=== PATIENT | male | born 1955 | race American Indian/Alaskan Native ===

== ENCOUNTER 2020-10-07 15:34 | Inpatient (IN) | payer MEDICARE, OTHER ==
[2020-10-07] MEDS ORDERED: VANCOMYCIN PHARMACY TO DOSE IV SCH (16:00)
[2020-10-07] MEDS ORDERED: CEFEPIME/NS 2 GM/100 ML 2 GM/100 ML BAG IV ONE (16:00)
[2020-10-07] MEDS ORDERED: SODIUM CHLORIDE 0.9% 1000 ML 1,000 ML IV ONE (16:04)
--- NOTE | 2020-10-07 16:26 | XRay Report ---
CHEST 1 VIEW INDICATION: shortness of breath. COMPARISON: None FINDINGS: Support devices: None. Heart: Within normal limits. Lungs/Pleura: No acute air space or interstitial disease. Additional findings: None. IMPRESSION: No acute findings. Signer Name: Bassam Mata Jr, MD Signed: 10/07/2020 4:22 PM Workstation Name: [id number]
[2020-10-07 16:55] LABS: Hematocrit 28.7 % (35.5-45.6); Hemoglobin 8.7 gm/dl (11.8-15.2); Mean Corpuscular HGB Conc 30 % (32-34); Mean Corpuscular Volume 95 fl (84-94); Platelet Count 217 K/mm3 (140-440); Red Blood Count 3.03 M/mm3 (3.65-5.03)
[2020-10-07 16:57] LABS: Red Cell Distribution Width 27.1 % (13.2-15.2)
[2020-10-07] MEDS ORDERED: VANCOMYCIN 2,000 MG in SODIUM CHLORIDE 0.9% 500 ML 500 ML IV ONE (17:00)
[2020-10-07 17:04] LABS: Bacteria,Urine 3+ /HPF (Negative); Bilirubin,Urine SM (Negative); Blood,Urine NEG (Negative); Color,Urine Amber (Yellow)
[2020-10-07 17:12] LABS: Ictotest,Urine Negative (Negative)
[2020-10-07 17:21] LABS: Calcium 8.3 mg/dL (8.4-10.2)
[2020-10-07 17:35] LABS: Chol/HDL Ratio 6.8 %
[2020-10-07 17:48] LABS: Total Cells Counted 100
[2020-10-07 17:49] LABS: Anisocytosis 3+; Dimorphic RBC Yes; Hypochromasia Few; Macrocytosis Few; Schistocytes Rare
--- NOTE | 2020-10-07 18:24 | Emergency Department Report ---
ED Altered Mental Status HPI - General Chief Complaint: Dyspnea/Respdistress Stated Complaint: AMS PUI?: No Time Seen by Provider: 10/07/20 15:51 Source: EMS Mode of arrival: Stretcher Limitations: Altered Mental Status - History of Present Illness Initial Comments: CC: altered mental status, shortness of breathi HPI: This is a 64-year-old male with history of Covid 19, multiple weakness, cognitive deficit, respiratory failure hypoxia, acute kidney failure, CVA, vein thrombosis, severe obesity, anemia, hypertension, GERD, MRSA, BPH, presents with altered mental status and shortness of breath. Patient presents from long term facility. Patient was given 2 L normal saline for dehydration. He began to have shortness of breath. Pulmonary edema but suspected by long term facility staff. Patient has been altered with decreased level of consciousness. I have reviewed medical record provided by [facility]. I have reviewed medication list. Patient is full code According to documentation patient had a chest radiograph ordered 3 days prior to arrival for low oxygen saturation. MD Complaint: altered mental status, decreased responsiveness -: Gradual, days(s) (For the past several days) Severity: severe Consistency of Symptoms: getting worse Context: other (Recent hypoxia shortness of breath) - Related Data Allergies Allergy/AdvReac Type Severity Reaction Status Date / Time No Known Allergies Allergy Unverified 10/07/20 16:12 ED Review of Systems ROS: Stated complaint: AMS Other details as noted in HPI Comment: Unobtainable due to pts medical conditions (Altered mental status) ED Past Medical Hx - Past Medical History Previous Medical History?: Yes Hx Hypertension: Yes Hx Tuberculosis: No Additional medical history: Please see HPI - Surgical History Past Surgical History?: No Additional Surgical History: No documented surgeries according to snf documentation - Social History Smoking Status: Never Smoker Substance Use Type: None ED Physical Exam - General Limitations: Altered Mental Status General appearance: lethargic, other (Mouth open, intact gag reflex, will localize pain,) - Head Head exam: Present: atraumatic, normocephalic - Eye Eye exam: Absent: scleral icterus, conjunctival injection - ENT ENT exam: Present: mucous membranes moist - Neck Neck exam: Present: normal inspection, full ROM - Respiratory Respiratory exam: Present: rales, decreased breath sounds. Absent: wheezes, rhonchi, stridor - Cardiovascular Cardiovascular Exam: Present: regular rate, normal rhythm, normal heart sounds. Absent: rubs, gallop - GI/Abdominal GI/Abdominal exam: Present: soft, normal bowel sounds. Absent: distended, tenderness, guarding, rebound - Rectal Rectal exam: Present: deferred - exam: Present: other (Iglesias catheter in place, collection bag contains dark urine with sediment) - Extremities Exam Extremities exam: Present: pedal edema, other (Lichenified skin multiple hyperpigmented papular lesions involving both lower legs) - Neurological Exam Neurological exam: Present: altered - Psychiatric Psychiatric exam: Present: flat affect - Skin Skin exam: Present: warm, dry, intact, normal color. Absent: rash ED Course Vital Signs 10/07/20 10/07/20 10/07/20 15:42 15:45 15:57 Temperature 99.9 F H Pulse Rate 89 89 90 Respiratory 24 29 H 27 H Rate Blood Pressure 96/49 96/49 O2 Sat by Pulse 100 100 100 Oximetry 10/07/20 10/07/20 10/07/20 16:01 16:07 16:15 Temperature Pulse Rate 87 87 Respiratory 21 26 H Rate Blood Pressure 97/52 94/47 O2 Sat by Pulse 100 100 100 Oximetry 10/07/20 10/07/20 10/07/20 16:31 16:45 17:01 Temperature Pulse Rate 84 84 86 Respiratory 24 23 27 H Rate Blood Pressure 84/48 97/73 77/47 O2 Sat by Pulse 100 99 100 Oximetry 10/07/20 10/07/20 10/07/20 17:15 17:31 17:45 Temperature Pulse Rate 82 80 81 Respiratory 29 H 28 H 25 H Rate Blood Pressure 77/47 85/43 82/41 O2 Sat by Pulse 100 100 100 Oximetry 10/07/20 10/07/20 10/07/20 18:01 18:15 18:31 Temperature Pulse Rate 80 82 80 Respiratory 25 H 23 21 Rate Blood Pressure 95/44 89/47 74/47 O2 Sat by Pulse 100 97 100 Oximetry 10/07/20 18:45 Temperature Pulse Rate 69 Respiratory 25 H Rate Blood Pressure 85/46 O2 Sat by Pulse 100 Oximetry - Lab Data Result diagrams: 10/07/20 16:38 10/07/20 16:38 Lab Results 03/18/21 03/18/21 03/18/21 Range/Units 16:38 16:38 16:38 WBC 14.1 H (4.5-11.0) K/mm3 RBC 3.03 L (3.65-5.03) M/mm3 Hgb 8.7 L (11.8-15.2) gm/dl Hct 28.7 L (35.5-45.6) % MCV 95 H (84-94) fl MCH 29 (28-32) pg MCHC 30 L (32-34) % RDW 27.1 H (13.2-15.2) % Plt Count 217 (140-440) K/mm3 Add Manual Diff Complete Total Counted 100 Seg Neuts % (Manual) 66.0 (40.0-70.0) % Lymphocytes % (Manual) 23.0 (13.4-35.0) % Monocytes % (Manual) 9.0 H (0.0-7.3) % Eosinophils % (Manual) 2.0 (0.0-4.3) % Nucleated RBC % Not Reportable Seg Neutrophils # Man 9.3 H (1.8-7.7) K/mm3 Band Neutrophils # 0.0 K/mm3 Lymphocytes # (Manual) 3.2 (1.2-5.4) K/mm3 Abs React Lymphs (Man) 0.0 K/mm3 Monocytes # (Manual) 1.3 H (0.0-0.8) K/mm3 Eosinophils # (Manual) 0.3 (0.0-0.4) K/mm3 Basophils # (Manual) 0.0 (0.0-0.1) K/mm3 Metamyelocytes # 0.0 K/mm3 Myelocytes # 0.0 K/mm3 Promyelocytes # 0.0 K/mm3 Blast Cells # 0.0 K/mm3 WBC Morphology Not Reportable Hypersegmented Neuts Not Reportable Hyposegmented Neuts Not Reportable Hypogranular Neuts Not Reportable Smudge Cells Not Reportable Toxic Granulation Not Reportable Toxic Vacuolation Not Reportable Dohle Bodies Not Reportable Pelger-Huet Anomaly Not Reportable Darryl Rods Not Reportable Platelet Estimate Not Reportable Clumped Platelets Not Reportable Plt Clumps, EDTA Not Reportable Large Platelets Not Reportable Giant Platelets Not Reportable Platelet Satelliting Not Reportable Plt Morphology Comment Not Reportable RBC Morphology Not Reportable Dimorphic RBCs Yes Polychromasia Not Reportable Hypochromasia Few Poikilocytosis Not Reportable Anisocytosis 3+ Microcytosis 1+ Macrocytosis Few Spherocytes Not Reportable Pappenheimer Bodies Not Reportable Sickle Cells Not Reportable Target Cells Not Reportable Tear Drop Cells Not Reportable Ovalocytes Not Reportable Helmet Cells Not Reportable Wilson-Ainsworth Bodies Not Reportable [place] Rings Not Reportable [place] Cells Not Reportable Bite Cells Not Reportable Crenated Cell Not Reportable Elliptocytes Not Reportable Acanthocytes (Spur) Not Reportable Rouleaux Not Reportable Hemoglobin C Crystals Not Reportable Schistocytes Rare Malaria parasites Not Reportable Lucas Bodies Not Reportable Hem Pathologist Commnt No PT (12.2-14.9) Sec. INR (0.87-1.13) Sodium 158 H (137-145) mmol/L Potassium 3.4 L (3.6-5.0) mmol/L Chloride 122.7 H (98-107) mmol/L Carbon Dioxide 22 (22-30) mmol/L Anion Gap 17 mmol/L BUN 30 H (9-20) mg/dL Creatinine 1.7 H (0.8-1.3) mg/dL Estimated GFR 49 ml/min BUN/Creatinine Ratio 18 % Glucose 144 H (75-100) mg/dL Lactic Acid 2.50 H* (0.7-2.0) mmol/L Calcium 8.3 L (8.4-10.2) mg/dL Total Bilirubin 1.40 H (0.1-1.2) mg/dL AST 32 (5-40) units/L ALT 18 (7-56) units/L Alkaline Phosphatase 61 (35-129) units/L Troponin T (0.00-0.029) ng/mL NT-Pro-B Natriuret Pep (0-900) pg/mL Total Protein 7.7 (6.3-8.2) g/dL Albumin 3.0 L (3.9-5) g/dL Albumin/Globulin Ratio 0.6 % Triglycerides (2-149) mg/dL Cholesterol (50-199) mg/dL LDL Cholesterol Direct (50-130) mg/dL HDL Cholesterol (40-59) mg/dL Cholesterol/HDL Ratio % Urine Color (Yellow) Urine Turbidity (Clear) Urine pH (5.0-7.0) Ur Specific [place] (1.003-1.030) Urine Protein (Negative) mg/dL Urine Glucose (UA) (Negative) mg/dL Urine Ketones (Negative) mg/dL Urine Blood (Negative) Urine Nitrite (Negative) Urine Bilirubin (Negative) Urine Ictotest (Negative) Urine Urobilinogen (<2.0) mg/dL Ur Leukocyte Esterase (Negative) Urine WBC (Auto) (0.0-6.0) /HPF Urine RBC (Auto) (0.0-6.0) /HPF Urine Bacteria (Auto) (Negative) /HPF Urine WBC Clumps /HPF Urine Yeast (Budding) /HPF 10/07/20 10/07/20 10/07/20 Range/Units 16:38 16:38 18:17 WBC (4.5-11.0) K/mm3 RBC (3.65-5.03) M/mm3 Hgb (11.8-15.2) gm/dl Hct (35.5-45.6) % MCV (84-94) fl MCH (28-32) pg MCHC (32-34) % RDW (13.2-15.2) % Plt Count (140-440) K/mm3 Add Manual Diff Total Counted Seg Neuts % (Manual) (40.0-70.0) % Lymphocytes % (Manual) (13.4-35.0) % Monocytes % (Manual) (0.0-7.3) % Eosinophils % (Manual) (0.0-4.3) % Nucleated RBC % Seg Neutrophils # Man (1.8-7.7) K/mm3 Band Neutrophils # K/mm3 Lymphocytes # (Manual) (1.2-5.4) K/mm3 Abs React Lymphs (Man) K/mm3 Monocytes # (Manual) (0.0-0.8) K/mm3 Eosinophils # (Manual) (0.0-0.4) K/mm3 Basophils # (Manual) (0.0-0.1) K/mm3 Metamyelocytes # K/mm3 Myelocytes # K/mm3 Promyelocytes # K/mm3 Blast Cells # K/mm3 WBC Morphology Hypersegmented Neuts Hyposegmented Neuts Hypogranular Neuts Smudge Cells Toxic Granulation Toxic Vacuolation Dohle Bodies Pelger-Huet Anomaly Darryl Rods Platelet Estimate Clumped Platelets Plt Clumps, EDTA Large Platelets Giant Platelets Platelet Satelliting Plt Morphology Comment RBC Morphology Dimorphic RBCs Polychromasia Hypochromasia Poikilocytosis Anisocytosis Microcytosis Macrocytosis Spherocytes Pappenheimer Bodies Sickle Cells Target Cells Tear Drop Cells Ovalocytes Helmet Cells Wilson-Ainsworth Bodies [place] Rings [place] Cells Bite Cells Crenated Cell Elliptocytes Acanthocytes (Spur) Rouleaux Hemoglobin C Crystals Schistocytes Malaria parasites Lucas Bodies Hem Pathologist Commnt PT 32.7 H (12.2-14.9) Sec. INR 3.17 H (0.87-1.13) Sodium (137-145) mmol/L Potassium (3.6-5.0) mmol/L Chloride (98-107) mmol/L Carbon Dioxide (22-30) mmol/L Anion Gap mmol/L BUN (9-20) mg/dL Creatinine (0.8-1.3) mg/dL Estimated GFR ml/min BUN/Creatinine Ratio % Glucose (75-100) mg/dL Lactic Acid (0.7-2.0) mmol/L Calcium (8.4-10.2) mg/dL Total Bilirubin (0.1-1.2) mg/dL AST (5-40) units/L ALT (7-56) units/L Alkaline Phosphatase (35-129) units/L Troponin T 0.087 H (0.00-0.029) ng/mL NT-Pro-B Natriuret Pep 2155 H (0-900) pg/mL Total Protein (6.3-8.2) g/dL Albumin (3.9-5) g/dL Albumin/Globulin Ratio % Triglycerides 193 H (2-149) mg/dL Cholesterol 136 (50-199) mg/dL LDL Cholesterol Direct 82 (50-130) mg/dL HDL Cholesterol 20 L (40-59) mg/dL Cholesterol/HDL Ratio 6.80 % Urine Color (Yellow) Urine Turbidity (Clear) Urine pH (5.0-7.0) Ur Specific [place] (1.003-1.030) Urine Protein (Negative) mg/dL Urine Glucose (UA) (Negative) mg/dL Urine Ketones (Negative) mg/dL Urine Blood (Negative) Urine Nitrite (Negative) Urine Bilirubin (Negative) Urine Ictotest (Negative) Urine Urobilinogen (<2.0) mg/dL Ur Leukocyte Esterase (Negative) Urine WBC (Auto) (0.0-6.0) /HPF Urine RBC (Auto) (0.0-6.0) /HPF Urine Bacteria (Auto) (Negative) /HPF Urine WBC Clumps /HPF Urine Yeast (Budding) /HPF 10/07/20 Range/Units Unknown WBC (4.5-11.0) K/mm3 RBC (3.65-5.03) M/mm3 Hgb (11.8-15.2) gm/dl Hct (35.5-45.6) % MCV (84-94) fl MCH (28-32) pg MCHC (32-34) % RDW (13.2-15.2) % Plt Count (140-440) K/mm3 Add Manual Diff Total Counted Seg Neuts % (Manual) (40.0-70.0) % Lymphocytes % (Manual) (13.4-35.0) % Monocytes % (Manual) (0.0-7.3) % Eosinophils % (Manual) (0.0-4.3) % Nucleated RBC % Seg Neutrophils # Man (1.8-7.7) K/mm3 Band Neutrophils # K/mm3 Lymphocytes # (Manual) (1.2-5.4) K/mm3 Abs React Lymphs (Man) K/mm3 Monocytes # (Manual) (0.0-0.8) K/mm3 Eosinophils # (Manual) (0.0-0.4) K/mm3 Basophils # (Manual) (0.0-0.1) K/mm3 Metamyelocytes # K/mm3 Myelocytes # K/mm3 Promyelocytes # K/mm3 Blast Cells # K/mm3 WBC Morphology Hypersegmented Neuts Hyposegmented Neuts Hypogranular Neuts Smudge Cells Toxic Granulation Toxic Vacuolation Dohle Bodies Pelger-Huet Anomaly Darryl Rods Platelet Estimate Clumped Platelets Plt Clumps, EDTA Large Platelets Giant Platelets Platelet Satelliting Plt Morphology Comment RBC Morphology Dimorphic RBCs Polychromasia Hypochromasia Poikilocytosis Anisocytosis Microcytosis Macrocytosis Spherocytes Pappenheimer Bodies Sickle Cells Target Cells Tear Drop Cells Ovalocytes Helmet Cells Wilson-Ainsworth Bodies [place] Rings Chris Cells Bite Cells Crenated Cell Elliptocytes Acanthocytes (Spur) Rouleaux Hemoglobin C Crystals Schistocytes Malaria parasites Lucas Bodies Hem Pathologist Commnt PT (12.2-14.9) Sec. INR (0.87-1.13) Sodium (137-145) mmol/L Potassium (3.6-5.0) mmol/L Chloride (98-107) mmol/L Carbon Dioxide (22-30) mmol/L Anion Gap mmol/L BUN (9-20) mg/dL Creatinine (0.8-1.3) mg/dL Estimated GFR ml/min BUN/Creatinine Ratio % Glucose (75-100) mg/dL Lactic Acid (0.7-2.0) mmol/L Calcium (8.4-10.2) mg/dL Total Bilirubin (0.1-1.2) mg/dL AST (5-40) units/L ALT (7-56) units/L Alkaline Phosphatase (35-129) units/L Troponin T (0.00-0.029) ng/mL NT-Pro-B Natriuret Pep (0-900) pg/mL Total Protein (6.3-8.2) g/dL Albumin (3.9-5) g/dL Albumin/Globulin Ratio % Triglycerides (2-149) mg/dL Cholesterol (50-199) mg/dL LDL Cholesterol Direct (50-130) mg/dL HDL Cholesterol (40-59) mg/dL Cholesterol/HDL Ratio % Urine Color [place] (Yellow) Urine Turbidity Turbid (Clear) Urine pH 7.0 (5.0-7.0) Ur Specific [place] 1.020 (1.003-1.030) Urine Protein 100 mg/dl (Negative) mg/dL Urine Glucose (UA) Neg (Negative) mg/dL Urine Ketones Neg (Negative) mg/dL Urine Blood Neg (Negative) Urine Nitrite Neg (Negative) Urine Bilirubin Sm (Negative) Urine Ictotest Negative (Negative) Urine Urobilinogen 4.0 (<2.0) mg/dL Ur Leukocyte Esterase Lg (Negative) Urine WBC (Auto) 111.0 H (0.0-6.0) /HPF Urine RBC (Auto) 40.0 (0.0-6.0) /HPF Urine Bacteria (Auto) 3+ (Negative) /HPF Urine WBC Clumps 2+ /HPF Urine Yeast (Budding) 3+ /HPF - Radiology Data Radiology results: report reviewed CHEST 1 VIEW INDICATION: shortness of breath. COMPARISON: None FINDINGS: Support devices: None. Heart: Within normal limits. Lungs/Pleura: No acute air space or interstitial disease. Additional findings: None. IMPRESSION: No acute findings. Signer Name: Bassam Lise Mata Jr, MD Signed: 10/07/2020 3:22 PM Workstation Name: [id number] - Medical Decision Making 1. Acute respiratory failure hypoxia: Patient maintaining oxygen saturation with nasal cannula. No significant x-ray findings of pulmonary edema or pneumonia considerations COPD versus obesity hypoventilation syndrome. Patient is maintaining airway. Does not require intubation. 2. UTI septic shock sepsis protocol initiated upon arrival. Patient has chronic indwelling Iglesias catheter. 3. Hypovolemic hypernatremia: Volume resuscitation initiated with IVF 4. Acute encephalopathy attributed to delirium infection I have reviewed labs: Notable for hyponatremia, hypochloremia, acute or chronic kidney injury, lactic acidosis, elevated BNP, troponin elevation attributed to cardiomyopathy versus decreased kidney function. Urinalysis confirms UTI. Critical Care Time: Yes Critical care time in (mins) excluding proc time.: 40 Critical care attestation.: If time is entered above; I have spent that time in minutes in the direct care of this critically ill patient, excluding procedure time. 40 minutes of critical care time excluding procedures were used in the care of the patient. I came immediately to the bedside upon patient's arrival. I obtained history from EMS at the bedside. I discussed treatment plan with the nursing team members. I reviewed electronic record. I reviewed long term facility documentation. Patient required multiple interventions and reassessments. ED Disposition Clinical Impression: Acute respiratory failure, Septic shock, UTI (urinary tract infection), Acute encephalopathy Disposition: OP ADMIT IP TO THIS HOSP Is pt being admited?: Yes Does the pt Need Aspirin: No Condition: Fair Referrals: CHAKA FUNEZ MD [Primary Care Provider] - 3-5 Days
[2020-10-07 18:37] LABS: INR 3.17 (0.87-1.13)
--- NOTE | 2020-10-07 19:05 | History and Physical Report ---
History of Present Illness Chief complaint: He is getting sick History of present illness: 64 YO Male [facility] Facility Resident as [facility] with Obesity Hypoventilation Syndrome, Cerebral Atherosclerosis, Chronic Respiratory Failure, CVA, Anemia of Chronic Disease, GERD, HTN,DVT, Vascular Dementia presents to ED for evaluation. Patient is confused with diminished cognition and is unable to provide history. Patient history taken from EMS staff, ED staff, as well as custodial facility staff. As per staff the patient has experienced increased confusion, and increased weakness over the past 2 days with worsening symptoms over the past 1 day. EMS was notified and upon arrival the patient was found to be in distress and subsequently transported to [facility] for further care and evaluation of the aforementioned symptoms. The patient was seen and evaluated in the emergency department. All lab and imaging studies reviewed. Patient found to have urinary tract infection complicated by sepsis, metabolic acidosis, acute kidney injury, as well as toxic metabolic encephalopathy. Patient admitted to [facility] and initiated on sepsis protocol. Patient is confused and lethargic but has a positive gag reflex and is able to protect his airway without difficulty. Advanced care planning conducted in ED. Past History Past Medical History: GERD, hypertension, stroke, other (See HPI) Past Surgical History: No surgical history, Other (Reviewed) Social history: . denies: smoking, alcohol abuse, prescription drug abuse Family history: diabetes, hypertension Medications and Allergies Allergies Allergy/AdvReac Type Severity Reaction Status Date / Time No Known Allergies Allergy Unverified 10/07/20 16:12 Review of Systems ROS unobtainable: due to mental status Exam - Constitutional Vitals: Temp Pulse Resp BP Pulse Ox 99.9 F H 69 25 H 85/46 100 10/07/20 15:57 10/07/20 18:45 10/07/20 18:45 10/07/20 18:45 10/07/20 18:45 General appearance: Present: mild distress - EENT Eyes: Present: PERRL ENT: clear oral mucosa, hearing decreased - Neck Neck: Present: supple, normal ROM - Respiratory Respiratory effort: labored Respiratory: bilateral: diminished, rhonchi - Cardiovascular Heart Sounds: Present: S1 & S2. Absent: rub, click - Extremities Extremity abnormal: edema Peripheral Pulses: abnormal (Capillary refill greater than 3.5 seconds) - Abdominal General gastrointestinal: Present: soft, non-tender, non-distended, normal bowel sounds Male genitourinary: Present: normal - Integumentary Integumentary: Present: warm, dry, clammy, decreased turgor - Musculoskeletal Musculoskeletal: generalized weakness - Psychiatric Psychiatric: no appropriate mood/affect, no intact judgment & insight, no memory intact - Neurologic Neurologic: CNII-XII intact, moves all extremities, no gait normal HEART Score - HEART Score Troponin: Troponin T 0.087 ng/mL (0.00-0.029) H 10/07/20 16:38 Results - Labs CBC & Chem 7: 10/07/20 16:38 10/07/20 16:38 Labs: Abnormal lab results 10/07/20 10/07/20 10/07/20 Range/Units 16:38 16:38 16:38 WBC 14.1 H (4.5-11.0) K/mm3 RBC 3.03 L (3.65-5.03) M/mm3 Hgb 8.7 L (11.8-15.2) gm/dl Hct 28.7 L (35.5-45.6) % MCV 95 H (84-94) fl MCHC 30 L (32-34) % RDW 27.1 H (13.2-15.2) % Monocytes % (Manual) 9.0 H (0.0-7.3) % Seg Neutrophils # Man 9.3 H (1.8-7.7) K/mm3 Monocytes # (Manual) 1.3 H (0.0-0.8) K/mm3 PT (12.2-14.9) Sec. INR (0.87-1.13) Sodium 158 H (137-145) mmol/L Potassium 3.4 L (3.6-5.0) mmol/L Chloride 122.7 H (98-107) mmol/L BUN 30 H (9-20) mg/dL Creatinine 1.7 H (0.8-1.3) mg/dL Glucose 144 H (75-100) mg/dL Lactic Acid 2.50 H* (0.7-2.0) mmol/L Calcium 8.3 L (8.4-10.2) mg/dL Total Bilirubin 1.40 H (0.1-1.2) mg/dL Troponin T (0.00-0.029) ng/mL NT-Pro-B Natriuret Pep (0-900) pg/mL Albumin 3.0 L (3.9-5) g/dL Triglycerides (2-149) mg/dL HDL Cholesterol (40-59) mg/dL Urine WBC (Auto) (0.0-6.0) /HPF 10/07/20 10/07/20 10/07/20 Range/Units 16:38 16:38 18:17 WBC (4.5-11.0) K/mm3 RBC (3.65-5.03) M/mm3 Hgb (11.8-15.2) gm/dl Hct (35.5-45.6) % MCV (84-94) fl MCHC (32-34) % RDW (13.2-15.2) % Monocytes % (Manual) (0.0-7.3) % Seg Neutrophils # Man (1.8-7.7) K/mm3 Monocytes # (Manual) (0.0-0.8) K/mm3 PT 32.7 H (12.2-14.9) Sec. INR 3.17 H (0.87-1.13) Sodium (137-145) mmol/L Potassium (3.6-5.0) mmol/L Chloride (98-107) mmol/L BUN (9-20) mg/dL Creatinine (0.8-1.3) mg/dL Glucose (75-100) mg/dL Lactic Acid (0.7-2.0) mmol/L Calcium (8.4-10.2) mg/dL Total Bilirubin (0.1-1.2) mg/dL Troponin T 0.087 H (0.00-0.029) ng/mL NT-Pro-B Natriuret Pep 2155 H (0-900) pg/mL Albumin (3.9-5) g/dL Triglycerides 193 H (2-149) mg/dL HDL Cholesterol 20 L (40-59) mg/dL Urine WBC (Auto) (0.0-6.0) /HPF 10/07/20 Range/Units Unknown WBC (4.5-11.0) K/mm3 RBC (3.65-5.03) M/mm3 Hgb (11.8-15.2) gm/dl Hct (35.5-45.6) % MCV (84-94) fl MCHC (32-34) % RDW (13.2-15.2) % Monocytes % (Manual) (0.0-7.3) % Seg Neutrophils # Man (1.8-7.7) K/mm3 Monocytes # (Manual) (0.0-0.8) K/mm3 PT (12.2-14.9) Sec. INR (0.87-1.13) Sodium (137-145) mmol/L Potassium (3.6-5.0) mmol/L Chloride (98-107) mmol/L BUN (9-20) mg/dL Creatinine (0.8-1.3) mg/dL Glucose (75-100) mg/dL Lactic Acid (0.7-2.0) mmol/L Calcium (8.4-10.2) mg/dL Total Bilirubin (0.1-1.2) mg/dL Troponin T (0.00-0.029) ng/mL NT-Pro-B Natriuret Pep (0-900) pg/mL Albumin (3.9-5) g/dL Triglycerides (2-149) mg/dL HDL Cholesterol (40-59) mg/dL Urine WBC (Auto) 111.0 H (0.0-6.0) /HPF Assessment and Plan - Patient Problems (1) Sepsis Current Visit: Yes Status: Acute Qualifiers: Acute renal failure type: with acute tubular necrosis Plan to address problem: Sepsis protocol: CBC, CMP, chest x-ray, urinalysis, IV antibiotic therapy, supplemental oxygen, pulse oximetry, monitor urine output every shift, serial lactic acid level, maintain mean arterial pressure greater than or equal to 65 (2) Toxic metabolic encephalopathy Current Visit: Yes Status: Acute Plan to address problem: Seizure precautions, aspiration precautions, neuro check, treat sepsis, (3) Obesity hypoventilation syndrome Current Visit: Yes Status: Acute Plan to address problem: Balanced diet, increase physical activity at discharge, outpatient pulmonary follow-up for sleep study. (4) Acute kidney injury ([place]) with acute tubular necrosis ([facility]) Current Visit: Yes Status: Acute Plan to address problem: IV fluid resuscitation therapy, monitor urine output every shift, BMP, repeat BMP in a.m., monitor serum creatinine as well as GFR (5) Debility Current Visit: Yes Status: Acute Plan to address problem: Physical therapy consulted, fall precautions. (6) Vascular dementia Current Visit: Yes Status: Acute Qualifiers: Dementia behavioral disturbance: without behavioral disturbance Qualified Code(s): F01.50 - Vascular dementia without behavioral disturbance Plan to address problem: Verbal prompting, verbal redirection, benzodiazepine therapy as clinically indicated. (7) Cerebral atherosclerosis Current Visit: Yes Status: Acute Plan to address problem: Risk factor reduction, supportive care, antiplatelet therapy as clinically indicated. (8) UTI (urinary tract infection) Current Visit: Yes Status: Acute Qualifiers: Encounter type: initial encounter Plan to address problem: CBC, CMP, urinalysis, IV antibiotic therapy, (9) DVT prophylaxis Current Visit: Yes Status: Acute Plan to address problem: SCD to bilateral lower extremities while in bed, prophylactic anticoagulation (10) Advance care planning Current Visit: Yes Status: Acute Plan to address problem: Disease education conducted, patient is full code, care plan discussed, prognosis discussed, +30 minutes.
[2020-10-07] MEDS ORDERED: HYDROmorphone 1 MG/1 ML INJ IV PRN (19:06)
[2020-10-07] MEDS ORDERED: ACETAMINOPHEN 325 MG TAB PO PRN ×2 (19:06)
[2020-10-07] MEDS ORDERED: ALBUTEROL 2.5 MG/3 ML NEBU IH PRN (19:06)
[2020-10-07] MEDS ORDERED: SODIUM CHLORIDE 0.9% 1000 ML IV SOLN IV ONE (19:06)
[2020-10-07] MEDS ORDERED: ONDANSETRON 4 MG/2 ML INJ IV PRN (19:06)
[2020-10-07] MEDS: CEFEPIME/NS 2 GM/100 ML 2 GM/100 ML BAG IV SCH (20:42)
[2020-10-07] MEDS ORDERED: SODIUM CHLORIDE 0.9% 1000 ML 2,000 ML ONE (21:53)
[2020-10-07] MEDS ORDERED: NORepinephrine/NS 4 MG-250 ML 4 MG/250 ML BAG IV ONE (23:06)
[2020-10-07] MEDS: NORepinephrine/NS 4 MG-250 ML 4 MG/250 ML BAG IV SCH (23:30)
[2020-10-08 03:07] LABS: Hematocrit 26.2 % (35.5-45.6); Hemoglobin 8.1 gm/dl (11.8-15.2); Mean Corpuscular HGB Conc 31 % (32-34); Mean Corpuscular Volume 94 fl (84-94); Platelet Count 228 K/mm3 (140-440); Red Blood Count 2.79 M/mm3 (3.65-5.03)
[2020-10-08 03:10] LABS: Red Cell Distribution Width 27.7 % (13.2-15.2)
[2020-10-08 03:11] LABS: Basophils % (Auto) 0.3 % (0.0-1.8); Eosinophils # (Auto) 0.1 K/mm3 (0.0-0.4); Lymphocytes # (Auto) 2.9 K/mm3 (1.2-5.4); Lymphocytes % (Auto) 21.4 % (13.4-35.0); Monocytes # (Auto) 0.9 K/mm3 (0.0-0.8); Monocytes % (Auto) 6.7 % (0.0-7.3)
[2020-10-08 03:31] LABS: Calcium 7.1 mg/dL (8.4-10.2)
[2020-10-08] MEDS: CEFEPIME/NS 2 GM/100 ML 2 GM/100 ML BAG IV SCH ×2 (08:19→20:38)
--- NOTE | 2020-10-08 10:48 | Progress Note ---
Assessment and Plan Assessment and plan: Sepsis Toxic metabolic encephalopathy Obesity hypoventilation syndrome Acute kidney injury. Etiology secondary to ATN General debility. Vascular dementia. Cerebral atherosclerosis UTI. 10/08: Continue IV antibiotics and IV fluid hydration. Consult ID for further evaluation. History Interval history: No new issues Hospitalist Physical - Constitutional Vitals: Temp Pulse Resp BP Pulse Ox 97.4 F L 65 21 95/45 75 L 10/08/20 08:00 10/08/20 08:01 10/08/20 08:01 10/08/20 08:01 10/08/20 08:01 General appearance: Present: mild distress - EENT Eyes: Present: PERRL, EOM intact ENT: hearing intact, clear oral mucosa, dentition normal - Neck Neck: Present: supple, normal ROM - Respiratory Respiratory effort: normal Respiratory: bilateral: CTA - Cardiovascular Rhythm: regular Heart Sounds: Present: S1 & S2. Absent: gallop, rub - Extremities Extremities: no ischemia, No edema, Full ROM - Abdominal General gastrointestinal: soft, non-tender, non-distended, normal bowel sounds - Integumentary Integumentary: Present: clear, warm, dry - Neurologic Neurologic: CNII-XII intact, moves all extremities HEART Score - HEART Score Troponin: Troponin T 0.087 ng/mL (0.00-0.029) H 10/07/20 16:38 Results - Labs CBC & Chem 7: 10/08/20 02:53 10/08/20 02:53 Labs: Laboratory Last Values WBC 13.4 K/mm3 (4.5-11.0) H 10/08/20 02:53 RBC 2.79 M/mm3 (3.65-5.03) L 10/08/20 02:53 Hgb 8.1 gm/dl (11.8-15.2) L 10/08/20 02:53 Hct 26.2 % (35.5-45.6) L 10/08/20 02:53 MCV 94 fl (84-94) 10/08/20 02:53 MCH 29 pg (28-32) 10/08/20 02:53 MCHC 31 % (32-34) L 10/08/20 02:53 RDW 27.7 % (13.2-15.2) H 10/08/20 02:53 Plt Count 228 K/mm3 (140-440) 10/08/20 02:53 Lymph % (Auto) 21.4 % (13.4-35.0) 10/08/20 02:53 [place] % (Auto) 6.7 % (0.0-7.3) 10/08/20 02:53 Eos % (Auto) 1.0 % (0.0-4.3) 10/08/20 02:53 Baso % (Auto) 0.3 % (0.0-1.8) 10/08/20 02:53 Lymph # (Auto) 2.9 K/mm3 (1.2-5.4) 10/08/20 02:53 [place] # (Auto) 0.9 K/mm3 (0.0-0.8) H 10/08/20 02:53 Eos # (Auto) 0.1 K/mm3 (0.0-0.4) 10/08/20 02:53 Baso # (Auto) 0.0 K/mm3 (0.0-0.1) 10/08/20 02:53 Add Manual Diff Complete 10/07/20 16:38 Total Counted 100 10/07/20 16:38 Seg Neutrophils % 70.6 % (40.0-70.0) H 10/08/20 02:53 Seg Neuts % (Manual) 66.0 % (40.0-70.0) 10/07/20 16:38 Lymphocytes % (Manual) 23.0 % (13.4-35.0) 10/07/20 16:38 Monocytes % (Manual) 9.0 % (0.0-7.3) H 10/07/20 16:38 Eosinophils % (Manual) 2.0 % (0.0-4.3) 10/07/20 16:38 Nucleated RBC % Not Reportable 10/07/20 16:38 Seg Neutrophils # 9.4 K/mm3 (1.8-7.7) H 10/08/20 02:53 Seg Neutrophils # Man 9.3 K/mm3 (1.8-7.7) H 10/07/20 16:38 Band Neutrophils # 0.0 K/mm3 10/07/20 16:38 Lymphocytes # (Manual) 3.2 K/mm3 (1.2-5.4) 10/07/20 16:38 Abs React Lymphs (Man) 0.0 K/mm3 10/07/20 16:38 Monocytes # (Manual) 1.3 K/mm3 (0.0-0.8) H 10/07/20 16:38 Eosinophils # (Manual) 0.3 K/mm3 (0.0-0.4) 10/07/20 16:38 Basophils # (Manual) 0.0 K/mm3 (0.0-0.1) 10/07/20 16:38 Metamyelocytes # 0.0 K/mm3 10/07/20 16:38 Myelocytes # 0.0 K/mm3 10/07/20 16:38 Promyelocytes # 0.0 K/mm3 10/07/20 16:38 Blast Cells # 0.0 K/mm3 10/07/20 16:38 WBC Morphology Not Reportable 10/07/20 16:38 Hypersegmented Neuts Not Reportable 10/07/20 16:38 Hyposegmented Neuts Not Reportable 10/07/20 16:38 Hypogranular Neuts Not Reportable 10/07/20 16:38 Smudge Cells Not Reportable 10/07/20 16:38 Toxic Granulation Not Reportable 10/07/20 16:38 Toxic Vacuolation Not Reportable 10/07/20 16:38 Dohle Bodies Not Reportable 10/07/20 16:38 Pelger-Huet Anomaly Not Reportable 10/07/20 16:38 Darryl Rods Not Reportable 10/07/20 16:38 Platelet Estimate Not Reportable 10/07/20 16:38 Clumped Platelets Not Reportable 10/07/20 16:38 Plt Clumps, EDTA Not Reportable 10/07/20 16:38 Large Platelets Not Reportable 10/07/20 16:38 Giant Platelets Not Reportable 10/07/20 16:38 Platelet Satelliting Not Reportable 10/07/20 16:38 Plt Morphology Comment Not Reportable 10/07/20 16:38 RBC Morphology Not Reportable 10/07/20 16:38 Dimorphic RBCs Yes 10/07/20 16:38 Polychromasia Not Reportable 10/07/20 16:38 Hypochromasia Few 10/07/20 16:38 Poikilocytosis Not Reportable 10/07/20 16:38 Anisocytosis 3+ 10/07/20 16:38 Microcytosis 1+ 10/07/20 16:38 Macrocytosis Few 10/07/20 16:38 Spherocytes Not Reportable 10/07/20 16:38 Pappenheimer Bodies Not Reportable 10/07/20 16:38 Sickle Cells Not Reportable 10/07/20 16:38 Target Cells Not Reportable 10/07/20 16:38 Tear Drop Cells Not Reportable 10/07/20 16:38 Ovalocytes Not Reportable 10/07/20 16:38 Helmet Cells Not Reportable 10/07/20 16:38 [place] Bodies Not Reportable 10/07/20 16:38 [place] Rings Not Reportable 10/07/20 16:38 [place] Cells Not Reportable 10/07/20 16:38 Bite Cells Not Reportable 10/07/20 16:38 Crenated Cell Not Reportable 10/07/20 16:38 Elliptocytes Not Reportable 10/07/20 16:38 Acanthocytes (Spur) Not Reportable 10/07/20 16:38 Rouleaux Not Reportable 10/07/20 16:38 Hemoglobin C Crystals Not Reportable 10/07/20 16:38 Schistocytes Rare 10/07/20 16:38 Malaria parasites Not Reportable 10/07/20 16:38 Lucas Bodies Not Reportable 10/07/20 16:38 Hem Pathologist Commnt No 10/07/20 16:38 PT 32.7 Sec. (12.2-14.9) H 10/07/20 18:17 INR 3.17 (0.87-1.13) H 10/07/20 18:17 Sodium 159 mmol/L (137-145) H 10/08/20 02:53 Potassium 2.7 mmol/L (3.6-5.0) L* D 10/08/20 02:53 Chloride 127.9 mmol/L (98-107) H 10/08/20 02:53 Carbon Dioxide 20 mmol/L (22-30) L 10/08/20 02:53 Anion Gap 14 mmol/L 10/08/20 02:53 BUN 27 mg/dL (9-20) H 10/08/20 02:53 Creatinine 1.5 mg/dL (0.8-1.3) H 10/08/20 02:53 Estimated GFR 57 ml/min 10/08/20 02:53 BUN/Creatinine Ratio 18 % 10/08/20 02:53 Glucose 156 mg/dL (75-100) H 10/08/20 02:53 Lactic Acid 1.50 mmol/L (0.7-2.0) 10/08/20 02:53 Calcium 7.1 mg/dL (8.4-10.2) L 10/08/20 02:53 Total Bilirubin 1.40 mg/dL (0.1-1.2) H 10/07/20 16:38 AST 32 units/L (5-40) 10/07/20 16:38 ALT 18 units/L (7-56) 10/07/20 16:38 Alkaline Phosphatase 61 units/L (35-129) 10/07/20 16:38 Troponin T 0.087 ng/mL (0.00-0.029) H 10/07/20 16:38 NT-Pro-B Natriuret Pep 2155 pg/mL (0-900) H 10/07/20 16:38 Total Protein 7.7 g/dL (6.3-8.2) 10/07/20 16:38 Albumin 3.0 g/dL (3.9-5) L 10/07/20 16:38 Albumin/Globulin Ratio 0.6 % 10/07/20 16:38 Triglycerides 193 mg/dL (2-149) H 10/07/20 16:38 Cholesterol 136 mg/dL (50-199) 10/07/20 16:38 LDL Cholesterol Direct 82 mg/dL (50-130) 10/07/20 16:38 HDL Cholesterol 20 mg/dL (40-59) L 10/07/20 16:38 Cholesterol/HDL Ratio 6.80 % 10/07/20 16:38 Urine Color Sonal (Yellow) 10/07/20 Unknown Urine Turbidity Turbid (Clear) 10/07/20 Unknown Urine pH 7.0 (5.0-7.0) 10/07/20 Unknown Ur Specific [place] 1.020 (1.003-1.030) 10/07/20 Unknown Urine Protein 100 mg/dl mg/dL (Negative) 10/07/20 Unknown Urine Glucose (UA) Neg mg/dL (Negative) 10/07/20 Unknown Urine Ketones Neg mg/dL (Negative) 10/07/20 Unknown Urine Blood Neg (Negative) 10/07/20 Unknown Urine Nitrite Neg (Negative) 10/07/20 Unknown Urine Bilirubin Sm (Negative) 10/07/20 Unknown Urine Ictotest Negative (Negative) 10/07/20 Unknown Urine Urobilinogen 4.0 mg/dL (<2.0) 10/07/20 Unknown Ur Leukocyte Esterase Lg (Negative) 10/07/20 Unknown Urine WBC (Auto) 111.0 /HPF (0.0-6.0) H 10/07/20 Unknown Urine RBC (Auto) 40.0 /HPF (0.0-6.0) 10/07/20 Unknown Urine Bacteria (Auto) 3+ /HPF (Negative) 10/07/20 Unknown Urine WBC Clumps 2+ /HPF 10/07/20 Unknown Urine Yeast (Budding) 3+ /HPF 10/07/20 Unknown Microbiology: Microbiology 10/07/20 16:38 Peripheral/Venous Blood Culture - Preliminary Culture in Progress 10/07/20 16:38 Peripheral/Venous Blood Culture - Preliminary Culture in Progress Active Medications - Current Medications Current Medications: Generic Name Dose Route Start Last Admin Trade Name Freq PRN Reason Stop Dose Admin Acetaminophen 650 mg 10/07/20 19:06 Acetaminophen 325 Mg Tab PO Q4H PRN Pain MILD(1-3)/Fever >100.5/RAM Albuterol 2.5 mg 10/07/20 19:06 Albuterol 2.5 Mg/3 Ml Nebu IH Q4H PRN Shortness Of Breath Hydromorphone HCl 0.25 mg 10/07/20 19:06 Hydromorphone 1 Mg/1 Ml Inj IV Q4H PRN Pain, Moderate (4-6) Cefepime HCl 2 gm in 100 mls @ 200 mls/hr 10/07/20 20:00 10/08/20 08:19 Cefepime/Ns 2 Gm/100 Ml IV 200 mls/hr Q12H LISA Administration Protocol Norepinephrine 4 mg in 250 mls @ 7.5 mls/hr 10/07/20 23:00 10/08/20 08:15 Levophed Drip 4 Mg/Ns 250 Ml IV 2 mcg/min TITR LISA 7.5 mls/hr Titration Protocol 2 MCG/MIN Ondansetron HCl 4 mg 10/07/20 19:06 Ondansetron 4 Mg/2 Ml Inj IV Q8H PRN Nausea And Vomiting Sodium Chloride 10 ml 10/07/20 22:00 10/08/20 02:38 Sodium Chloride 0.9% 10 Ml Flush Syringe IV 10 ml BID LISA Administration Sodium Chloride 10 ml 10/07/20 19:06 Sodium Chloride 0.9% 10 Ml Flush Syringe IV PRN PRN LINE FLUSH
--- NOTE | 2020-10-08 13:12 | Consultation ---
History of Present Illness Consult date: 10/08/20 Requesting physician: LITA MÉNDEZ Reason for consult: other (Seveer Sepsis with Shock) History of present illness: PULMONARY/CCM CONSULT NOTE (Full dictation # [id number]) Please see dictated notes for full details Past History Past Medical History: GERD, hypertension, stroke, other (See HPI) Past Surgical History: No surgical history, Other (Reviewed) Social history: . denies: smoking, alcohol abuse, prescription drug abuse Family history: diabetes, hypertension Medications and Allergies Allergies Allergy/AdvReac Type Severity Reaction Status Date / Time No Known Allergies Allergy Unverified 10/07/20 16:12 Active Meds: Active Medications Acetaminophen (Acetaminophen 325 Mg Tab) 650 mg PO Q4H PRN PRN Reason: Pain MILD(1-3)/Fever >100.5/RAM Albuterol (Albuterol 2.5 Mg/3 Ml Nebu) 2.5 mg IH Q4H PRN PRN Reason: Shortness Of Breath Hydromorphone HCl (Hydromorphone 1 Mg/1 Ml Inj) 0.25 mg IV Q4H PRN PRN Reason: Pain, Moderate (4-6) Cefepime HCl (Cefepime/Ns 2 Gm/100 Ml) 2 gm in 100 mls @ 200 mls/hr IV Q12H LISA; Protocol Last Admin: 10/08/20 08:19 Dose: 200 mls/hr Documented by: Norepinephrine (Levophed Drip 4 Mg/Ns 250 Ml) 4 mg in 250 mls @ 7.5 mls/hr IV TITR LISA; Protocol Last Titration: 10/08/20 08:15 Dose: 2 mcg/min, 7.5 mls/hr Documented by: Ondansetron HCl (Ondansetron 4 Mg/2 Ml Inj) 4 mg IV Q8H PRN PRN Reason: Nausea And Vomiting Sodium Chloride (Sodium Chloride 0.9% 10 Ml Flush Syringe) 10 ml IV BID LISA Last Admin: 10/08/20 02:38 Dose: 10 ml Documented by: Sodium Chloride (Sodium Chloride 0.9% 10 Ml Flush Syringe) 10 ml IV PRN PRN PRN Reason: LINE FLUSH Physical Examination Vital signs: Vital Signs Pulse Resp Pulse Ox 89 24 100 10/07/20 15:42 10/07/20 15:42 10/07/20 15:42 Results - Laboratory Findings CBC and BMP: 10/08/20 02:53 10/08/20 02:53 PT/INR, D-dimer PT 32.7 Sec. (12.2-14.9) H 10/07/20 18:17 INR 3.17 (0.87-1.13) H 10/07/20 18:17 Abnormal lab findings: Abnormal Labs 10/07/20 10/07/20 10/07/20 16:38 16:38 16:38 WBC 14.1 H RBC 3.03 L Hgb 8.7 L Hct 28.7 L MCV 95 H MCHC 30 L RDW 27.1 H [place] # (Auto) Seg Neutrophils % Monocytes % (Manual) 9.0 H Seg Neutrophils # Seg Neutrophils # Man 9.3 H Monocytes # (Manual) 1.3 H PT INR Sodium 158 H Potassium 3.4 L Chloride 122.7 H Carbon Dioxide BUN 30 H Creatinine 1.7 H Glucose 144 H Lactic Acid 2.50 H* Calcium 8.3 L Total Bilirubin 1.40 H Troponin T NT-Pro-B Natriuret Pep Albumin 3.0 L Triglycerides HDL Cholesterol Urine WBC (Auto) 10/07/20 10/07/20 10/07/20 16:38 16:38 18:17 WBC RBC Hgb Hct MCV MCHC RDW [place] # (Auto) Seg Neutrophils % Monocytes % (Manual) Seg Neutrophils # Seg Neutrophils # Man Monocytes # (Manual) PT 32.7 H INR 3.17 H Sodium Potassium Chloride Carbon Dioxide BUN Creatinine Glucose Lactic Acid Calcium Total Bilirubin Troponin T 0.087 H NT-Pro-B Natriuret Pep 2155 H Albumin Triglycerides 193 H HDL Cholesterol 20 L Urine WBC (Auto) 10/07/20 10/08/20 10/08/20 Unknown 02:53 02:53 WBC 13.4 H RBC 2.79 L Hgb 8.1 L Hct 26.2 L MCV MCHC 31 L RDW 27.7 H [place] # (Auto) 0.9 H Seg Neutrophils % 70.6 H Monocytes % (Manual) Seg Neutrophils # 9.4 H Seg Neutrophils # Man Monocytes # (Manual) PT INR Sodium 159 H Potassium 2.7 L* D Chloride 127.9 H Carbon Dioxide 20 L BUN 27 H Creatinine 1.5 H Glucose 156 H Lactic Acid Calcium 7.1 L Total Bilirubin Troponin T NT-Pro-B Natriuret Pep Albumin Triglycerides HDL Cholesterol Urine WBC (Auto) 111.0 H
[2020-10-08] MEDS ORDERED: VANCOMYCIN/NS 1 GM/250 ML 1 GM/250 ML BAG IV ONE (14:36)
[2020-10-08] MEDS: SODIUM CHLORIDE 0.45% 1000 ML 1,000 ML IV SCH (14:42)
[2020-10-08] MEDS: POTASSIUM CHLORIDE 10 MEQ 10 MEQ/100 ML BAG IV SCH ×4 (14:42→18:02)
[2020-10-08] MEDS: FAMOTIDINE 20 MG TAB PO SCH (14:48)
--- NOTE | 2020-10-08 15:10 | Consultation ---
History of Present Illness - Reason for Consult Consult date: 10/08/20 - History of Present Illness 64-year-old man past medical history GERD, hypertension, CVA who is a resident of a long-term facility due to vascular dementia presented to the hospital with altered mental status. He was unable to provide history, especially history is taken from the chart. Staff at his facility noticed increased confusion and weakness for 2 days with progressive worsening. Afebrile with T-max 99.9 with a white count 13.4. Urinalysis with significant pyuria. Covid positive. He is hypernatremic and hypokalemic. He is currently on cefepime. blood cultures with gram-positive cocci in clusters in 1 bottle. He is currently on 3 L nasal cannula. Imaging personally reviewed: Chest x-ray: No acute findings. Past History Past Medical History: GERD, hypertension, stroke, other (See HPI) Past Surgical History: No surgical history, Other (Reviewed) Social history: . denies: smoking, alcohol abuse, prescription drug abuse Family history: diabetes, hypertension Medications and Allergies Allergies Allergy/AdvReac Type Severity Reaction Status Date / Time No Known Allergies Allergy Unverified 10/07/20 16:12 Active Meds: Active Medications Acetaminophen (Acetaminophen 325 Mg Tab) 650 mg PO Q4H PRN PRN Reason: Pain MILD(1-3)/Fever >100.5/RAM Albuterol (Albuterol 2.5 Mg/3 Ml Nebu) 2.5 mg IH Q4H PRN PRN Reason: Shortness Of Breath Ascorbic Acid (Ascorbic Acid 500 Mg Tab) 500 mg PO BID [facility] Dexamethasone (Dexamethasone 4 Mg/Ml Vial) 6 mg IV DAILY [facility] Stop: 10/17/20 10:01 Famotidine (Famotidine 20 Mg Tab) 20 mg PO QDAY [facility] Last Admin: 10/08/20 14:48 Dose: 20 mg Documented by: Hydromorphone HCl (Hydromorphone 1 Mg/1 Ml Inj) 0.25 mg IV Q4H PRN PRN Reason: Pain, Moderate (4-6) Cefepime HCl (Cefepime/Ns 2 Gm/100 Ml) 2 gm in 100 mls @ 200 mls/hr IV Q12H [facility]; Protocol Last Admin: 10/08/20 08:19 Dose: 200 mls/hr Documented by: Norepinephrine (Levophed Drip 4 Mg/Ns 250 Ml) 4 mg in 250 mls @ 7.5 mls/hr IV TITR LISA; Protocol Last Titration: 10/08/20 08:15 Dose: 2 mcg/min, 7.5 mls/hr Documented by: Potassium Chloride (Kcl 10meq/100ml) 10 meq in 100 mls @ 100 mls/hr IV Q1H LISA Stop: 10/08/20 17:59 Last Admin: 10/08/20 14:42 Dose: 100 mls/hr Documented by: Sodium Chloride (Nacl 0.45% 1000 Ml) 1,000 mls @ 75 mls/hr IV DIRECT LISA Stop: 10/10/20 03:19 Last Admin: 10/08/20 14:42 Dose: 75 mls/hr Documented by: Ondansetron HCl (Ondansetron 4 Mg/2 Ml Inj) 4 mg IV Q8H PRN PRN Reason: Nausea And Vomiting Potassium Chloride (Potassium Chloride 20 Meq Packet) 40 meq FEEDTUBE ONCE ONE Stop: 10/08/20 18:01 Sodium Chloride (Sodium Chloride 0.9% 10 Ml Flush Syringe) 10 ml IV BID LISA Last Admin: 10/08/20 10:00 Dose: 10 ml Documented by: Sodium Chloride (Sodium Chloride 0.9% 10 Ml Flush Syringe) 10 ml IV PRN PRN PRN Reason: LINE FLUSH Zinc Sulfate (Zinc Sulfate 220 Mg Cap) 220 mg PO BID LISA Review of Systems ROS unobtainable: due to mental status Physical Examination - Physical Exam Narrative exam: Physical exam deferred due to PPE conservation strategy. Please refer to primary team's note. - Constitutional Vitals: Vital Signs Temp Pulse Resp BP Pulse Ox 97.4 F L 65 21 95/45 100 10/08/20 12:00 10/08/20 08:01 10/08/20 08:01 10/08/20 08:01 10/08/20 12:00 Temperature -Last 24 Hours Temperature 97.4 F Temperature 97.4 F Temperature 97.8 F Temperature 99.9 F Results - Labs CBC & Chem 7: 10/08/20 02:53 10/08/20 02:53 Labs: Abnormal lab results 10/07/20 10/07/20 10/07/20 Range/Units 16:38 16:38 16:38 WBC 14.1 H (4.5-11.0) K/mm3 RBC 3.03 L (3.65-5.03) M/mm3 Hgb 8.7 L (11.8-15.2) gm/dl Hct 28.7 L (35.5-45.6) % MCV 95 H (84-94) fl MCHC 30 L (32-34) % RDW 27.1 H (13.2-15.2) % [place] # (Auto) (0.0-0.8) K/mm3 Seg Neutrophils % (40.0-70.0) % Monocytes % (Manual) 9.0 H (0.0-7.3) % Seg Neutrophils # (1.8-7.7) K/mm3 Seg Neutrophils # Man 9.3 H (1.8-7.7) K/mm3 Monocytes # (Manual) 1.3 H (0.0-0.8) K/mm3 PT (12.2-14.9) Sec. INR (0.87-1.13) Sodium 158 H (137-145) mmol/L Potassium 3.4 L (3.6-5.0) mmol/L Chloride 122.7 H (98-107) mmol/L Carbon Dioxide (22-30) mmol/L BUN 30 H (9-20) mg/dL Creatinine 1.7 H (0.8-1.3) mg/dL Glucose 144 H (75-100) mg/dL Lactic Acid 2.50 H* (0.7-2.0) mmol/L Calcium 8.3 L (8.4-10.2) mg/dL Total Bilirubin 1.40 H (0.1-1.2) mg/dL Troponin T (0.00-0.029) ng/mL NT-Pro-B Natriuret Pep (0-900) pg/mL Albumin 3.0 L (3.9-5) g/dL Triglycerides (2-149) mg/dL HDL Cholesterol (40-59) mg/dL Urine WBC (Auto) (0.0-6.0) /HPF Coronavirus (PCR) (Negative) 10/07/20 10/07/20 10/07/20 Range/Units 16:38 16:38 18:17 WBC (4.5-11.0) K/mm3 RBC (3.65-5.03) M/mm3 Hgb (11.8-15.2) gm/dl Hct (35.5-45.6) % MCV (84-94) fl MCHC (32-34) % RDW (13.2-15.2) % [place] # (Auto) (0.0-0.8) K/mm3 Seg Neutrophils % (40.0-70.0) % Monocytes % (Manual) (0.0-7.3) % Seg Neutrophils # (1.8-7.7) K/mm3 Seg Neutrophils # Man (1.8-7.7) K/mm3 Monocytes # (Manual) (0.0-0.8) K/mm3 PT 32.7 H (12.2-14.9) Sec. INR 3.17 H (0.87-1.13) Sodium (137-145) mmol/L Potassium (3.6-5.0) mmol/L Chloride (98-107) mmol/L Carbon Dioxide (22-30) mmol/L BUN (9-20) mg/dL Creatinine (0.8-1.3) mg/dL Glucose (75-100) mg/dL Lactic Acid (0.7-2.0) mmol/L Calcium (8.4-10.2) mg/dL Total Bilirubin (0.1-1.2) mg/dL Troponin T 0.087 H (0.00-0.029) ng/mL NT-Pro-B Natriuret Pep 2155 H (0-900) pg/mL Albumin (3.9-5) g/dL Triglycerides 193 H (2-149) mg/dL HDL Cholesterol 20 L (40-59) mg/dL Urine WBC (Auto) (0.0-6.0) /HPF Coronavirus (PCR) (Negative) 10/07/20 10/08/20 10/08/20 Range/Units Unknown 02:53 02:53 WBC 13.4 H (4.5-11.0) K/mm3 RBC 2.79 L (3.65-5.03) M/mm3 Hgb 8.1 L (11.8-15.2) gm/dl Hct 26.2 L (35.5-45.6) % MCV (84-94) fl MCHC 31 L (32-34) % RDW 27.7 H (13.2-15.2) % [place] # (Auto) 0.9 H (0.0-0.8) K/mm3 Seg Neutrophils % 70.6 H (40.0-70.0) % Monocytes % (Manual) (0.0-7.3) % Seg Neutrophils # 9.4 H (1.8-7.7) K/mm3 Seg Neutrophils # Man (1.8-7.7) K/mm3 Monocytes # (Manual) (0.0-0.8) K/mm3 PT (12.2-14.9) Sec. INR (0.87-1.13) Sodium 159 H (137-145) mmol/L Potassium 2.7 L* D (3.6-5.0) mmol/L Chloride 127.9 H (98-107) mmol/L Carbon Dioxide 20 L (22-30) mmol/L BUN 27 H (9-20) mg/dL Creatinine 1.5 H (0.8-1.3) mg/dL Glucose 156 H (75-100) mg/dL Lactic Acid (0.7-2.0) mmol/L Calcium 7.1 L (8.4-10.2) mg/dL Total Bilirubin (0.1-1.2) mg/dL Troponin T (0.00-0.029) ng/mL NT-Pro-B Natriuret Pep (0-900) pg/mL Albumin (3.9-5) g/dL Triglycerides (2-149) mg/dL HDL Cholesterol (40-59) mg/dL Urine WBC (Auto) 111.0 H (0.0-6.0) /HPF Coronavirus (PCR) (Negative) 10/08/20 Range/Units 09:34 WBC (4.5-11.0) K/mm3 RBC (3.65-5.03) M/mm3 Hgb (11.8-15.2) gm/dl Hct (35.5-45.6) % MCV (84-94) fl MCHC (32-34) % RDW (13.2-15.2) % [place] # (Auto) (0.0-0.8) K/mm3 Seg Neutrophils % (40.0-70.0) % Monocytes % (Manual) (0.0-7.3) % Seg Neutrophils # (1.8-7.7) K/mm3 Seg Neutrophils # Man (1.8-7.7) K/mm3 Monocytes # (Manual) (0.0-0.8) K/mm3 PT (12.2-14.9) Sec. INR (0.87-1.13) Sodium (137-145) mmol/L Potassium (3.6-5.0) mmol/L Chloride (98-107) mmol/L Carbon Dioxide (22-30) mmol/L BUN (9-20) mg/dL Creatinine (0.8-1.3) mg/dL Glucose (75-100) mg/dL Lactic Acid (0.7-2.0) mmol/L Calcium (8.4-10.2) mg/dL Total Bilirubin (0.1-1.2) mg/dL Troponin T (0.00-0.029) ng/mL NT-Pro-B Natriuret Pep (0-900) pg/mL Albumin (3.9-5) g/dL Triglycerides (2-149) mg/dL HDL Cholesterol (40-59) mg/dL Urine WBC (Auto) (0.0-6.0) /HPF Coronavirus (PCR) Positive A (Negative) Assessment and Plan Cultures: Blood culture 10/07/2020 gram-positive cocci in clusters in 1 of 4 bottles A/P: 64-year-old man past medical history GERD, hypertension, CVA #COVID-19 pneumonia: Patient presented with a week of symptoms, chest x-ray normal. Pending inflammatory markers #Acute hypoxemic respiratory failure: Likely secondary to COVID-19 infection. Currently on 3 L nasal cannula #THOMPSON: Renally dose antibiotics #Gram-positive cocci bacteremia: Likely contaminant as only 1 bottle, however follow-up further growth. Continue vancomycin pending results. #Altered mental status: Likely secondary to COVID-19, also electrolyte abnormalities with hypernatremia and hypokalemia. Recs: -Follow-up procalcitonin, stop cefepime if <0.25 -Continue dexamethasone to complete 10 days. -Follow inflammatory markers including ferritin and CRP, if elevated would start remdesivir. Currently no pneumonia on x-ray, unclear baseline breathing. -Continue vancomycin for now, would stop if coag negative staph on blood cultures. -Obtain q48-72h inflammatory markers - ferritin, Ddimer, CRP, LDH -Anticoagulation per hospital protocol -Proning as able Thank you for the consult, we will continue to follow. Dr. Leyva taking over tomorrow. Olivier Castro MD [facility] O: [phone] F: [phone]
[2020-10-08] MEDS: dexAMETHasone 4 MG/ML VIAL IV SCH (15:36)
--- NOTE | 2020-10-08 15:57 | XRay Report ---
ABDOMEN 1 VIEW INDICATION / CLINICAL INFORMATION: NGT placement. COMPARISON: None available. FINDINGS: Nasogastric tube tip and side-port project in the stomach. Partially imaged bowel gas pattern is nono bstructive. No free air is identified in the visualized abdomen. Signer Name: Shawn Santana MD Signed: 10/08/2020 3:53 PM Workstation Name: [id number]
[2020-10-08] MEDS ORDERED: VANCOMYCIN PHARMACY TO DOSE IV SCH (17:00)
[2020-10-08] MEDS ORDERED: VANCOMYCIN 1,750 MG in SODIUM CHLORIDE 0.9% 500 ML 500 ML IV SCH (17:00)
[2020-10-08] MEDS ORDERED: POTASSIUM CHLORIDE 20 MEQ PACKET FEEDTUBE ONE (18:00)
[2020-10-08] MEDS ORDERED: ALUM-MAG HYDROXIDE-SIMETHICONE 200-200-20MG/5ML ORAL LIQD 30 ML PO PRN (20:53)
--- NOTE | 2020-10-08 21:39 | Consultation ---
PULMONARY CRITICAL CARE CONSULTATION NOTE CONSULTING PHYSICIAN: Dr. Mari. REASON FOR CONSULTATION: Acute hypoxemic respiratory failure, severe sepsis with shock. CHIEF COMPLAINT AND HISTORY OF PRESENT ILLNESS: As follows: The patient is a 64-year-old morbidly obese male, longterm resident with a history of obesity hypoventilation syndrome, chronic respiratory failure and a prior cerebrovascular accident, who was brought into the Emergency Room confused with diminished cognition, unable to provide history, EMS reported that he had had 2 days of increasing confusion and weakness. He was found in distress before EMS was called. In the Emergency Room evaluation revealed that the patient was septic, presumably due to urinary tract infection. He also had an acute kidney injury. He was admitted to the Intensive Care Unit. He was lethargic, but had a positive gag reflex, was able to protect his airway. We were asked to assist with management. When I stopped by to see him, he was resting in bed. He did have sleep disordered breathing pattern. His breath sounds sounded coarse. He was not following commands. The best I could get him to do is to flail his arms when I tried to arouse him. I do not have any history of vomiting or overt aspiration, although I cannot rule that out. The patient's tobacco use/abuse history is unknown. The above is as much of the history of presentation as I have. PAST MEDICAL HISTORY: Again, as far as I can tell, morbid obesity, obesity hypoventilation syndrome, prior cerebrovascular accident, anemia of chronic disease, history of gastroesophageal reflux disease, history of hypertension, history of a prior DVT, and history of vascular dementia. PAST SURGICAL HISTORY: Unknown. MEDICATIONS: He was on at the time I stopped by to see him were reviewed. Pertinent medications according to the medication administration record included the following: Tylenol 650 mg p.o. q. 4 hours p.r.n. mild pain or fevers, albuterol 2.5 mg nebulized q. 4 hours p.r.n. shortness of breath, cefepime 2 g IV q. 12 hours, Pepcid 20 mg p.o. daily, Dilaudid 0.25 mg IV q. 4 hours moderate pain, Levophed drip was going at 4 mcg per minute, Zofran 4 mg IV q. 8 hours p.r.n. nausea and vomiting. ALLERGIES: No known drug allergies. DIET: Morbidly obese, acute weight loss or gain history is unknown. FAMILY AND SOCIAL HISTORY: skilled nursing resident. Alcohol, tobacco, or illicit drug use or abuse history is unknown. The records report a family history of diabetes and hypertension. REVIEW OF SYSTEMS: Unobtainable secondary the patient's medical and mental condition. Since he has been here, no gross hematochezia or melena, no gross hematuria has been reported. No witnessed seizures. PHYSICAL EXAMINATION: VITAL SIGNS: On examination at presentation in the Emergency Room, he had low-grade fever, temperature 99.9, pulse was 89, respiratory rate was 24, blood pressure was 96/49 as low as 77/47, O2 sats were recorded as 100%, inspired oxygen concentration at that time was not recorded. When I stopped by to see him, O2 sats were 100%, but that was on 3 liters nasal cannula. GENERAL: He is an elderly looking, morbidly obese male. Normocephalic, atraumatic with mildly increased respiratory effort at rest. HEAD, EYES, EARS, NOSE AND THROAT: Anicteric. No conjunctival erythema. Oropharynx appears moist. He did have a large neck circumference. No gross jugular venous distention, no thyromegaly. NECK: Grossly, there were no palpable lymph nodes in the supraclavicular or submandibular lymph node chains. LUNGS: Auscultation of both lung rivera revealed bilateral rales/referred upper airway sounds. No active wheezing. HEART: Heart sounds 1 and 2 are heard at the time of my evaluation, regular rate and rhythm without overt rubs or murmurs. ABDOMEN: Soft, full, protuberant. Bowel sounds are positive, nontender, no palpable hepatosplenomegaly. EXTREMITIES: Without overt digital clubbing or cyanosis. He had trace pedal edema. Pedal pulses were 2+ bilaterally. NEUROLOGIC: Pupils are equal, round. They were about to be 2 mm when I examined. Extraocular muscle movements could not be assessed. He had some spontaneous movement to all his extremities to stimulation. He was not following commands. He was lethargic to say the best. SKIN: Poor turgor in the areas examined in particular, he had chronic lichenification of the skin of the lower extremities and stasis venous dermatitis type rash. Please see the wound care nurse's notes for full description of his skin. PSYCHIATRIC: Mood and affect could not be assessed. LABORATORY DATA: From my review are as follows, serum white cell count 14,100 at presentation with a hemoglobin of 8.7, hematocrit of 28.7 and platelet count of 217. No band, neutrophils were reported. INR was elevated at 3.17. Serum sodium was 158, potassium 3.4, chloride 123, bicarbonate 22, BUN 30, creatinine 1.7, and glucose was 144. Lactic acid level was 2.5. Liver function tests essentially within normal limits. BNP was elevated 2155. Triglycerides were up at 193. Urinalysis showed large leukocyte esterase with 111 white cells per high power field. Serum sodium was 159 today and potassium was 2.7. Reportedly, they have just called positive blood cultures, gram-positive cocci in clusters according to the nurse have been reported. It is unclear how many bottles those are growing in. So far, I believe it says 1 of 2 blood cultures drawn. A chest x-ray was done. I have reviewed the chest x-ray. This is from yesterday revealed normal chest x-ray certainly does not sound like. His current clinical exam, he has no acute findings. No cardiomegaly on the chest x-ray. ASSESSMENT: 1. Severe sepsis with shock, presumably __. 2. Urinary tract infection. 3. Acute toxic metabolic encephalopathy. 4. Obesity hypoventilation syndrome. 5. Morbid obesity. 6. History of deep venous thrombosis. 7. Anemia of chronic disease. 8. Gastroesophageal reflux disease. 9. History of vascular dementia. 10. Severe hypokalemia. 11. Leukocytosis. 12. Lactic acidosis at presentation. 13. Hypernatremia. 14. Acute kidney injury. PLAN: I am bothered about his overall hypotension and his respiratory status and will need to ensure that respiratory status is not due to acidosis either hypercapnic or metabolic or both. I will order a stat arterial blood gas. Bilevel positive airway pressure ventilation therapy will be deployed on a bedtime basis, but with p.r.n. daytime use for his likely obstructive sleep apnea and full ventilatory support at this point. Oxygen will be weaned to keep O2 sats greater than or equal to about 90%. Aspiration precautions will be maintained. We are going to place a feeding tube to get him his oral medications. He is appropriately on broad-spectrum antibiotic therapy; however, I will give him 1 more dose of vancomycin and I was told that he did receive a dose of vancomycin yesterday. This is for the gram-positive cocci in clusters and then an Infectious Disease consultation has been placed. A procalcitonin level will also be ordered. Enteral nutrition will be the feeding modality of choice. I will start him on free water supplementation via the feeding tube, 250 mL p.o. q.12 hours, but also begin IV half normal saline in light of the persistent hypotension, but also the need to use hypotonic fluids. He is appropriately on GI prophylaxis. He is fully anticoagulated and apparently was on warfarin preadmission presumably for his DVT. Vasopressors will be weaned to keep mean arterial pressures greater than or equal to about 65 mmHg. Flu and pneumonia vaccination will be addressed per protocol. Thank you very much for the consult. We will follow along and make further recommendations as picture progresses/becomes clearer. He is critically ill on life-sustaining interventions including the vasopressors, at very high risk of from cardiopulmonary system and renal system decompensation. At this time, I spent about 35-40 minutes of critical care time without overlap and excluding any procedural time that may be necessary. JOB# [id number] BRETT/AXEL MUNOZ
[2020-10-08] MEDS: ZINC SULFATE 220 MG CAP PO SCH (22:01)
[2020-10-08] MEDS: ASCORBIC ACID 500 MG TAB PO SCH (22:01)
[2020-10-09 06:26] LABS: Hematocrit 23.7 % (35.5-45.6); Hemoglobin 7.3 gm/dl (11.8-15.2); Mean Corpuscular HGB Conc 31 % (32-34); Mean Corpuscular Volume 94 fl (84-94); Platelet Count 174 K/mm3 (140-440); Red Blood Count 2.52 M/mm3 (3.65-5.03); Red Cell Distribution Width 28.1 % (13.2-15.2)
[2020-10-09 06:44] LABS: BUN/Creatinine Ratio 19; Blood Urea Nitrogen 25 mg/dL (9-20); Calcium 7.4 mg/dL (8.4-10.2); Hemolysis Index 10
[2020-10-09 07:12] LABS: Anisocytosis 3+; Total Cells Counted 100
[2020-10-09 07:13] LABS: Poikilocytosis 2+; Tear Drop Cells 1+
[2020-10-09 07:14] LABS: Ovalocytes Few; Platelet Estimate Consistent w Auto
[2020-10-09] MEDS: CEFEPIME/NS 2 GM/100 ML 2 GM/100 ML BAG IV SCH ×2 (08:09→20:35)
--- NOTE | 2020-10-09 10:34 | Electrocardiograph Report ---
[facility] Test Date: 2020-10-08 Test Time: 04:26:29 Pat Name: DEMETRIUS MARQUEZ Department: Room: A257 Gender: M Taker Off: : 1955 Requested By: ZEINAB HOOKS Order Number: [id number] Reading MD: Jasmeet Kang Measurements Intervals [place] Rate: 74 P: 36 [place]: 149 QRS: 42 QRSD: 95 T: 21 QT: 454 QTc: 505 Interpretive Statements Sinus rhythm Baseline artifact Nonspecific repol abnormality, diffuse leads Prolonged QT interval No previous ECG available for comparison Electronically Signed On 10-09-2020 7:33:59 PDT by Jasmeet Kang
[2020-10-09] MEDS: SODIUM CHLORIDE 0.45% 1000 ML 1,000 ML IV SCH (10:56)
[2020-10-09] MEDS: ASCORBIC ACID 500 MG TAB PO SCH ×2 (10:58→21:13)
[2020-10-09] MEDS: dexAMETHasone 4 MG/ML VIAL IV SCH (10:58)
[2020-10-09] MEDS: ZINC SULFATE 220 MG CAP PO SCH ×2 (10:58→21:13)
[2020-10-09] MEDS: FAMOTIDINE 20 MG TAB PO SCH (10:58)
--- NOTE | 2020-10-09 11:29 | Progress Note ---
Assessment and Plan Assessment and plan: Sepsis COVID-19 pneumonia Acute hypoxic respiratory failure Gram-positive cocci bacteremia Toxic metabolic encephalopathy Obesity hypoventilation syndrome Acute kidney injury. Etiology secondary to ATN Hyponatremia General debility. Vascular dementia. Cerebral atherosclerosis UTI. 10/08: Continue IV antibiotics and IV fluid hydration. Consult ID for further evaluation. 10/09: Continue antibiotic per ID recommendations. Continue dexamethasone to complete 10 days. Continue to trend inflammatory markers. Sodium noted to be 162. We will start D5W at 75 cc an hour. Continue 250 cc free water every 4 hours. Follow-up BMP in a.m. Also, replete potassium. History Interval history: No new issues Hospitalist Physical - Constitutional Vitals: Temp Pulse Resp BP Pulse Ox 97.4 F L 74 15 107/62 100 10/09/20 07:43 10/09/20 09:00 10/09/20 09:00 10/09/20 09:00 10/09/20 09:00 General appearance: Present: mild distress - EENT Eyes: Present: PERRL, EOM intact ENT: hearing intact, clear oral mucosa, dentition normal - Neck Neck: Present: supple, normal ROM - Respiratory Respiratory effort: normal Respiratory: bilateral: CTA - Cardiovascular Rhythm: regular Heart Sounds: Present: S1 & S2. Absent: gallop, rub - Extremities Extremities: no ischemia, No edema, Full ROM - Abdominal General gastrointestinal: soft, non-tender, non-distended, normal bowel sounds - Integumentary Integumentary: Present: clear, warm, dry - Neurologic Neurologic: CNII-XII intact, moves all extremities HEART Score - HEART Score Troponin: Troponin T 0.087 ng/mL (0.00-0.029) H 10/07/20 16:38 Results - Labs CBC & Chem 7: 10/09/20 05:14 10/09/20 05:14 Labs: Laboratory Last Values WBC 13.9 K/mm3 (4.5-11.0) H 10/09/20 05:14 RBC 2.52 M/mm3 (3.65-5.03) L 10/09/20 05:14 Hgb 7.3 gm/dl (11.8-15.2) L 10/09/20 05:14 Hct 23.7 % (35.5-45.6) L 10/09/20 05:14 MCV 94 fl (84-94) 10/09/20 05:14 MCH 29 pg (28-32) 10/09/20 05:14 MCHC 31 % (32-34) L 10/09/20 05:14 RDW 28.1 % (13.2-15.2) H 10/09/20 05:14 Plt Count 174 K/mm3 (140-440) 10/09/20 05:14 Lymph % (Auto) 21.4 % (13.4-35.0) 10/08/20 02:53 [place] % (Auto) 6.7 % (0.0-7.3) 10/08/20 02:53 Eos % (Auto) 1.0 % (0.0-4.3) 10/08/20 02:53 Baso % (Auto) 0.3 % (0.0-1.8) 10/08/20 02:53 Lymph # (Auto) 2.9 K/mm3 (1.2-5.4) 10/08/20 02:53 Trinity # (Auto) 0.9 K/mm3 (0.0-0.8) H 10/08/20 02:53 Eos # (Auto) 0.1 K/mm3 (0.0-0.4) 10/08/20 02:53 Baso # (Auto) 0.0 K/mm3 (0.0-0.1) 10/08/20 02:53 Add Manual Diff Complete 10/09/20 05:14 Total Counted 100 10/09/20 05:14 Seg Neutrophils % 70.6 % (40.0-70.0) H 10/08/20 02:53 Seg Neuts % (Manual) 91.0 % (40.0-70.0) H 10/09/20 05:14 Lymphocytes % (Manual) 5.0 % (13.4-35.0) L 10/09/20 05:14 Monocytes % (Manual) 4.0 % (0.0-7.3) 10/09/20 05:14 Eosinophils % (Manual) 2.0 % (0.0-4.3) 10/07/20 16:38 Nucleated RBC % Not Reportable 10/09/20 05:14 Seg Neutrophils # 9.4 K/mm3 (1.8-7.7) H 10/08/20 02:53 Seg Neutrophils # Man 12.6 K/mm3 (1.8-7.7) H 10/09/20 05:14 Band Neutrophils # 0.0 K/mm3 10/09/20 05:14 Lymphocytes # (Manual) 0.7 K/mm3 (1.2-5.4) L 10/09/20 05:14 Abs React Lymphs (Man) 0.0 K/mm3 10/09/20 05:14 Monocytes # (Manual) 0.6 K/mm3 (0.0-0.8) 10/09/20 05:14 Eosinophils # (Manual) 0.0 K/mm3 (0.0-0.4) 10/09/20 05:14 Basophils # (Manual) 0.0 K/mm3 (0.0-0.1) 10/09/20 05:14 Metamyelocytes # 0.0 K/mm3 10/09/20 05:14 Myelocytes # 0.0 K/mm3 10/09/20 05:14 Promyelocytes # 0.0 K/mm3 10/09/20 05:14 Blast Cells # 0.0 K/mm3 10/09/20 05:14 WBC Morphology Not Reportable 10/09/20 05:14 Hypersegmented Neuts Not Reportable 10/09/20 05:14 Hyposegmented Neuts Not Reportable 10/09/20 05:14 Hypogranular Neuts Not Reportable 10/09/20 05:14 Smudge Cells Not Reportable 10/09/20 05:14 Toxic Granulation Not Reportable 10/09/20 05:14 Toxic Vacuolation Not Reportable 10/09/20 05:14 Dohle Bodies Not Reportable 10/09/20 05:14 Pelger-Huet Anomaly Not Reportable 10/09/20 05:14 Darryl Rods Not Reportable 10/09/20 05:14 Platelet Estimate Consistent w auto 10/09/20 05:14 Clumped Platelets Not Reportable 10/09/20 05:14 Plt Clumps, EDTA Not Reportable 10/09/20 05:14 Large Platelets Not Reportable 10/09/20 05:14 Giant Platelets Not Reportable 10/09/20 05:14 Platelet Satelliting Not Reportable 10/09/20 05:14 Plt Morphology Comment Not Reportable 10/09/20 05:14 RBC Morphology Not Reportable 10/09/20 05:14 Dimorphic RBCs Not Reportable 10/09/20 05:14 Polychromasia Not Reportable 10/09/20 05:14 Hypochromasia Not Reportable 10/09/20 05:14 Poikilocytosis 2+ 10/09/20 05:14 Anisocytosis 3+ 10/09/20 05:14 Microcytosis Not Reportable 10/09/20 05:14 Macrocytosis Not Reportable 10/09/20 05:14 Spherocytes Not Reportable 10/09/20 05:14 Pappenheimer Bodies Not Reportable 10/09/20 05:14 Sickle Cells Not Reportable 10/09/20 05:14 Target Cells Not Reportable 10/09/20 05:14 Tear Drop Cells 1+ 10/09/20 05:14 Ovalocytes Few 10/09/20 05:14 Helmet Cells Not Reportable 10/09/20 05:14 Wilson-Lockridge Bodies Not Reportable 10/09/20 05:14 Inman Rings Not Reportable 10/09/20 05:14 Chris Cells Not Reportable 10/09/20 05:14 Bite Cells Not Reportable 10/09/20 05:14 Crenated Cell Not Reportable 10/09/20 05:14 Elliptocytes 1+ 10/09/20 05:14 Acanthocytes (Spur) Not Reportable 10/09/20 05:14 Rouleaux Not Reportable 10/09/20 05:14 Hemoglobin C Crystals Not Reportable 10/09/20 05:14 Schistocytes Not Reportable 10/09/20 05:14 Malaria parasites Not Reportable 10/09/20 05:14 Lucas Bodies Not Reportable 10/09/20 05:14 Hem Pathologist Commnt No 10/09/20 05:14 PT 32.7 Sec. (12.2-14.9) H 10/07/20 18:17 INR 3.17 (0.87-1.13) H 10/07/20 18:17 ABG pH 7.336 (7.320-7.450) 10/08/20 14:57 POC ABG pCO2 41.6 mmHg (32.0-48.0) 10/08/20 14:57 POC ABG pO2 93.7 mmHg (83-108) 10/08/20 14:57 POC ABG HCO3 21.7 10/08/20 14:57 ABG O2 Saturation 96.6 (0-100) 10/08/20 14:57 POC ABG Base Excess -3.8 10/08/20 14:57 ABG Hemoglobin 7.9 (12.0-17.5) L 10/08/20 14:57 ABG Oxyhemoglobin 95.4 (94-98) 10/08/20 14:57 ABG Methemoglobin 0.3 (0.0-1.5) 10/08/20 14:57 ABG Sodium 162.9 mmol/L (136.0-145.0) H 10/08/20 14:57 ABG Potassium 2.6 mmol/L (3.40-4.50) L 10/08/20 14:57 ABG Chloride 131.0 mmol/L (98-107) H 10/08/20 14:57 ABG Glucose 146 mg/dL (65-95) H 10/08/20 14:57 Carboxyhemoglobin 0.9 (0.5-1.5) 10/08/20 14:57 FiO2 % 32 10/08/20 14:57 Sodium 162 mmol/L (137-145) H* 10/09/20 05:14 Potassium 3.3 mmol/L (3.6-5.0) L D 10/09/20 05:14 Chloride 131.6 mmol/L (98-107) H 10/09/20 05:14 Carbon Dioxide 18 mmol/L (22-30) L 10/09/20 05:14 Anion Gap 16 mmol/L 10/09/20 05:14 BUN 25 mg/dL (9-20) H 10/09/20 05:14 Creatinine 1.3 mg/dL (0.8-1.3) 10/09/20 05:14 Estimated GFR > 60 ml/min 10/09/20 05:14 BUN/Creatinine Ratio 19 % 10/09/20 05:14 Glucose 164 mg/dL (75-100) H 10/09/20 05:14 POC Glucose 128 mg/dL (70-105) H 10/08/20 17:29 Lactic Acid 1.50 mmol/L (0.7-2.0) 10/08/20 02:53 Calcium 7.4 mg/dL (8.4-10.2) L 10/09/20 05:14 Total Bilirubin 1.40 mg/dL (0.1-1.2) H 10/07/20 16:38 AST 32 units/L (5-40) 10/07/20 16:38 ALT 18 units/L (7-56) 10/07/20 16:38 Alkaline Phosphatase 61 units/L (35-129) 10/07/20 16:38 Troponin T 0.087 ng/mL (0.00-0.029) H 10/07/20 16:38 NT-Pro-B Natriuret Pep 2155 pg/mL (0-900) H 10/07/20 16:38 Total Protein 7.7 g/dL (6.3-8.2) 10/07/20 16:38 Albumin 3.0 g/dL (3.9-5) L 10/07/20 16:38 Albumin/Globulin Ratio 0.6 % 10/07/20 16:38 Triglycerides 193 mg/dL (2-149) H 10/07/20 16:38 Cholesterol 136 mg/dL (50-199) 10/07/20 16:38 LDL Cholesterol Direct 82 mg/dL (50-130) 10/07/20 16:38 HDL Cholesterol 20 mg/dL (40-59) L 10/07/20 16:38 Cholesterol/HDL Ratio 6.80 % 10/07/20 16:38 Procalcitonin 0.10 ng/mL (<0.15) 10/08/20 15:33 Arterial Blood Glucose 146 mg/dL (65-95) H 10/08/20 14:57 Arterial Blood Ionized Calcium 4.6 mg/dL (4.6-5.3) 10/08/20 14:57 Urine Color Sonal (Yellow) 10/07/20 Unknown Urine Turbidity Turbid (Clear) 10/07/20 Unknown Urine pH 7.0 (5.0-7.0) 10/07/20 Unknown Ur Specific [place] 1.020 (1.003-1.030) 10/07/20 Unknown Urine Protein 100 mg/dl mg/dL (Negative) 10/07/20 Unknown Urine Glucose (UA) Neg mg/dL (Negative) 10/07/20 Unknown Urine Ketones Neg mg/dL (Negative) 10/07/20 Unknown Urine Blood Neg (Negative) 10/07/20 Unknown Urine Nitrite Neg (Negative) 10/07/20 Unknown Urine Bilirubin Sm (Negative) 10/07/20 Unknown Urine Ictotest Negative (Negative) 10/07/20 Unknown Urine Urobilinogen 4.0 mg/dL (<2.0) 10/07/20 Unknown Ur Leukocyte Esterase Lg (Negative) 10/07/20 Unknown Urine WBC (Auto) 111.0 /HPF (0.0-6.0) H 10/07/20 Unknown Urine RBC (Auto) 40.0 /HPF (0.0-6.0) 10/07/20 Unknown Urine Bacteria (Auto) 3+ /HPF (Negative) 10/07/20 Unknown Urine WBC Clumps 2+ /HPF 10/07/20 Unknown Urine Yeast (Budding) 3+ /HPF 10/07/20 Unknown Random Vancomycin 8.7 ug/mL (0-40.0) 10/09/20 05:14 Coronavirus (PCR) Positive (Negative) A 10/08/20 09:34 Microbiology: Microbiology 10/07/20 16:38 Peripheral/Venous Blood Culture - Preliminary NO GROWTH AFTER 24 HOURS 10/07/20 16:38 Peripheral/Venous Blood Culture - Preliminary Iglesias/IV: Voiding Method Indwelling Catheter Active Medications - Current Medications Current Medications: Generic Name Dose Route Start Last Admin Trade Name Freq PRN Reason Stop Dose Admin Acetaminophen 650 mg 10/07/20 19:06 Acetaminophen 325 Mg Tab PO Q4H PRN Pain MILD(1-3)/Fever >100.5/RAM Albuterol 2.5 mg 10/07/20 19:06 Albuterol 2.5 Mg/3 Ml Nebu IH Q4H PRN Shortness Of Breath Ascorbic Acid 500 mg 10/08/20 22:00 10/09/20 10:58 Ascorbic Acid 500 Mg Tab PO 500 mg BID LISA Administration Dexamethasone 6 mg 10/08/20 15:00 10/09/20 10:58 Dexamethasone 4 Mg/Ml Vial IV 10/17/20 10:01 6 mg DAILY LISA Administration Famotidine 20 mg 10/08/20 14:00 10/09/20 10:58 Famotidine 20 Mg Tab PO 20 mg QDAY LISA Administration Hydromorphone HCl 0.25 mg 10/07/20 19:06 Hydromorphone 1 Mg/1 Ml Inj IV Q4H PRN Pain, Moderate (4-6) Cefepime HCl 2 gm in 100 mls @ 200 mls/hr 10/07/20 20:00 10/09/20 08:09 Cefepime/Ns 2 Gm/100 Ml IV 200 mls/hr Q12H LISA Administration Protocol Norepinephrine 4 mg in 250 mls @ 7.5 mls/hr 10/07/20 23:00 10/08/20 21:46 Levophed Drip 4 Mg/Ns 250 Ml IV 0 mcg/min TITR LISA 0 mls/hr Titration Protocol 2 MCG/MIN Sodium Chloride 1,000 mls @ 75 mls/hr 10/08/20 14:00 10/09/20 10:56 Nacl 0.45% 1000 Ml IV 10/10/20 03:19 75 mls/hr DIRECT LISA Administration Ondansetron HCl 4 mg 10/07/20 19:06 Ondansetron 4 Mg/2 Ml Inj IV Q8H PRN Nausea And Vomiting Sodium Chloride 10 ml 10/07/20 22:00 10/09/20 10:59 Sodium Chloride 0.9% 10 Ml Flush Syringe IV 10 ml BID LISA Administration Sodium Chloride 10 ml 10/07/20 19:06 Sodium Chloride 0.9% 10 Ml Flush Syringe IV PRN PRN LINE FLUSH Zinc Sulfate 220 mg 10/08/20 22:00 10/09/20 10:58 Zinc Sulfate 220 Mg Cap PO 220 mg BID LISA Administration Nutrition/Malnutrition Assess - Dietary Evaluation Nutrition/Malnutrition Findings: Nutrition Notes Start: 10/09/20 09:29 Freq: Status: Active Protocol: Document 10/09/20 09:29 (Rec: 10/09/20 09:48 [id number]) Nutrition Notes Need for Assessment generated from: research investigator,MST Initial or Follow up Assessment Current Diagnosis Acute Kidney Injury,Decubitus( Pressure Ulcer),Sepsis, Hypertension,Respiratory Failure,Stroke Other Pertinent Diagnosis COVID, DVT, UTI, GERD, dementia, toxic metabolic encephalopathy Current Diet Cardiac Labs/Tests Na 162 K 3.2 BUN 25 BG 164 Pertinent Medications Reviewed Height 5 ft 7 in Weight 142.882 kg [place] Body Weight (kg) 67.27 BMI 49.3 Weight Status Morbidly Obese Subjective/Other Information RN screen for MST and skin risk. Tee score 12, pt with sacral, left and right buttox pressure ulcers. Pt did not answer phone. Per RN, pt has NGT and unable to consume PO. Pt is on bipap. Burn Absent Trauma Absent Current % PO Negligible Minimum of two criteria No physical signs of malnutrition #2 Nutrition Diagnosis Increased nutrient needs ( specify in comment below) Comments: protein Etiology wound healing As Evidenced by Signs and Symptoms sacral, left and right buttox pressure ulcers #1 Nutrition Diagnosis Inadequate oral intake Etiology respiratory failure, toxic metabolic encephalopathy, dementia As Evidenced by Signs and Symptoms pt unable to consume PO Is patient on ventilator? No Is Patient Ambulatory and/or Out of Bed No REE-([facility]-confined to bed) 2605.560 Kcal/Kg value to use for calculation 13 Approximate Energy Requirements Using 1857 kcal/Kg Calculation Used for Recommendations Kcal/kg Additional Notes Protein: 131-157g (1.25-1.5 g/ kg AdjBW: 105kg) Fluid: 1 ml/kcal or per MD Nutrition Intervention Change Diet Order: Start TF when medically able Nutrition Support: Vital HP at 75 ml/hr Flush 150 ml q4h for hypernatermia Once hypernatermia has resolved, flush 50 ml q4h Kcal 1,800 Protein (gm) 158 Carbohydrates (gm) 202 Fat (gm) 42 Fluid (mL) 1,505 Goal #1 Start TF when medically able Anticipated Discharge Needs: Unable to determine at this time Follow-Up By: 10/11/20 Additional Comments FU for TF consult or plan of care
[2020-10-09] MEDS: VANCOMYCIN 1,750 MG in SODIUM CHLORIDE 0.9% 500 ML 500 ML IV SCH ×2 (12:36→23:40)
[2020-10-09] MEDS: DEXTROSE 5% IN WATER 1,000 ML IV SCH (12:46)
[2020-10-09] MEDS ORDERED: POTASSIUM CHLORIDE 20 MEQ PACKET FEEDTUBE ONE (13:00)
--- NOTE | 2020-10-09 14:00 | Progress Note ---
Assessment and Plan Severe sepsis with shock, presumably Urinary tract infection Acute kidney injury Acute toxic metabolic encephalopathy Obesity hypoventilation syndrome Morbid obesity History of deep venous thrombosis Anemia of chronic disease Gastroesophageal reflux disease History of vascular dementia Severe hypokalemia Leukocytosis Lactic acidosis at presentation Hypernatremia - Bolus 500 ml's IVNS then run @ 100mls/hr X 15 hours re: hypotension - repeat Lactic acid level and address - place Central line (once cleared by ID) - get stat ABG and address - vasopressors for target MAP > 65 mmHg - continue care as below otherwise; - continue BIPAP scheduled qhs with prn daytime use - continue broad spectrum AB's (de-escalate per ID recommendations) - accuchecks with glycemic control per SSI (While critically ill target blood glucose of 140-180 mg/dL; avoid hypoglycemia) - wean supplemental oxygen for target O2 sat's > 92% acutely - continue aspiration precautions - bronchodilators with pulmonary hygiene per RT - avoid nephrotoxins, renally dose all medications - continue to avoid benzodiazepine's, reduce the possibility of delirium - prn analgesia per CPOT score - Maintenance of sleep-wake cycle, avoid delirium - enteral nutritional support at goal rate as tolerated - G.I. & VTE prophylaxis - PT/OT/ROM exercises - mobility protocols for pressure ulcer prophylaxis - Monitor hemodynamics closely - continue other care per attending / other consultants - discharge planning ongoing concurrently COVID SPECIFIC INTERVENTIONS - Remdesivir as per ID/Pulmonary developed protocols - continue systemic steroids for severe COVID-19 infection empirically - follow repeat COVID tests results - zinc and vitamin C supplementation - Monitor inflammatory markers per facility protocol - ferritin, Ddimer, CRP - therapeutic anticoagulation per system Protocol based on d-dimer and clinical considerations - Continue contact and airborne isolation .... Re-evaluate in am & prn CONDITION: CRITICAL PROGNOSIS: GUARDED CODE STATUS: FULL CODE The high probability of a clinically significant, sudden or life-threatening deterioration of the [respiratory, cardiovascular, renal & neurologic] system(s) required my full and direct attention, intervention and personal management. The aggregate critical care time was [34] minutes without overlap. Time includes spent on; [x] Data Review and interpretation [x] Patient assessment and monitoring of vital signs [x] Documentation [x] Medication orders and management Subjective Date of service: 10/09/20 Principal diagnosis: Septic Shock; UTI; THOMPSON; Ac. encephalopathy; DVT; staph aureus bacteremia Interval history: Patient is seen today for: Severe sepsis with shock; UTI; THOMPSON; OHS; Acute toxic metabolic encephalopathy; H/O DVT; Severe Hypernatremia; staph aureus bacteremia Seen and examined at bedside; 24hour events reviewed; nursing and respiratory care staff consulted; no adverse overnight events reported to me; resting in bed; work of breathing slightly increased; remains encephalopathic / delirious; BP's running low today; no emesis or overt aspiration and tolerated BIPAP overnight. Objective Vital Signs - 12hr 10/09/20 10/09/20 10/09/20 02:00 02:15 02:30 Temperature Pulse Rate 59 L 60 59 L Respiratory 15 16 17 Rate Blood Pressure 83/49 90/54 100/57 O2 Sat by Pulse 100 100 100 Oximetry 10/09/20 10/09/20 10/09/20 02:46 03:00 03:07 Temperature 97.6 F Pulse Rate 62 61 Respiratory 19 16 Rate Blood Pressure 100/57 100/57 O2 Sat by Pulse 100 100 Oximetry 10/09/20 10/09/20 10/09/20 03:16 03:30 03:46 Temperature Pulse Rate 59 L 60 60 Respiratory 16 17 18 Rate Blood Pressure 94/54 103/61 94/53 O2 Sat by Pulse 100 Oximetry 10/09/20 10/09/20 10/09/20 03:55 04:00 04:15 Temperature Pulse Rate 62 64 Respiratory 18 14 15 Rate Blood Pressure 95/62 103/61 O2 Sat by Pulse 100 97 100 Oximetry 10/09/20 10/09/20 10/09/20 04:30 04:46 05:00 Temperature Pulse Rate 58 L 61 60 Respiratory 15 12 19 Rate Blood Pressure 103/61 114/44 97/57 O2 Sat by Pulse 100 100 100 Oximetry 10/09/20 10/09/20 10/09/20 05:15 05:30 05:46 Temperature Pulse Rate 62 59 L 59 L Respiratory 16 16 11 L Rate Blood Pressure 92/62 92/62 84/67 O2 Sat by Pulse 91 100 86 Oximetry 10/09/20 10/09/20 10/09/20 05:55 06:00 06:16 Temperature Pulse Rate 61 61 Respiratory 16 11 L Rate Blood Pressure 84/67 84/67 O2 Sat by Pulse 99 67 L 48 L Oximetry 03/10/09/20 10/09/20 06:30 06:46 07:00 Temperature Pulse Rate 72 73 Respiratory 15 20 22 Rate Blood Pressure 84/67 154/69 154/69 O2 Sat by Pulse 100 100 Oximetry 10/09/20 10/09/20 10/09/20 07:30 07:43 08:00 Temperature 97.4 F L 97.4 F L Pulse Rate 69 73 Respiratory 14 15 Rate Blood Pressure 111/52 152/113 O2 Sat by Pulse 96 81 L Oximetry 10/09/20 10/09/20 10/09/20 08:30 08:47 09:00 Temperature Pulse Rate 84 74 Respiratory 14 15 Rate Blood Pressure 108/55 107/62 O2 Sat by Pulse 99 100 100 Oximetry 10/09/20 10/09/20 10/09/20 09:30 10:00 10:30 Temperature Pulse Rate 72 70 66 Respiratory 12 20 18 Rate Blood Pressure 107/62 120/99 120/99 O2 Sat by Pulse 97 84 100 Oximetry 10/09/20 10/09/20 11:00 12:00 Temperature 97.9 F Pulse Rate 68 68 Respiratory 19 21 Rate Blood Pressure 92/68 O2 Sat by Pulse 100 100 Oximetry Constitutional: appears uncomfortable, other (elderly obese male with mildly increased respiratory effort at rest) Eyes: non-icteric ENT: oropharynx moist Neck: supple, no lymphadenopathy, no JVD, other (+ large neck circumference) Effort: mildly labored Ascultation: Bilateral: diminished breath sounds, rhonchi Percussion: Bilateral: not dull Cardiovascular: regular rate and rhythm Gastrointestinal: normoactive bowel sounds, soft, non-tender, non-distended (protuberant) Integumentary: rash Extremities: no cyanosis, pulses normal, no ischemia or petechiae Neurologic: non-focal exam (grossly), pupils equal and round, CN II-XII normal, other (encephalopathic / delirious) Psychiatric: other (unable to assess re: AMS) CBC and BMP: 10/10/20 06:07 10/10/20 06:07 ABG, PT/INR, D-dimer: ABG ABG pH 7.336 (7.320-7.450) 10/08/20 14:57 POC ABG pCO2 41.6 mmHg (32.0-48.0) 10/08/20 14:57 POC ABG pO2 93.7 mmHg (83-108) 10/08/20 14:57 POC ABG HCO3 21.7 10/08/20 14:57 ABG O2 Saturation 96.6 (0-100) 10/08/20 14:57 PT/INR, D-dimer PT 32.7 Sec. (12.2-14.9) H 10/07/20 18:17 INR 3.17 (0.87-1.13) H 10/07/20 18:17 Abnormal lab findings: Abnormal Labs 10/07/20 10/07/20 10/07/20 16:38 16:38 16:38 WBC 14.1 H RBC 3.03 L Hgb 8.7 L Hct 28.7 L MCV 95 H MCHC 30 L RDW 27.1 H [place] # (Auto) Seg Neutrophils % Seg Neuts % (Manual) Lymphocytes % (Manual) Monocytes % (Manual) 9.0 H Seg Neutrophils # Seg Neutrophils # Man 9.3 H Lymphocytes # (Manual) Monocytes # (Manual) 1.3 H PT INR ABG Hemoglobin ABG Sodium ABG Potassium ABG Chloride ABG Glucose Sodium 158 H Potassium 3.4 L Chloride 122.7 H Carbon Dioxide BUN 30 H Creatinine 1.7 H Glucose 144 H POC Glucose Lactic Acid 2.50 H* Calcium 8.3 L Total Bilirubin 1.40 H Troponin T NT-Pro-B Natriuret Pep Albumin 3.0 L Triglycerides HDL Cholesterol Arterial Blood Glucose Urine WBC (Auto) Coronavirus (PCR) 10/07/20 10/07/20 10/07/20 16:38 16:38 18:17 WBC RBC Hgb Hct MCV MCHC RDW [place] # (Auto) Seg Neutrophils % Seg Neuts % (Manual) Lymphocytes % (Manual) Monocytes % (Manual) Seg Neutrophils # Seg Neutrophils # Man Lymphocytes # (Manual) Monocytes # (Manual) PT 32.7 H INR 3.17 H ABG Hemoglobin ABG Sodium ABG Potassium ABG Chloride ABG Glucose Sodium Potassium Chloride Carbon Dioxide BUN Creatinine Glucose POC Glucose Lactic Acid Calcium Total Bilirubin Troponin T 0.087 H NT-Pro-B Natriuret Pep 2155 H Albumin Triglycerides 193 H HDL Cholesterol 20 L Arterial Blood Glucose Urine WBC (Auto) Coronavirus (PCR) 10/07/20 10/08/20 10/08/20 Unknown 02:53 02:53 WBC 13.4 H RBC 2.79 L Hgb 8.1 L Hct 26.2 L MCV MCHC 31 L RDW 27.7 H [place] # (Auto) 0.9 H Seg Neutrophils % 70.6 H Seg Neuts % (Manual) Lymphocytes % (Manual) Monocytes % (Manual) Seg Neutrophils # 9.4 H Seg Neutrophils # Man Lymphocytes # (Manual) Monocytes # (Manual) PT INR ABG Hemoglobin ABG Sodium ABG Potassium ABG Chloride ABG Glucose Sodium 159 H Potassium 2.7 L* D Chloride 127.9 H Carbon Dioxide 20 L BUN 27 H Creatinine 1.5 H Glucose 156 H POC Glucose Lactic Acid Calcium 7.1 L Total Bilirubin Troponin T NT-Pro-B Natriuret Pep Albumin Triglycerides HDL Cholesterol Arterial Blood Glucose Urine WBC (Auto) 111.0 H Coronavirus (PCR) 10/08/20 10/08/20 10/08/20 09:34 14:57 17:29 WBC RBC Hgb Hct MCV MCHC RDW [place] # (Auto) Seg Neutrophils % Seg Neuts % (Manual) Lymphocytes % (Manual) Monocytes % (Manual) Seg Neutrophils # Seg Neutrophils # Man Lymphocytes # (Manual) Monocytes # (Manual) PT INR ABG Hemoglobin 7.9 L ABG Sodium 162.9 H ABG Potassium 2.6 L ABG Chloride 131.0 H ABG Glucose 146 H Sodium Potassium Chloride Carbon Dioxide BUN Creatinine Glucose POC Glucose 128 H Lactic Acid Calcium Total Bilirubin Troponin T NT-Pro-B Natriuret Pep Albumin Triglycerides HDL Cholesterol Arterial Blood Glucose 146 H Urine WBC (Auto) Coronavirus (PCR) Positive A 10/09/20 10/09/20 10/09/20 05:14 05:14 11:48 WBC 13.9 H RBC 2.52 L Hgb 7.3 L Hct 23.7 L MCV MCHC 31 L RDW 28.1 H [place] # (Auto) Seg Neutrophils % Seg Neuts % (Manual) 91.0 H Lymphocytes % (Manual) 5.0 L Monocytes % (Manual) Seg Neutrophils # Seg Neutrophils # Man 12.6 H Lymphocytes # (Manual) 0.7 L Monocytes # (Manual) PT INR ABG Hemoglobin ABG Sodium ABG Potassium ABG Chloride ABG Glucose Sodium 162 H* Potassium 3.3 L D Chloride 131.6 H Carbon Dioxide 18 L BUN 25 H Creatinine Glucose 164 H POC Glucose 126 H Lactic Acid Calcium 7.4 L Total Bilirubin Troponin T NT-Pro-B Natriuret Pep Albumin Triglycerides HDL Cholesterol Arterial Blood Glucose Urine WBC (Auto) Coronavirus (PCR) Chest x-ray: other (none today) Allied health notes reviewed: nursing
[2020-10-09] MEDS ORDERED: fentaNYL 100 MCG/2 ML INJ ONE (14:39)
[2020-10-09] MEDS ORDERED: MIDAZOLAM 2 MG/2 ML INJ ONE (14:40)
--- NOTE | 2020-10-09 16:51 | XRay Report ---
CHEST 1 VIEW INDICATION: Right IJ TLC COMPARISON: 10/07/2020 FINDINGS: SUPPORT DEVICES: Central venous line has tip in superior vena cava HEART / MEDIASTINUM: No significant abnormality. LUNGS / PLEURA: No significant pulmonary or pleural abnormality. No pneumothorax. ADDITIONAL FINDINGS: IMPRESSION: 1. No acute cardiopulmonary disease Signer Name: Hugo Faust MD Signed: 10/09/2020 4:47 PM Workstation Name: [id number]
--- NOTE | 2020-10-09 16:52 | Procedure Note ---
Date of procedure: 10/09/20 Pre-op diagnosis: Hypotension; Sepsis Post-op diagnosis: same Procedure: RIJ CVL placement (Full note dictated # [id number]) Please see dictated notes for full details
[2020-10-09] MEDS ORDERED: fentaNYL 100 MCG/2 ML INJ IV ONE (17:00)
[2020-10-09] MEDS ORDERED: MIDAZOLAM 2 MG/2 ML INJ IV ONE (17:00)
--- NOTE | 2020-10-09 18:10 | Operative Report ---
PULMONARY PROCEDURE NOTE PROCEDURE: Right internal jugular central venous catheter placement. INDICATIONS: Hypotension, sepsis. CONSENT: Informed and witnessed obtained from the patient's Kacy Minor at phone number [phone]. COMPLICATIONS: No immediate procedural complications. DESCRIPTION OF PROCEDURE: After informed and witnessed consent as well as premedication, which included 1 mg of Versed IV and 50 mcg of fentanyl IV. The area of the right anterior triangle of the neck was sterilely prepped and draped using chlorhexidine swabs as full barrier protection, sterile gloves, gown, hat and mask. This was an ultrasound-guided procedure. Generous local anesthetic agent was also applied prior to insertion of the needle. The right IJ was located with ultrasound. It was patent vessel. It was easily compressible. The right IJ was accessed on the first stick with a central venous line needle. Good looking venous blood return was obtained. Entrance point was about 30 degrees. Wire was threaded through the needle. Catheter was advanced over wire after dilatation with the provided dilator. Catheter was then sutured in place after the lumens had been flushed again with good looking venous blood. The patient tolerated the procedure well. No immediate procedural complications. Post-procedure chest x-ray shows good line positioning and no pneumothorax. will be informed of a successful procedure by his nurse. JOB# [id number] BRETT/AXEL
[2020-10-09] MEDS: NORepinephrine/NS 4 MG-250 ML 4 MG/250 ML BAG IV SCH (22:08)
[2020-10-10] MEDS: DEXTROSE 5% IN WATER 1,000 ML IV SCH (05:43)
[2020-10-10 06:35] LABS: Hematocrit 22.1 % (35.5-45.6); Hemoglobin 6.8 gm/dl (11.8-15.2); Mean Corpuscular HGB Conc 31 % (32-34); Mean Corpuscular Volume 92 fl (84-94); Platelet Count 176 K/mm3 (140-440); Red Blood Count 2.39 M/mm3 (3.65-5.03)
[2020-10-10 06:37] LABS: BUN/Creatinine Ratio 16; Blood Urea Nitrogen 21 mg/dL (9-20); Calcium 6.7 mg/dL (8.4-10.2); Hemolysis Index 1
[2020-10-10 06:53] LABS: Red Cell Distribution Width 27.2 % (13.2-15.2)
[2020-10-10] MEDS: CEFEPIME/NS 2 GM/100 ML 2 GM/100 ML BAG IV SCH ×2 (08:12→20:10)
[2020-10-10 08:28] LABS: Anisocytosis 3+; Total Cells Counted 100
[2020-10-10 08:29] LABS: Ovalocytes Few; Platelet Estimate Consistent w Auto; Poikilocytosis 2+; Tear Drop Cells 1+
[2020-10-10] MEDS ORDERED: SIMPLE SYRUP 15 ML FEEDTUBE PRN ×2 (09:00)
--- NOTE | 2020-10-10 10:38 | Progress Note ---
Assessment and Plan Assessment and plan: Sepsis COVID-19 pneumonia Acute hypoxic respiratory failure Gram-positive cocci bacteremia Toxic metabolic encephalopathy Obesity hypoventilation syndrome Acute kidney injury. Etiology secondary to ATN Hyponatremia General debility. Vascular dementia. Cerebral atherosclerosis UTI. 10/08: Continue IV antibiotics and IV fluid hydration. Consult ID for further evaluation. 10/09: Continue antibiotic per ID recommendations. Continue dexamethasone to complete 10 days. Continue to trend inflammatory markers. Sodium noted to be 162. We will start D5W at 75 cc an hour. Continue 250 cc free water every 4 hours. Follow-up BMP in a.m. Also, replete potassium. 10/10: Sodium improved to 158 today. Continue D5W IV fluids and free water every 4 hours.. Replete potassium. Hemoglobin 6.8. We will type and cross and transfuse 2 units PRBCs. Continue dexamethasone to complete 10 days. Continue to trend inflammatory markers. History Interval history: No new issues Hospitalist Physical - Constitutional Vitals: Temp Pulse Resp BP Pulse Ox 98.0 F 62 17 128/65 100 10/10/20 07:24 10/10/20 06:45 10/10/20 06:45 10/10/20 06:45 10/10/20 08:51 General appearance: Present: mild distress - EENT Eyes: Present: PERRL, EOM intact ENT: hearing intact, clear oral mucosa, dentition normal - Neck Neck: Present: supple, normal ROM - Respiratory Respiratory effort: normal Respiratory: bilateral: CTA - Cardiovascular Rhythm: regular Heart Sounds: Present: S1 & S2. Absent: gallop, rub - Extremities Extremities: no ischemia, No edema, Full ROM - Abdominal General gastrointestinal: soft, non-tender, non-distended, normal bowel sounds - Integumentary Integumentary: Present: clear, warm, dry - Neurologic Neurologic: CNII-XII intact, moves all extremities HEART Score - HEART Score Troponin: Troponin T 0.087 ng/mL (0.00-0.029) H 10/07/20 16:38 Results - Labs CBC & Chem 7: 10/10/20 06:07 10/10/20 06:07 Labs: Laboratory Last Values WBC 13.5 K/mm3 (4.5-11.0) H 10/10/20 06:07 RBC 2.39 M/mm3 (3.65-5.03) L 10/10/20 06:07 Hgb 6.8 gm/dl (11.8-15.2) L 10/10/20 06:07 Hct 22.1 % (35.5-45.6) L 10/10/20 06:07 MCV 92 fl (84-94) 10/10/20 06:07 MCH 28 pg (28-32) 10/10/20 06:07 MCHC 31 % (32-34) L 10/10/20 06:07 RDW 27.2 % (13.2-15.2) H 10/10/20 06:07 Plt Count 176 K/mm3 (140-440) 10/10/20 06:07 Lymph % (Auto) 21.4 % (13.4-35.0) 10/08/20 02:53 [place] % (Auto) 6.7 % (0.0-7.3) 10/08/20 02:53 Eos % (Auto) 1.0 % (0.0-4.3) 10/08/20 02:53 Baso % (Auto) 0.3 % (0.0-1.8) 10/08/20 02:53 Lymph # (Auto) 2.9 K/mm3 (1.2-5.4) 10/08/20 02:53 [place] # (Auto) 0.9 K/mm3 (0.0-0.8) H 10/08/20 02:53 Eos # (Auto) 0.1 K/mm3 (0.0-0.4) 10/08/20 02:53 Baso # (Auto) 0.0 K/mm3 (0.0-0.1) 10/08/20 02:53 Add Manual Diff Complete 10/10/20 06:07 Total Counted 100 10/10/20 06:07 Seg Neutrophils % 70.6 % (40.0-70.0) H 10/08/20 02:53 Seg Neuts % (Manual) 89.0 % (40.0-70.0) H 10/10/20 06:07 Lymphocytes % (Manual) 10.0 % (13.4-35.0) L 10/10/20 06:07 Monocytes % (Manual) 1.0 % (0.0-7.3) 10/10/20 06:07 Eosinophils % (Manual) 2.0 % (0.0-4.3) 10/07/20 16:38 Nucleated RBC % 2.0 % (0.0-0.9) H 10/10/20 06:07 Seg Neutrophils # 9.4 K/mm3 (1.8-7.7) H 10/08/20 02:53 Seg Neutrophils # Man 12.0 K/mm3 (1.8-7.7) H 10/10/20 06:07 Band Neutrophils # 0.0 K/mm3 10/10/20 06:07 Lymphocytes # (Manual) 1.4 K/mm3 (1.2-5.4) 10/10/20 06:07 Abs React Lymphs (Man) 0.0 K/mm3 10/10/20 06:07 Monocytes # (Manual) 0.1 K/mm3 (0.0-0.8) 10/10/20 06:07 Eosinophils # (Manual) 0.0 K/mm3 (0.0-0.4) 10/10/20 06:07 Basophils # (Manual) 0.0 K/mm3 (0.0-0.1) 10/10/20 06:07 Metamyelocytes # 0.0 K/mm3 10/10/20 06:07 Myelocytes # 0.0 K/mm3 10/10/20 06:07 Promyelocytes # 0.0 K/mm3 10/10/20 06:07 Blast Cells # 0.0 K/mm3 10/10/20 06:07 WBC Morphology Not Reportable 10/10/20 06:07 Hypersegmented Neuts Not Reportable 10/10/20 06:07 Hyposegmented Neuts Not Reportable 10/10/20 06:07 Hypogranular Neuts Not Reportable 10/10/20 06:07 Smudge Cells Not Reportable 10/10/20 06:07 Toxic Granulation Not Reportable 10/10/20 06:07 Toxic Vacuolation Not Reportable 10/10/20 06:07 Dohle Bodies Not Reportable 10/10/20 06:07 Pelger-Huet Anomaly Not Reportable 10/10/20 06:07 Darryl Rods Not Reportable 10/10/20 06:07 Platelet Estimate Consistent w auto 10/10/20 06:07 Clumped Platelets Not Reportable 10/10/20 06:07 Plt Clumps, EDTA Not Reportable 10/10/20 06:07 Large Platelets Not Reportable 10/10/20 06:07 Giant Platelets Not Reportable 10/10/20 06:07 Platelet Satelliting Not Reportable 10/10/20 06:07 Plt Morphology Comment Not Reportable 10/10/20 06:07 RBC Morphology Not Reportable 10/10/20 06:07 Dimorphic RBCs Not Reportable 10/10/20 06:07 Polychromasia Not Reportable 10/10/20 06:07 Hypochromasia Not Reportable 10/10/20 06:07 Poikilocytosis 2+ 10/10/20 06:07 Anisocytosis 3+ 10/10/20 06:07 Microcytosis Not Reportable 10/10/20 06:07 Macrocytosis Not Reportable 10/10/20 06:07 Spherocytes Not Reportable 10/10/20 06:07 Pappenheimer Bodies Not Reportable 10/10/20 06:07 Sickle Cells Not Reportable 10/10/20 06:07 Target Cells Not Reportable 10/10/20 06:07 Tear Drop Cells 1+ 10/10/20 06:07 Ovalocytes Few 10/10/20 06:07 Helmet Cells Not Reportable 10/10/20 06:07 Wilson-Barstow Bodies Not Reportable 10/10/20 06:07 Marlin Rings Not Reportable 10/10/20 06:07 [place] Cells Not Reportable 10/10/20 06:07 Bite Cells Not Reportable 10/10/20 06:07 Crenated Cell Not Reportable 10/10/20 06:07 Elliptocytes 1+ 10/10/20 06:07 Acanthocytes (Spur) Not Reportable 10/10/20 06:07 Rouleaux Not Reportable 10/10/20 06:07 Hemoglobin C Crystals Not Reportable 10/10/20 06:07 Schistocytes Not Reportable 10/10/20 06:07 Malaria parasites Not Reportable 10/10/20 06:07 Lucas Bodies Not Reportable 10/10/20 06:07 Hem Pathologist Commnt No 10/10/20 06:07 PT 32.7 Sec. (12.2-14.9) H 10/07/20 18:17 INR 3.17 (0.87-1.13) H 10/07/20 18:17 D-Dimer 922.08 ng/mlDDU (0-234) H 10/09/20 19:30 ABG pH 7.415 (7.320-7.450) 10/09/20 14:25 POC ABG pCO2 27.3 mmHg (32.0-48.0) L 10/09/20 14:25 POC ABG pO2 125.5 mmHg (83-108) H 10/09/20 14:25 POC ABG HCO3 17.1 10/09/20 14:25 ABG O2 Saturation 98.8 (0-100) 10/09/20 14:25 POC ABG Base Excess -6.7 10/09/20 14:25 ABG Hemoglobin 7.0 (12.0-17.5) L 10/09/20 14:25 ABG Oxyhemoglobin 97.2 (94-98) 10/09/20 14:25 ABG Methemoglobin 0.1 (0.0-1.5) 10/09/20 14:25 ABG Sodium 158.0 mmol/L (136.0-145.0) H 10/09/20 14:25 ABG Potassium 3.0 mmol/L (3.40-4.50) L 10/09/20 14:25 ABG Chloride 132.0 mmol/L (98-107) H 10/09/20 14:25 ABG Glucose 172 mg/dL (65-95) H 10/09/20 14:25 Carboxyhemoglobin 1.5 (0.5-1.5) 10/09/20 14:25 FiO2 % 26.0 10/09/20 14:25 Sodium 158 mmol/L (137-145) H 10/10/20 06:07 Potassium 3.2 mmol/L (3.6-5.0) L 10/10/20 06:07 Chloride 129.3 mmol/L (98-107) H 10/10/20 06:07 Carbon Dioxide 19 mmol/L (22-30) L 10/10/20 06:07 Anion Gap 13 mmol/L 10/10/20 06:07 BUN 21 mg/dL (9-20) H 10/10/20 06:07 Creatinine 1.3 mg/dL (0.8-1.3) 10/10/20 06:07 Estimated GFR > 60 ml/min 10/10/20 06:07 BUN/Creatinine Ratio 16 % 10/10/20 06:07 Glucose 200 mg/dL (75-100) H 10/10/20 06:07 POC Glucose 168 mg/dL (70-105) H 10/10/20 05:18 Lactic Acid 1.10 mmol/L (0.7-2.0) 10/09/20 19:30 Calcium 6.7 mg/dL (8.4-10.2) L 10/10/20 06:07 Ferritin 579.8 ng/mL (30.0-300.0) H 10/09/20 19:30 Total Bilirubin 1.40 mg/dL (0.1-1.2) H 10/07/20 16:38 AST 32 units/L (5-40) 10/07/20 16:38 ALT 18 units/L (7-56) 10/07/20 16:38 Alkaline Phosphatase 61 units/L (35-129) 10/07/20 16:38 Troponin T 0.087 ng/mL (0.00-0.029) H 10/07/20 16:38 NT-Pro-B Natriuret Pep 2155 pg/mL (0-900) H 10/07/20 16:38 Total Protein 7.7 g/dL (6.3-8.2) 10/07/20 16:38 Albumin 3.0 g/dL (3.9-5) L 10/07/20 16:38 Albumin/Globulin Ratio 0.6 % 10/07/20 16:38 Triglycerides 193 mg/dL (2-149) H 10/07/20 16:38 Cholesterol 136 mg/dL (50-199) 10/07/20 16:38 LDL Cholesterol Direct 82 mg/dL (50-130) 10/07/20 16:38 HDL Cholesterol 20 mg/dL (40-59) L 10/07/20 16:38 Cholesterol/HDL Ratio 6.80 % 10/07/20 16:38 Procalcitonin 0.10 ng/mL (<0.15) 10/08/20 15:33 Arterial Blood Glucose 172 mg/dL (65-95) H 10/09/20 14:25 Arterial Blood Ionized Calcium 4.2 mg/dL (4.6-5.3) L 10/09/20 14:25 Urine Color S[place] (Yellow) 10/07/20 Unknown Urine Turbidity Turbid (Clear) 10/07/20 Unknown Urine pH 7.0 (5.0-7.0) 10/07/20 Unknown Ur Specific [place] 1.020 (1.003-1.030) 10/07/20 Unknown Urine Protein 100 mg/dl mg/dL (Negative) 10/07/20 Unknown Urine Glucose (UA) Neg mg/dL (Negative) 10/07/20 Unknown Urine Ketones Neg mg/dL (Negative) 10/07/20 Unknown Urine Blood Neg (Negative) 10/07/20 Unknown Urine Nitrite Neg (Negative) 10/07/20 Unknown Urine Bilirubin Sm (Negative) 10/07/20 Unknown Urine Ictotest Negative (Negative) 10/07/20 Unknown Urine Urobilinogen 4.0 mg/dL (<2.0) 10/07/20 Unknown Ur Leukocyte Esterase Lg (Negative) 10/07/20 Unknown Urine WBC (Auto) 111.0 /HPF (0.0-6.0) H 10/07/20 Unknown Urine RBC (Auto) 40.0 /HPF (0.0-6.0) 10/07/20 Unknown Urine Bacteria (Auto) 3+ /HPF (Negative) 10/07/20 Unknown Urine WBC Clumps 2+ /HPF 10/07/20 Unknown Urine Yeast (Budding) 3+ /HPF 10/07/20 Unknown Random Vancomycin 8.7 ug/mL (0-40.0) 10/09/20 05:14 Coronavirus (PCR) Positive (Negative) A 10/08/20 09:34 Microbiology: Microbiology 10/07/20 16:38 Peripheral/Venous Blood Culture - Preliminary NO GROWTH AFTER 48 HOURS 10/07/20 16:38 Peripheral/Venous Blood Culture - Preliminary Staphylococcus Aureus Iglesias/IV: Voiding Method Indwelling Catheter Active Medications - Current Medications Current Medications: Generic Name Dose Route Start Last Admin Trade Name Freq PRN Reason Stop Dose Admin Acetaminophen 650 mg 10/07/20 19:06 Acetaminophen 325 Mg Tab PO Q4H PRN Pain MILD(1-3)/Fever >100.5/RAM Albuterol 2.5 mg 10/07/20 19:06 Albuterol 2.5 Mg/3 Ml Nebu IH Q4H PRN Shortness Of Breath Lipase/Protease/Amylase 1 each 10/10/20 09:00 Lipase 10,500/Protease 25,000/Amylase 43,750 (Units) Dr Reddy FEEDTUBE PRN PRN For Clogged Feeding Tube Ascorbic Acid 500 mg 10/08/20 22:00 10/09/20 21:13 Ascorbic Acid 500 Mg Tab PO 500 mg BID LISA Administration Dexamethasone 6 mg 10/08/20 15:00 10/09/20 10:58 Dexamethasone 4 Mg/Ml Vial IV 10/17/20 10:01 6 mg DAILY LISA Administration Famotidine 20 mg 10/08/20 14:00 10/09/20 10:58 Famotidine 20 Mg Tab PO 20 mg QDAY LISA Administration Hydromorphone HCl 0.25 mg 10/07/20 19:06 Hydromorphone 1 Mg/1 Ml Inj IV Q4H PRN Pain, Moderate (4-6) Cefepime HCl 2 gm in 100 mls @ 200 mls/hr 10/07/20 20:00 10/10/20 08:12 Cefepime/Ns 2 Gm/100 Ml IV 200 mls/hr Q12H LISA Administration Protocol Norepinephrine 4 mg in 250 mls @ 7.5 mls/hr 10/07/20 23:00 10/10/20 08:13 Levophed Drip 4 Mg/Ns 250 Ml IV 2 mcg/min TITR LISA 7.5 mls/hr Titration Protocol 2 MCG/MIN Vancomycin HCl 1,750 mg/ 535 mls @ 333.333 mls/hr 10/09/20 12:00 10/09/20 23:40 Sodium Chloride IV 333.333 mls/hr Q12H LISA Administration Dextrose 1,000 mls @ 75 mls/hr 10/09/20 13:00 10/10/20 05:43 D5w IV 75 mls/hr DIRECT LISA Administration Ondansetron HCl 4 mg 10/07/20 19:06 Ondansetron 4 Mg/2 Ml Inj IV Q8H PRN Nausea And Vomiting Simple Syrup 15 ml 10/10/20 09:00 Simple Syrup 15 Ml FEEDTUBE PRN PRN Hypoglycemia Simple Syrup 30 ml 10/10/20 09:00 Simple Syrup 15 Ml FEEDTUBE PRN PRN Hypoglycemia Sodium Bicarbonate 325 mg 10/10/20 09:00 Sodium Bicarbonate 325 Mg Tab FEEDTUBE PRN PRN For Clogged Feeding Tube Sodium Chloride 10 ml 10/07/20 22:00 10/09/20 21:13 Sodium Chloride 0.9% 10 Ml Flush Syringe IV 10 ml BID LISA Administration Sodium Chloride 10 ml 10/07/20 19:06 Sodium Chloride 0.9% 10 Ml Flush Syringe IV PRN PRN LINE FLUSH Zinc Sulfate 220 mg 10/08/20 22:00 10/09/20 21:13 Zinc Sulfate 220 Mg Cap PO 220 mg BID LISA Administration Nutrition/Malnutrition Assess - Dietary Evaluation Nutrition/Malnutrition Findings: Nutrition Notes Start: 10/09/20 09:29 Freq: Status: Active Protocol: Document 10/10/20 08:48 (Rec: 10/10/20 08:55 [id number]) Nutrition Notes Need for Assessment generated from: MD Order Initial or Follow up Reassessment Current Diagnosis Acute Kidney Injury,Decubitus( Pressure Ulcer),Sepsis, Hypertension,Respiratory Failure,Stroke Other Pertinent Diagnosis COVID, DVT, UTI, GERD, dementia, toxic metabolic encephalopathy Current Diet Cardiac Labs/Tests Na 158 K 3.2 BUN 21 BG 200 Pertinent Medications Levophed D5w at 75 ml/hr Decadron Height 5 ft 7 in Weight 142.882 kg [place] Body Weight (kg) 67.27 BMI 49.3 Weight Status Morbidly Obese Subjective/Other Information MD order for TF. Pt on bipap PRN but remains drowsy. Pt did not answer phone. Percent of energy/protein needs met: 0%/0% Burn Absent Trauma Absent Current % PO Negligible Minimum of two criteria No physical signs of malnutrition #2 Nutrition Diagnosis Increased nutrient needs ( specify in comment below) Diagnosis Progress(for reassessment Continues documentation) #1 Nutrition Diagnosis Inadequate oral intake Diagnosis Progress(for reassessment Continues documentation) Is patient on ventilator? No Is Patient Ambulatory and/or Out of Bed No REE-([facility]-confined to bed) 2605.560 Kcal/Kg value to use for calculation 13 Approximate Energy Requirements Using 1857 kcal/Kg Calculation Used for Recommendations Kcal/kg Additional Notes Protein: 131-157g (1.25-1.5 g/ kg AdjBW: 105kg) Fluid: 1 ml/kcal or per MD Nutrition Intervention Change Diet Order: Start TF when medically able Nutrition Support: Vital HP at 75 ml/hr Flush 250 ml q4h for hypernatermia or per MD. Once hypernatermia has resolved, flush 50 ml q4h Kcal 1,800 Protein (gm) 158 Carbohydrates (gm) 202 Fat (gm) 42 Fluid (mL) 1,505 Add Supplement/Snack (indicate name/kcal Adams BID /protein ) Provides kCal: 190 Provides Protein (gm) 5 Goal #1 TF start and tolerance Goal #2 Meet at least 75% of energy and protein needs via TF Anticipated Discharge Needs: Unable to determine at this time Follow-Up By: 10/12/20 Additional Comments FU for TF start and tolerance
[2020-10-10] MEDS: dexAMETHasone 4 MG/ML VIAL IV SCH (10:40)
[2020-10-10] MEDS: FAMOTIDINE 20 MG TAB PO SCH (10:41)
[2020-10-10] MEDS: ZINC SULFATE 220 MG CAP PO SCH ×2 (10:41→21:31)
[2020-10-10] MEDS: ASCORBIC ACID 500 MG TAB PO SCH ×2 (10:41→21:31)
[2020-10-10] MEDS ORDERED: POTASSIUM CHLORIDE ER 20 MEQ TAB PO ONE (11:00)
[2020-10-10] MEDS ORDERED: POTASSIUM CHLORIDE 20 MEQ PACKET FEEDTUBE ONE (11:00)
--- NOTE | 2020-10-10 11:14 | Progress Note ---
Assessment and Plan Cultures: Blood culture 10/07/2020 Staph aureus 1 of 4 bottles A/P: 64-year-old man past medical history GERD, hypertension, CVA #Severe sepsis with septic shock: Patient on Levophed. Likely secondary to Staph aureus bacteremia and UTI. #Staph aureus bacteremia: Etiology likely sacral decubitus infection. #Extensive sacral decubitus/deep tissue injury likely with with cellulitis: Multiple areas of skin erosion, 20x22 x 0.1 cm. Multiple erosions in the scrotum, perineum and inner thighs, incontinent dermatitis. #COVID-19 infection: Patient presented with a week of symptoms, chest x-ray normal. No pneumonia on chest x-ray. Markers elevated. #Acute hypoxemic respiratory failure: Likely secondary to COVID-19 infection. Now on room air #THOMPSON: Renally dose antibiotics, improving #Altered mental status: Likely secondary to COVID-19, staph bacteremia, also electrolyte abnormalities with hypernatremia and hypokalemia. Recs: -Repeat blood cultures today -Obtain transthoracic echo -Continue vancomycin with PK consult, target vancomycin trough 10 to 20 mcg/mL -Continue cefepime IV for now -Continue dexamethasone to complete 10 days. -Hold off remdesivir as there is no sustained hypoxia -Obtain q48-72h inflammatory markers - ferritin, Ddimer, CRP, LDH -Anticoagulation per hospital protocol -Proning as able -Continue wound care -Offloading Close monitoring Juliet Leyva MD [facility] ([facility]) Office [phone] Subjective Date of service: 10/10/20 Principal diagnosis: Septic Shock; UTI; THOMPSON; Ac. encephalopathy; DVT; staph aureus bacteremia Interval history: Remains somnolent, no acute events overnight, on Levophed Objective - Exam Narrative Exam: General appearance: Somnolent in no acute distress Eyes: anicteric sclerae, moist conjunctivae; no lid-lag; PERRLA HENT: Normocephalic, Atraumatic; normal external ears, nares open, oropharynx limited NG tube in place Neck: supple, tracheal midline, no JVD Lungs: Clear to auscultation bilaterally CV: RRR no murmur Abdomen: Soft, nontender Extremities: Chronic lower extremity lymphedema changes Skin: Sacral wounds not examined today Psych: Somnolent Neuro: Somnolent - Constitutional Vitals: Vital Signs Temp Pulse Resp BP Pulse Ox 98.0 F 62 17 128/65 100 10/10/20 07:24 10/10/20 06:45 10/10/20 06:45 10/10/20 06:45 10/10/20 08:51 Temperature -Last 24 Hours Temperature 98.0 F Temperature 98.8 F Temperature 98.1 F Temperature 97.8 F Temperature 97.9 F - Labs CBC & Chem 7: 10/10/20 06:07 10/10/20 06:07 Labs: Abnormal lab results 10/09/20 10/09/20 10/09/20 Range/Units 11:48 14:25 17:55 WBC (4.5-11.0) K/mm3 RBC (3.65-5.03) M/mm3 Hgb (11.8-15.2) gm/dl Hct (35.5-45.6) % MCHC (32-34) % RDW (13.2-15.2) % Seg Neuts % (Manual) (40.0-70.0) % Lymphocytes % (Manual) (13.4-35.0) % Nucleated RBC % (0.0-0.9) % Seg Neutrophils # Man (1.8-7.7) K/mm3 D-Dimer (0-234) ng/mlDDU POC ABG pCO2 27.3 L (32.0-48.0) mmHg POC ABG pO2 125.5 H (83-108) mmHg ABG Hemoglobin 7.0 L (12.0-17.5) ABG Sodium 158.0 H (136.0-145.0) mmol/L ABG Potassium 3.0 L (3.40-4.50) mmol/L ABG Chloride 132.0 H (98-107) mmol/L ABG Glucose 172 H (65-95) mg/dL Sodium (137-145) mmol/L Potassium (3.6-5.0) mmol/L Chloride (98-107) mmol/L Carbon Dioxide (22-30) mmol/L BUN (9-20) mg/dL Glucose (75-100) mg/dL POC Glucose 126 H 179 H (70-105) mg/dL Calcium (8.4-10.2) mg/dL Ferritin (30.0-300.0) ng/mL Arterial Blood Glucose 172 H (65-95) mg/dL Arterial Blood Ionized Calcium 4.2 L (4.6-5.3) mg/dL 10/09/20 10/09/20 10/09/20 Range/Units 19:30 19:30 23:22 WBC (4.5-11.0) K/mm3 RBC (3.65-5.03) M/mm3 Hgb (11.8-15.2) gm/dl Hct (35.5-45.6) % MCHC (32-34) % RDW (13.2-15.2) % Seg Neuts % (Manual) (40.0-70.0) % Lymphocytes % (Manual) (13.4-35.0) % Nucleated RBC % (0.0-0.9) % Seg Neutrophils # Man (1.8-7.7) K/mm3 D-Dimer 922.08 H (0-234) ng/mlDDU POC ABG pCO2 (32.0-48.0) mmHg POC ABG pO2 (83-108) mmHg ABG Hemoglobin (12.0-17.5) ABG Sodium (136.0-145.0) mmol/L ABG Potassium (3.40-4.50) mmol/L ABG Chloride (98-107) mmol/L ABG Glucose (65-95) mg/dL Sodium (137-145) mmol/L Potassium (3.6-5.0) mmol/L Chloride (98-107) mmol/L Carbon Dioxide (22-30) mmol/L BUN (9-20) mg/dL Glucose (75-100) mg/dL POC Glucose 192 H (70-105) mg/dL Calcium (8.4-10.2) mg/dL Ferritin 579.8 H (30.0-300.0) ng/mL Arterial Blood Glucose (65-95) mg/dL Arterial Blood Ionized Calcium (4.6-5.3) mg/dL 10/10/20 10/10/20 10/10/20 Range/Units 05:18 06:07 06:07 WBC 13.5 H (4.5-11.0) K/mm3 RBC 2.39 L (3.65-5.03) M/mm3 Hgb 6.8 L (11.8-15.2) gm/dl Hct 22.1 L (35.5-45.6) % MCHC 31 L (32-34) % RDW 27.2 H (13.2-15.2) % Seg Neuts % (Manual) 89.0 H (40.0-70.0) % Lymphocytes % (Manual) 10.0 L (13.4-35.0) % Nucleated RBC % 2.0 H (0.0-0.9) % Seg Neutrophils # Man 12.0 H (1.8-7.7) K/mm3 D-Dimer (0-234) ng/mlDDU POC ABG pCO2 (32.0-48.0) mmHg POC ABG pO2 (83-108) mmHg ABG Hemoglobin (12.0-17.5) ABG Sodium (136.0-145.0) mmol/L ABG Potassium (3.40-4.50) mmol/L ABG Chloride (98-107) mmol/L ABG Glucose (65-95) mg/dL Sodium 158 H (137-145) mmol/L Potassium 3.2 L (3.6-5.0) mmol/L Chloride 129.3 H (98-107) mmol/L Carbon Dioxide 19 L (22-30) mmol/L BUN 21 H (9-20) mg/dL Glucose 200 H (75-100) mg/dL POC Glucose 168 H (70-105) mg/dL Calcium 6.7 L (8.4-10.2) mg/dL Ferritin (30.0-300.0) ng/mL Arterial Blood Glucose (65-95) mg/dL Arterial Blood Ionized Calcium (4.6-5.3) mg/dL
[2020-10-10] MEDS: VANCOMYCIN 1,750 MG in SODIUM CHLORIDE 0.9% 500 ML 500 ML IV SCH ×2 (11:59→23:42)
[2020-10-10] MEDS ORDERED: SODIUM CHLORIDE 0.9% 500 ML 500 ML IV ONE (12:00)
--- NOTE | 2020-10-10 13:43 | Progress Note ---
Assessment and Plan Severe sepsis with shock, presumably Urinary tract infection Acute kidney injury Acute toxic metabolic encephalopathy Obesity hypoventilation syndrome Morbid obesity History of deep venous thrombosis Anemia of chronic disease Gastroesophageal reflux disease History of vascular dementia Severe hypokalemia Leukocytosis Lactic acidosis at presentation Hypernatremia - change IVF to 1/2 NS @ 75 ml's/hr X 2 liters re: persistent hypotension with hypernatremia - continue free water flushes - repeat Lactic acid level WNL - wean vasopressors for target MAP > 65 mmHg - continue BIPAP scheduled qhs with prn daytime use - continue care as below otherwise; - continue broad spectrum AB's (de-escalate per ID recommendations) - accuchecks with glycemic control per SSI (While critically ill target blood glucose of 140-180 mg/dL; avoid hypoglycemia) - wean supplemental oxygen for target O2 sat's > 92% acutely - continue aspiration precautions - bronchodilators with pulmonary hygiene per RT - avoid nephrotoxins, renally dose all medications - continue to avoid benzodiazepine's, reduce the possibility of delirium - prn analgesia per CPOT score - Maintenance of sleep-wake cycle, avoid delirium - enteral nutritional support at goal rate as tolerated - G.I. & VTE prophylaxis - PT/OT/ROM exercises - mobility protocols for pressure ulcer prophylaxis - Monitor hemodynamics closely - continue other care per attending / other consultants - discharge planning ongoing concurrently COVID SPECIFIC INTERVENTIONS - Remdesivir as per ID/Pulmonary developed protocols - continue systemic steroids for severe COVID-19 infection empirically - follow repeat COVID tests results - zinc and vitamin C supplementation - Monitor inflammatory markers per facility protocol - ferritin, Ddimer, CRP - therapeutic anticoagulation per system Protocol based on d-dimer and clinical considerations - Continue contact and airborne isolation .... Re-evaluate in am & prn CONDITION: CRITICAL PROGNOSIS: GUARDED CODE STATUS: FULL CODE The high probability of a clinically significant, sudden or life-threatening deterioration of the [respiratory, cardiovascular, renal & neurologic] system(s) required my full and direct attention, intervention and personal management. The aggregate critical care time was [32] minutes without overlap. Time includes spent on; [x] Data Review and interpretation [x] Patient assessment and monitoring of vital signs [x] Documentation [x] Medication orders and management Subjective Date of service: 10/10/20 Principal diagnosis: Septic Shock; UTI; THOMPSON; Ac. encephalopathy; DVT; staph aureus bacteremia Interval history: Patient is seen today for: Severe sepsis with shock; UTI; THOMPSON; OHS; Acute toxic metabolic encephalopathy; H/O DVT; Severe Hypernatremia; staph aureus bacteremia Seen and examined at bedside; 24hour events reviewed; nursing and respiratory care staff consulted; no adverse overnight events reported to me; resting in bed; BP's still running low; on Levophed drip still; hypernatremia improving; AMS is persistent; no emesis or ovbert aspiration; to begin tube feeds Objective Vital Signs - 12hr 10/10/20 10/10/20 10/10/20 01:45 02:00 02:15 Temperature Pulse Rate 61 64 59 L Respiratory 18 15 12 Rate Blood Pressure 99/53 99/53 87/63 O2 Sat by Pulse 100 99 100 Oximetry 10/10/20 10/10/20 10/10/20 02:30 02:45 03:00 Temperature Pulse Rate 65 63 64 Respiratory 12 19 15 Rate Blood Pressure 87/63 133/64 133/64 O2 Sat by Pulse 100 100 97 Oximetry 10/10/20 10/10/20 10/10/20 03:16 03:30 03:45 Temperature Pulse Rate 65 65 65 Respiratory 19 17 14 Rate Blood Pressure 121/26 121/26 114/63 O2 Sat by Pulse 100 100 100 Oximetry 10/10/20 10/10/20 10/10/20 03:50 04:00 04:15 Temperature 98.8 F Pulse Rate 66 64 64 Respiratory 19 16 15 Rate Blood Pressure 121/26 118/61 122/57 O2 Sat by Pulse 100 100 100 Oximetry 10/10/20 10/10/20 10/10/20 04:30 04:45 05:00 Temperature Pulse Rate 66 62 63 Respiratory 12 11 L 15 Rate Blood Pressure 122/57 118/61 128/65 O2 Sat by Pulse 100 100 100 Oximetry 10/10/20 10/10/20 10/10/20 05:15 05:30 05:45 Temperature Pulse Rate 64 62 62 Respiratory 10 L 16 13 Rate Blood Pressure 103/51 103/51 131/59 O2 Sat by Pulse 100 100 100 Oximetry 10/10/20 10/10/20 10/10/20 06:00 06:16 06:30 Temperature Pulse Rate 68 68 64 Respiratory 13 12 17 Rate Blood Pressure 131/59 125/50 111/60 O2 Sat by Pulse 87 100 100 Oximetry 10/10/20 10/10/20 10/10/20 06:45 06:54 07:24 Temperature 98.0 F Pulse Rate 62 Respiratory 17 Rate Blood Pressure 128/65 O2 Sat by Pulse 100 99 Oximetry 10/10/20 10/10/20 08:51 11:58 Temperature 98.2 F Pulse Rate Respiratory Rate Blood Pressure O2 Sat by Pulse 100 Oximetry Constitutional: appears uncomfortable, other (elderly obese male with mildly increased respiratory effort at rest) Eyes: non-icteric ENT: oropharynx moist Neck: supple, no lymphadenopathy, no JVD, other (+ large neck circumference) Effort: mildly labored Ascultation: Bilateral: diminished breath sounds, rhonchi Percussion: Bilateral: not dull Cardiovascular: regular rate and rhythm Gastrointestinal: normoactive bowel sounds, soft, non-tender, non-distended (protuberant) Integumentary: rash Extremities: no cyanosis, pulses normal, no ischemia or petechiae Neurologic: non-focal exam (grossly), pupils equal and round, CN II-XII normal, other (encephalopathic / delirious) Psychiatric: other (unable to assess re: AMS) CBC and BMP: 10/10/20 06:07 10/10/20 06:07 ABG, PT/INR, D-dimer: ABG ABG pH 7.415 (7.320-7.450) 10/09/20 14:25 POC ABG pCO2 27.3 mmHg (32.0-48.0) L 10/09/20 14:25 POC ABG pO2 125.5 mmHg (83-108) H 10/09/20 14:25 POC ABG HCO3 17.1 10/09/20 14:25 ABG O2 Saturation 98.8 (0-100) 10/09/20 14:25 PT/INR, D-dimer PT 32.7 Sec. (12.2-14.9) H 10/07/20 18:17 INR 3.17 (0.87-1.13) H 10/07/20 18:17 D-Dimer 922.08 ng/mlDDU (0-234) H 10/09/20 19:30 Abnormal lab findings: Abnormal Labs 10/07/20 10/07/20 10/07/20 16:38 16:38 16:38 WBC 14.1 H RBC 3.03 L Hgb 8.7 L Hct 28.7 L MCV 95 H MCHC 30 L RDW 27.1 H [place] # (Auto) Seg Neutrophils % Seg Neuts % (Manual) Lymphocytes % (Manual) Monocytes % (Manual) 9.0 H Nucleated RBC % Seg Neutrophils # Seg Neutrophils # Man 9.3 H Lymphocytes # (Manual) Monocytes # (Manual) 1.3 H PT INR D-Dimer POC ABG pCO2 POC ABG pO2 ABG Hemoglobin ABG Sodium ABG Potassium ABG Chloride ABG Glucose Sodium 158 H Potassium 3.4 L Chloride 122.7 H Carbon Dioxide BUN 30 H Creatinine 1.7 H Glucose 144 H POC Glucose Lactic Acid 2.50 H* Calcium 8.3 L Ferritin Total Bilirubin 1.40 H Troponin T NT-Pro-B Natriuret Pep Albumin 3.0 L Triglycerides HDL Cholesterol Arterial Blood Glucose Arterial Blood Ionized Calcium Urine WBC (Auto) Coronavirus (PCR) Crossmatch 10/07/20 10/07/20 10/07/20 16:38 16:38 18:17 WBC RBC Hgb Hct MCV MCHC RDW [place] # (Auto) Seg Neutrophils % Seg Neuts % (Manual) Lymphocytes % (Manual) Monocytes % (Manual) Nucleated RBC % Seg Neutrophils # Seg Neutrophils # Man Lymphocytes # (Manual) Monocytes # (Manual) PT 32.7 H INR 3.17 H D-Dimer POC ABG pCO2 POC ABG pO2 ABG Hemoglobin ABG Sodium ABG Potassium ABG Chloride ABG Glucose Sodium Potassium Chloride Carbon Dioxide BUN Creatinine Glucose POC Glucose Lactic Acid Calcium Ferritin Total Bilirubin Troponin T 0.087 H NT-Pro-B Natriuret Pep 2155 H Albumin Triglycerides 193 H HDL Cholesterol 20 L Arterial Blood Glucose Arterial Blood Ionized Calcium Urine WBC (Auto) Coronavirus (PCR) Crossmatch 10/07/20 10/08/20 10/08/20 Unknown 02:53 02:53 WBC 13.4 H RBC 2.79 L Hgb 8.1 L Hct 26.2 L MCV MCHC 31 L RDW 27.7 H [place] # (Auto) 0.9 H Seg Neutrophils % 70.6 H Seg Neuts % (Manual) Lymphocytes % (Manual) Monocytes % (Manual) Nucleated RBC % Seg Neutrophils # 9.4 H Seg Neutrophils # Man Lymphocytes # (Manual) Monocytes # (Manual) PT INR D-Dimer POC ABG pCO2 POC ABG pO2 ABG Hemoglobin ABG Sodium ABG Potassium ABG Chloride ABG Glucose Sodium 159 H Potassium 2.7 L* D Chloride 127.9 H Carbon Dioxide 20 L BUN 27 H Creatinine 1.5 H Glucose 156 H POC Glucose Lactic Acid Calcium 7.1 L Ferritin Total Bilirubin Troponin T NT-Pro-B Natriuret Pep Albumin Triglycerides HDL Cholesterol Arterial Blood Glucose Arterial Blood Ionized Calcium Urine WBC (Auto) 111.0 H Coronavirus (PCR) Crossmatch 10/08/20 10/08/20 10/08/20 09:34 14:57 17:29 WBC RBC Hgb Hct MCV MCHC RDW [place] # (Auto) Seg Neutrophils % Seg Neuts % (Manual) Lymphocytes % (Manual) Monocytes % (Manual) Nucleated RBC % Seg Neutrophils # Seg Neutrophils # Man Lymphocytes # (Manual) Monocytes # (Manual) PT INR D-Dimer POC ABG pCO2 POC ABG pO2 ABG Hemoglobin 7.9 L ABG Sodium 162.9 H ABG Potassium 2.6 L ABG Chloride 131.0 H ABG Glucose 146 H Sodium Potassium Chloride Carbon Dioxide BUN Creatinine Glucose POC Glucose 128 H Lactic Acid Calcium Ferritin Total Bilirubin Troponin T NT-Pro-B Natriuret Pep Albumin Triglycerides HDL Cholesterol Arterial Blood Glucose 146 H Arterial Blood Ionized Calcium Urine WBC (Auto) Coronavirus (PCR) Positive A Crossmatch 10/09/20 10/09/20 10/09/20 05:14 05:14 11:48 WBC 13.9 H RBC 2.52 L Hgb 7.3 L Hct 23.7 L MCV MCHC 31 L RDW 28.1 H [place] # (Auto) Seg Neutrophils % Seg Neuts % (Manual) 91.0 H Lymphocytes % (Manual) 5.0 L Monocytes % (Manual) Nucleated RBC % Seg Neutrophils # Seg Neutrophils # Man 12.6 H Lymphocytes # (Manual) 0.7 L Monocytes # (Manual) PT INR D-Dimer POC ABG pCO2 POC ABG pO2 ABG Hemoglobin ABG Sodium ABG Potassium ABG Chloride ABG Glucose Sodium 162 H* Potassium 3.3 L D Chloride 131.6 H Carbon Dioxide 18 L BUN 25 H Creatinine Glucose 164 H POC Glucose 126 H Lactic Acid Calcium 7.4 L Ferritin Total Bilirubin Troponin T NT-Pro-B Natriuret Pep Albumin Triglycerides HDL Cholesterol Arterial Blood Glucose Arterial Blood Ionized Calcium Urine WBC (Auto) Coronavirus (PCR) Crossmatch 10/09/20 10/09/20 10/09/20 14:25 17:55 19:30 WBC RBC Hgb Hct MCV MCHC RDW [place] # (Auto) Seg Neutrophils % Seg Neuts % (Manual) Lymphocytes % (Manual) Monocytes % (Manual) Nucleated RBC % Seg Neutrophils # Seg Neutrophils # Man Lymphocytes # (Manual) Monocytes # (Manual) PT INR D-Dimer 922.08 H POC ABG pCO2 27.3 L POC ABG pO2 125.5 H ABG Hemoglobin 7.0 L ABG Sodium 158.0 H ABG Potassium 3.0 L ABG Chloride 132.0 H ABG Glucose 172 H Sodium Potassium Chloride Carbon Dioxide BUN Creatinine Glucose POC Glucose 179 H Lactic Acid Calcium Ferritin Total Bilirubin Troponin T NT-Pro-B Natriuret Pep Albumin Triglycerides HDL Cholesterol Arterial Blood Glucose 172 H Arterial Blood Ionized Calcium 4.2 L Urine WBC (Auto) Coronavirus (PCR) Crossmatch 10/09/20 10/09/20 10/10/20 19:30 23:22 05:18 WBC RBC Hgb Hct MCV MCHC RDW [place] # (Auto) Seg Neutrophils % Seg Neuts % (Manual) Lymphocytes % (Manual) Monocytes % (Manual) Nucleated RBC % Seg Neutrophils # Seg Neutrophils # Man Lymphocytes # (Manual) Monocytes # (Manual) PT INR D-Dimer POC ABG pCO2 POC ABG pO2 ABG Hemoglobin ABG Sodium ABG Potassium ABG Chloride ABG Glucose Sodium Potassium Chloride Carbon Dioxide BUN Creatinine Glucose POC Glucose 192 H 168 H Lactic Acid Calcium Ferritin 579.8 H Total Bilirubin Troponin T NT-Pro-B Natriuret Pep Albumin Triglycerides HDL Cholesterol Arterial Blood Glucose Arterial Blood Ionized Calcium Urine WBC (Auto) Coronavirus (PCR) Crossmatch 10/10/20 10/10/20 10/10/20 06:07 06:07 11:43 WBC 13.5 H RBC 2.39 L Hgb 6.8 L Hct 22.1 L MCV MCHC 31 L RDW 27.2 H [place] # (Auto) Seg Neutrophils % Seg Neuts % (Manual) 89.0 H Lymphocytes % (Manual) 10.0 L Monocytes % (Manual) Nucleated RBC % 2.0 H Seg Neutrophils # Seg Neutrophils # Man 12.0 H Lymphocytes # (Manual) Monocytes # (Manual) PT INR D-Dimer POC ABG pCO2 POC ABG pO2 ABG Hemoglobin ABG Sodium ABG Potassium ABG Chloride ABG Glucose Sodium 158 H Potassium 3.2 L Chloride 129.3 H Carbon Dioxide 19 L BUN 21 H Creatinine Glucose 200 H POC Glucose 155 H Lactic Acid Calcium 6.7 L Ferritin Total Bilirubin Troponin T NT-Pro-B Natriuret Pep Albumin Triglycerides HDL Cholesterol Arterial Blood Glucose Arterial Blood Ionized Calcium Urine WBC (Auto) Coronavirus (PCR) Crossmatch 10/10/20 12:00 WBC RBC Hgb Hct MCV MCHC RDW [place] # (Auto) Seg Neutrophils % Seg Neuts % (Manual) Lymphocytes % (Manual) Monocytes % (Manual) Nucleated RBC % Seg Neutrophils # Seg Neutrophils # Man Lymphocytes # (Manual) Monocytes # (Manual) PT INR D-Dimer POC ABG pCO2 POC ABG pO2 ABG Hemoglobin ABG Sodium ABG Potassium ABG Chloride ABG Glucose Sodium Potassium Chloride Carbon Dioxide BUN Creatinine Glucose POC Glucose Lactic Acid Calcium Ferritin Total Bilirubin Troponin T NT-Pro-B Natriuret Pep Albumin Triglycerides HDL Cholesterol Arterial Blood Glucose Arterial Blood Ionized Calcium Urine WBC (Auto) Coronavirus (PCR) Crossmatch See Detail Allied health notes reviewed: nursing
[2020-10-10] MEDS: SODIUM CHLORIDE 0.45% 1000 ML 1,000 ML IV SCH (23:41)
[2020-10-11 05:33] LABS: Basophils % (Auto) 0.2 % (0.0-1.8); Hemoglobin 9.6 gm/dl (11.8-15.2); Lymphocytes # (Auto) 1.6 K/mm3 (1.2-5.4); Lymphocytes % (Auto) 13.6 % (13.4-35.0); Mean Corpuscular HGB Conc 32 % (32-34); Mean Corpuscular Volume 89 fl (84-94); Monocytes # (Auto) 0.5 K/mm3 (0.0-0.8); Monocytes % (Auto) 4.7 % (0.0-7.3); Platelet Count 156 K/mm3 (140-440); Red Blood Count 3.37 M/mm3 (3.65-5.03); Red Cell Distribution Width 23.9 % (13.2-15.2)
[2020-10-11 05:38] LABS: BUN/Creatinine Ratio 19; Blood Urea Nitrogen 23 mg/dL (9-20); Hemolysis Index 6
[2020-10-11] MEDS ORDERED: POTASSIUM CHLORIDE 20 MEQ 20 MEQ/100 ML BAG IV ONE (05:56)
[2020-10-11] MEDS ORDERED: POTASSIUM CHLORIDE 20 MEQ PACKET FEEDTUBE ONE ×2 (06:15→10:00)
[2020-10-11] MEDS: CEFEPIME/NS 2 GM/100 ML 2 GM/100 ML BAG IV SCH ×2 (09:02→20:54)
[2020-10-11] MEDS: FAMOTIDINE 20 MG TAB PO SCH (09:03)
[2020-10-11] MEDS: ASCORBIC ACID 500 MG TAB PO SCH ×2 (09:03→21:23)
[2020-10-11] MEDS: ZINC SULFATE 220 MG CAP PO SCH ×2 (09:03→21:23)
[2020-10-11] MEDS: SODIUM CHLORIDE 0.45% 1000 ML 1,000 ML IV SCH (09:03)
[2020-10-11] MEDS: dexAMETHasone 4 MG/ML VIAL IV SCH (09:04)
[2020-10-11] MEDS ORDERED: DEXTROSE 50% IN WATER (25GM) 50 ML SYRINGE IV PRN (09:19)
[2020-10-11] MEDS: VANCOMYCIN 1,750 MG in SODIUM CHLORIDE 0.9% 500 ML 500 ML IV SCH ×2 (11:02→13:14)
[2020-10-11] MEDS: SUCRALFATE 1 GM/10 ML ORAL LIQD PO SCH ×2 (11:03→21:23)
[2020-10-11] MEDS: TAMSULOSIN 0.4 MG CAP PO SCH (11:04)
[2020-10-11] MEDS: INSULIN REGULAR, HUMAN 100 UNITS/1 ML SUB-Q SCH ×2 (12:13→18:50)
--- NOTE | 2020-10-11 12:13 | Progress Note ---
Assessment and Plan Cultures: Blood culture 10/07/2020 MRSA 1 of 4 bottles Blood cultures 10/10/2020 pending A/P: 64-year-old man past medical history GERD, hypertension, CVA #Severe sepsis with septic shock: Off Levophed likely secondary to MRSA bacteremia and UTI. #MRSA bacteremia: Etiology likely sacral decubitus infection. #UTI: Urine culture not available. #Extensive sacral decubitus/deep tissue injury likely with with cellulitis: Multiple areas of skin erosion, 20x22 x 0.1 cm. Multiple erosions in the scrotum, perineum and inner thighs, incontinent dermatitis. #COVID-19 infection: Patient presented with a week of symptoms, chest x-ray normal. No pneumonia on chest x-ray. Markers elevated. #Acute hypoxemic respiratory failure: Likely secondary to COVID-19 infection. Now on room air #HTOMPSON: Renally dose antibiotics, improving #Altered mental status: Likely secondary to COVID-19, staph bacteremia, also electrolyte abnormalities with hypernatremia and hypokalemia. Recs: -Follow-up repeat blood cultures -Obtain transthoracic echo ordered -Continue vancomycin with PK consult, target vancomycin trough 10 to 20 mcg/mL -Stop cefepime IV for now D 5/5 -Continue dexamethasone to complete 10 days. -Hold off remdesivir as there is no sustained hypoxia -Obtain q48-72h inflammatory markers - ferritin, Ddimer, CRP, LDH -Anticoagulation per hospital protocol -Proning as able -Continue wound care -Offloading -Anticipate discharge on vancomycin 1750 mg IV q 12 hour fo MRSA bacteremia and extensive sacral infected decubitus. Keep Vancomycin trough 10-20 mcg/mL. Order sent to field nurse case manager. Close monitoring Juliet Leyva MD [facility] ([facility]) Office [phone] Subjective Date of service: 10/11/20 Principal diagnosis: Septic Shock; UTI; THOMPSON; Ac. encephalopathy; DVT; staph aureus bacteremia Interval history: Remains somnolent, however open eyes, off Levophed, no fever Objective - Exam Narrative Exam: General appearance: Somnolent no acute distress, open eyes on nasal cannula O2 Eyes: anicteric sclerae, moist conjunctivae; no lid-lag; PERRLA HENT: Normocephalic, Atraumatic; normal external ears, nares open, oropharynx limited NG tube in place Neck: supple, tracheal midline, no JVD Lungs: Bilateral rhonchi CV: RRR no murmur Abdomen: Soft, obese, mild tenderness Extremities: Bilateral leg edema Skin: No rash. Psych: no agitated Neuro: Somnolent - Constitutional Vitals: Vital Signs Temp Pulse Resp BP Pulse Ox 97.9 F 61 12 102/59 100 10/11/20 08:00 10/11/20 08:00 10/11/20 08:00 10/11/20 08:00 10/11/20 08:00 Temperature -Last 24 Hours Temperature 97.9 F Temperature 98.0 F Temperature 98.7 F Temperature 97.9 F Temperature 97.1 F Temperature 97 F Temperature 97.5 F Temperature 97.6 F Temperature 97.6 F Temperature 97.2 F Temperature 97.7 F Temperature 97.5 F Temperature 97.7 F Temperature 97.5 F Temperature 97.0 F Temperature 97.7 F - Labs CBC & Chem 7: 10/11/20 04:00 10/11/20 04:00 Labs: Abnormal lab results 10/10/20 10/10/20 10/10/20 Range/Units 12:00 17:19 23:44 WBC (4.5-11.0) K/mm3 RBC (3.65-5.03) M/mm3 Hgb (11.8-15.2) gm/dl Hct (35.5-45.6) % RDW (13.2-15.2) % Seg Neutrophils % (40.0-70.0) % Seg Neutrophils # (1.8-7.7) K/mm3 Sodium (137-145) mmol/L Potassium (3.6-5.0) mmol/L Chloride (98-107) mmol/L Carbon Dioxide (22-30) mmol/L BUN (9-20) mg/dL Glucose (75-100) mg/dL POC Glucose 185 H 219 H (70-105) mg/dL Calcium (8.4-10.2) mg/dL Crossmatch See Detail 10/11/20 10/11/20 10/11/20 Range/Units 04:00 04:00 05:11 WBC 11.5 H (4.5-11.0) K/mm3 RBC 3.37 L (3.65-5.03) M/mm3 Hgb 9.6 L (11.8-15.2) gm/dl Hct 30.0 L D (35.5-45.6) % RDW 23.9 H (13.2-15.2) % Seg Neutrophils % 81.5 H (40.0-70.0) % Seg Neutrophils # 9.4 H (1.8-7.7) K/mm3 Sodium 151 H (137-145) mmol/L Potassium 3.0 L (3.6-5.0) mmol/L Chloride 122.8 H (98-107) mmol/L Carbon Dioxide 19 L (22-30) mmol/L BUN 23 H (9-20) mg/dL Glucose 238 H (75-100) mg/dL POC Glucose 191 H (70-105) mg/dL Calcium 7.0 L (8.4-10.2) mg/dL Crossmatch 10/11/20 Range/Units 11:01 WBC (4.5-11.0) K/mm3 RBC (3.65-5.03) M/mm3 Hgb (11.8-15.2) gm/dl Hct (35.5-45.6) % RDW (13.2-15.2) % Seg Neutrophils % (40.0-70.0) % Seg Neutrophils # (1.8-7.7) K/mm3 Sodium (137-145) mmol/L Potassium (3.6-5.0) mmol/L Chloride (98-107) mmol/L Carbon Dioxide (22-30) mmol/L BUN (9-20) mg/dL Glucose (75-100) mg/dL POC Glucose 187 H (70-105) mg/dL Calcium (8.4-10.2) mg/dL Crossmatch
--- NOTE | 2020-10-11 12:28 | Progress Note ---
Assessment and Plan Severe sepsis with shock, presumably Urinary tract infection Acute kidney injury Acute toxic metabolic encephalopathy Obesity hypoventilation syndrome Morbid obesity History of deep venous thrombosis Anemia of chronic disease Gastroesophageal reflux disease History of vascular dementia Severe hypokalemia Leukocytosis Lactic acidosis at presentation Hypernatremia - get INR - resume Coumadin - replaced Potassium - continue free water flushes - off Levophed - continue BIPAP scheduled qhs with prn daytime use - continue care as below otherwise; - continue broad spectrum AB's (de-escalate per ID recommendations) - accuchecks with glycemic control per SSI (While critically ill target blood glucose of 140-180 mg/dL; avoid hypoglycemia) - wean supplemental oxygen for target O2 sat's > 92% acutely - continue aspiration precautions - bronchodilators with pulmonary hygiene per RT - avoid nephrotoxins, renally dose all medications - continue to avoid benzodiazepine's, reduce the possibility of delirium - prn analgesia per CPOT score - Maintenance of sleep-wake cycle, avoid delirium - enteral nutritional support at goal rate as tolerated - G.I. & VTE prophylaxis - PT/OT/ROM exercises - mobility protocols for pressure ulcer prophylaxis - Monitor hemodynamics closely - continue other care per attending / other consultants - discharge planning ongoing concurrently COVID SPECIFIC INTERVENTIONS - Remdesivir as per ID/Pulmonary developed protocols - continue systemic steroids for severe COVID-19 infection empirically - follow repeat COVID tests results - zinc and vitamin C supplementation - Monitor inflammatory markers per facility protocol - ferritin, Ddimer, CRP - therapeutic anticoagulation per system Protocol based on d-dimer and clinical considerations - Continue contact and airborne isolation .... doing better, transfer to medical floor .... Re-evaluate in am & prn I have spent ( >35 ) minutes with the patient w/ >50% of the time spent counseling and/or coordinating care for this patient. Counseling topics and/or how time was spent coordinating patient's care is outlined in the impression and plan above. Subjective Date of service: 10/11/20 Principal diagnosis: Septic Shock; UTI; THOMPSON; Ac. encephalopathy; DVT; staph aureus bacteremia Interval history: Patient is seen today for: Severe sepsis with shock; UTI; THOMPSON; OHS; Acute toxic metabolic encephalopathy; H/O DVT; Severe Hypernatremia; staph aureus bacteremia Seen and examined at bedside; 24hour events reviewed; nursing and respiratory care staff consulted; no adverse overnight events reported to me; resting in bed; doing better; off vasopressors; clinical delirium ais better; no emesis or overt aspiration Objective Vital Signs - 12hr 10/11/20 10/11/20 10/11/20 00:30 00:45 01:00 Temperature Pulse Rate 60 63 61 Pulse Rate [ From Monitor] Respiratory 12 23 21 Rate Blood Pressure 117/62 108/60 103/61 O2 Sat by Pulse 100 100 100 Oximetry 10/11/20 10/11/20 10/11/20 01:15 01:30 01:45 Temperature Pulse Rate 60 60 61 Pulse Rate [ From Monitor] Respiratory 20 16 18 Rate Blood Pressure 111/57 111/57 97/55 O2 Sat by Pulse 100 100 100 Oximetry 10/11/20 10/11/20 10/11/20 02:00 02:15 02:30 Temperature Pulse Rate 59 L 60 61 Pulse Rate [ From Monitor] Respiratory 19 19 19 Rate Blood Pressure 116/65 114/62 101/59 O2 Sat by Pulse 100 100 100 Oximetry 10/11/20 10/11/20 10/11/20 02:45 03:00 03:15 Temperature Pulse Rate 63 61 62 Pulse Rate [ From Monitor] Respiratory 16 16 16 Rate Blood Pressure 103/55 114/60 105/56 O2 Sat by Pulse 100 100 100 Oximetry 10/11/20 10/11/20 10/11/20 03:30 03:45 04:00 Temperature 98.0 F Pulse Rate 63 61 62 Pulse Rate [ 61 From Monitor] Respiratory 16 12 15 Rate Blood Pressure 97/58 106/62 106/58 O2 Sat by Pulse 100 100 100 Oximetry 10/11/20 10/11/20 10/11/20 04:15 04:30 04:46 Temperature Pulse Rate 61 61 62 Pulse Rate [ From Monitor] Respiratory 13 18 17 Rate Blood Pressure 107/65 97/54 97/54 O2 Sat by Pulse 100 100 Oximetry 10/11/20 10/11/20 10/11/20 05:00 05:08 05:15 Temperature Pulse Rate 64 61 61 Pulse Rate [ From Monitor] Respiratory 24 20 20 Rate Blood Pressure 97/54 87/56 108/63 O2 Sat by Pulse 100 100 Oximetry 10/11/20 10/11/20 10/11/20 05:30 05:45 06:00 Temperature Pulse Rate 61 61 61 Pulse Rate [ From Monitor] Respiratory 21 22 22 Rate Blood Pressure 108/63 108/64 100/62 O2 Sat by Pulse 100 100 Oximetry 10/11/20 10/11/20 10/11/20 06:15 06:30 06:45 Temperature Pulse Rate 61 63 65 Pulse Rate [ From Monitor] Respiratory 24 13 Rate Blood Pressure 97/60 112/67 115/70 O2 Sat by Pulse 100 100 Oximetry 10/11/20 10/11/20 10/11/20 07:00 07:15 07:30 Temperature Pulse Rate 63 63 65 Pulse Rate [ From Monitor] Respiratory 19 24 12 Rate Blood Pressure 113/68 104/62 104/62 O2 Sat by Pulse 100 100 100 Oximetry 10/11/20 10/11/20 10/11/20 07:46 07:58 08:00 Temperature 97.9 F Pulse Rate 66 63 Pulse Rate [ 61 From Monitor] Respiratory 13 12 Rate Blood Pressure 102/59 102/59 O2 Sat by Pulse 100 100 100 Oximetry 10/11/20 10/11/20 10/11/20 08:15 08:30 08:45 Temperature Pulse Rate 62 65 65 Pulse Rate [ From Monitor] Respiratory 18 18 Rate Blood Pressure 101/58 99/51 109/62 O2 Sat by Pulse 100 100 100 Oximetry 10/11/20 10/11/20 10/11/20 09:00 09:15 09:30 Temperature Pulse Rate 66 65 63 Pulse Rate [ From Monitor] Respiratory 20 20 20 Rate Blood Pressure 109/62 99/58 107/60 O2 Sat by Pulse 100 100 100 Oximetry 10/11/20 10/11/20 10/11/20 09:45 10:00 10:15 Temperature Pulse Rate 64 65 64 Pulse Rate [ From Monitor] Respiratory Rate Blood Pressure 112/63 106/64 100/63 O2 Sat by Pulse 100 100 100 Oximetry 10/11/20 10/11/20 10/11/20 10:30 10:45 11:00 Temperature Pulse Rate 65 65 66 Pulse Rate [ From Monitor] Respiratory 22 Rate Blood Pressure 108/63 108/63 108/61 O2 Sat by Pulse 100 100 100 Oximetry 10/11/20 10/11/20 10/11/20 11:15 11:30 11:45 Temperature Pulse Rate 65 67 66 Pulse Rate [ From Monitor] Respiratory 22 25 H 23 Rate Blood Pressure 105/62 95/58 104/59 O2 Sat by Pulse 100 100 100 Oximetry 10/11/20 12:00 Temperature Pulse Rate 64 Pulse Rate [ 61 From Monitor] Respiratory 19 Rate Blood Pressure 96/63 O2 Sat by Pulse 100 Oximetry Constitutional: no acute distress, other (elderly obese male with mildly increased respiratory effort at rest) Eyes: non-icteric ENT: oropharynx moist Neck: supple, no lymphadenopathy, no JVD, other (+ large neck circumference) Effort: mildly labored Ascultation: Bilateral: diminished breath sounds, rhonchi Percussion: Bilateral: not dull Cardiovascular: regular rate and rhythm Gastrointestinal: normoactive bowel sounds, soft, non-tender, non-distended (protuberant) Integumentary: rash Extremities: no cyanosis, pulses normal, no ischemia or petechiae Neurologic: non-focal exam (grossly), pupils equal and round, CN II-XII normal, other (encephalopathic / delirious) Psychiatric: other (unable to assess re: AMS) CBC and BMP: 10/11/20 04:00 10/11/20 04:00 ABG, PT/INR, D-dimer: ABG ABG pH 7.415 (7.320-7.450) 10/09/20 14:25 POC ABG pCO2 27.3 mmHg (32.0-48.0) L 10/09/20 14:25 POC ABG pO2 125.5 mmHg (83-108) H 10/09/20 14:25 POC ABG HCO3 17.1 10/09/20 14:25 ABG O2 Saturation 98.8 (0-100) 10/09/20 14:25 PT/INR, D-dimer PT 32.7 Sec. (12.2-14.9) H 10/07/20 18:17 INR 3.17 (0.87-1.13) H 10/07/20 18:17 D-Dimer 922.08 ng/mlDDU (0-234) H 10/09/20 19:30 Abnormal lab findings: Abnormal Labs 10/07/20 10/07/20 10/07/20 16:38 16:38 16:38 WBC 14.1 H RBC 3.03 L Hgb 8.7 L Hct 28.7 L MCV 95 H MCHC 30 L RDW 27.1 H [place] # (Auto) Seg Neutrophils % Seg Neuts % (Manual) Lymphocytes % (Manual) Monocytes % (Manual) 9.0 H Nucleated RBC % Seg Neutrophils # Seg Neutrophils # Man 9.3 H Lymphocytes # (Manual) Monocytes # (Manual) 1.3 H PT INR D-Dimer POC ABG pCO2 POC ABG pO2 ABG Hemoglobin ABG Sodium ABG Potassium ABG Chloride ABG Glucose Sodium 158 H Potassium 3.4 L Chloride 122.7 H Carbon Dioxide BUN 30 H Creatinine 1.7 H Glucose 144 H POC Glucose Lactic Acid 2.50 H* Calcium 8.3 L Ferritin Total Bilirubin 1.40 H Troponin T NT-Pro-B Natriuret Pep Albumin 3.0 L Triglycerides HDL Cholesterol Arterial Blood Glucose Arterial Blood Ionized Calcium Urine WBC (Auto) Coronavirus (PCR) Crossmatch 10/07/20 10/07/20 10/07/20 16:38 16:38 18:17 WBC RBC Hgb Hct MCV MCHC RDW [place] # (Auto) Seg Neutrophils % Seg Neuts % (Manual) Lymphocytes % (Manual) Monocytes % (Manual) Nucleated RBC % Seg Neutrophils # Seg Neutrophils # Man Lymphocytes # (Manual) Monocytes # (Manual) PT 32.7 H INR 3.17 H D-Dimer POC ABG pCO2 POC ABG pO2 ABG Hemoglobin ABG Sodium ABG Potassium ABG Chloride ABG Glucose Sodium Potassium Chloride Carbon Dioxide BUN Creatinine Glucose POC Glucose Lactic Acid Calcium Ferritin Total Bilirubin Troponin T 0.087 H NT-Pro-B Natriuret Pep 2155 H Albumin Triglycerides 193 H HDL Cholesterol 20 L Arterial Blood Glucose Arterial Blood Ionized Calcium Urine WBC (Auto) Coronavirus (PCR) Crossmatch 10/07/20 10/08/20 10/08/20 Unknown 02:53 02:53 WBC 13.4 H RBC 2.79 L Hgb 8.1 L Hct 26.2 L MCV MCHC 31 L RDW 27.7 H [place] # (Auto) 0.9 H Seg Neutrophils % 70.6 H Seg Neuts % (Manual) Lymphocytes % (Manual) Monocytes % (Manual) Nucleated RBC % Seg Neutrophils # 9.4 H Seg Neutrophils # Man Lymphocytes # (Manual) Monocytes # (Manual) PT INR D-Dimer POC ABG pCO2 POC ABG pO2 ABG Hemoglobin ABG Sodium ABG Potassium ABG Chloride ABG Glucose Sodium 159 H Potassium 2.7 L* D Chloride 127.9 H Carbon Dioxide 20 L BUN 27 H Creatinine 1.5 H Glucose 156 H POC Glucose Lactic Acid Calcium 7.1 L Ferritin Total Bilirubin Troponin T NT-Pro-B Natriuret Pep Albumin Triglycerides HDL Cholesterol Arterial Blood Glucose Arterial Blood Ionized Calcium Urine WBC (Auto) 111.0 H Coronavirus (PCR) Crossmatch 10/08/20 10/08/20 10/08/20 09:34 14:57 17:29 WBC RBC Hgb Hct MCV MCHC RDW [place] # (Auto) Seg Neutrophils % Seg Neuts % (Manual) Lymphocytes % (Manual) Monocytes % (Manual) Nucleated RBC % Seg Neutrophils # Seg Neutrophils # Man Lymphocytes # (Manual) Monocytes # (Manual) PT INR D-Dimer POC ABG pCO2 POC ABG pO2 ABG Hemoglobin 7.9 L ABG Sodium 162.9 H ABG Potassium 2.6 L ABG Chloride 131.0 H ABG Glucose 146 H Sodium Potassium Chloride Carbon Dioxide BUN Creatinine Glucose POC Glucose 128 H Lactic Acid Calcium Ferritin Total Bilirubin Troponin T NT-Pro-B Natriuret Pep Albumin Triglycerides HDL Cholesterol Arterial Blood Glucose 146 H Arterial Blood Ionized Calcium Urine WBC (Auto) Coronavirus (PCR) Positive A Crossmatch 10/09/20 10/09/20 10/09/20 05:14 05:14 11:48 WBC 13.9 H RBC 2.52 L Hgb 7.3 L Hct 23.7 L MCV MCHC 31 L RDW 28.1 H [place] # (Auto) Seg Neutrophils % Seg Neuts % (Manual) 91.0 H Lymphocytes % (Manual) 5.0 L Monocytes % (Manual) Nucleated RBC % Seg Neutrophils # Seg Neutrophils # Man 12.6 H Lymphocytes # (Manual) 0.7 L Monocytes # (Manual) PT INR D-Dimer POC ABG pCO2 POC ABG pO2 ABG Hemoglobin ABG Sodium ABG Potassium ABG Chloride ABG Glucose Sodium 162 H* Potassium 3.3 L D Chloride 131.6 H Carbon Dioxide 18 L BUN 25 H Creatinine Glucose 164 H POC Glucose 126 H Lactic Acid Calcium 7.4 L Ferritin Total Bilirubin Troponin T NT-Pro-B Natriuret Pep Albumin Triglycerides HDL Cholesterol Arterial Blood Glucose Arterial Blood Ionized Calcium Urine WBC (Auto) Coronavirus (PCR) Crossmatch 10/09/20 10/09/20 10/09/20 14:25 17:55 19:30 WBC RBC Hgb Hct MCV MCHC RDW [place] # (Auto) Seg Neutrophils % Seg Neuts % (Manual) Lymphocytes % (Manual) Monocytes % (Manual) Nucleated RBC % Seg Neutrophils # Seg Neutrophils # Man Lymphocytes # (Manual) Monocytes # (Manual) PT INR D-Dimer 922.08 H POC ABG pCO2 27.3 L POC ABG pO2 125.5 H ABG Hemoglobin 7.0 L ABG Sodium 158.0 H ABG Potassium 3.0 L ABG Chloride 132.0 H ABG Glucose 172 H Sodium Potassium Chloride Carbon Dioxide BUN Creatinine Glucose POC Glucose 179 H Lactic Acid Calcium Ferritin Total Bilirubin Troponin T NT-Pro-B Natriuret Pep Albumin Triglycerides HDL Cholesterol Arterial Blood Glucose 172 H Arterial Blood Ionized Calcium 4.2 L Urine WBC (Auto) Coronavirus (PCR) Crossmatch 10/09/20 10/09/20 10/10/20 19:30 23:22 05:18 WBC RBC Hgb Hct MCV MCHC RDW [place] # (Auto) Seg Neutrophils % Seg Neuts % (Manual) Lymphocytes % (Manual) Monocytes % (Manual) Nucleated RBC % Seg Neutrophils # Seg Neutrophils # Man Lymphocytes # (Manual) Monocytes # (Manual) PT INR D-Dimer POC ABG pCO2 POC ABG pO2 ABG Hemoglobin ABG Sodium ABG Potassium ABG Chloride ABG Glucose Sodium Potassium Chloride Carbon Dioxide BUN Creatinine Glucose POC Glucose 192 H 168 H Lactic Acid Calcium Ferritin 579.8 H Total Bilirubin Troponin T NT-Pro-B Natriuret Pep Albumin Triglycerides HDL Cholesterol Arterial Blood Glucose Arterial Blood Ionized Calcium Urine WBC (Auto) Coronavirus (PCR) Crossmatch 10/10/20 10/10/20 10/10/20 06:07 06:07 11:43 WBC 13.5 H RBC 2.39 L Hgb 6.8 L Hct 22.1 L MCV MCHC 31 L RDW 27.2 H [place] # (Auto) Seg Neutrophils % Seg Neuts % (Manual) 89.0 H Lymphocytes % (Manual) 10.0 L Monocytes % (Manual) Nucleated RBC % 2.0 H Seg Neutrophils # Seg Neutrophils # Man 12.0 H Lymphocytes # (Manual) Monocytes # (Manual) PT INR D-Dimer POC ABG pCO2 POC ABG pO2 ABG Hemoglobin ABG Sodium ABG Potassium ABG Chloride ABG Glucose Sodium 158 H Potassium 3.2 L Chloride 129.3 H Carbon Dioxide 19 L BUN 21 H Creatinine Glucose 200 H POC Glucose 155 H Lactic Acid Calcium 6.7 L Ferritin Total Bilirubin Troponin T NT-Pro-B Natriuret Pep Albumin Triglycerides HDL Cholesterol Arterial Blood Glucose Arterial Blood Ionized Calcium Urine WBC (Auto) Coronavirus (PCR) Crossmatch 10/10/20 10/10/20 10/10/20 12:00 17:19 23:44 WBC RBC Hgb Hct MCV MCHC RDW [place] # (Auto) Seg Neutrophils % Seg Neuts % (Manual) Lymphocytes % (Manual) Monocytes % (Manual) Nucleated RBC % Seg Neutrophils # Seg Neutrophils # Man Lymphocytes # (Manual) Monocytes # (Manual) PT INR D-Dimer POC ABG pCO2 POC ABG pO2 ABG Hemoglobin ABG Sodium ABG Potassium ABG Chloride ABG Glucose Sodium Potassium Chloride Carbon Dioxide BUN Creatinine Glucose POC Glucose 185 H 219 H Lactic Acid Calcium Ferritin Total Bilirubin Troponin T NT-Pro-B Natriuret Pep Albumin Triglycerides HDL Cholesterol Arterial Blood Glucose Arterial Blood Ionized Calcium Urine WBC (Auto) Coronavirus (PCR) Crossmatch See Detail 10/11/20 10/11/20 10/11/20 04:00 04:00 05:11 WBC 11.5 H RBC 3.37 L Hgb 9.6 L Hct 30.0 L D MCV MCHC RDW 23.9 H [place] # (Auto) Seg Neutrophils % 81.5 H Seg Neuts % (Manual) Lymphocytes % (Manual) Monocytes % (Manual) Nucleated RBC % Seg Neutrophils # 9.4 H Seg Neutrophils # Man Lymphocytes # (Manual) Monocytes # (Manual) PT INR D-Dimer POC ABG pCO2 POC ABG pO2 ABG Hemoglobin ABG Sodium ABG Potassium ABG Chloride ABG Glucose Sodium 151 H Potassium 3.0 L Chloride 122.8 H Carbon Dioxide 19 L BUN 23 H Creatinine Glucose 238 H POC Glucose 191 H Lactic Acid Calcium 7.0 L Ferritin Total Bilirubin Troponin T NT-Pro-B Natriuret Pep Albumin Triglycerides HDL Cholesterol Arterial Blood Glucose Arterial Blood Ionized Calcium Urine WBC (Auto) Coronavirus (PCR) Crossmatch 10/11/20 10/11/20 11:01 12:24 WBC RBC Hgb Hct MCV MCHC RDW [place] # (Auto) Seg Neutrophils % Seg Neuts % (Manual) Lymphocytes % (Manual) Monocytes % (Manual) Nucleated RBC % Seg Neutrophils # Seg Neutrophils # Man Lymphocytes # (Manual) Monocytes # (Manual) PT INR D-Dimer POC ABG pCO2 POC ABG pO2 ABG Hemoglobin ABG Sodium ABG Potassium ABG Chloride ABG Glucose Sodium Potassium Chloride Carbon Dioxide BUN Creatinine Glucose POC Glucose 187 H 199 H Lactic Acid Calcium Ferritin Total Bilirubin Troponin T NT-Pro-B Natriuret Pep Albumin Triglycerides HDL Cholesterol Arterial Blood Glucose Arterial Blood Ionized Calcium Urine WBC (Auto) Coronavirus (PCR) Crossmatch Allied health notes reviewed: nursing
[2020-10-11 13:21] LABS: INR 4.56 (0.87-1.13)
--- NOTE | 2020-10-11 15:13 | Progress Note ---
Assessment and Plan Assessment and plan: Sepsis -Antibiotic therapy -Patient's disease consulted, appreciate recommendations -S/p vasopressor support COVID-19 pneumonia -COVID-19 PCR positive -Antibiotic therapy -Dexamethasone -Zinc -Isolation/droplet precautions Acute hypoxic respiratory failure -S/p BiPAP therapy currently on nasal cannula -Supplemental oxygen as needed -Pulmonary hygiene MRSA bacteremia -Antibiotic therapy -ID anticipates discharge with antibiotic therapy Toxic metabolic encephalopathy -Supportive care Obesity hypoventilation syndrome -Supportive care -As needed BiPAP Acute kidney injury. Etiology secondary to ATN -S/p IVF resuscitation -Trend BMP Hypernatremia -Hypotonic IV fluid -Free water flush -Trend BMP Hyperchloremia -Hypotonic IV fluid -Trend BMP Metabolic acidosis -Trend BMP General debility. -PT/OT consult when appropriate Vascular dementia. -Supportive care Cerebral atherosclerosis -Statin therapy UTI -Antibiotic therapy Leukocytosis -Antibiotic therapy, trend CBC Supratherapeutic INR -Hold home Coumadin, trend INR Hypokalemia -Replete and trend BMP DVT/GI prophylaxis: PPI, SCDs to bilateral lower extremities while in bed hold chemical anticoagulation in setting of supratherapeutic INR Dispo: Possible transfer to floor History Interval history: This is 64-year-old male from [facility] facility with oh at bedtime, cerebral sclerosis, chronic respiratory failure, CVA, anemia of chronic disease, GERD, HTN, DVT, vascular dementia who presented to the emergency department on 10/07 for increased confusion and weakness over the past 2 days with worsening symptoms over the past 1 day. Upon arrival to the emergency department patient was found to have urinary tract infection complicated by sepsis, metabolic acidosis, acute kidney injury and toxic metabolic encephalopathy. Patient was admitted to the hospital service to IMCU on the sepsis protocol. Infectious disease and CCM were consulted. Sepsis COVID-19 pneumonia Acute hypoxic respiratory failure MRSA bacteremia Toxic metabolic encephalopathy Obesity hypoventilation syndrome Acute kidney injury. Etiology secondary to ATN Hypernatremia Hyperchloremia Metabolic acidosis General debility. Vascular dementia. Cerebral atherosclerosis UTI Leukocytosis Supratherapeutic INR Hypokalemia 10/08: Continue IV antibiotics and IV fluid hydration. Consult ID for further evaluation. 10/09: Continue antibiotic per ID recommendations. Continue dexamethasone to complete 10 days. Continue to trend inflammatory markers. Sodium noted to be 162. We will start D5W at 75 cc an hour. Continue 250 cc free water every 4 hours. Follow-up BMP in a.m. Also, replete potassium. 10/10: Sodium improved to 158 today. Continue D5W IV fluids and free water every 4 hours.. Replete potassium. Hemoglobin 6.8. We will type and cross and transfuse 2 units PRBCs. Continue dexamethasone to complete 10 days. Continue to trend inflammatory markers. 10/11: We will obtain TTE to rule out vegetation as patient grew MRSA in his blood cultures, patient still has leukocytosis and worsening INR. Patient has hypokalemia today along with improving hypernatremia, hyperchloremia, metabolic acidosis, hypocalcemia and leukocytosis. Hospitalist Physical - Constitutional Vitals: Temp Pulse Resp BP Pulse Ox 97.6 F 70 14 94/48 99 10/11/20 12:00 10/11/20 15:00 10/11/20 15:00 10/11/20 15:00 10/11/20 15:00 General appearance: Present: mild distress - EENT Eyes: Present: PERRL ENT: poor dentition - Neck Neck: Present: supple - Respiratory Respiratory effort: normal Respiratory: bilateral: diminished - Cardiovascular Heart Sounds: Present: S1 & S2. Absent: systolic murmur, diastolic murmur - Extremities Extremities: no ischemia, pulses intact, pulses symmetrical, normal temperature, normal color Peripheral Pulses: within normal limits - Abdominal General gastrointestinal: soft, non-tender, non-distended, normal bowel sounds - Integumentary Integumentary: Present: clear, warm, dry - Psychiatric Psychiatric: other (Response to painful stimuli and with noncompressible speech) - Neurologic Neurologic: CNII-XII intact, no focal deficits, moves all extremities HEART Score - HEART Score Troponin: Troponin T 0.087 ng/mL (0.00-0.029) H 10/07/20 16:38 Results - Labs CBC & Chem 7: 10/11/20 04:00 10/11/20 04:00 Labs: Laboratory Last Values WBC 11.5 K/mm3 (4.5-11.0) H 10/11/20 04:00 RBC 3.37 M/mm3 (3.65-5.03) L 10/11/20 04:00 Hgb 9.6 gm/dl (11.8-15.2) L 10/11/20 04:00 Hct 30.0 % (35.5-45.6) L D 10/11/20 04:00 MCV 89 fl (84-94) 10/11/20 04:00 MCH 28 pg (28-32) 10/11/20 04:00 MCHC 32 % (32-34) 10/11/20 04:00 RDW 23.9 % (13.2-15.2) H 10/11/20 04:00 Plt Count 156 K/mm3 (140-440) 10/11/20 04:00 Lymph % (Auto) 13.6 % (13.4-35.0) 10/11/20 04:00 [place] % (Auto) 4.7 % (0.0-7.3) 10/11/20 04:00 Eos % (Auto) 0.0 % (0.0-4.3) 10/11/20 04:00 Baso % (Auto) 0.2 % (0.0-1.8) 10/11/20 04:00 Lymph # (Auto) 1.6 K/mm3 (1.2-5.4) 10/11/20 04:00 [place] # (Auto) 0.5 K/mm3 (0.0-0.8) 10/11/20 04:00 Eos # (Auto) 0.0 K/mm3 (0.0-0.4) 10/11/20 04:00 Baso # (Auto) 0.0 K/mm3 (0.0-0.1) 10/11/20 04:00 Add Manual Diff Complete 10/10/20 06:07 Total Counted 100 10/10/20 06:07 Seg Neutrophils % 81.5 % (40.0-70.0) H 10/11/20 04:00 Seg Neuts % (Manual) 89.0 % (40.0-70.0) H 10/10/20 06:07 Lymphocytes % (Manual) 10.0 % (13.4-35.0) L 10/10/20 06:07 Monocytes % (Manual) 1.0 % (0.0-7.3) 10/10/20 06:07 Eosinophils % (Manual) 2.0 % (0.0-4.3) 10/07/20 16:38 Nucleated RBC % 2.0 % (0.0-0.9) H 10/10/20 06:07 Seg Neutrophils # 9.4 K/mm3 (1.8-7.7) H 10/11/20 04:00 Seg Neutrophils # Man 12.0 K/mm3 (1.8-7.7) H 10/10/20 06:07 Band Neutrophils # 0.0 K/mm3 10/10/20 06:07 Lymphocytes # (Manual) 1.4 K/mm3 (1.2-5.4) 10/10/20 06:07 Abs React Lymphs (Man) 0.0 K/mm3 10/10/20 06:07 Monocytes # (Manual) 0.1 K/mm3 (0.0-0.8) 10/10/20 06:07 Eosinophils # (Manual) 0.0 K/mm3 (0.0-0.4) 10/10/20 06:07 Basophils # (Manual) 0.0 K/mm3 (0.0-0.1) 10/10/20 06:07 Metamyelocytes # 0.0 K/mm3 10/10/20 06:07 Myelocytes # 0.0 K/mm3 10/10/20 06:07 Promyelocytes # 0.0 K/mm3 10/10/20 06:07 Blast Cells # 0.0 K/mm3 10/10/20 06:07 WBC Morphology Not Reportable 10/10/20 06:07 Hypersegmented Neuts Not Reportable 10/10/20 06:07 Hyposegmented Neuts Not Reportable 10/10/20 06:07 Hypogranular Neuts Not Reportable 10/10/20 06:07 Smudge Cells Not Reportable 10/10/20 06:07 Toxic Granulation Not Reportable 10/10/20 06:07 Toxic Vacuolation Not Reportable 10/10/20 06:07 Dohle Bodies Not Reportable 10/10/20 06:07 Pelger-Huet Anomaly Not Reportable 10/10/20 06:07 Adrryl Rods Not Reportable 10/10/20 06:07 Platelet Estimate Consistent w auto 10/10/20 06:07 Clumped Platelets Not Reportable 10/10/20 06:07 Plt Clumps, EDTA Not Reportable 10/10/20 06:07 Large Platelets Not Reportable 10/10/20 06:07 Giant Platelets Not Reportable 10/10/20 06:07 Platelet Satelliting Not Reportable 10/10/20 06:07 Plt Morphology Comment Not Reportable 10/10/20 06:07 RBC Morphology Not Reportable 10/10/20 06:07 Dimorphic RBCs Not Reportable 10/10/20 06:07 Polychromasia Not Reportable 10/10/20 06:07 Hypochromasia Not Reportable 10/10/20 06:07 Poikilocytosis 2+ 10/10/20 06:07 Anisocytosis 3+ 10/10/20 06:07 Microcytosis Not Reportable 10/10/20 06:07 Macrocytosis Not Reportable 10/10/20 06:07 Spherocytes Not Reportable 10/10/20 06:07 Pappenheimer Bodies Not Reportable 10/10/20 06:07 Sickle Cells Not Reportable 10/10/20 06:07 Target Cells Not Reportable 10/10/20 06:07 Tear Drop Cells 1+ 10/10/20 06:07 Ovalocytes Few 10/10/20 06:07 Helmet Cells Not Reportable 10/10/20 06:07 [place] Bodies Not Reportable 10/10/20 06:07 [place] Rings Not Reportable 10/10/20 06:07 [place] Cells Not Reportable 10/10/20 06:07 Bite Cells Not Reportable 10/10/20 06:07 Crenated Cell Not Reportable 10/10/20 06:07 Elliptocytes 1+ 10/10/20 06:07 Acanthocytes (Spur) Not Reportable 10/10/20 06:07 Rouleaux Not Reportable 10/10/20 06:07 Hemoglobin C Crystals Not Reportable 10/10/20 06:07 Schistocytes Not Reportable 10/10/20 06:07 Malaria parasites Not Reportable 10/10/20 06:07 Lucas Bodies Not Reportable 10/10/20 06:07 Hem Pathologist Commnt No 10/10/20 06:07 PT 43.8 Sec. (12.2-14.9) H 10/11/20 12:58 INR 4.56 (0.87-1.13) H 10/11/20 12:58 D-Dimer 922.08 ng/mlDDU (0-234) H 10/09/20 19:30 ABG pH 7.415 (7.320-7.450) 10/09/20 14:25 POC ABG pCO2 27.3 mmHg (32.0-48.0) L 10/09/20 14:25 POC ABG pO2 125.5 mmHg (83-108) H 10/09/20 14:25 POC ABG HCO3 17.1 10/09/20 14:25 ABG O2 Saturation 98.8 (0-100) 10/09/20 14:25 POC ABG Base Excess -6.7 10/09/20 14:25 ABG Hemoglobin 7.0 (12.0-17.5) L 10/09/20 14:25 ABG Oxyhemoglobin 97.2 (94-98) 10/09/20 14:25 ABG Methemoglobin 0.1 (0.0-1.5) 10/09/20 14:25 ABG Sodium 158.0 mmol/L (136.0-145.0) H 10/09/20 14:25 ABG Potassium 3.0 mmol/L (3.40-4.50) L 10/09/20 14:25 ABG Chloride 132.0 mmol/L (98-107) H 10/09/20 14:25 ABG Glucose 172 mg/dL (65-95) H 10/09/20 14:25 Carboxyhemoglobin 1.5 (0.5-1.5) 10/09/20 14:25 FiO2 % 26.0 10/09/20 14:25 Sodium 151 mmol/L (137-145) H 10/11/20 04:00 Potassium 3.0 mmol/L (3.6-5.0) L 10/11/20 04:00 Chloride 122.8 mmol/L (98-107) H 10/11/20 04:00 Carbon Dioxide 19 mmol/L (22-30) L 10/11/20 04:00 Anion Gap 12 mmol/L 10/11/20 04:00 BUN 23 mg/dL (9-20) H 10/11/20 04:00 Creatinine 1.2 mg/dL (0.8-1.3) 10/11/20 04:00 Estimated GFR > 60 ml/min 10/11/20 04:00 BUN/Creatinine Ratio 19 % 10/11/20 04:00 Glucose 238 mg/dL (75-100) H 10/11/20 04:00 POC Glucose 199 mg/dL (70-105) H 10/11/20 12:24 Lactic Acid 1.10 mmol/L (0.7-2.0) 10/09/20 19:30 Calcium 7.0 mg/dL (8.4-10.2) L 10/11/20 04:00 Ferritin 579.8 ng/mL (30.0-300.0) H 10/09/20 19:30 Total Bilirubin 1.40 mg/dL (0.1-1.2) H 10/07/20 16:38 AST 32 units/L (5-40) 10/07/20 16:38 ALT 18 units/L (7-56) 10/07/20 16:38 Alkaline Phosphatase 61 units/L (35-129) 10/07/20 16:38 Troponin T 0.087 ng/mL (0.00-0.029) H 10/07/20 16:38 NT-Pro-B Natriuret Pep 2155 pg/mL (0-900) H 10/07/20 16:38 Total Protein 7.7 g/dL (6.3-8.2) 10/07/20 16:38 Albumin 3.0 g/dL (3.9-5) L 10/07/20 16:38 Albumin/Globulin Ratio 0.6 % 10/07/20 16:38 Triglycerides 193 mg/dL (2-149) H 10/07/20 16:38 Cholesterol 136 mg/dL (50-199) 10/07/20 16:38 LDL Cholesterol Direct 82 mg/dL (50-130) 10/07/20 16:38 HDL Cholesterol 20 mg/dL (40-59) L 10/07/20 16:38 Cholesterol/HDL Ratio 6.80 % 10/07/20 16:38 Procalcitonin 0.10 ng/mL (<0.15) 10/08/20 15:33 Arterial Blood Glucose 172 mg/dL (65-95) H 10/09/20 14:25 Arterial Blood Ionized Calcium 4.2 mg/dL (4.6-5.3) L 10/09/20 14:25 Urine Color Sonal (Yellow) 10/07/20 Unknown Urine Turbidity Turbid (Clear) 10/07/20 Unknown Urine pH 7.0 (5.0-7.0) 10/07/20 Unknown Ur Specific [place] 1.020 (1.003-1.030) 10/07/20 Unknown Urine Protein 100 mg/dl mg/dL (Negative) 10/07/20 Unknown Urine Glucose (UA) Neg mg/dL (Negative) 10/07/20 Unknown Urine Ketones Neg mg/dL (Negative) 10/07/20 Unknown Urine Blood Neg (Negative) 10/07/20 Unknown Urine Nitrite Neg (Negative) 10/07/20 Unknown Urine Bilirubin Sm (Negative) 10/07/20 Unknown Urine Ictotest Negative (Negative) 10/07/20 Unknown Urine Urobilinogen 4.0 mg/dL (<2.0) 10/07/20 Unknown Ur Leukocyte Esterase Lg (Negative) 10/07/20 Unknown Urine WBC (Auto) 111.0 /HPF (0.0-6.0) H 10/07/20 Unknown Urine RBC (Auto) 40.0 /HPF (0.0-6.0) 10/07/20 Unknown Urine Bacteria (Auto) 3+ /HPF (Negative) 10/07/20 Unknown Urine WBC Clumps 2+ /HPF 10/07/20 Unknown Urine Yeast (Budding) 3+ /HPF 10/07/20 Unknown Vancomycin Trough 46.1 ug/mL (5.0-20.0) H 10/11/20 12:10 Random Vancomycin 8.7 ug/mL (0-40.0) 10/09/20 05:14 Coronavirus (PCR) Positive (Negative) A 10/08/20 09:34 Blood Type B POSITIVE 10/10/20 12:00 Antibody Screen Negative 10/10/20 12:00 Crossmatch See Detail 10/10/20 12:00 Microbiology: Microbiology 10/10/20 13:46 Peripheral/Venous Blood Culture - Preliminary NO GROWTH AFTER 24 HOURS 10/10/20 14:04 Peripheral/Venous Blood Culture - Preliminary NO GROWTH AFTER 24 HOURS 10/07/20 16:38 Peripheral/Venous Blood Culture - Preliminary NO GROWTH AFTER 72 HOURS 10/07/20 16:38 Peripheral/Venous Blood Culture - Preliminary Methicillin Resist S. Aureus Iglesias/IV: Voiding Method Indwelling Catheter Active Medications - Current Medications Current Medications: Generic Name Dose Route Start Last Admin Trade Name Freq PRN Reason Stop Dose Admin Acetaminophen 650 mg 10/07/20 19:06 Acetaminophen 325 Mg Tab PO Q4H PRN Pain MILD(1-3)/Fever >100.5/RAM Albuterol 2.5 mg 10/07/20 19:06 Albuterol 2.5 Mg/3 Ml Nebu IH Q4H PRN Shortness Of Breath Lipase/Protease/Amylase 1 each 10/10/20 09:00 Lipase 10,500/Protease 25,000/Amylase 43,750 (Units) Dr Cap FEEDTUBE PRN PRN For Clogged Feeding Tube Ascorbic Acid 500 mg 10/08/20 22:00 10/11/20 09:03 Ascorbic Acid 500 Mg Tab PO 500 mg BID LISA Administration Atorvastatin Calcium 20 mg 10/11/20 22:00 Atorvastatin 20 Mg Tab PO QHS LISA Dexamethasone 6 mg 10/08/20 15:00 10/11/20 09:04 Dexamethasone 4 Mg/Ml Vial IV 10/17/20 10:01 6 mg DAILY LISA Administration Dextrose 50 ml 10/11/20 09:19 Dextrose 50% In Water (25gm) 50 Ml Syringe IV Q30MIN PRN Hypoglycemia Protocol Famotidine 20 mg 10/08/20 14:00 10/11/20 09:03 Famotidine 20 Mg Tab PO 20 mg QDAY LISA Administration Hydromorphone HCl 0.25 mg 10/07/20 19:06 Hydromorphone 1 Mg/1 Ml Inj IV Q4H PRN Pain, Moderate (4-6) Cefepime HCl 2 gm in 100 mls @ 200 mls/hr 10/07/20 20:00 10/11/20 09:02 Cefepime/Ns 2 Gm/100 Ml IV 10/14/20 20:29 200 mls/hr Q12H LISA Administration Protocol Norepinephrine 4 mg in 250 mls @ 7.5 mls/hr 10/07/20 23:00 10/10/20 13:00 Levophed Drip 4 Mg/Ns 250 Ml IV 0 mcg/min TITR LISA 0 mls/hr Titration Protocol 2 MCG/MIN Sodium Chloride 1,000 mls @ 75 mls/hr 10/10/20 23:00 10/11/20 09:03 Nacl 0.45% 1000 Ml IV 10/12/20 12:19 75 mls/hr DIRECT LISA Administration Vancomycin HCl 1,500 mg/ 530 mls @ 333.333 mls/hr 10/11/20 22:00 Sodium Chloride IV Q8H [facility] Insulin Glargine 5 units 10/11/20 22:00 Insulin Glargine 100 Units/Ml SUB-Q QHS [facility] Insulin Human Regular 0 units 10/11/20 12:00 10/11/20 12:13 Insulin Regular, Human 100 Units/1 Ml SUB-Q 1 units Q6H [facility] Administration Protocol Ondansetron HCl 4 mg 10/07/20 19:06 Ondansetron 4 Mg/2 Ml Inj IV Q8H PRN Nausea And Vomiting Simple Syrup 15 ml 10/10/20 09:00 Simple Syrup 15 Ml FEEDTUBE PRN PRN Hypoglycemia Simple Syrup 30 ml 10/10/20 09:00 Simple Syrup 15 Ml FEEDTUBE PRN PRN Hypoglycemia Sodium Bicarbonate 325 mg 10/10/20 09:00 Sodium Bicarbonate 325 Mg Tab FEEDTUBE PRN PRN For Clogged Feeding Tube Sodium Chloride 10 ml 10/07/20 22:00 10/11/20 09:08 Sodium Chloride 0.9% 10 Ml Flush Syringe IV 10 ml BID LISA Administration Sodium Chloride 10 ml 10/07/20 19:06 Sodium Chloride 0.9% 10 Ml Flush Syringe IV PRN PRN LINE FLUSH Sucralfate 1 gm 10/11/20 10:00 10/11/20 11:03 Sucralfate 1 Gm/10 Ml Oral Liqd PO 1 gm BID LISA Administration Tamsulosin HCl 0.4 mg 10/11/20 10:00 10/11/20 11:04 Tamsulosin 0.4 Mg Cap PO 0.4 mg DAILY LISA Administration Zinc Sulfate 220 mg 10/08/20 22:00 10/11/20 09:03 Zinc Sulfate 220 Mg Cap PO 220 mg BID LISA Administration Nutrition/Malnutrition Assess - Dietary Evaluation Nutrition/Malnutrition Findings: Nutrition Notes Start: 10/09/20 09:29 Freq: Status: Active Protocol: Document 10/10/20 08:48 SAMANTHA (Rec: 10/10/20 08:55 SAMANTHA [id number]) Nutrition Notes Need for Assessment generated from: MD Order Initial or Follow up Reassessment Current Diagnosis Acute Kidney Injury,Decubitus( Pressure Ulcer),Sepsis, Hypertension,Respiratory Failure,Stroke Other Pertinent Diagnosis COVID, DVT, UTI, GERD, dementia, toxic metabolic encephalopathy Current Diet Cardiac Labs/Tests Na 158 K 3.2 BUN 21 BG 200 Pertinent Medications Levophed D5w at 75 ml/hr Decadron Height 5 ft 7 in Weight 142.882 kg [place] Body Weight (kg) 67.27 BMI 49.3 Weight Status Morbidly Obese Subjective/Other Information MD order for TF. Pt on bipap PRN but remains drowsy. Pt did not answer phone. Percent of energy/protein needs met: 0%/0% Burn Absent Trauma Absent Current % PO Negligible Minimum of two criteria No physical signs of malnutrition #2 Nutrition Diagnosis Increased nutrient needs ( specify in comment below) Diagnosis Progress(for reassessment Continues documentation) #1 Nutrition Diagnosis Inadequate oral intake Diagnosis Progress(for reassessment Continues documentation) Is patient on ventilator? No Is Patient Ambulatory and/or Out of Bed No REE-([facility]-confined to bed) 2605.560 Kcal/Kg value to use for calculation 13 Approximate Energy Requirements Using 1857 kcal/Kg Calculation Used for Recommendations Kcal/kg Additional Notes Protein: 131-157g (1.25-1.5 g/ kg AdjBW: 105kg) Fluid: 1 ml/kcal or per MD Nutrition Intervention Change Diet Order: Start TF when medically able Nutrition Support: Vital HP at 75 ml/hr Flush 250 ml q4h for hypernatermia or per MD. Once hypernatermia has resolved, flush 50 ml q4h Kcal 1,800 Protein (gm) 158 Carbohydrates (gm) 202 Fat (gm) 42 Fluid (mL) 1,505 Add Supplement/Snack (indicate name/kcal Adams BID /protein ) Provides kCal: 190 Provides Protein (gm) 5 Goal #1 TF start and tolerance Goal #2 Meet at least 75% of energy and protein needs via TF Anticipated Discharge Needs: Unable to determine at this time Follow-Up By: 10/12/20 Additional Comments FU for TF start and tolerance
[2020-10-11] MEDS: VANCOMYCIN 1,500 MG in SODIUM CHLORIDE 0.9% 500 ML 500 ML IV SCH (21:23)
[2020-10-12] MEDS: INSULIN GLARGINE 100 UNITS/ML SUB-Q SCH ×2 (00:36→22:19)
[2020-10-12] MEDS: INSULIN REGULAR, HUMAN 100 UNITS/1 ML SUB-Q SCH ×4 (00:40→18:38)
[2020-10-12] MEDS: VANCOMYCIN 1,500 MG in SODIUM CHLORIDE 0.9% 500 ML 500 ML IV SCH (06:07)
[2020-10-12 08:02] LABS: Hematocrit 27.4 % (35.5-45.6); Mean Corpuscular HGB Conc 33 % (32-34); Mean Corpuscular Volume 88 fl (84-94); Platelet Count 161 K/mm3 (140-440); Red Blood Count 3.12 M/mm3 (3.65-5.03)
[2020-10-12 08:10] LABS: Red Cell Distribution Width 24.9 % (13.2-15.2)
[2020-10-12 08:14] LABS: INR 3.4 (0.87-1.13)
[2020-10-12 08:16] LABS: BUN/Creatinine Ratio 22; Blood Urea Nitrogen 26 mg/dL (9-20); Calcium 6.9 mg/dL (8.4-10.2); Hemolysis Index 3
[2020-10-12] MEDS: CEFEPIME/NS 2 GM/100 ML 2 GM/100 ML BAG IV SCH (08:50)
--- NOTE | 2020-10-12 09:45 | Progress Note ---
Assessment and Plan Cultures: Blood culture 10/07/2020 MRSA 1 of 4 bottles Blood cultures 10/10/2020 no growth today A/P: 64-year-old man past medical history GERD, hypertension, CVA #Severe sepsis with septic shock: Off Levophed likely secondary to MRSA bacteremia and UTI. #MRSA bacteremia: Etiology likely sacral decubitus infection. #UTI: Urine culture not available. S/p cefepime for 5 days. #Extensive sacral decubitus/deep tissue injury likely with with cellulitis: Multiple areas of skin erosion, 20x22 x 0.1 cm. Multiple erosions in the scrotum, perineum and inner thighs, incontinent dermatitis. #COVID-19 infection: Patient presented with a week of symptoms, chest x-ray normal. No pneumonia on chest x-ray. Markers elevated. #Acute hypoxemic respiratory failure: Likely secondary to COVID-19 infection. Now on room air #THOMPSON: Renally dose antibiotics, improving #Altered mental status: Likely secondary to COVID-19, staph bacteremia, also electrolyte abnormalities with hypernatremia and hypokalemia. Recs: -Follow-up repeat blood cultures -Obtain transthoracic echo ordered pending -Continue vancomycin with PK consult, target vancomycin trough 10 to 20 mcg/mL -Continue dexamethasone to complete 10 days. -Obtain q48-72h inflammatory markers - ferritin, Ddimer, CRP, LDH, ordered markers today -Anticoagulation per hospital protocol -Proning as able -Continue wound care -Offloading -Anticipate discharge on vancomycin 1750 mg IV q 12 hour for 4 weeks till for MRSA bacteremia and extensive sacral infected decubitus. Keep Vancomycin trough 10-20 mcg/mL. Order sent to child support case officer. Close monitoring Juliet Leyva MD [facility] ([facility]) Office [phone] Subjective Date of service: 10/12/20 Principal diagnosis: Septic Shock; UTI; THOMPSON; Ac. encephalopathy; DVT; staph aureus bacteremia Interval history: Remains on 2 L nasal cannula, no acute events overnight, no fever Objective - Exam Narrative Exam: Physical exam deferred to minimize COVID-19 transmission during pandemic. ER and internal medicine physical examination notes reviewed. - Constitutional Vitals: Vital Signs Temp Pulse Resp BP Pulse Ox 97.3 F L 61 16 97/53 100 10/12/20 04:37 10/12/20 04:37 10/12/20 04:37 10/12/20 04:37 10/12/20 09:37 Temperature -Last 24 Hours Temperature 97.3 F Temperature 97.3 F Temperature 98.0 F Temperature 97.6 F - Labs CBC & Chem 7: 10/12/20 07:24 10/12/20 07:24 Labs: Abnormal lab results 10/11/20 10/11/20 10/11/20 Range/Units 11:01 12:10 12:24 RBC (3.65-5.03) M/mm3 Hgb (11.8-15.2) gm/dl Hct (35.5-45.6) % RDW (13.2-15.2) % PT (12.2-14.9) Sec. INR (0.87-1.13) Sodium (137-145) mmol/L Potassium (3.6-5.0) mmol/L Chloride (98-107) mmol/L Carbon Dioxide (22-30) mmol/L BUN (9-20) mg/dL Glucose (75-100) mg/dL POC Glucose 187 H 199 H (70-105) mg/dL Calcium (8.4-10.2) mg/dL Vancomycin Trough 46.1 H (5.0-20.0) ug/mL 10/11/20 10/11/20 10/11/20 Range/Units 12:58 18:47 23:15 RBC (3.65-5.03) M/mm3 Hgb (11.8-15.2) gm/dl Hct (35.5-45.6) % RDW (13.2-15.2) % PT 43.8 H (12.2-14.9) Sec. INR 4.56 H (0.87-1.13) Sodium (137-145) mmol/L Potassium (3.6-5.0) mmol/L Chloride (98-107) mmol/L Carbon Dioxide (22-30) mmol/L BUN (9-20) mg/dL Glucose (75-100) mg/dL POC Glucose 170 H 136 H (70-105) mg/dL Calcium (8.4-10.2) mg/dL Vancomycin Trough (5.0-20.0) ug/mL 10/12/20 10/12/20 10/12/20 Range/Units 06:11 07:24 07:24 RBC 3.12 L (3.65-5.03) M/mm3 Hgb 9.0 L (11.8-15.2) gm/dl Hct 27.4 L (35.5-45.6) % RDW 24.9 H (13.2-15.2) % PT (12.2-14.9) Sec. INR (0.87-1.13) Sodium 152 H (137-145) mmol/L Potassium 3.3 L (3.6-5.0) mmol/L Chloride 125.2 H (98-107) mmol/L Carbon Dioxide 21 L (22-30) mmol/L BUN 26 H (9-20) mg/dL Glucose 113 H (75-100) mg/dL POC Glucose 107 H (70-105) mg/dL Calcium 6.9 L (8.4-10.2) mg/dL Vancomycin Trough (5.0-20.0) ug/mL 10/12/20 Range/Units 07:24 RBC (3.65-5.03) M/mm3 Hgb (11.8-15.2) gm/dl Hct (35.5-45.6) % RDW (13.2-15.2) % PT 34.6 H (12.2-14.9) Sec. INR 3.40 H (0.87-1.13) Sodium (137-145) mmol/L Potassium (3.6-5.0) mmol/L Chloride (98-107) mmol/L Carbon Dioxide (22-30) mmol/L BUN (9-20) mg/dL Glucose (75-100) mg/dL POC Glucose (70-105) mg/dL Calcium (8.4-10.2) mg/dL Vancomycin Trough (5.0-20.0) ug/mL
[2020-10-12] MEDS ORDERED: POTASSIUM CHLORIDE 20 MEQ PACKET FEEDTUBE SCH (10:30)
--- NOTE | 2020-10-12 10:30 | Progress Note ---
Assessment and Plan Assessment and plan: Sepsis -Antibiotic therapy -Patient's disease consulted, appreciate recommendations -S/p vasopressor support COVID-19 pneumonia -COVID-19 PCR positive -Antibiotic therapy -Dexamethasone -Zinc -Isolation/droplet precautions Acute hypoxic respiratory failure -S/p BiPAP therapy currently on nasal cannula -Supplemental oxygen as needed -Pulmonary hygiene MRSA bacteremia -Antibiotic therapy -Echocardiogram -ID anticipates discharge with antibiotic therapy Obesity hypoventilation syndrome -Supportive care -As needed BiPAP Acute kidney injury. Etiology secondary to ATN -S/p IVF resuscitation -Trend BMP Hypernatremia -Hypotonic IV fluid -Free water flush -Trend BMP Acute metabolic encephalopathy Secondary to infection versus hypernatremia Now needs NG tube for feeding Continue to monitor. If this fails to improve after infection improved and electrolytes abnormalities corrected, patient may need PEG placement Vascular dementia. -Supportive care UTI -Antibiotic therapy Supratherapeutic INR -Hold home Coumadin, trend INR Hypokalemia -Replete and trend BMP DVT/GI prophylaxis: PPI, SCDs to bilateral lower extremities while in bed hold chemical anticoagulation in setting of supratherapeutic INR Dispo: Likely needs placement History Interval history: This is 64-year-old male from [facility] with oh at bedtime, cerebral sclerosis, chronic respiratory failure, CVA, anemia of chronic disease, GERD, HTN, DVT, vascular dementia who presented to the emergency department on 10/07 for increased confusion and weakness over the past 2 days with worsening symptoms over the past 1 day. Upon arrival to the emergency depa rtment patient was found to have urinary tract infection complicated by sepsis, metabolic acidosis, acute kidney injury and toxic metabolic encephalopathy. Patient was admitted to the hospital service to IMCU on the sepsis protocol. Infectious disease and CCM were consulted. Sepsis COVID-19 pneumonia Acute hypoxic respiratory failure MRSA bacteremia Toxic metabolic encephalopathy Obesity hypoventilation syndrome Acute kidney injury. Etiology secondary to ATN Hypernatremia Hyperchloremia Metabolic acidosis General debility. Vascular dementia. Cerebral atherosclerosis UTI Leukocytosis Supratherapeutic INR Hypokalemia 10/08: Continue IV antibiotics and IV fluid hydration. Consult ID for further evaluation. 10/09: Continue antibiotic per ID recommendations. Continue dexamethasone to complete 10 days. Continue to trend inflammatory markers. Sodium noted to be 162. We will start D5W at 75 cc an hour. Continue 250 cc free water every 4 hours. Follow-up BMP in a.m. Also, replete potassium. 10/10: Sodium improved to 158 today. Continue D5W IV fluids and free water every 4 hours.. Replete potassium. Hemoglobin 6.8. We will type and cross and transfuse 2 units PRBCs. Continue dexamethasone to complete 10 days. Continue to trend inflammatory markers. 10/11: We will obtain TTE to rule out vegetation as patient grew MRSA in his blood cultures, patient still has leukocytosis and worsening INR. Patient has hypokalemia today along with improving hypernatremia, hyperchloremia, metabolic acidosis, hypocalcemia and leukocytosis. Hospitalist Physical - Physical exam Narrative exam: VITAL SIGNS: Reviewed. GENERAL: lethargic HEAD: No signs of head trauma. EYES: Pupils are equal. Extraocular motions intact. MOUTH: Oropharynx is normal. NECK: No adenopathy, no JVD. CHEST: Chest with diminished breath sounds bilaterally. No wheezes, rales, or rhonchi. CARDIAC: normal S1 and S2, without murmurs, gallops, or rubs. ABDOMEN: Soft, non tender and non distended. No rebound or guarding, and no masses palpated. Bowel Sounds normal. MUSCULOSKELETAL: No edema NEUROLOGIC EXAM: Lethargic SKIN: No obvious lesions - Constitutional Vitals: Temp Pulse Resp BP Pulse Ox 97.3 F L 61 16 97/53 100 10/12/20 04:37 10/12/20 04:37 10/12/20 04:37 10/12/20 04:37 10/12/20 09:37 HEART Score - HEART Score Troponin: Troponin T 0.087 ng/mL (0.00-0.029) H 10/07/20 16:38 Results - Labs CBC & Chem 7: 10/12/20 07:24 10/12/20 07:24 Labs: Laboratory Last Values WBC 10.1 K/mm3 (4.5-11.0) 10/12/20 07:24 RBC 3.12 M/mm3 (3.65-5.03) L 10/12/20 07:24 Hgb 9.0 gm/dl (11.8-15.2) L 10/12/20 07:24 Hct 27.4 % (35.5-45.6) L 10/12/20 07:24 MCV 88 fl (84-94) 10/12/20 07:24 MCH 29 pg (28-32) 10/12/20 07:24 MCHC 33 % (32-34) 10/12/20 07:24 RDW 24.9 % (13.2-15.2) H 10/12/20 07:24 Plt Count 161 K/mm3 (140-440) 10/12/20 07:24 Lymph % (Auto) 13.6 % (13.4-35.0) 10/11/20 04:00 Esmeralda % (Auto) 4.7 % (0.0-7.3) 10/11/20 04:00 Eos % (Auto) 0.0 % (0.0-4.3) 10/11/20 04:00 Baso % (Auto) 0.2 % (0.0-1.8) 10/11/20 04:00 Lymph # (Auto) 1.6 K/mm3 (1.2-5.4) 10/11/20 04:00 Esmeralda # (Auto) 0.5 K/mm3 (0.0-0.8) 10/11/20 04:00 Eos # (Auto) 0.0 K/mm3 (0.0-0.4) 10/11/20 04:00 Baso # (Auto) 0.0 K/mm3 (0.0-0.1) 10/11/20 04:00 Add Manual Diff Complete 10/10/20 06:07 Total Counted 100 10/10/20 06:07 Seg Neutrophils % 81.5 % (40.0-70.0) H 10/11/20 04:00 Seg Neuts % (Manual) 89.0 % (40.0-70.0) H 10/10/20 06:07 Lymphocytes % (Manual) 10.0 % (13.4-35.0) L 10/10/20 06:07 Monocytes % (Manual) 1.0 % (0.0-7.3) 10/10/20 06:07 Eosinophils % (Manual) 2.0 % (0.0-4.3) 10/07/20 16:38 Nucleated RBC % 2.0 % (0.0-0.9) H 10/10/20 06:07 Seg Neutrophils # 9.4 K/mm3 (1.8-7.7) H 10/11/20 04:00 Seg Neutrophils # Man 12.0 K/mm3 (1.8-7.7) H 10/10/20 06:07 Band Neutrophils # 0.0 K/mm3 10/10/20 06:07 Lymphocytes # (Manual) 1.4 K/mm3 (1.2-5.4) 10/10/20 06:07 Abs React Lymphs (Man) 0.0 K/mm3 10/10/20 06:07 Monocytes # (Manual) 0.1 K/mm3 (0.0-0.8) 10/10/20 06:07 Eosinophils # (Manual) 0.0 K/mm3 (0.0-0.4) 10/10/20 06:07 Basophils # (Manual) 0.0 K/mm3 (0.0-0.1) 10/10/20 06:07 Metamyelocytes # 0.0 K/mm3 10/10/20 06:07 Myelocytes # 0.0 K/mm3 10/10/20 06:07 Promyelocytes # 0.0 K/mm3 10/10/20 06:07 Blast Cells # 0.0 K/mm3 10/10/20 06:07 WBC Morphology Not Reportable 10/10/20 06:07 Hypersegmented Neuts Not Reportable 10/10/20 06:07 Hyposegmented Neuts Not Reportable 10/10/20 06:07 Hypogranular Neuts Not Reportable 10/10/20 06:07 Smudge Cells Not Reportable 10/10/20 06:07 Toxic Granulation Not Reportable 10/10/20 06:07 Toxic Vacuolation Not Reportable 10/10/20 06:07 Dohle Bodies Not Reportable 10/10/20 06:07 Pelger-Huet Anomaly Not Reportable 10/10/20 06:07 Darryl Rods Not Reportable 10/10/20 06:07 Platelet Estimate Consistent w auto 10/10/20 06:07 Clumped Platelets Not Reportable 10/10/20 06:07 Plt Clumps, EDTA Not Reportable 10/10/20 06:07 Large Platelets Not Reportable 10/10/20 06:07 Giant Platelets Not Reportable 10/10/20 06:07 Platelet Satelliting Not Reportable 10/10/20 06:07 Plt Morphology Comment Not Reportable 10/10/20 06:07 RBC Morphology Not Reportable 10/10/20 06:07 Dimorphic RBCs Not Reportable 10/10/20 06:07 Polychromasia Not Reportable 10/10/20 06:07 Hypochromasia Not Reportable 10/10/20 06:07 Poikilocytosis 2+ 10/10/20 06:07 Anisocytosis 3+ 10/10/20 06:07 Microcytosis Not Reportable 10/10/20 06:07 Macrocytosis Not Reportable 10/10/20 06:07 Spherocytes Not Reportable 10/10/20 06:07 Pappenheimer Bodies Not Reportable 10/10/20 06:07 Sickle Cells Not Reportable 10/10/20 06:07 Target Cells Not Reportable 10/10/20 06:07 Tear Drop Cells 1+ 10/10/20 06:07 Ovalocytes Few 10/10/20 06:07 Helmet Cells Not Reportable 10/10/20 06:07 [place] Bodies Not Reportable 10/10/20 06:07 [place] Rings Not Reportable 10/10/20 06:07 Chris Cells Not Reportable 10/10/20 06:07 Bite Cells Not Reportable 10/10/20 06:07 Crenated Cell Not Reportable 10/10/20 06:07 Elliptocytes 1+ 10/10/20 06:07 Acanthocytes (Spur) Not Reportable 10/10/20 06:07 Rouleaux Not Reportable 10/10/20 06:07 Hemoglobin C Crystals Not Reportable 10/10/20 06:07 Schistocytes Not Reportable 10/10/20 06:07 Malaria parasites Not Reportable 10/10/20 06:07 Lucas Bodies Not Reportable 10/10/20 06:07 Hem Pathologist Commnt No 10/10/20 06:07 PT 34.6 Sec. (12.2-14.9) H 10/12/20 07:24 INR 3.40 (0.87-1.13) H 10/12/20 07:24 D-Dimer 922.08 ng/mlDDU (0-234) H 10/09/20 19:30 ABG pH 7.415 (7.320-7.450) 10/09/20 14:25 POC ABG pCO2 27.3 mmHg (32.0-48.0) L 10/09/20 14:25 POC ABG pO2 125.5 mmHg (83-108) H 10/09/20 14:25 POC ABG HCO3 17.1 10/09/20 14:25 ABG O2 Saturation 98.8 (0-100) 10/09/20 14:25 POC ABG Base Excess -6.7 10/09/20 14:25 ABG Hemoglobin 7.0 (12.0-17.5) L 10/09/20 14:25 ABG Oxyhemoglobin 97.2 (94-98) 10/09/20 14:25 ABG Methemoglobin 0.1 (0.0-1.5) 10/09/20 14:25 ABG Sodium 158.0 mmol/L (136.0-145.0) H 10/09/20 14:25 ABG Potassium 3.0 mmol/L (3.40-4.50) L 10/09/20 14:25 ABG Chloride 132.0 mmol/L (98-107) H 10/09/20 14:25 ABG Glucose 172 mg/dL (65-95) H 10/09/20 14:25 Carboxyhemoglobin 1.5 (0.5-1.5) 10/09/20 14:25 FiO2 % 26.0 10/09/20 14:25 Sodium 152 mmol/L (137-145) H 10/12/20 07:24 Potassium 3.3 mmol/L (3.6-5.0) L 10/12/20 07:24 Chloride 125.2 mmol/L (98-107) H 10/12/20 07:24 Carbon Dioxide 21 mmol/L (22-30) L 10/12/20 07:24 Anion Gap 9 mmol/L 10/12/20 07:24 BUN 26 mg/dL (9-20) H 10/12/20 07:24 Creatinine 1.2 mg/dL (0.8-1.3) 10/12/20 07:24 Estimated GFR > 60 ml/min 10/12/20 07:24 BUN/Creatinine Ratio 22 % 10/12/20 07:24 Glucose 113 mg/dL (75-100) H 10/12/20 07:24 POC Glucose 107 mg/dL (70-105) H 10/12/20 06:11 Lactic Acid 1.10 mmol/L (0.7-2.0) 10/09/20 19:30 Calcium 6.9 mg/dL (8.4-10.2) L 10/12/20 07:24 Ferritin 579.8 ng/mL (30.0-300.0) H 10/09/20 19:30 Total Bilirubin 1.40 mg/dL (0.1-1.2) H 10/07/20 16:38 AST 32 units/L (5-40) 10/07/20 16:38 ALT 18 units/L (7-56) 10/07/20 16:38 Alkaline Phosphatase 61 units/L (35-129) 10/07/20 16:38 Troponin T 0.087 ng/mL (0.00-0.029) H 10/07/20 16:38 NT-Pro-B Natriuret Pep 2155 pg/mL (0-900) H 10/07/20 16:38 Total Protein 7.7 g/dL (6.3-8.2) 10/07/20 16:38 Albumin 3.0 g/dL (3.9-5) L 10/07/20 16:38 Albumin/Globulin Ratio 0.6 % 10/07/20 16:38 Triglycerides 193 mg/dL (2-149) H 10/07/20 16:38 Cholesterol 136 mg/dL (50-199) 10/07/20 16:38 LDL Cholesterol Direct 82 mg/dL (50-130) 10/07/20 16:38 HDL Cholesterol 20 mg/dL (40-59) L 10/07/20 16:38 Cholesterol/HDL Ratio 6.80 % 10/07/20 16:38 Procalcitonin 0.10 ng/mL (<0.15) 10/08/20 15:33 Arterial Blood Glucose 172 mg/dL (65-95) H 10/09/20 14:25 Arterial Blood Ionized Calcium 4.2 mg/dL (4.6-5.3) L 10/09/20 14:25 Urine Color Sonal (Yellow) 10/07/20 Unknown Urine Turbidity Turbid (Clear) 10/07/20 Unknown Urine pH 7.0 (5.0-7.0) 10/07/20 Unknown Ur Specific [place] 1.020 (1.003-1.030) 10/07/20 Unknown Urine Protein 100 mg/dl mg/dL (Negative) 10/07/20 Unknown Urine Glucose (UA) Neg mg/dL (Negative) 10/07/20 Unknown Urine Ketones Neg mg/dL (Negative) 10/07/20 Unknown Urine Blood Neg (Negative) 10/07/20 Unknown Urine Nitrite Neg (Negative) 10/07/20 Unknown Urine Bilirubin Sm (Negative) 10/07/20 Unknown Urine Ictotest Negative (Negative) 10/07/20 Unknown Urine Urobilinogen 4.0 mg/dL (<2.0) 10/07/20 Unknown Ur Leukocyte Esterase Lg (Negative) 10/07/20 Unknown Urine WBC (Auto) 111.0 /HPF (0.0-6.0) H 10/07/20 Unknown Urine RBC (Auto) 40.0 /HPF (0.0-6.0) 10/07/20 Unknown Urine Bacteria (Auto) 3+ /HPF (Negative) 10/07/20 Unknown Urine WBC Clumps 2+ /HPF 10/07/20 Unknown Urine Yeast (Budding) 3+ /HPF 10/07/20 Unknown Vancomycin Trough 46.1 ug/mL (5.0-20.0) H 10/11/20 12:10 Random Vancomycin 8.7 ug/mL (0-40.0) 10/09/20 05:14 Coronavirus (PCR) Positive (Negative) A 10/08/20 09:34 Blood Type B POSITIVE 10/10/20 12:00 Antibody Screen Negative 10/10/20 12:00 Crossmatch See Detail 10/10/20 12:00 Microbiology: Microbiology 10/07/20 16:38 Peripheral/Venous Blood Culture - Preliminary NO GROWTH AFTER 4 DAYS 10/10/20 13:46 Peripheral/Venous Blood Culture - Preliminary NO GROWTH AFTER 24 HOURS 10/10/20 14:04 Peripheral/Venous Blood Culture - Preliminary NO GROWTH AFTER 24 HOURS Iglesias/IV: Voiding Method Indwelling Catheter Active Medications - Current Medications Current Medications: Generic Name Dose Route Start Last Admin Trade Name Freq PRN Reason Stop Dose Admin Acetaminophen 650 mg 10/07/20 19:06 Acetaminophen 325 Mg Tab PO Q4H PRN Pain MILD(1-3)/Fever >100.5/RAM Albuterol 2.5 mg 10/07/20 19:06 Albuterol 2.5 Mg/3 Ml Nebu IH Q4H PRN Shortness Of Breath Lipase/Protease/Amylase 1 each 10/10/20 09:00 Lipase 10,500/Protease 25,000/Amylase 43,750 (Units) Dr Reddy FEEDTUBE PRN PRN For Clogged Feeding Tube Ascorbic Acid 500 mg 10/08/20 22:00 10/11/20 21:23 Ascorbic Acid 500 Mg Tab PO 500 mg BID LISA Administration Atorvastatin Calcium 20 mg 10/11/20 22:00 10/11/20 21:23 Atorvastatin 20 Mg Tab PO 20 mg QHS LISA Administration Dexamethasone 6 mg 10/08/20 15:00 10/11/20 09:04 Dexamethasone 4 Mg/Ml Vial IV 10/17/20 10:01 6 mg DAILY LISA Administration Dextrose 50 ml 10/11/20 09:19 Dextrose 50% In Water (25gm) 50 Ml Syringe IV Q30MIN PRN Hypoglycemia Protocol Famotidine 20 mg 10/08/20 14:00 10/11/20 09:03 Famotidine 20 Mg Tab PO 20 mg QDAY LISA Administration Hydromorphone HCl 0.25 mg 10/07/20 19:06 Hydromorphone 1 Mg/1 Ml Inj IV Q4H PRN Pain, Moderate (4-6) Sodium Chloride 1,000 mls @ 75 mls/hr 10/10/20 23:00 10/11/20 09:03 Nacl 0.45% 1000 Ml IV 10/12/20 12:19 75 mls/hr DIRECT LISA Administration Insulin Glargine 5 units 10/11/20 22:00 10/12/20 00:36 Insulin Glargine 100 Units/Ml SUB-Q 5 units QHS LISA Administration Insulin Human Regular 0 units 10/11/20 12:00 10/12/20 06:14 Insulin Regular, Human 100 Units/1 Ml SUB-Q Not Given Q6H [facility] Protocol Ondansetron HCl 4 mg 10/07/20 19:06 Ondansetron 4 Mg/2 Ml Inj IV Q8H PRN Nausea And Vomiting Simple Syrup 15 ml 10/10/20 09:00 Simple Syrup 15 Ml FEEDTUBE PRN PRN Hypoglycemia Simple Syrup 30 ml 10/10/20 09:00 Simple Syrup 15 Ml FEEDTUBE PRN PRN Hypoglycemia Sodium Bicarbonate 325 mg 10/10/20 09:00 Sodium Bicarbonate 325 Mg Tab FEEDTUBE PRN PRN For Clogged Feeding Tube Sodium Chloride 10 ml 10/07/20 22:00 10/11/20 21:25 Sodium Chloride 0.9% 10 Ml Flush Syringe IV 10 ml BID LISA Administration Sodium Chloride 10 ml 10/07/20 19:06 Sodium Chloride 0.9% 10 Ml Flush Syringe IV PRN PRN LINE FLUSH Sucralfate 1 gm 10/11/20 10:00 10/11/20 21:23 Sucralfate 1 Gm/10 Ml Oral Liqd PO 1 gm BID LISA Administration Tamsulosin HCl 0.4 mg 10/11/20 10:00 10/11/20 11:04 Tamsulosin 0.4 Mg Cap PO 0.4 mg DAILY LISA Administration Zinc Sulfate 220 mg 10/08/20 22:00 10/11/20 21:23 Zinc Sulfate 220 Mg Cap PO 220 mg BID LISA Administration Nutrition/Malnutrition Assess - Dietary Evaluation Nutrition/Malnutrition Findings: Nutrition Notes Start: 10/09/20 09 :29 Freq: Status: Active Protocol: Document 10/10/20 08:48 (Rec: 10/10/20 08:55 [id number]) Nutrition Notes Need for Assessment generated from: MD Order Initial or Follow up Reassessment Current Diagnosis Acute Kidney Injury,Decubitus( Pressure Ulcer),Sepsis, Hypertension,Respiratory Failure,Stroke Other Pertinent Diagnosis COVID, DVT, UTI, GERD, dementia, toxic metabolic encephalopathy Current Diet Cardiac Labs/Tests Na 158 K 3.2 BUN 21 BG 200 Pertinent Medications Levophed D5w at 75 ml/hr Decadron Height 5 ft 7 in Weight 142.882 kg Carmine Body Weight (kg) 67.27 BMI 49.3 Weight Status Morbidly Obese Subjective/Other Information MD order for TF. Pt on bipap PRN but remains drowsy. Pt did not answer phone. Percent of energy/protein needs met: 0%/0% Burn Absent Trauma Absent Current % PO Negligible Minimum of two criteria No physical signs of malnutrition #2 Nutrition Diagnosis Increased nutrient needs ( specify in comment below) Diagnosis Progress(for reassessment Continues documentation) #1 Nutrition Diagnosis Inadequate oral intake Diagnosis Progress(for reassessment Continues documentation) Is patient on ventilator? No Is Patient Ambulatory and/or Out of Bed No [facility] [phone] Kcal/Kg value to use for calculation 13 Approximate Energy Requirements Using 1857 kcal/Kg Calculation Used for Recommendations Kcal/kg Additional Notes Protein: 131-157g (1.25-1.5 g/ kg AdjBW: 105kg) Fluid: 1 ml/kcal or per MD Nutrition Intervention Change Diet Order: Start TF when medically able Nutrition Support: Vital HP at 75 ml/hr Flush 250 ml q4h for hypernatermia or per MD. Once hypernatermia has resolved, flush 50 ml q4h Kcal 1,800 Protein (gm) 158 Carbohydrates (gm) 202 Fat (gm) 42 Fluid (mL) 1,505 Add Supplement/Snack (indicate name/kcal Adams BID /protein ) Provides kCal: 190 Provides Protein (gm) 5 Goal #1 TF start and tolerance Goal #2 Meet at least 75% of energy and protein needs via TF Anticipated Discharge Needs: Unable to determine at this time Follow-Up By: 10/12/20 Additional Comments FU for TF start and tolerance
--- NOTE | 2020-10-12 11:11 | Progress Note ---
Assessment and Plan Patient awake. Resting on 2 litres O2. O2 saturation 100%. No acute respiratory distress. BIPAP stand by in the room. Patient afebrile. No Leukocytosis. Chest xray 10/10/20 reported No acute cardiopulmonary disease . Patient encephalopathi c. Unable to give much history. Patient is on Albuterol inhaler 2 puffs po qid.Dexamethasone and famotidine. - Patient Problems (1) Acute respiratory failure Current Visit: Yes Status: Acute Plan to address problem: O2 2 litres via nasal canula. BIPAP stand by in the room. Albuterol inhaler 2 puffs po qid. Dexamethasone Famotidine. (2) Sepsis Current Visit: Yes Status: Acute Qualifiers: Acute renal failure type: with acute tubular necrosis Plan to address problem: Improved. Patient was on cefepime. (3) UTI (urinary tract infection) Current Visit: Yes Status: Acute Qualifiers: Encounter type: initial encounter Plan to address problem: Patient was on cefepime. (4) Acute encephalopathy Current Visit: Yes Status: Acute Plan to address problem: Management as per primary care. (5) Acute kidney injury (THOMPSON) with acute tubular necrosis (ATN) Current Visit: Yes Status: Acute Plan to address problem: Management as per nephrology. Subjective Date of service: 10/12/20 Principal diagnosis: Septic Shock; UTI; THOMPSON; Ac. encephalopathy; DVT; staph aureus bacteremia Interval history: Patient awake. Resting on 2 litres O2. O2 saturation 100%. No acute respiratory distress. BIPAP stand by in the room. Patient afebrile. No Leukocytosis. Chest xray 10/10/20 reported No acute cardiopulmonary disease . Patient encephalopathic. Unable to give much history. Patient is on Albuterol inhaler 2 puffs po qid.Dexamethasone and famotidine. Objective Vital Signs - 12hr 10/12/20 10/12/20 10/12/20 00:00 04:00 04:37 Temperature 97.3 F L Pulse Rate 66 60 61 Pulse Rate [ 60 From Monitor] Respiratory 28 H 16 16 Rate Blood Pressure 97/53 O2 Sat by Pulse 100 100 100 Oximetry 10/12/20 09:37 Temperature Pulse Rate Pulse Rate [ From Monitor] Respiratory Rate Blood Pressure O2 Sat by Pulse 100 Oximetry Constitutional: no acute distress, alert, other (elderly obese male with mildly increased respiratory effort at rest) Eyes: non-icteric ENT: oropharynx moist Neck: supple, no lymphadenopathy, no JVD, other (+ large neck circumference) Effort: mildly labored Ascultation: Bilateral: diminished breath sounds, rhonchi Percussion: Bilateral: not dull Cardiovascular: regular rate and rhythm Gastrointestinal: normoactive bowel sounds, soft, non-tender, non-distended (protuberant) Integumentary: rash Extremities: no cyanosis, pulses normal, no ischemia or petechiae, edema, other (Severe stasis dermatitis.) Neurologic: non-focal exam (grossly), pupils equal and round, CN II-XII normal, other (encephalopathic / delirious) Psychiatric: other (unable to assess re: AMS) CBC and BMP: 10/12/20 07:24 10/12/20 07:24 ABG, PT/INR, D-dimer: ABG ABG pH 7.415 (7.320-7.450) 10/09/20 14:25 POC ABG pCO2 27.3 mmHg (32.0-48.0) L 10/09/20 14:25 POC ABG pO2 125.5 mmHg (83-108) H 10/09/20 14:25 POC ABG HCO3 17.1 10/09/20 14:25 ABG O2 Saturation 98.8 (0-100) 10/09/20 14:25 PT/INR, D-dimer PT 34.6 Sec. (12.2-14.9) H 10/12/20 07:24 INR 3.40 (0.87-1.13) H 10/12/20 07:24 D-Dimer 1061.03 ng/mlDDU (0-234) H 10/12/20 10:04 Abnormal lab findings: Abnormal Labs 10/07/20 10/07/20 10/07/20 16:38 16:38 16:38 WBC 14.1 H RBC 3.03 L Hgb 8.7 L Hct 28.7 L MCV 95 H MCHC 30 L RDW 27.1 H [place] # (Auto) Seg Neutrophils % Seg Neuts % (Manual) Lymphocytes % (Manual) Monocytes % (Manual) 9.0 H Nucleated RBC % Seg Neutrophils # Seg Neutrophils # Man 9.3 H Lymphocytes # (Manual) Monocytes # (Manual) 1.3 H PT INR D-Dimer POC ABG pCO2 POC ABG pO2 ABG Hemoglobin ABG Sodium ABG Potassium ABG Chloride ABG Glucose Sodium 158 H Potassium 3.4 L Chloride 122.7 H Carbon Dioxide BUN 30 H Creatinine 1.7 H Glucose 144 H POC Glucose Lactic Acid 2.50 H* Calcium 8.3 L Ferritin Total Bilirubin 1.40 H Troponin T NT-Pro-B Natriuret Pep Albumin 3.0 L Triglycerides HDL Cholesterol Arterial Blood Glucose Arterial Blood Ionized Calcium Urine WBC (Auto) Vancomycin Trough Coronavirus (PCR) Crossmatch 10/07/20 10/07/20 10/07/20 16:38 16:38 18:17 WBC RBC Hgb Hct MCV MCHC RDW [place] # (Auto) Seg Neutrophils % Seg Neuts % (Manual) Lymphocytes % (Manual) Monocytes % (Manual) Nucleated RBC % Seg Neutrophils # Seg Neutrophils # Man Lymphocytes # (Manual) Monocytes # (Manual) PT 32.7 H INR 3.17 H D-Dimer POC ABG pCO2 POC ABG pO2 ABG Hemoglobin ABG Sodium ABG Potassium ABG Chloride ABG Glucose Sodium Potassium Chloride Carbon Dioxide BUN Creatinine Glucose POC Glucose Lactic Acid Calcium Ferritin Total Bilirubin Troponin T 0.087 H NT-Pro-B Natriuret Pep 2155 H Albumin Triglycerides 193 H HDL Cholesterol 20 L Arterial Blood Glucose Arterial Blood Ionized Calcium Urine WBC (Auto) Vancomycin Trough Coronavirus (PCR) Crossmatch 10/07/20 10/08/20 10/08/20 Unknown 02:53 02:53 WBC 13.4 H RBC 2.79 L Hgb 8.1 L Hct 26.2 L MCV MCHC 31 L RDW 27.7 H [place] # (Auto) 0.9 H Seg Neutrophils % 70.6 H Seg Neuts % (Manual) Lymphocytes % (Manual) Monocytes % (Manual) Nucleated RBC % Seg Neutrophils # 9.4 H Seg Neutrophils # Man Lymphocytes # (Manual) Monocytes # (Manual) PT INR D-Dimer POC ABG pCO2 POC ABG pO2 ABG Hemoglobin ABG Sodium ABG Potassium ABG Chloride ABG Glucose Sodium 159 H Potassium 2.7 L* D Chloride 127.9 H Carbon Dioxide 20 L BUN 27 H Creatinine 1.5 H Glucose 156 H POC Glucose Lactic Acid Calcium 7.1 L Ferritin Total Bilirubin Troponin T NT-Pro-B Natriuret Pep Albumin Triglycerides HDL Cholesterol Arterial Blood Glucose Arterial Blood Ionized Calcium Urine WBC (Auto) 111.0 H Vancomycin Trough Coronavirus (PCR) Crossmatch 10/08/20 10/08/20 10/08/20 09:34 14:57 17:29 WBC RBC Hgb Hct MCV MCHC RDW [place] # (Auto) Seg Neutrophils % Seg Neuts % (Manual) Lymphocytes % (Manual) Monocytes % (Manual) Nucleated RBC % Seg Neutrophils # Seg Neutrophils # Man Lymphocytes # (Manual) Monocytes # (Manual) PT INR D-Dimer POC ABG pCO2 POC ABG pO2 ABG Hemoglobin 7.9 L ABG Sodium 162.9 H ABG Potassium 2.6 L ABG Chloride 131.0 H ABG Glucose 146 H Sodium Potassium Chloride Carbon Dioxide BUN Creatinine Glucose POC Glucose 128 H Lactic Acid Calcium Ferritin Total Bilirubin Troponin T NT-Pro-B Natriuret Pep Albumin Triglycerides HDL Cholesterol Arterial Blood Glucose 146 H Arterial Blood Ionized Calcium Urine WBC (Auto) Vancomycin Trough Coronavirus (PCR) Positive A Crossmatch 10/09/20 10/09/20 10/09/20 05:14 05:14 11:48 WBC 13.9 H RBC 2.52 L Hgb 7.3 L Hct 23.7 L MCV MCHC 31 L RDW 28.1 H [place] # (Auto) Seg Neutrophils % Seg Neuts % (Manual) 91.0 H Lymphocytes % (Manual) 5.0 L Monocytes % (Manual) Nucleated RBC % Seg Neutrophils # Seg Neutrophils # Man 12.6 H Lymphocytes # (Manual) 0.7 L Monocytes # (Manual) PT INR D-Dimer POC ABG pCO2 POC ABG pO2 ABG Hemoglobin ABG Sodium ABG Potassium ABG Chloride ABG Glucose Sodium 162 H* Potassium 3.3 L D Chloride 131.6 H Carbon Dioxide 18 L BUN 25 H Creatinine Glucose 164 H POC Glucose 126 H Lactic Acid Calcium 7.4 L Ferritin Total Bilirubin Troponin T NT-Pro-B Natriuret Pep Albumin Triglycerides HDL Cholesterol Arterial Blood Glucose Arterial Blood Ionized Calcium Urine WBC (Auto) Vancomycin Trough Coronavirus (PCR) Crossmatch 10/09/20 10/09/20 10/09/20 14:25 17:55 19:30 WBC RBC Hgb Hct MCV MCHC RDW [place] # (Auto) Seg Neutrophils % Seg Neuts % (Manual) Lymphocytes % (Manual) Monocytes % (Manual) Nucleated RBC % Seg Neutrophils # Seg Neutrophils # Man Lymphocytes # (Manual) Monocytes # (Manual) PT INR D-Dimer 922.08 H POC ABG pCO2 27.3 L POC ABG pO2 125.5 H ABG Hemoglobin 7.0 L ABG Sodium 158.0 H ABG Potassium 3.0 L ABG Chloride 132.0 H ABG Glucose 172 H Sodium Potassium Chloride Carbon Dioxide BUN Creatinine Glucose POC Glucose 179 H Lactic Acid Calcium Ferritin Total Bilirubin Troponin T NT-Pro-B Natriuret Pep Albumin Triglycerides HDL Cholesterol Arterial Blood Glucose 172 H Arterial Blood Ionized Calcium 4.2 L Urine WBC (Auto) Vancomycin Trough Coronavirus (PCR) Crossmatch 10/09/20 10/09/20 10/10/20 19:30 23:22 05:18 WBC RBC Hgb Hct MCV MCHC RDW [place] # (Auto) Seg Neutrophils % Seg Neuts % (Manual) Lymphocytes % (Manual) Monocytes % (Manual) Nucleated RBC % Seg Neutrophils # Seg Neutrophils # Man Lymphocytes # (Manual) Monocytes # (Manual) PT INR D-Dimer POC ABG pCO2 POC ABG pO2 ABG Hemoglobin ABG Sodium ABG Potassium ABG Chloride ABG Glucose Sodium Potassium Chloride Carbon Dioxide BUN Creatinine Glucose POC Glucose 192 H 168 H Lactic Acid Calcium Ferritin 579.8 H Total Bilirubin Troponin T NT-Pro-B Natriuret Pep Albumin Triglycerides HDL Cholesterol Arterial Blood Glucose Arterial Blood Ionized Calcium Urine WBC (Auto) Vancomycin Trough Coronavirus (PCR) Crossmatch 10/10/20 10/10/20 10/10/20 06:07 06:07 11:43 WBC 13.5 H RBC 2.39 L Hgb 6.8 L Hct 22.1 L MCV MCHC 31 L RDW 27.2 H [place] # (Auto) Seg Neutrophils % Seg Neuts % (Manual) 89.0 H Lymphocytes % (Manual) 10.0 L Monocytes % (Manual) Nucleated RBC % 2.0 H Seg Neutrophils # Seg Neutrophils # Man 12.0 H Lymphocytes # (Manual) Monocytes # (Manual) PT INR D-Dimer POC ABG pCO2 POC ABG pO2 ABG Hemoglobin ABG Sodium ABG Potassium ABG Chloride ABG Glucose Sodium 158 H Potassium 3.2 L Chloride 129.3 H Carbon Dioxide 19 L BUN 21 H Creatinine Glucose 200 H POC Glucose 155 H Lactic Acid Calcium 6.7 L Ferritin Total Bilirubin Troponin T NT-Pro-B Natriuret Pep Albumin Triglycerides HDL Cholesterol Arterial Blood Glucose Arterial Blood Ionized Calcium Urine WBC (Auto) Vancomycin Trough Coronavirus (PCR) Crossmatch 10/10/20 10/10/20 10/10/20 12:00 17:19 23:44 WBC RBC Hgb Hct MCV MCHC RDW [place] # (Auto) Seg Neutrophils % Seg Neuts % (Manual) Lymphocytes % (Manual) Monocytes % (Manual) Nucleated RBC % Seg Neutrophils # Seg Neutrophils # Man Lymphocytes # (Manual) Monocytes # (Manual) PT INR D-Dimer POC ABG pCO2 POC ABG pO2 ABG Hemoglobin ABG Sodium ABG Potassium ABG Chloride ABG Glucose Sodium Potassium Chloride Carbon Dioxide BUN Creatinine Glucose POC Glucose 185 H 219 H Lactic Acid Calcium Ferritin Total Bilirubin Troponin T NT-Pro-B Natriuret Pep Albumin Triglycerides HDL Cholesterol Arterial Blood Glucose Arterial Blood Ionized Calcium Urine WBC (Auto) Vancomycin Trough Coronavirus (PCR) Crossmatch See Detail 10/11/20 10/11/20 10/11/20 04:00 04:00 05:11 WBC 11.5 H RBC 3.37 L Hgb 9.6 L Hct 30.0 L D MCV MCHC RDW 23.9 H [place] # (Auto) Seg Neutrophils % 81.5 H Seg Neuts % (Manual) Lymphocytes % (Manual) Monocytes % (Manual) Nucleated RBC % Seg Neutrophils # 9.4 H Seg Neutrophils # Man Lymphocytes # (Manual) Monocytes # (Manual) PT INR D-Dimer POC ABG pCO2 POC ABG pO2 ABG Hemoglobin ABG Sodium ABG Potassium ABG Chloride ABG Glucose Sodium 151 H Potassium 3.0 L Chloride 122.8 H Carbon Dioxide 19 L BUN 23 H Creatinine Glucose 238 H POC Glucose 191 H Lactic Acid Calcium 7.0 L Ferritin Total Bilirubin Troponin T NT-Pro-B Natriuret Pep Albumin Triglycerides HDL Cholesterol Arterial Blood Glucose Arterial Blood Ionized Calcium Urine WBC (Auto) Vancomycin Trough Coronavirus (PCR) Crossmatch 10/11/20 10/11/20 10/11/20 11:01 12:10 12:24 WBC RBC Hgb Hct MCV MCHC RDW [place] # (Auto) Seg Neutrophils % Seg Neuts % (Manual) Lymphocytes % (Manual) Monocytes % (Manual) Nucleated RBC % Seg Neutrophils # Seg Neutrophils # Man Lymphocytes # (Manual) Monocytes # (Manual) PT INR D-Dimer POC ABG pCO2 POC ABG pO2 ABG Hemoglobin ABG Sodium ABG Potassium ABG Chloride ABG Glucose Sodium Potassium Chloride Carbon Dioxide BUN Creatinine Glucose POC Glucose 187 H 199 H Lactic Acid Calcium Ferritin Total Bilirubin Troponin T NT-Pro-B Natriuret Pep Albumin Triglycerides HDL Cholesterol Arterial Blood Glucose Arterial Blood Ionized Calcium Urine WBC (Auto) Vancomycin Trough 46.1 H Coronavirus (PCR) Crossmatch 10/11/20 10/11/20 10/11/20 12:58 18:47 23:15 WBC RBC Hgb Hct MCV MCHC RDW [place] # (Auto) Seg Neutrophils % Seg Neuts % (Manual) Lymphocytes % (Manual) Monocytes % (Manual) Nucleated RBC % Seg Neutrophils # Seg Neutrophils # Man Lymphocytes # (Manual) Monocytes # (Manual) PT 43.8 H INR 4.56 H D-Dimer POC ABG pCO2 POC ABG pO2 ABG Hemoglobin ABG Sodium ABG Potassium ABG Chloride ABG Glucose Sodium Potassium Chloride Carbon Dioxide BUN Creatinine Glucose POC Glucose 170 H 136 H Lactic Acid Calcium Ferritin Total Bilirubin Troponin T NT-Pro-B Natriuret Pep Albumin Triglycerides HDL Cholesterol Arterial Blood Glucose Arterial Blood Ionized Calcium Urine WBC (Auto) Vancomycin Trough Coronavirus (PCR) Crossmatch 10/12/20 10/12/20 10/12/20 06:11 07:24 07:24 WBC RBC 3.12 L Hgb 9.0 L Hct 27.4 L MCV MCHC RDW 24.9 H [place] # (Auto) Seg Neutrophils % Seg Neuts % (Manual) Lymphocytes % (Manual) Monocytes % (Manual) Nucleated RBC % Seg Neutrophils # Seg Neutrophils # Man Lymphocytes # (Manual) Monocytes # (Manual) PT INR D-Dimer POC ABG pCO2 POC ABG pO2 ABG Hemoglobin ABG Sodium ABG Potassium ABG Chloride ABG Glucose Sodium 152 H Potassium 3.3 L Chloride 125.2 H Carbon Dioxide 21 L BUN 26 H Creatinine Glucose 113 H POC Glucose 107 H Lactic Acid Calcium 6.9 L Ferritin Total Bilirubin Troponin T NT-Pro-B Natriuret Pep Albumin Triglycerides HDL Cholesterol Arterial Blood Glucose Arterial Blood Ionized Calcium Urine WBC (Auto) Vancomycin Trough Coronavirus (PCR) Crossmatch 10/12/20 10/12/20 07:24 10:04 WBC RBC Hgb Hct MCV MCHC RDW [place] # (Auto) Seg Neutrophils % Seg Neuts % (Manual) Lymphocytes % (Manual) Monocytes % (Manual) Nucleated RBC % Seg Neutrophils # Seg Neutrophils # Man Lymphocytes # (Manual) Monocytes # (Manual) PT 34.6 H INR 3.40 H D-Dimer 1061.03 H POC ABG pCO2 POC ABG pO2 ABG Hemoglobin ABG Sodium ABG Potassium ABG Chloride ABG Glucose Sodium Potassium Chloride Carbon Dioxide BUN Creatinine Glucose POC Glucose Lactic Acid Calcium Ferritin Total Bilirubin Troponin T NT-Pro-B Natriuret Pep Albumin Triglycerides HDL Cholesterol Arterial Blood Glucose Arterial Blood Ionized Calcium Urine WBC (Auto) Vancomycin Trough Coronavirus (PCR) Crossmatch Chest x-ray: report reviewed, image reviewed Additional Studies: CHEST 1 VIEW 09/2020 INDICATION: Right IJ TLC COMPARISON: 10/07/2020 FINDINGS: SUPPORT DEVICES: Central venous line has tip in superior vena cava HEART / MEDIASTINUM: No significant abnormality. LUNGS / PLEURA: No significant pulmonary or pleural abnormality. No pneumothorax. ADDITIONAL FINDINGS: IMPRESSION: 1. No acute cardiopulmonary disease Allied health notes reviewed: nursing
[2020-10-12] MEDS: ZINC SULFATE 220 MG CAP PO SCH ×2 (11:50→21:43)
[2020-10-12] MEDS: SUCRALFATE 1 GM/10 ML ORAL LIQD PO SCH ×2 (11:53→21:43)
[2020-10-12] MEDS: dexAMETHasone 4 MG/ML VIAL IV SCH (11:53)
[2020-10-12] MEDS: TAMSULOSIN 0.4 MG CAP PO SCH (11:54)
[2020-10-12] MEDS: FAMOTIDINE 20 MG TAB PO SCH (11:54)
[2020-10-12] MEDS: ASCORBIC ACID 500 MG TAB PO SCH ×2 (11:54→21:43)
[2020-10-12 12:02] LABS: C-Reactive Protein 0.3 mg/dL (0.00-1.30)
[2020-10-13] MEDS: INSULIN REGULAR, HUMAN 100 UNITS/1 ML SUB-Q SCH ×4 (00:20→17:33)
[2020-10-13 05:42] LABS: Basophils % (Auto) 0.1 % (0.0-1.8); Eosinophils % (Auto) 0.1 % (0.0-4.3); Hematocrit 28.6 % (35.5-45.6); Hemoglobin 9.2 gm/dl (11.8-15.2); Lymphocytes # (Auto) 1.3 K/mm3 (1.2-5.4); Lymphocytes % (Auto) 11.4 % (13.4-35.0); Mean Corpuscular HGB Conc 32 % (32-34); Mean Corpuscular Volume 89 fl (84-94); Monocytes # (Auto) 0.9 K/mm3 (0.0-0.8); Monocytes % (Auto) 8.4 % (0.0-7.3); Platelet Count 135 K/mm3 (140-440); Red Blood Count 3.22 M/mm3 (3.65-5.03)
[2020-10-13 05:43] LABS: Red Cell Distribution Width 24.1 % (13.2-15.2)
[2020-10-13 05:58] LABS: Alanine Aminotransferase 15 units/L (7-56); Albumin 2.7 g/dL (3.9-5); BUN/Creatinine Ratio 23; Blood Urea Nitrogen 27 mg/dL (9-20); Calcium 7.2 mg/dL (8.4-10.2); Hemolysis Index 23
--- NOTE | 2020-10-13 10:08 | Progress Note ---
History Interval history: This is 64-year-old male from [facility] custodial facility with oh at bedtime, cerebral sclerosis, chronic respiratory failure, CVA, anemia of chronic disease, GERD, HTN, DVT, vascular dementia who presented to the emergency department on 10/07 for increased confusion and weakness over the past 2 days with worsening symptoms over the past 1 day. Upon arrival to the emergency department patient was found to have urinary tract infection complicated by sepsis, metabolic acidosis, acute kidney injury and toxic metabolic encephalopathy. Patient was admitted to the hospital service to [facility] on the sepsis protocol. Infectious disease and CCM were consulted. Sepsis COVID-19 pneumonia Acute hypoxic respiratory failure MRSA bacteremia Toxic metabolic encephalopathy Obesity hypoventilation syndrome Acute kidney injury. Etiology secondary to ATN Hypernatremia Hyperchloremia Metabolic acidosis General debility. Vascular dementia. Cerebral atherosclerosis UTI Leukocytosis Supratherapeutic INR Hypokalemia 10/08: Continue IV antibiotics and IV fluid hydration. Consult ID for further evaluation. 10/09: Continue antibiotic per ID recommendations. Continue dexamethasone to complete 10 days. Continue to trend inflammatory markers. Sodium noted to be 162. We will start D5W at 75 cc an hour. Continue 250 cc free water every 4 hours. Follow-up BMP in a.m. Also, replete potassium. 10/10: Sodium improved to 158 today. Continue D5W IV fluids and free water every 4 hours.. Replete potassium. Hemoglobin 6.8. We will type and cross and transfuse 2 units PRBCs. Continue dexamethasone to complete 10 days. Continue to trend inflammatory markers. 10/11: We will obtain TTE to rule out vegetation as patient grew MRSA in his blood cultures, patient still has leukocytosis and worsening INR. Patient has hypokalemia today along with improving hypernatremia, hyperchloremia, metabolic acidosis, hypocalcemia and leukocytosis. 10/12. TTE pending. INR improved. His sodium is slowly trending down. His mental status is still impaired. 10/13. Sodium is better. Still lethragic. He is getting feeds via NGT. If mental status fails to improve, he will need PEG placement. Hospitalist Physical - Constitutional Vitals: Temp Pulse Resp BP Pulse Ox 99.1 F 64 22 105/58 98 10/12/20 21:40 10/13/20 02:05 10/13/20 02:05 10/13/20 00:33 10/13/20 02:05 General appearance: Present: mild distress HEART Score - HEART Score Troponin: Troponin T 0.087 ng/mL (0.00-0.029) H 10/07/20 16:38 Results - Labs CBC & Chem 7: 10/13/20 04:59 10/13/20 04:59 Labs: Laboratory Last Values WBC 11.3 K/mm3 (4.5-11.0) H 10/13/20 04:59 RBC 3.22 M/mm3 (3.65-5.03) L 10/13/20 04:59 Hgb 9.2 gm/dl (11.8-15.2) L 10/13/20 04:59 Hct 28.6 % (35.5-45.6) L 10/13/20 04:59 MCV 89 fl (84-94) 10/13/20 04:59 MCH 29 pg (28-32) 10/13/20 04:59 MCHC 32 % (32-34) 10/13/20 04:59 RDW 24.1 % (13.2-15.2) H 10/13/20 04:59 Plt Count 135 K/mm3 (140-440) L 10/13/20 04:59 Lymph % (Auto) 11.4 % (13.4-35.0) L 10/13/20 04:59 [place] % (Auto) 8.4 % (0.0-7.3) H 10/13/20 04:59 Eos % (Auto) 0.1 % (0.0-4.3) 10/13/20 04:59 Baso % (Auto) 0.1 % (0.0-1.8) 10/13/20 04:59 Lymph # (Auto) 1.3 K/mm3 (1.2-5.4) 10/13/20 04:59 [place] # (Auto) 0.9 K/mm3 (0.0-0.8) H 10/13/20 04:59 Eos # (Auto) 0.0 K/mm3 (0.0-0.4) 10/13/20 04:59 Baso # (Auto) 0.0 K/mm3 (0.0-0.1) 10/13/20 04:59 Add Manual Diff Complete 10/10/20 06:07 Total Counted 100 10/10/20 06:07 Seg Neutrophils % 80.0 % (40.0-70.0) H 10/13/20 04:59 Seg Neuts % (Manual) 89.0 % (40.0-70.0) H 10/10/20 06:07 Lymphocytes % (Manual) 10.0 % (13.4-35.0) L 10/10/20 06:07 Monocytes % (Manual) 1.0 % (0.0-7.3) 10/10/20 06:07 Eosinophils % (Manual) 2.0 % (0.0-4.3) 10/07/20 16:38 Nucleated RBC % 2.0 % (0.0-0.9) H 10/10/20 06:07 Seg Neutrophils # 9.0 K/mm3 (1.8-7.7) H 10/13/20 04:59 Seg Neutrophils # Man 12.0 K/mm3 (1.8-7.7) H 10/10/20 06:07 Band Neutrophils # 0.0 K/mm3 10/10/20 06:07 Lymphocytes # (Manual) 1.4 K/mm3 (1.2-5.4) 10/10/20 06:07 Abs React Lymphs (Man) 0.0 K/mm3 10/10/20 06:07 Monocytes # (Manual) 0.1 K/mm3 (0.0-0.8) 10/10/20 06:07 Eosinophils # (Manual) 0.0 K/mm3 (0.0-0.4) 10/10/20 06:07 Basophils # (Manual) 0.0 K/mm3 (0.0-0.1) 10/10/20 06:07 Metamyelocytes # 0.0 K/mm3 10/10/20 06:07 Myelocytes # 0.0 K/mm3 10/10/20 06:07 Promyelocytes # 0.0 K/mm3 10/10/20 06:07 Blast Cells # 0.0 K/mm3 10/10/20 06:07 WBC Morphology Not Reportable 10/10/20 06:07 Hypersegmented Neuts Not Reportable 10/10/20 06:07 Hyposegmented Neuts Not Reportable 10/10/20 06:07 Hypogranular Neuts Not Reportable 10/10/20 06:07 Smudge Cells Not Reportable 10/10/20 06:07 Toxic Granulation Not Reportable 10/10/20 06:07 Toxic Vacuolation Not Reportable 10/10/20 06:07 Dohle Bodies Not Reportable 10/10/20 06:07 Pelger-Huet Anomaly Not Reportable 10/10/20 06:07 Darryl Rods Not Reportable 10/10/20 06:07 Platelet Estimate Consistent w auto 10/10/20 06:07 Clumped Platelets Not Reportable 10/10/20 06:07 Plt Clumps, EDTA Not Reportable 10/10/20 06:07 Large Platelets Not Reportable 10/10/20 06:07 Giant Platelets Not Reportable 10/10/20 06:07 Platelet Satelliting Not Reportable 10/10/20 06:07 Plt Morphology Comment Not Reportable 10/10/20 06:07 RBC Morphology Not Reportable 10/10/20 06:07 Dimorphic RBCs Not Reportable 10/10/20 06:07 Polychromasia Not Reportable 10/10/20 06:07 Hypochromasia Not Reportable 10/10/20 06:07 Poikilocytosis 2+ 10/10/20 06:07 Anisocytosis 3+ 10/10/20 06:07 Microcytosis Not Reportable 10/10/20 06:07 Macrocytosis Not Reportable 10/10/20 06:07 Spherocytes Not Reportable 10/10/20 06:07 Pappenheimer Bodies Not Reportable 10/10/20 06:07 Sickle Cells Not Reportable 10/10/20 06:07 Target Cells Not Reportable 10/10/20 06:07 Tear Drop Cells 1+ 10/10/20 06:07 Ovalocytes Few 10/10/20 06:07 Helmet Cells Not Reportable 10/10/20 06:07 [place] Bodies Not Reportable 10/10/20 06:07 [place] Rings Not Reportable 10/10/20 06:07 Lincoln Cells Not Reportable 10/10/20 06:07 Bite Cells Not Reportable 10/10/20 06:07 Crenated Cell Not Reportable 10/10/20 06:07 Elliptocytes 1+ 10/10/20 06:07 Acanthocytes (Spur) Not Reportable 10/10/20 06:07 Rouleaux Not Reportable 10/10/20 06:07 Hemoglobin C Crystals Not Reportable 10/10/20 06:07 Schistocytes Not Reportable 10/10/20 06:07 Malaria parasites Not Reportable 10/10/20 06:07 Lucas Bodies Not Reportable 10/10/20 06:07 Hem Pathologist Commnt No 10/10/20 06:07 PT 34.6 Sec. (12.2-14.9) H 10/12/20 07:24 INR 3.40 (0.87-1.13) H 10/12/20 07:24 D-Dimer 1061.03 ng/mlDDU (0-234) H 10/12/20 10:04 ABG pH 7.415 (7.320-7.450) 10/09/20 14:25 POC ABG pCO2 27.3 mmHg (32.0-48.0) L 10/09/20 14:25 POC ABG pO2 125.5 mmHg (83-108) H 10/09/20 14:25 POC ABG HCO3 17.1 10/09/20 14:25 ABG O2 Saturation 98.8 (0-100) 10/09/20 14:25 POC ABG Base Excess -6.7 10/09/20 14:25 ABG Hemoglobin 7.0 (12.0-17.5) L 10/09/20 14:25 ABG Oxyhemoglobin 97.2 (94-98) 10/09/20 14:25 ABG Methemoglobin 0.1 (0.0-1.5) 10/09/20 14:25 ABG Sodium 158.0 mmol/L (136.0-145.0) H 10/09/20 14:25 ABG Potassium 3.0 mmol/L (3.40-4.50) L 10/09/20 14:25 ABG Chloride 132.0 mmol/L (98-107) H 10/09/20 14:25 ABG Glucose 172 mg/dL (65-95) H 10/09/20 14:25 Carboxyhemoglobin 1.5 (0.5-1.5) 10/09/20 14:25 FiO2 % 26.0 10/09/20 14:25 Sodium 149 mmol/L (137-145) H 10/13/20 04:59 Potassium 3.7 mmol/L (3.6-5.0) 10/13/20 04:59 Chloride 124.6 mmol/L (98-107) H 10/13/20 04:59 Carbon Dioxide 17 mmol/L (22-30) L 10/13/20 04:59 Anion Gap 11 mmol/L 10/13/20 04:59 BUN 27 mg/dL (9-20) H 10/13/20 04:59 Creatinine 1.2 mg/dL (0.8-1.3) 10/13/20 04:59 Estimated GFR > 60 ml/min 10/13/20 04:59 BUN/Creatinine Ratio 23 % 10/13/20 04:59 Glucose 129 mg/dL (75-100) H 10/13/20 04:59 POC Glucose 121 mg/dL (70-105) H 10/13/20 05:03 Lactic Acid 1.10 mmol/L (0.7-2.0) 10/09/20 19:30 Calcium 7.2 mg/dL (8.4-10.2) L 10/13/20 04:59 Ferritin 585.8 ng/mL (30.0-300.0) H 10/12/20 10:04 Total Bilirubin 0.80 mg/dL (0.1-1.2) 10/13/20 04:59 AST 21 units/L (5-40) 10/13/20 04:59 ALT 15 units/L (7-56) 10/13/20 04:59 Alkaline Phosphatase 57 units/L (35-129) 10/13/20 04:59 Lactate Dehydrogenase 364 units/L (91-180) H 10/12/20 10:04 Troponin T 0.087 ng/mL (0.00-0.029) H 10/07/20 16:38 C-Reactive Protein 0.30 mg/dL (0.00-1.30) 10/12/20 10:04 NT-Pro-B Natriuret Pep 2155 pg/mL (0-900) H 10/07/20 16:38 Total Protein 6.0 g/dL (6.3-8.2) L 10/13/20 04:59 Albumin 2.7 g/dL (3.9-5) L 10/13/20 04:59 Albumin/Globulin Ratio 0.8 % 10/13/20 04:59 Triglycerides 193 mg/dL (2-149) H 10/07/20 16:38 Cholesterol 136 mg/dL (50-199) 10/07/20 16:38 LDL Cholesterol Direct 82 mg/dL (50-130) 10/07/20 16:38 HDL Cholesterol 20 mg/dL (40-59) L 10/07/20 16:38 Cholesterol/HDL Ratio 6.80 % 10/07/20 16:38 Procalcitonin 0.10 ng/mL (<0.15) 10/08/20 15:33 Arterial Blood Glucose 172 mg/dL (65-95) H 10/09/20 14:25 Arterial Blood Ionized Calcium 4.2 mg/dL (4.6-5.3) L 10/09/20 14:25 Urine Color Sonal (Yellow) 10/07/20 Unknown Urine Turbidity Turbid (Clear) 10/07/20 Unknown Urine pH 7.0 (5.0-7.0) 10/07/20 Unknown Ur Specific [place] 1.020 (1.003-1.030) 10/07/20 Unknown Urine Protein 100 mg/dl mg/dL (Negative) 10/07/20 Unknown Urine Glucose (UA) Neg mg/dL (Negative) 10/07/20 Unknown Urine Ketones Neg mg/dL (Negative) 10/07/20 Unknown Urine Blood Neg (Negative) 10/07/20 Unknown Urine Nitrite Neg (Negative) 10/07/20 Unknown Urine Bilirubin Sm (Negative) 10/07/20 Unknown Urine Ictotest Negative (Negative) 10/07/20 Unknown Urine Urobilinogen 4.0 mg/dL (<2.0) 10/07/20 Unknown Ur Leukocyte Esterase Lg (Negative) 10/07/20 Unknown Urine WBC (Auto) 111.0 /HPF (0.0-6.0) H 10/07/20 Unknown Urine RBC (Auto) 40.0 /HPF (0.0-6.0) 10/07/20 Unknown Urine Bacteria (Auto) 3+ /HPF (Negative) 10/07/20 Unknown Urine WBC Clumps 2+ /HPF 10/07/20 Unknown Urine Yeast (Budding) 3+ /HPF 10/07/20 Unknown Vancomycin Trough 62.0 ug/mL (5.0-20.0) H 10/12/20 16:15 Random Vancomycin 8.7 ug/mL (0-40.0) 10/09/20 05:14 Coronavirus (PCR) Positive (Negative) A 10/08/20 09:34 Blood Type B POSITIVE 10/10/20 12:00 Antibody Screen Negative 10/10/20 12:00 Crossmatch See Detail 10/10/20 12:00 Microbiology: Microbiology 10/07/20 16:38 Peripheral/Venous Blood Culture - Final NO GROWTH AFTER 5 DAYS 10/10/20 13:46 Peripheral/Venous Blood Culture - Preliminary NO GROWTH AFTER 48 HOURS 10/10/20 14:04 Peripheral/Venous Blood Culture - Preliminary NO GROWTH AFTER 48 HOURS Iglesias/IV: Voiding Method Indwelling Catheter Active Medications - Current Medications Current Medications: Generic Name Dose Route Start Last Admin Trade Name Freq PRN Reason Stop Dose Admin Acetaminophen 650 mg 10/07/20 19:06 Acetaminophen 325 Mg Tab PO Q4H PRN Pain MILD(1-3)/Fever >100.5/RAM Albuterol 2.5 mg 10/07/20 19:06 Albuterol 2.5 Mg/3 Ml Nebu IH Q4H PRN Shortness Of Breath Lipase/Protease/Amylase 1 each 10/10/20 09:00 Lipase 10,500/Protease 25,000/Amylase 43,750 (Units) Dr Reddy FEEDTUBE PRN PRN For Clogged Feeding Tube Ascorbic Acid 500 mg 10/08/20 22:00 10/12/20 21:43 Ascorbic Acid 500 Mg Tab PO 500 mg BID LISA Administration Atorvastatin Calcium 20 mg 10/11/20 22:00 10/12/20 21:43 Atorvastatin 20 Mg Tab PO 20 mg QHS LISA Administration Dexamethasone 6 mg 10/08/20 15:00 10/12/20 11:53 Dexamethasone 4 Mg/Ml Vial IV 10/17/20 10:01 6 mg DAILY LISA Administration Dextrose 50 ml 10/11/20 09:19 Dextrose 50% In Water (25gm) 50 Ml Syringe IV Q30MIN PRN Hypoglycemia Protocol Famotidine 20 mg 10/08/20 14:00 10/12/20 11:54 Famotidine 20 Mg Tab PO 20 mg QDAY LISA Administration Hydromorphone HCl 0.25 mg 10/07/20 19:06 Hydromorphone 1 Mg/1 Ml Inj IV Q4H PRN Pain, Moderate (4-6) Insulin Glargine 5 units 10/11/20 22:00 10/12/20 22:19 Insulin Glargine 100 Units/Ml SUB-Q 5 units QHS LISA Administration Insulin Human Regular 0 units 10/11/20 12:00 10/13/20 05:36 Insulin Regular, Human 100 Units/1 Ml SUB-Q Not Given Q6H [facility] Protocol Ondansetron HCl 4 mg 10/07/20 19:06 Ondansetron 4 Mg/2 Ml Inj IV Q8H PRN Nausea And Vomiting Simple Syrup 15 ml 10/10/20 09:00 Simple Syrup 15 Ml FEEDTUBE PRN PRN Hypoglycemia Simple Syrup 30 ml 10/10/20 09:00 Simple Syrup 15 Ml FEEDTUBE PRN PRN Hypoglycemia Sodium Bicarbonate 325 mg 10/10/20 09:00 Sodium Bicarbonate 325 Mg Tab FEEDTUBE PRN PRN For Clogged Feeding Tube Sodium Chloride 10 ml 10/07/20 22:00 10/12/20 21:44 Sodium Chloride 0.9% 10 Ml Flush Syringe IV 10 ml BID LISA Administration Sodium Chloride 10 ml 10/07/20 19:06 Sodium Chloride 0.9% 10 Ml Flush Syringe IV PRN PRN LINE FLUSH Sucralfate 1 gm 10/11/20 10:00 10/12/20 21:43 Sucralfate 1 Gm/10 Ml Oral Liqd PO 1 gm BID LISA Administration Tamsulosin HCl 0.4 mg 10/11/20 10:00 10/12/20 11:54 Tamsulosin 0.4 Mg Cap PO 0.4 mg DAILY LISA Administration Zinc Sulfate 220 mg 10/08/20 22:00 10/12/20 21:43 Zinc Sulfate 220 Mg Cap PO 220 mg BID LISA Administration Nutrition/Malnutrition Assess - Dietary Evaluation Nutrition/Malnutrition Findings: Nutrition Notes Start: 10/09/20 09:29 Freq: Status: Active Protocol: Document 10/12/20 12:08 CW (Rec: 10/12/20 12:30 CW [id number]) Nutrition Notes Initial or Follow up Reassessment Current Diagnosis Acute Kidney Injury,Decubitus( Pressure Ulcer),Sepsis, Hypertension,Respiratory Failure,Stroke Other Pertinent Diagnosis COVID, DVT, UTI, GERD, dementia, toxic metabolic encephalopathy Current Diet Cardiac Labs/Tests Na 152 K 3.3 BUN 26 BG 113 (238 ON 10/11) Pertinent Medications Decadron KCl Lantus Height 5 ft 7 in Weight 141.5 kg Rhame Body Weight (kg) 67.27 BMI 48.8 Weight change and time frame weight change noted Weight Status Morbidly Obese Subjective/Other Information F/U for TF start and tolerance . Tf has been tolerated. Diarrhea likely r/t abtx. TF previously running at 45 ml/hr . Recommend changing TF regimen d/t elevated BG [ End ] Percent of energy/protein needs met: 59%/ 72% Burn Absent Trauma Absent GI Symptoms Diarrhea Difficulty In Swallowing Skin Integrity/Comment Multiple pressure ulcers Current % PO Negligible Minimum of two criteria No physical signs of malnutrition #2 Nutrition Diagnosis Increased nutrient needs ( specify in comment below) Diagnosis Progress(for reassessment Continues documentation) #1 Nutrition Diagnosis Inadequate oral intake Diagnosis Progress(for reassessment Continues documentation) Is patient on ventilator? No Is Patient Ambulatory and/or Out of Bed No REE-([place]-confined to bed) 2588.988 Kcal/Kg value to use for calculation 13 Approximate Energy Requirements Using 1840 kcal/Kg Calculation Used for Recommendations Kcal/kg Additional Notes Protein: 131-157g (1.25-1.5 g/ kg AdjBW: 105kg) Fluid: 1 ml/kcal or per MD Nutrition Intervention Change Diet Order: Change TF regimen to Glucerna 1.2 Nutrition Support: Glucerna 1.2 at 70 ml/hr with a free water flush of 350 ml q4h for hypernatremia. Once hypernatremia resolves, resume free water flush of 110 ml q4h. Kcal 2,016 Protein (gm) 101 Fluid (mL) 1,352 Add Supplement/Snack (indicate name/kcal Adams BID /protein ) Provides kCal: 190 Provides Protein (gm) 5 Goal #1 TF start and tolerance Goal #2 Meet at least 75% of energy and protein needs via TF Anticipated Discharge Needs: Unable to determine at this time Follow-Up By: 10/14/20 Additional Comments F/U for TF start and tolerance
[2020-10-13] MEDS: SUCRALFATE 1 GM/10 ML ORAL LIQD PO SCH ×2 (12:11→22:43)
[2020-10-13] MEDS: TAMSULOSIN 0.4 MG CAP PO SCH (12:11)
[2020-10-13] MEDS: dexAMETHasone 4 MG/ML VIAL IV SCH (12:11)
[2020-10-13] MEDS: ASCORBIC ACID 500 MG TAB PO SCH ×2 (12:11→22:43)
[2020-10-13] MEDS: ZINC SULFATE 220 MG CAP PO SCH ×2 (12:11→22:43)
[2020-10-13] MEDS: FAMOTIDINE 20 MG TAB PO SCH (12:11)
--- NOTE | 2020-10-13 12:38 | Progress Note ---
Assessment and Plan Cultures: Blood culture 10/07/2020 MRSA 1 of 4 bottles Blood cultures 10/10/2020 no growth today A/P: 64-year-old man past medical history GERD, hypertension, CVA #Severe sepsis with septic shock: Off Levophed likely secondary to MRSA bacteremia and UTI. #MRSA bacteremia: Etiology likely sacral decubitus infection. Transthoracic echo no vegetations. #UTI: Urine culture not available. S/p cefepime for 5 days. #Extensive sacral decubitus/deep tissue injury likely with with cellulitis: Mult iple areas of skin erosion, 20x22 x 0.1 cm. Multiple erosions in the scrotum, perineum and inner thighs, incontinent dermatitis. #COVID-19 infection: Patient presented with a week of symptoms, chest x-ray normal. No pneumonia on chest x-ray. Markers up. #Acute hypoxemic respiratory failure: Likely secondary to COVID-19 infection. Now on 2 L. #THOMPSON: Renally dose antibiotics, improving #Altered mental status: Likely secondary to COVID-19, staph bacteremia, also electrolyte abnormalities with hypernatremia and hypokalemia. Recs: -Continue vancomycin with PK consult, target vancomycin trough 10 to 20 mcg/mL -Continue dexamethasone to complete 10 days. -Obtain q48-72h inflammatory markers - ferritin, Ddimer, CRP, LDH -Anticoagulation per hospital protocol -Proning as able -Continue wound care -Offloading -Anticipate discharge on vancomycin 1750 mg IV q 12 hour for 4 weeks till 11/07/2020 for MRSA bacteremia and extensive sacral infected decubitus. Keep Vancomycin trough 10-20 mcg/mL. Order sent to sample case porter. We will follow MD Jo[facility] ([facility]) Office [phone] Subjective Date of service: 10/13/20 Principal diagnosis: Septic Shock; UTI; THOMPSON; Ac. encephalopathy; DVT; staph aureus bacteremia Interval history: Patient remains on 2 L, no fever overnight. Objective - Exam Narrative Exam: Physical exam deferred to minimize COVID-19 transmission during pandemic. ER and internal medicine physical examination notes reviewed. - Constitutional Vitals: Vital Signs Temp Pulse Resp BP Pulse Ox 99.1 F 64 22 105/58 98 10/12/20 21:40 10/13/20 02:05 10/13/20 02:05 10/13/20 00:33 10/13/20 10:10 Temperature -Last 24 Hours Temperature 99.1 F - Labs CBC & Chem 7: 10/13/20 04:59 10/13/20 04:59 Labs: Abnormal lab results 10/12/20 10/12/20 10/13/20 Range/Units 16:15 17:17 00:12 WBC (4.5-11.0) K/mm3 RBC (3.65-5.03) M/mm3 Hgb (11.8-15.2) gm/dl Hct (35.5-45.6) % RDW (13.2-15.2) % Plt Count (140-440) K/mm3 Lymph % (Auto) (13.4-35.0) % [place] % (Auto) (0.0-7.3) % [place] # (Auto) (0.0-0.8) K/mm3 Seg Neutrophils % (40.0-70.0) % Seg Neutrophils # (1.8-7.7) K/mm3 Sodium (137-145) mmol/L Chloride (98-107) mmol/L Carbon Dioxide (22-30) mmol/L BUN (9-20) mg/dL Glucose (75-100) mg/dL POC Glucose 176 H 141 H (70-105) mg/dL Calcium (8.4-10.2) mg/dL Total Protein (6.3-8.2) g/dL Albumin (3.9-5) g/dL Vancomycin Trough 62.0 H (5.0-20.0) ug/mL 10/13/20 10/13/20 10/13/20 Range/Units 04:59 04:59 05:03 WBC 11.3 H (4.5-11.0) K/mm3 RBC 3.22 L (3.65-5.03) M/mm3 Hgb 9.2 L (11.8-15.2) gm/dl Hct 28.6 L (35.5-45.6) % RDW 24.1 H (13.2-15.2) % Plt Count 135 L (140-440) K/mm3 Lymph % (Auto) 11.4 L (13.4-35.0) % [place] % (Auto) 8.4 H (0.0-7.3) % [place] # (Auto) 0.9 H (0.0-0.8) K/mm3 Seg Neutrophils % 80.0 H (40.0-70.0) % Seg Neutrophils # 9.0 H (1.8-7.7) K/mm3 Sodium 149 H (137-145) mmol/L Chloride 124.6 H (98-107) mmol/L Carbon Dioxide 17 L (22-30) mmol/L BUN 27 H (9-20) mg/dL Glucose 129 H (75-100) mg/dL POC Glucose 121 H (70-105) mg/dL Calcium 7.2 L (8.4-10.2) mg/dL Total Protein 6.0 L (6.3-8.2) g/dL Albumin 2.7 L (3.9-5) g/dL Vancomycin Trough (5.0-20.0) ug/mL
--- NOTE | 2020-10-13 14:06 | Progress Note ---
Assessment and Plan Patient sleeping. Sleeping on 2 litres O2. O2 saturation 99%. No acute respiratory distress. BIPAP stand by in the room. Patient afebrile. No Leukocytosis. Chest xray 10/10/20 reported No acute cardiopulmonary disease. Patient is on Albuterol inhaler 2 puffs po qid.Dexamethasone and famotidine. - Patient Problems (1) Acute respiratory failure Current Visit: Yes Status: Acute Plan to address problem: O2 2 litres via nasal canula. BIPAP stand by in the room. Albuterol inhaler 2 puffs po qid. Dexamethasone Famotidine. (2) Sepsis Current Visit: Yes Status: Acute Qualifiers: Acute renal failure type: with acute tubular necrosis Plan to address problem: Improved. Patient was on cefepime. (3) UTI (urinary tract infection) Current Visit: Yes Status: Acute Qualifiers: Encounter type: initial encounter Plan to address problem: Patient was on cefepime. (4) Acute encephalopathy Current Visit: Yes Status: Acute Plan to address problem: Management as per primary care. (5) Acute kidney injury (THOMPSON) with acute tubular necrosis (ATN) Current Visit: Yes Status: Acute Plan to address problem: Management as per nephrology. Subjective Date of service: 10/13/20 Principal diagnosis: Septic Shock; UTI; THOMPSON; Ac. encephalopathy; DVT; staph aureus bacteremia Interval history: Patient sleeping. Sleeping on 2 litres O2. O2 saturation 99%. No acute respiratory distress. BIPAP stand by in the room. Patient afebrile. No Leukocytosis. Chest xray 10/10/20 reported No acute cardiopulmonary disease. Patient is on Albuterol inhaler 2 puffs po qid.Dexamethasone and famotidine. Objective Vital Signs - 12hr 10/13/20 10:10 O2 Sat by Pulse 98 Oximetry Constitutional: no acute distress, asleep, other (elderly obese male with mildly increased respiratory effort at rest) Eyes: non-icteric ENT: oropharynx moist Neck: supple, no lymphadenopathy, no JVD, other (+ large neck circumference) Effort: mildly labored Ascultation: Bilateral: diminished breath sounds, rhonchi Percussion: Bilateral: not dull Cardiovascular: regular rate and rhythm Gastrointestinal: normoactive bowel sounds, soft, non-tender, non-distended (pr otuberant) Integumentary: rash Extremities: no cyanosis, pulses normal, no ischemia or petechiae, edema, other (Severe stasis dermatitis.) Neurologic: non-focal exam (grossly), pupils equal and round, CN II-XII normal, other (encephalopathic / delirious) Psychiatric: other (unable to assess re: AMS) CBC and BMP: 10/13/20 04:59 10/13/20 04:59 ABG, PT/INR, D-dimer: ABG ABG pH 7.415 (7.320-7.450) 10/09/20 14:25 POC ABG pCO2 27.3 mmHg (32.0-48.0) L 10/09/20 14:25 POC ABG pO2 125.5 mmHg (83-108) H 10/09/20 14:25 POC ABG HCO3 17.1 10/09/20 14:25 ABG O2 Saturation 98.8 (0-100) 10/09/20 14:25 PT/INR, D-dimer PT 34.6 Sec. (12.2-14.9) H 10/12/20 07:24 INR 3.40 (0.87-1.13) H 10/12/20 07:24 D-Dimer 1061.03 ng/mlDDU (0-234) H 10/12/20 10:04 Abnormal lab findings: Abnormal Labs 10/07/20 10/07/20 10/07/20 16:38 16:38 16:38 WBC 14.1 H RBC 3.03 L Hgb 8.7 L Hct 28.7 L MCV 95 H MCHC 30 L RDW 27.1 H Plt Count Lymph % (Auto) Garrett % (Auto) Garrett # (Auto) Seg Neutrophils % Seg Neuts % (Manual) Lymphocytes % (Manual) Monocytes % (Manual) 9.0 H Nucleated RBC % Seg Neutrophils # Seg Neutrophils # Man 9.3 H Lymphocytes # (Manual) Monocytes # (Manual) 1.3 H PT INR D-Dimer POC ABG pCO2 POC ABG pO2 ABG Hemoglobin ABG Sodium ABG Potassium ABG Chloride ABG Glucose Sodium 158 H Potassium 3.4 L Chloride 122.7 H Carbon Dioxide BUN 30 H Creatinine 1.7 H Glucose 144 H POC Glucose Lactic Acid 2.50 H* Calcium 8.3 L Ferritin Total Bilirubin 1.40 H Lactate Dehydrogenase Troponin T NT-Pro-B Natriuret Pep Total Protein Albumin 3.0 L Triglycerides HDL Cholesterol Arterial Blood Glucose Arterial Blood Ionized Calcium Urine WBC (Auto) Vancomycin Trough Coronavirus (PCR) Crossmatch 10/07/20 10/07/20 10/07/20 16:38 16:38 18:17 WBC RBC Hgb Hct MCV MCHC RDW Plt Count Lymph % (Auto) Garrett % (Auto) Garrett # (Auto) Seg Neutrophils % Seg Neuts % (Manual) Lymphocytes % (Manual) Monocytes % (Manual) Nucleated RBC % Seg Neutrophils # Seg Neutrophils # Man Lymphocytes # (Manual) Monocytes # (Manual) PT 32.7 H INR 3.17 H D-Dimer POC ABG pCO2 POC ABG pO2 ABG Hemoglobin ABG Sodium ABG Potassium ABG Chloride ABG Glucose Sodium Potassium Chloride Carbon Dioxide BUN Creatinine Glucose POC Glucose Lactic Acid Calcium Ferritin Total Bilirubin Lactate Dehydrogenase Troponin T 0.087 H NT-Pro-B Natriuret Pep 2155 H Total Protein Albumin Triglycerides 193 H HDL Cholesterol 20 L Arterial Blood Glucose Arterial Blood Ionized Calcium Urine WBC (Auto) Vancomycin Trough Coronavirus (PCR) Crossmatch 10/07/20 10/08/20 10/08/20 Unknown 02:53 02:53 WBC 13.4 H RBC 2.79 L Hgb 8.1 L Hct 26.2 L MCV MCHC 31 L RDW 27.7 H Plt Count Lymph % (Auto) Garrett % (Auto) Garrett # (Auto) 0.9 H Seg Neutrophils % 70.6 H Seg Neuts % (Manual) Lymphocytes % (Manual) Monocytes % (Manual) Nucleated RBC % Seg Neutrophils # 9.4 H Seg Neutrophils # Man Lymphocytes # (Manual) Monocytes # (Manual) PT INR D-Dimer POC ABG pCO2 POC ABG pO2 ABG Hemoglobin ABG Sodium ABG Potassium ABG Chloride ABG Glucose Sodium 159 H Potassium 2.7 L* D Chloride 127.9 H Carbon Dioxide 20 L BUN 27 H Creatinine 1.5 H Glucose 156 H POC Glucose Lactic Acid Calcium 7.1 L Ferritin Total Bilirubin Lactate Dehydrogenase Troponin T NT-Pro-B Natriuret Pep Total Protein Albumin Triglycerides HDL Cholesterol Arterial Blood Glucose Arterial Blood Ionized Calcium Urine WBC (Auto) 111.0 H Vancomycin Trough Coronavirus (PCR) Crossmatch 10/08/20 10/08/20 10/08/20 09:34 14:57 17:29 WBC RBC Hgb Hct MCV MCHC RDW Plt Count Lymph % (Auto) Garrett % (Auto) Garrett # (Auto) Seg Neutrophils % Seg Neuts % (Manual) Lymphocytes % (Manual) Monocytes % (Manual) Nucleated RBC % Seg Neutrophils # Seg Neutrophils # Man Lymphocytes # (Manual) Monocytes # (Manual) PT INR D-Dimer POC ABG pCO2 POC ABG pO2 ABG Hemoglobin 7.9 L ABG Sodium 162.9 H ABG Potassium 2.6 L ABG Chloride 131.0 H ABG Glucose 146 H Sodium Potassium Chloride Carbon Dioxide BUN Creatinine Glucose POC Glucose 128 H Lactic Acid Calcium Ferritin Total Bilirubin Lactate Dehydrogenase Troponin T NT-Pro-B Natriuret Pep Total Protein Albumin Triglycerides HDL Cholesterol Arterial Blood Glucose 146 H Arterial Blood Ionized Calcium Urine WBC (Auto) Vancomycin Trough Coronavirus (PCR) Positive A Crossmatch 10/09/20 10/09/20 10/09/20 05:14 05:14 11:48 WBC 13.9 H RBC 2.52 L Hgb 7.3 L Hct 23.7 L MCV MCHC 31 L RDW 28.1 H Plt Count Lymph % (Auto) Garrett % (Auto) Garrett # (Auto) Seg Neutrophils % Seg Neuts % (Manual) 91.0 H Lymphocytes % (Manual) 5.0 L Monocytes % (Manual) Nucleated RBC % Seg Neutrophils # Seg Neutrophils # Man 12.6 H Lymphocytes # (Manual) 0.7 L Monocytes # (Manual) PT INR D-Dimer POC ABG pCO2 POC ABG pO2 ABG Hemoglobin ABG Sodium ABG Potassium ABG Chloride ABG Glucose Sodium 162 H* Potassium 3.3 L D Chloride 131.6 H Carbon Dioxide 18 L BUN 25 H Creatinine Glucose 164 H POC Glucose 126 H Lactic Acid Calcium 7.4 L Ferritin Total Bilirubin Lactate Dehydrogenase Troponin T NT-Pro-B Natriuret Pep Total Protein Albumin Triglycerides HDL Cholesterol Arterial Blood Glucose Arterial Blood Ionized Calcium Urine WBC (Auto) Vancomycin Trough Coronavirus (PCR) Crossmatch 10/09/20 10/09/20 10/09/20 14:25 17:55 19:30 WBC RBC Hgb Hct MCV MCHC RDW Plt Count Lymph % (Auto) Garrett % (Auto) Garrett # (Auto) Seg Neutrophils % Seg Neuts % (Manual) Lymphocytes % (Manual) Monocytes % (Manual) Nucleated RBC % Seg Neutrophils # Seg Neutrophils # Man Lymphocytes # (Manual) Monocytes # (Manual) PT INR D-Dimer 922.08 H POC ABG pCO2 27.3 L POC ABG pO2 125.5 H ABG Hemoglobin 7.0 L ABG Sodium 158.0 H ABG Potassium 3.0 L ABG Chloride 132.0 H ABG Glucose 172 H Sodium Potassium Chloride Carbon Dioxide BUN Creatinine Glucose POC Glucose 179 H Lactic Acid Calcium Ferritin Total Bilirubin Lactate Dehydrogenase Troponin T NT-Pro-B Natriuret Pep Total Protein Albumin Triglycerides HDL Cholesterol Arterial Blood Glucose 172 H Arterial Blood Ionized Calcium 4.2 L Urine WBC (Auto) Vancomycin Trough Coronavirus (PCR) Crossmatch 10/09/20 10/09/20 10/10/20 19:30 23:22 05:18 WBC RBC Hgb Hct MCV MCHC RDW Plt Count Lymph % (Auto) Garrett % (Auto) Garrett # (Auto) Seg Neutrophils % Seg Neuts % (Manual) Lymphocytes % (Manual) Monocytes % (Manual) Nucleated RBC % Seg Neutrophils # Seg Neutrophils # Man Lymphocytes # (Manual) Monocytes # (Manual) PT INR D-Dimer POC ABG pCO2 POC ABG pO2 ABG Hemoglobin ABG Sodium ABG Potassium ABG Chloride ABG Glucose Sodium Potassium Chloride Carbon Dioxide BUN Creatinine Glucose POC Glucose 192 H 168 H Lactic Acid Calcium Ferritin 579.8 H Total Bilirubin Lactate Dehydrogenase Troponin T NT-Pro-B Natriuret Pep Total Protein Albumin Triglycerides HDL Cholesterol Arterial Blood Glucose Arterial Blood Ionized Calcium Urine WBC (Auto) Vancomycin Trough Coronavirus (PCR) Crossmatch 10/10/20 10/10/20 10/10/20 06:07 06:07 11:43 WBC 13.5 H RBC 2.39 L Hgb 6.8 L Hct 22.1 L MCV MCHC 31 L RDW 27.2 H Plt Count Lymph % (Auto) Garrett % (Auto) Garrett # (Auto) Seg Neutrophils % Seg Neuts % (Manual) 89.0 H Lymphocytes % (Manual) 10.0 L Monocytes % (Manual) Nucleated RBC % 2.0 H Seg Neutrophils # Seg Neutrophils # Man 12.0 H Lymphocytes # (Manual) Monocytes # (Manual) PT INR D-Dimer POC ABG pCO2 POC ABG pO2 ABG Hemoglobin ABG Sodium ABG Potassium ABG Chloride ABG Glucose Sodium 158 H Potassium 3.2 L Chloride 129.3 H Carbon Dioxide 19 L BUN 21 H Creatinine Glucose 200 H POC Glucose 155 H Lactic Acid Calcium 6.7 L Ferritin Total Bilirubin Lactate Dehydrogenase Troponin T NT-Pro-B Natriuret Pep Total Protein Albumin Triglycerides HDL Cholesterol Arterial Blood Glucose Arterial Blood Ionized Calcium Urine WBC (Auto) Vancomycin Trough Coronavirus (PCR) Crossmatch 10/10/20 10/10/20 10/10/20 12:00 17:19 23:44 WBC RBC Hgb Hct MCV MCHC RDW Plt Count Lymph % (Auto) Garrett % (Auto) Garrett # (Auto) Seg Neutrophils % Seg Neuts % (Manual) Lymphocytes % (Manual) Monocytes % (Manual) Nucleated RBC % Seg Neutrophils # Seg Neutrophils # Man Lymphocytes # (Manual) Monocytes # (Manual) PT INR D-Dimer POC ABG pCO2 POC ABG pO2 ABG Hemoglobin ABG Sodium ABG Potassium ABG Chloride ABG Glucose Sodium Potassium Chloride Carbon Dioxide BUN Creatinine Glucose POC Glucose 185 H 219 H Lactic Acid Calcium Ferritin Total Bilirubin Lactate Dehydrogenase Troponin T NT-Pro-B Natriuret Pep Total Protein Albumin Triglycerides HDL Cholesterol Arterial Blood Glucose Arterial Blood Ionized Calcium Urine WBC (Auto) Vancomycin Trough Coronavirus (PCR) Crossmatch See Detail 10/11/20 10/11/20 10/11/20 04:00 04:00 05:11 WBC 11.5 H RBC 3.37 L Hgb 9.6 L Hct 30.0 L D MCV MCHC RDW 23.9 H Plt Count Lymph % (Auto) Garrett % (Auto) Garrett # (Auto) Seg Neutrophils % 81.5 H Seg Neuts % (Manual) Lymphocytes % (Manual) Monocytes % (Manual) Nucleated RBC % Seg Neutrophils # 9.4 H Seg Neutrophils # Man Lymphocytes # (Manual) Monocytes # (Manual) PT INR D-Dimer POC ABG pCO2 POC ABG pO2 ABG Hemoglobin ABG Sodium ABG Potassium ABG Chloride ABG Glucose Sodium 151 H Potassium 3.0 L Chloride 122.8 H Carbon Dioxide 19 L BUN 23 H Creatinine Glucose 238 H POC Glucose 191 H Lactic Acid Calcium 7.0 L Ferritin Total Bilirubin Lactate Dehydrogenase Troponin T NT-Pro-B Natriuret Pep Total Protein Albumin Triglycerides HDL Cholesterol Arterial Blood Glucose Arterial Blood Ionized Calcium Urine WBC (Auto) Vancomycin Trough Coronavirus (PCR) Crossmatch 10/11/20 10/11/20 10/11/20 11:01 12:10 12:24 WBC RBC Hgb Hct MCV MCHC RDW Plt Count Lymph % (Auto) Garrett % (Auto) Garrett # (Auto) Seg Neutrophils % Seg Neuts % (Manual) Lymphocytes % (Manual) Monocytes % (Manual) Nucleated RBC % Seg Neutrophils # Seg Neutrophils # Man Lymphocytes # (Manual) Monocytes # (Manual) PT INR D-Dimer POC ABG pCO2 POC ABG pO2 ABG Hemoglobin ABG Sodium ABG Potassium ABG Chloride ABG Glucose Sodium Potassium Chloride Carbon Dioxide BUN Creatinine Glucose POC Glucose 187 H 199 H Lactic Acid Calcium Ferritin Total Bilirubin Lactate Dehydrogenase Troponin T NT-Pro-B Natriuret Pep Total Protein Albumin Triglycerides HDL Cholesterol Arterial Blood Glucose Arterial Blood Ionized Calcium Urine WBC (Auto) Vancomycin Trough 46.1 H Coronavirus (PCR) Crossmatch 10/11/20 10/11/20 10/11/20 12:58 18:47 23:15 WBC RBC Hgb Hct MCV MCHC RDW Plt Count Lymph % (Auto) Garrett % (Auto) Garrett # (Auto) Seg Neutrophils % Seg Neuts % (Manual) Lymphocytes % (Manual) Monocytes % (Manual) Nucleated RBC % Seg Neutrophils # Seg Neutrophils # Man Lymphocytes # (Manual) Monocytes # (Manual) PT 43.8 H INR 4.56 H D-Dimer POC ABG pCO2 POC ABG pO2 ABG Hemoglobin ABG Sodium ABG Potassium ABG Chloride ABG Glucose Sodium Potassium Chloride Carbon Dioxide BUN Creatinine Glucose POC Glucose 170 H 136 H Lactic Acid Calcium Ferritin Total Bilirubin Lactate Dehydrogenase Troponin T NT-Pro-B Natriuret Pep Total Protein Albumin Triglycerides HDL Cholesterol Arterial Blood Glucose Arterial Blood Ionized Calcium Urine WBC (Auto) Vancomycin Trough Coronavirus (PCR) Crossmatch 10/12/20 10/12/20 10/12/20 06:11 07:24 07:24 WBC RBC 3.12 L Hgb 9.0 L Hct 27.4 L MCV MCHC RDW 24.9 H Plt Count Lymph % (Auto) Garrett % (Auto) Garrett # (Auto) Seg Neutrophils % Seg Neuts % (Manual) Lymphocytes % (Manual) Monocytes % (Manual) Nucleated RBC % Seg Neutrophils # Seg Neutrophils # Man Lymphocytes # (Manual) Monocytes # (Manual) PT INR D-Dimer POC ABG pCO2 POC ABG pO2 ABG Hemoglobin ABG Sodium ABG Potassium ABG Chloride ABG Glucose Sodium 152 H Potassium 3.3 L Chloride 125.2 H Carbon Dioxide 21 L BUN 26 H Creatinine Glucose 113 H POC Glucose 107 H Lactic Acid Calcium 6.9 L Ferritin Total Bilirubin Lactate Dehydrogenase Troponin T NT-Pro-B Natriuret Pep Total Protein Albumin Triglycerides HDL Cholesterol Arterial Blood Glucose Arterial Blood Ionized Calcium Urine WBC (Auto) Vancomycin Trough Coronavirus (PCR) Crossmatch 10/12/20 10/12/20 10/12/20 07:24 10:04 10:04 WBC RBC Hgb Hct MCV MCHC RDW Plt Count Lymph % (Auto) Garrett % (Auto) Garrett # (Auto) Seg Neutrophils % Seg Neuts % (Manual) Lymphocytes % (Manual) Monocytes % (Manual) Nucleated RBC % Seg Neutrophils # Seg Neutrophils # Man Lymphocytes # (Manual) Monocytes # (Manual) PT 34.6 H INR 3.40 H D-Dimer 1061.03 H POC ABG pCO2 POC ABG pO2 ABG Hemoglobin ABG Sodium ABG Potassium ABG Chloride ABG Glucose Sodium Potassium Chloride Carbon Dioxide BUN Creatinine Glucose POC Glucose Lactic Acid Calcium Ferritin 585.8 H Total Bilirubin Lactate Dehydrogenase Troponin T NT-Pro-B Natriuret Pep Total Protein Albumin Triglycerides HDL Cholesterol Arterial Blood Glucose Arterial Blood Ionized Calcium Urine WBC (Auto) Vancomycin Trough Coronavirus (PCR) Crossmatch 10/12/20 10/12/20 10/12/20 10:04 16:15 17:17 WBC RBC Hgb Hct MCV MCHC RDW Plt Count Lymph % (Auto) Garrett % (Auto) Garrett # (Auto) Seg Neutrophils % Seg Neuts % (Manual) Lymphocytes % (Manual) Monocytes % (Manual) Nucleated RBC % Seg Neutrophils # Seg Neutrophils # Man Lymphocytes # (Manual) Monocytes # (Manual) PT INR D-Dimer POC ABG pCO2 POC ABG pO2 ABG Hemoglobin ABG Sodium ABG Potassium ABG Chloride ABG Glucose Sodium Potassium Chloride Carbon Dioxide BUN Creatinine Glucose POC Glucose 176 H Lactic Acid Calcium Ferritin Total Bilirubin Lactate Dehydrogenase 364 H Troponin T NT-Pro-B Natriuret Pep Total Protein Albumin Triglycerides HDL Cholesterol Arterial Blood Glucose Arterial Blood Ionized Calcium Urine WBC (Auto) Vancomycin Trough 62.0 H Coronavirus (PCR) Crossmatch 10/13/20 10/13/20 10/13/20 00:12 04:59 04:59 WBC 11.3 H RBC 3.22 L Hgb 9.2 L Hct 28.6 L MCV MCHC RDW 24.1 H Plt Count 135 L Lymph % (Auto) 11.4 L Garrett % (Auto) 8.4 H Garrett # (Auto) 0.9 H Seg Neutrophils % 80.0 H Seg Neuts % (Manual) Lymphocytes % (Manual) Monocytes % (Manual) Nucleated RBC % Seg Neutrophils # 9.0 H Seg Neutrophils # Man Lymphocytes # (Manual) Monocytes # (Manual) PT INR D-Dimer POC ABG pCO2 POC ABG pO2 ABG Hemoglobin ABG Sodium ABG Potassium ABG Chloride ABG Glucose Sodium 149 H Potassium Chloride 124.6 H Carbon Dioxide 17 L BUN 27 H Creatinine Glucose 129 H POC Glucose 141 H Lactic Acid Calcium 7.2 L Ferritin Total Bilirubin Lactate Dehydrogenase Troponin T NT-Pro-B Natriuret Pep Total Protein 6.0 L Albumin 2.7 L Triglycerides HDL Cholesterol Arterial Blood Glucose Arterial Blood Ionized Calcium Urine WBC (Auto) Vancomycin Trough Coronavirus (PCR) Crossmatch 10/13/20 10/13/20 05:03 11:15 WBC RBC Hgb Hct MCV MCHC RDW Plt Count Lymph % (Auto) Garrett % (Auto) Garrett # (Auto) Seg Neutrophils % Seg Neuts % (Manual) Lymphocytes % (Manual) Monocytes % (Manual) Nucleated RBC % Seg Neutrophils # Seg Neutrophils # Man Lymphocytes # (Manual) Monocytes # (Manual) PT INR D-Dimer POC ABG pCO2 POC ABG pO2 ABG Hemoglobin ABG Sodium ABG Potassium ABG Chloride ABG Glucose Sodium Potassium Chloride Carbon Dioxide BUN Creatinine Glucose POC Glucose 121 H 119 H Lactic Acid Calcium Ferritin Total Bilirubin Lactate Dehydrogenase Troponin T NT-Pro-B Natriuret Pep Total Protein Albumin Triglycerides HDL Cholesterol Arterial Blood Glucose Arterial Blood Ionized Calcium Urine WBC (Auto) Vancomycin Trough Coronavirus (PCR) Crossmatch Allied health notes reviewed: nursing
[2020-10-13] MEDS: INSULIN GLARGINE 100 UNITS/ML SUB-Q SCH (23:15)
[2020-10-14] MEDS: INSULIN REGULAR, HUMAN 100 UNITS/1 ML SUB-Q SCH ×5 (01:12→23:52)
--- NOTE | 2020-10-14 09:20 | Progress Note ---
Assessment and Plan Assessment and plan: Sepsis -Antibiotic therapy -Patient's disease consulted, appreciate recommendations -S/p vasopressor support COVID-19 pneumonia -COVID-19 PCR positive -Antibiotic therapy -Dexamethasone -Zinc -Isolation/droplet precautions Acute hypoxic respiratory failure -S/p BiPAP therapy currently on nasal cannula -Supplemental oxygen as needed -Pulmonary hygiene MRSA bacteremia -Antibiotic therapy -Echocardiogram -ID anticipates discharge with antibiotic therapy Obesity hypoventilation syndrome -Supportive care -As needed BiPAP Acute kidney injury. Etiology secondary to ATN -S/p IVF resuscitation -Trend BMP Hypernatremia -Hypotonic IV fluid -Free water flush -Trend BMP Acute metabolic encephalopathy Secondary to infection versus hypernatremia-these conditions have been treated and AMS still persists. Now needs NG tube for feeding Continue to monitor. GI consulted for PEG placement Vascular dementia. -Supportive care UTI -Antibiotic therapy Supratherapeutic INR -Hold home Coumadin, trend INR Hypokalemia -Replete and trend BMP DVT/GI prophylaxis: PPI, SCDs to bilateral lower extremities while in bed hold chemical anticoagulation in setting of supratherapeutic INR Dispo: Likely needs placement History Interval history: This is 64-year-old male from [facility] with oh at bedtime, cerebral sclerosis, chronic respiratory failure, CVA, anemia of chronic disease, GERD, HTN, DVT, vascular dementia who presented to the emergency department on 10/07 for increased confusion and weakness over the past 2 days with worsening symptoms over the past 1 day. Upon arrival to the emergency department patient was found to have urinary tract infection complicated by sepsis, metabolic acidosis, acute kidney injury and toxic metabolic encephalopathy. Patient was admitted to the hospital service to IMCU on the sepsis protocol. Infectious disease and CCM were consulted. Sepsis COVID-19 pneumonia Acute hypoxic respiratory failure MRSA bacteremia Toxic metabolic encephalopathy Obesity hypoventilation syndrome Acute kidney injury. Etiology secondary to ATN Hypernatremia Hyperchloremia Metabolic acidosis General debility. Vascular dementia. Cerebral atherosclerosis UTI Leukocytosis Supratherapeutic INR Hypokalemia 10/08: Continue IV antibiotics and IV fluid hydration. Consult ID for further evaluation. 10/09: Continue antibiotic per ID recommendations. Continue dexamethasone to complete 10 days. Continue to trend inflammatory markers. Sodium noted to be 162. We will start D5W at 75 cc an hour. Continue 250 cc free water every 4 hours. Follow-up BMP in a.m. Also, replete potassium. 3/21: Sodium improved to 158 today. Continue D5W IV fluids and free water every 4 hours.. Replete potassium. Hemoglobin 6.8. We will type and cross and transfuse 2 units PRBCs. Continue dexamethasone to complete 10 days. Continue to trend inflammatory markers. 10/11: We will obtain TTE to rule out vegetation as patient grew MRSA in his blood cultures, patient still has leukocytosis and worsening INR. Patient has hypokalemia today along with improving hypernatremia, hyperchloremia, metabolic acidosis, hypocalcemia and leukocytosis. 10/12. TTE pending. INR improved. His sodium is slowly trending down. His mental status is still impaired. 10/13. Sodium is better. Still lethargic. He is getting feeds via NGT. If mental status fails to improve, he will need PEG placement. 10/14. Awaiting a.m. labs. I believe patient will benefit from PEG placement and plan for discharge back to nursing facility. GI has been consulted for this. Hospitalist Physical - Physical exam Narrative exam: VITAL SIGNS: Reviewed. GENERAL: lethargic HEAD: No signs of head trauma. EYES: Pupils are equal. Extraocular motions intact. MOUTH: Oropharynx is normal. NECK: No adenopathy, no JVD. CHEST: Chest with diminished breath sounds bilaterally. No wheezes, rales, or rhonchi. CARDIAC: normal S1 and S2, without murmurs, gallops, or rubs. ABDOMEN: Soft, non tender and non distended. No rebound or guarding, and no masses palpated. Bowel Sounds normal. MUSCULOSKELETAL: No edema NEUROLOGIC EXAM: Lethargic SKIN: No obvious lesions - Constitutional Vitals: Temp Pulse Resp BP Pulse Ox 99.4 F 92 H 18 131/66 98 10/14/20 00:13 10/14/20 00:13 10/14/20 00:13 10/14/20 00:13 10/14/20 00:13 HEART Score - HEART Score Troponin: Troponin T 0.087 ng/mL (0.00-0.029) H 10/07/20 16:38 Results - Labs CBC & Chem 7: 10/13/20 04:59 10/13/20 04:59 Labs: Laboratory Last Values WBC 11.3 K/mm3 (4.5-11.0) H 10/13/20 04:59 RBC 3.22 M/mm3 (3.65-5.03) L 10/13/20 04:59 Hgb 9.2 gm/dl (11.8-15.2) L 10/13/20 04:59 Hct 28.6 % (35.5-45.6) L 10/13/20 04:59 MCV 89 fl (84-94) 10/13/20 04:59 MCH 29 pg (28-32) 10/13/20 04:59 MCHC 32 % (32-34) 10/13/20 04:59 RDW 24.1 % (13.2-15.2) H 10/13/20 04:59 Plt Count 135 K/mm3 (140-440) L 10/13/20 04:59 Lymph % (Auto) 11.4 % (13.4-35.0) L 10/13/20 04:59 [place] % (Auto) 8.4 % (0.0-7.3) H 10/13/20 04:59 Eos % (Auto) 0.1 % (0.0-4.3) 10/13/20 04:59 Baso % (Auto) 0.1 % (0.0-1.8) 10/13/20 04:59 Lymph # (Auto) 1.3 K/mm3 (1.2-5.4) 10/13/20 04:59 [place] # (Auto) 0.9 K/mm3 (0.0-0.8) H 10/13/20 04:59 Eos # (Auto) 0.0 K/mm3 (0.0-0.4) 10/13/20 04:59 Baso # (Auto) 0.0 K/mm3 (0.0-0.1) 10/13/20 04:59 Add Manual Diff Complete 10/10/20 06:07 Total Counted 100 10/10/20 06:07 Seg Neutrophils % 80.0 % (40.0-70.0) H 10/13/20 04:59 Seg Neuts % (Manual) 89.0 % (40.0-70.0) H 10/10/20 06:07 Lymphocytes % (Manual) 10.0 % (13.4-35.0) L 10/10/20 06:07 Monocytes % (Manual) 1.0 % (0.0-7.3) 10/10/20 06:07 Eosinophils % (Manual) 2.0 % (0.0-4.3) 10/07/20 16:38 Nucleated RBC % 2.0 % (0.0-0.9) H 10/10/20 06:07 Seg Neutrophils # 9.0 K/mm3 (1.8-7.7) H 10/13/20 04:59 Seg Neutrophils # Man 12.0 K/mm3 (1.8-7.7) H 10/10/20 06:07 Band Neutrophils # 0.0 K/mm3 10/10/20 06:07 Lymphocytes # (Manual) 1.4 K/mm3 (1.2-5.4) 10/10/20 06:07 Abs React Lymphs (Man) 0.0 K/mm3 10/10/20 06:07 Monocytes # (Manual) 0.1 K/mm3 (0.0-0.8) 10/10/20 06:07 Eosinophils # (Manual) 0.0 K/mm3 (0.0-0.4) 10/10/20 06:07 Basophils # (Manual) 0.0 K/mm3 (0.0-0.1) 10/10/20 06:07 Metamyelocytes # 0.0 K/mm3 10/10/20 06:07 Myelocytes # 0.0 K/mm3 10/10/20 06:07 Promyelocytes # 0.0 K/mm3 10/10/20 06:07 Blast Cells # 0.0 K/mm3 10/10/20 06:07 WBC Morphology Not Reportable 10/10/20 06:07 Hypersegmented Neuts Not Reportable 10/10/20 06:07 Hyposegmented Neuts Not Reportable 10/10/20 06:07 Hypogranular Neuts Not Reportable 10/10/20 06:07 Smudge Cells Not Reportable 10/10/20 06:07 Toxic Granulation Not Reportable 10/10/20 06:07 Toxic Vacuolation Not Reportable 10/10/20 06:07 Dohle Bodies Not Reportable 10/10/20 06:07 Pelger-Huet Anomaly Not Reportable 10/10/20 06:07 Darryl Rods Not Reportable 10/10/20 06:07 Platelet Estimate Consistent w auto 10/10/20 06:07 Clumped Platelets Not Reportable 10/10/20 06:07 Plt Clumps, EDTA Not Reportable 10/10/20 06:07 Large Platelets Not Reportable 10/10/20 06:07 Giant Platelets Not Reportable 10/10/20 06:07 Platelet Satelliting Not Reportable 10/10/20 06:07 Plt Morphology Comment Not Reportable 10/10/20 06:07 RBC Morphology Not Reportable 10/10/20 06:07 Dimorphic RBCs Not Reportable 10/10/20 06:07 Polychromasia Not Reportable 10/10/20 06:07 Hypochromasia Not Reportable 10/10/20 06:07 Poikilocytosis 2+ 10/10/20 06:07 Anisocytosis 3+ 10/10/20 06:07 Microcytosis Not Reportable 10/10/20 06:07 Macrocytosis Not Reportable 10/10/20 06:07 Spherocytes Not Reportable 10/10/20 06:07 Pappenheimer Bodies Not Reportable 10/10/20 06:07 Sickle Cells Not Reportable 10/10/20 06:07 Target Cells Not Reportable 10/10/20 06:07 Tear Drop Cells 1+ 10/10/20 06:07 Ovalocytes Few 10/10/20 06:07 Helmet Cells Not Reportable 10/10/20 06:07 [place] Bodies Not Reportable 10/10/20 06:07 [place] Rings Not Reportable 10/10/20 06:07 Chris Cells Not Reportable 10/10/20 06:07 Bite Cells Not Reportable 10/10/20 06:07 Crenated Cell Not Reportable 10/10/20 06:07 Elliptocytes 1+ 10/10/20 06:07 Acanthocytes (Spur) Not Reportable 10/10/20 06:07 Rouleaux Not Reportable 10/10/20 06:07 Hemoglobin C Crystals Not Reportable 10/10/20 06:07 Schistocytes Not Reportable 10/10/20 06:07 Malaria parasites Not Reportable 10/10/20 06:07 Lucas Bodies Not Reportable 10/10/20 06:07 Hem Pathologist Commnt No 10/10/20 06:07 PT 34.6 Sec. (12.2-14.9) H 10/12/20 07:24 INR 3.40 (0.87-1.13) H 10/12/20 07:24 D-Dimer 1061.03 ng/mlDDU (0-234) H 10/12/20 10:04 ABG pH 7.415 (7.320-7.450) 10/09/20 14:25 POC ABG pCO2 27.3 mmHg (32.0-48.0) L 10/09/20 14:25 POC ABG pO2 125.5 mmHg (83-108) H 10/09/20 14:25 POC ABG HCO3 17.1 10/09/20 14:25 ABG O2 Saturation 98.8 (0-100) 10/09/20 14:25 POC ABG Base Excess -6.7 10/09/20 14:25 ABG Hemoglobin 7.0 (12.0-17.5) L 10/09/20 14:25 ABG Oxyhemoglobin 97.2 (94-98) 10/09/20 14:25 ABG Methemoglobin 0.1 (0.0-1.5) 10/09/20 14:25 ABG Sodium 158.0 mmol/L (136.0-145.0) H 10/09/20 14:25 ABG Potassium 3.0 mmol/L (3.40-4.50) L 10/09/20 14:25 ABG Chloride 132.0 mmol/L (98-107) H 10/09/20 14:25 ABG Glucose 172 mg/dL (65-95) H 10/09/20 14:25 Carboxyhemoglobin 1.5 (0.5-1.5) 10/09/20 14:25 FiO2 % 26.0 10/09/20 14:25 Sodium 149 mmol/L (137-145) H 10/13/20 04:59 Potassium 3.7 mmol/L (3.6-5.0) 10/13/20 04:59 Chloride 124.6 mmol/L (98-107) H 10/13/20 04:59 Carbon Dioxide 17 mmol/L (22-30) L 10/13/20 04:59 Anion Gap 11 mmol/L 10/13/20 04:59 BUN 27 mg/dL (9-20) H 10/13/20 04:59 Creatinine 1.2 mg/dL (0.8-1.3) 10/13/20 04:59 Estimated GFR > 60 ml/min 10/13/20 04:59 BUN/Creatinine Ratio 23 % 10/13/20 04:59 Glucose 129 mg/dL (75-100) H 10/13/20 04:59 POC Glucose 127 mg/dL (70-105) H 10/13/20 22:51 Lactic Acid 1.10 mmol/L (0.7-2.0) 10/09/20 19:30 Calcium 7.2 mg/dL (8.4-10.2) L 10/13/20 04:59 Ferritin 585.8 ng/mL (30.0-300.0) H 10/12/20 10:04 Total Bilirubin 0.80 mg/dL (0.1-1.2) 10/13/20 04:59 AST 21 units/L (5-40) 10/13/20 04:59 ALT 15 units/L (7-56) 10/13/20 04:59 Alkaline Phosphatase 57 units/L (35-129) 10/13/20 04:59 Lactate Dehydrogenase 364 units/L (91-180) H 10/12/20 10:04 Troponin T 0.087 ng/mL (0.00-0.029) H 10/07/20 16:38 C-Reactive Protein 0.30 mg/dL (0.00-1.30) 10/12/20 10:04 NT-Pro-B Natriuret Pep 2155 pg/mL (0-900) H 10/07/20 16:38 Total Protein 6.0 g/dL (6.3-8.2) L 10/13/20 04:59 Albumin 2.7 g/dL (3.9-5) L 10/13/20 04:59 Albumin/Globulin Ratio 0.8 % 10/13/20 04:59 Triglycerides 193 mg/dL (2-149) H 10/07/20 16:38 Cholesterol 136 mg/dL (50-199) 10/07/20 16:38 LDL Cholesterol Direct 82 mg/dL (50-130) 10/07/20 16:38 HDL Cholesterol 20 mg/dL (40-59) L 10/07/20 16:38 Cholesterol/HDL Ratio 6.80 % 10/07/20 16:38 Procalcitonin 0.10 ng/mL (<0.15) 10/08/20 15:33 Arterial Blood Glucose 172 mg/dL (65-95) H 10/09/20 14:25 Arterial Blood Ionized Calcium 4.2 mg/dL (4.6-5.3) L 10/09/20 14:25 Urine Color Sonal (Yellow) 10/07/20 Unknown Urine Turbidity Turbid (Clear) 10/07/20 Unknown Urine pH 7.0 (5.0-7.0) 10/07/20 Unknown Ur Specific [place] 1.020 (1.003-1.030) 10/07/20 Unknown Urine Protein 100 mg/dl mg/dL (Negative) 10/07/20 Unknown Urine Glucose (UA) Neg mg/dL (Negative) 10/07/20 Unknown Urine Ketones Neg mg/dL (Negative) 10/07/20 Unknown Urine Blood Neg (Negative) 10/07/20 Unknown Urine Nitrite Neg (Negative) 10/07/20 Unknown Urine Bilirubin Sm (Negative) 10/07/20 Unknown Urine Ictotest Negative (Negative) 10/07/20 Unknown Urine Urobilinogen 4.0 mg/dL (<2.0) 10/07/20 Unknown Ur Leukocyte Esterase Lg (Negative) 10/07/20 Unknown Urine WBC (Auto) 111.0 /HPF (0.0-6.0) H 10/07/20 Unknown Urine RBC (Auto) 40.0 /HPF (0.0-6.0) 10/07/20 Unknown Urine Bacteria (Auto) 3+ /HPF (Negative) 10/07/20 Unknown Urine WBC Clumps 2+ /HPF 10/07/20 Unknown Urine Yeast (Budding) 3+ /HPF 10/07/20 Unknown Vancomycin Trough 62.0 ug/mL (5.0-20.0) H 10/12/20 16:15 Random Vancomycin 8.7 ug/mL (0-40.0) 10/09/20 05:14 Coronavirus (PCR) Positive (Negative) A 10/08/20 09:34 Blood Type B POSITIVE 10/10/20 12:00 Antibody Screen Negative 10/10/20 12:00 Crossmatch See Detail 10/10/20 12:00 Microbiology: Microbiology 10/10/20 13:46 Peripheral/Venous Blood Culture - Preliminary NO GROWTH AFTER 72 HOURS 10/10/20 14:04 Peripheral/Venous Blood Culture - Preliminary NO GROWTH AFTER 72 HOURS Iglesias/IV: Voiding Method Indwelling Catheter Active Medications - Current Medications Current Medications: Generic Name Dose Route Start Last Admin Trade Name Freq PRN Reason Stop Dose Admin Acetaminophen 650 mg 10/07/20 19:06 Acetaminophen 325 Mg Tab PO Q4H PRN Pain MILD(1-3)/Fever >100.5/RAM Albuterol 2.5 mg 10/07/20 19:06 Albuterol 2.5 Mg/3 Ml Nebu IH Q4H PRN Shortness Of Breath Lipase/Protease/Amylase 1 each 10/10/20 09:00 Lipase 10,500/Protease 25,000/Amylase 43,750 (Units) Dr Reddy FEEDTUBE PRN PRN For Clogged Feeding Tube Ascorbic Acid 500 mg 10/08/20 22:00 10/13/20 22:43 Ascorbic Acid 500 Mg Tab PO 500 mg BID LISA Administration Atorvastatin Calcium 20 mg 10/11/20 22:00 10/13/20 22:43 Atorvastatin 20 Mg Tab PO 20 mg QHS LISA Administration Dexamethasone 6 mg 10/08/20 15:00 10/13/20 12:11 Dexamethasone 4 Mg/Ml Vial IV 10/17/20 10:01 6 mg DAILY LISA Administration Dextrose 50 ml 10/11/20 09:19 10/14/20 07:27 Dextrose 50% In Water (25gm) 50 Ml Syringe IV 10 ml Q30MIN PRN Administration Hypoglycemia Protocol Famotidine 20 mg 10/08/20 14:00 10/13/20 12:11 Famotidine 20 Mg Tab PO 20 mg QDAY LISA Administration Hydromorphone HCl 0.25 mg 10/07/20 19:06 Hydromorphone 1 Mg/1 Ml Inj IV Q4H PRN Pain, Moderate (4-6) Insulin Glargine 5 units 10/11/20 22:00 10/13/20 23:15 Insulin Glargine 100 Units/Ml SUB-Q 5 units QHS LISA Administration Insulin Human Regular 0 units 10/11/20 12:00 10/14/20 07:23 Insulin Regular, Human 100 Units/1 Ml SUB-Q Not Given Q6H LISA Protocol Ondansetron HCl 4 mg 10/07/20 19:06 Ondansetron 4 Mg/2 Ml Inj IV Q8H PRN Nausea And Vomiting Simple Syrup 15 ml 10/10/20 09:00 Simple Syrup 15 Ml FEEDTUBE PRN PRN Hypoglycemia Simple Syrup 30 ml 10/10/20 09:00 Simple Syrup 15 Ml FEEDTUBE PRN PRN Hypoglycemia Sodium Bicarbonate 325 mg 10/10/20 09:00 Sodium Bicarbonate 325 Mg Tab FEEDTUBE PRN PRN For Clogged Feeding Tube Sodium Chloride 10 ml 10/07/20 22:00 10/13/20 22:43 Sodium Chloride 0.9% 10 Ml Flush Syringe IV 10 ml BID LISA Administration Sodium Chloride 10 ml 10/07/20 19:06 Sodium Chloride 0.9% 10 Ml Flush Syringe IV PRN PRN LINE FLUSH Sucralfate 1 gm 10/11/20 10:00 10/13/20 22:43 Sucralfate 1 Gm/10 Ml Oral Liqd PO 1 gm BID LISA Administration Tamsulosin HCl 0.4 mg 10/11/20 10:00 10/13/20 12:11 Tamsulosin 0.4 Mg Cap PO 0.4 mg DAILY LISA Administration Zinc Sulfate 220 mg 10/08/20 22:00 10/13/20 22:43 Zinc Sulfate 220 Mg Cap PO 220 mg BID LISA Administration Nutrition/Malnutrition Assess - Dietary Evaluation Nutrition/Malnutrition Findings: Nutrition Notes Start: 10/09/20 09:29 Freq: Status: Active Protocol: Document 10/13/20 12:04 (Rec: 10/13/20 12:07 [email or web address]) Nutrition Notes Initial or Follow up Brief Note Current Diagnosis Acute Kidney Injury,Decubitus( Pressure Ulcer),Sepsis, Hypertension,Respiratory Failure,Stroke Other Pertinent Diagnosis COVID, DVT, UTI, GERD, dementia, toxic metabolic encephalopathy Current Diet Glucerna 1.2 at 70 ml/hr Subjective/Other Information RN reports pt with diarrhea last night and this AM. TF was changed yesterday. Will follow for tolerance and need for new TF vs medications. Nutrition Intervention Follow-Up By: 10/14/20 Additional Comments F/U for TF tolerance, medications and need for TF change
[2020-10-14 10:02] LABS: Alanine Aminotransferase 19 units/L (7-56); Albumin 2.6 g/dL (3.9-5); BUN/Creatinine Ratio 23; Blood Urea Nitrogen 27 mg/dL (9-20); Calcium 7.9 mg/dL (8.4-10.2); Hemolysis Index 56
[2020-10-14] MEDS: ZINC SULFATE 220 MG CAP PO SCH ×2 (10:03→23:52)
[2020-10-14] MEDS: ASCORBIC ACID 500 MG TAB PO SCH ×2 (10:03→23:52)
[2020-10-14] MEDS: TAMSULOSIN 0.4 MG CAP PO SCH (10:03)
[2020-10-14] MEDS: SUCRALFATE 1 GM/10 ML ORAL LIQD PO SCH ×2 (10:03→23:52)
[2020-10-14] MEDS: FAMOTIDINE 20 MG TAB PO SCH (10:03)
[2020-10-14] MEDS: dexAMETHasone 4 MG/ML VIAL IV SCH (10:03)
[2020-10-14 10:18] LABS: Basophils % (Auto) 0.2 % (0.0-1.8); Eosinophils # (Auto) 0.2 K/mm3 (0.0-0.4); Hematocrit 32.2 % (35.5-45.6); Hemoglobin 10.2 gm/dl (11.8-15.2); Lymphocytes # (Auto) 3.4 K/mm3 (1.2-5.4); Lymphocytes % (Auto) 19.9 % (13.4-35.0); Mean Corpuscular HGB Conc 32 % (32-34); Mean Corpuscular Volume 89 fl (84-94); Monocytes # (Auto) 1.8 K/mm3 (0.0-0.8); Monocytes % (Auto) 10.6 % (0.0-7.3); Platelet Count 138 K/mm3 (140-440); Red Blood Count 3.62 M/mm3 (3.65-5.03)
[2020-10-14 10:21] LABS: Red Cell Distribution Width 24.3 % (13.2-15.2)
--- NOTE | 2020-10-14 11:35 | Gastroenterology Consultation ---
History of Present Illness - Reason for Consult Consult date: 10/14/20 Neurogenic Dysphagia Requesting physician: DILMA LOPEZ - History of Present Illness The patient is not verbal; the hx is from the chart. He was admitted with progression of [id number] AMS, and carries a dx of vascular dementia, but also toxic-metabolic encephalopathy. Despite supportive care during this admission, his mental status remains very poor, with inability to perform ADL/IADL. He is being fed through an NG tube due to aspiration concerns/inability to take PO meds. There is no documented hx of PEG discussion or implantation. Past History Past Medical History: GERD, hypertension, stroke, other (See HPI) Past Surgical History: cholecystectomy Social history: . denies: smoking, alcohol abuse, prescription drug abuse Family history: diabetes, hypertension Medications and Allergies Allergies Allergy/AdvReac Type Severity Reaction Status Date / Time No Known Allergies Allergy Unverified 10/07/20 16:12 Home Medications Medication Instructions Recorded Confirmed Last Taken Type Ascorbic Acid [Vitamin C] 500 mg PO QDAY 10/08/20 10/08/20 Unknown History AtorvaSTATin [Lipitor] 20 mg PO QHS 10/08/20 10/08/20 Unknown History Cholecalciferol Vit D3 50,000 unit PO 1XW 10/08/20 10/08/20 Unknown History Ferrous Sulfate Oral Liq 300 Mg/5 5 ml PO DAILY 10/08/20 10/08/20 Unknown History Ml Ipratropium [Atrovent] 0.5 mg IH Q6HRT 10/08/20 10/08/20 Unknown History Loperamide [Imodium] 2 mg PO PRN PRN MDD 16 mg 10/08/20 10/08/20 Unknown History PriLOSEC Otc 40 mg PO DAILY 10/08/20 10/08/20 Unknown History Sucralfate [Carafate] 10 ml PO BID 10/08/20 10/08/20 Unknown History Tamsulosin [Flomax] 1 cap PO DAILY 10/08/20 10/08/20 Unknown History Warfarin [Coumadin] 3 mg PO QPM 10/08/20 10/08/20 Unknown History cefTRIAXone [Ceftriaxone] 1 gm IM DAILY 10/08/20 10/08/20 Unknown History Active Meds: Active Medications Acetaminophen (Acetaminophen 325 Mg Tab) 650 mg PO Q4H PRN PRN Reason: Pain MILD(1-3)/Fever >100.5/RAM Albuterol (Albuterol 2.5 Mg/3 Ml Nebu) 2.5 mg IH Q4H PRN PRN Reason: Shortness Of Breath Lipase/Protease/Amylase (Lipase 10,500/Protease 25,000/Amylase 43,750 (Units) Dr Reddy) 1 each FEEDTUBE PRN PRN PRN Reason: For Clogged Feeding Tube Ascorbic Acid (Ascorbic Acid 500 Mg Tab) 500 mg PO BID [facility] Last Admin: 10/14/20 10:03 Dose: 500 mg Documented by: Atorvastatin Calcium (Atorvastatin 20 Mg Tab) 20 mg PO QHS [facility] Last Admin: 10/13/20 22:43 Dose: 20 mg Documented by: Dexamethasone (Dexamethasone 4 Mg/Ml Vial) 6 mg IV DAILY [facility] Stop: 10/17/20 10:01 Last Admin: 10/14/20 10:03 Dose: 6 mg Documented by: Dextrose (Dextrose 50% In Water (25gm) 50 Ml Syringe) 50 ml IV Q30MIN PRN; Protocol PRN Reason: Hypoglycemia Last Admin: 10/14/20 07:27 Dose: 10 ml Documented by: Famotidine (Famotidine 20 Mg Tab) 20 mg PO QDAY [facility] Last Admin: 10/14/20 10:03 Dose: 20 mg Documented by: Hydromorphone HCl (Hydromorphone 1 Mg/1 Ml Inj) 0.25 mg IV Q4H PRN PRN Reason: Pain, Moderate (4-6) Dextrose/Sodium Chloride (D5/0.45ns) 1,000 mls @ 50 mls/hr IV DIRECT [facility] Insulin Glargine (Insulin Glargine 100 Units/Ml) 5 units SUB-Q QHS [facility] Last Admin: 10/13/20 23:15 Dose: 5 units Documented by: Insulin Human Regular (Insulin Regular, Human 100 Units/1 Ml) 0 units SUB-Q Q6H [facility]; Protocol Last Admin: 10/14/20 11:29 Dose: Not Given Documented by: Ondansetron HCl (Ondansetron 4 Mg/2 Ml Inj) 4 mg IV Q8H PRN PRN Reason: Nausea And Vomiting Simple Syrup (Simple Syrup 15 Ml) 15 ml FEEDTUBE PRN PRN PRN Reason: Hypoglycemia Simple Syrup (Simple Syrup 15 Ml) 30 ml FEEDTUBE PRN PRN PRN Reason: Hypoglycemia Sodium Bicarbonate (Sodium Bicarbonate 325 Mg Tab) 325 mg FEEDTUBE PRN PRN PRN Reason: For Clogged Feeding Tube Sodium Chloride (Sodium Chloride 0.9% 10 Ml Flush Syringe) 10 ml IV BID [facility] Last Admin: 10/14/20 10:04 Dose: 10 ml Documented by: Sodium Chloride (Sodium Chloride 0.9% 10 Ml Flush Syringe) 10 ml IV PRN PRN PRN Reason: LINE FLUSH Sucralfate (Sucralfate 1 Gm/10 Ml Oral Liqd) 1 gm PO BID [facility] Last Admin: 10/14/20 10:03 Dose: 1 gm Documented by: Tamsulosin HCl (Tamsulosin 0.4 Mg Cap) 0.4 mg PO DAILY [facility] Last Admin: 10/14/20 10:03 Dose: 0.4 mg Documented by: Zinc Sulfate (Zinc Sulfate 220 Mg Cap) 220 mg PO BID [facility] Last Admin: 10/14/20 10:03 Dose: 220 mg Documented by: I HAVE REVIEWED/RECONCILED MEDICATIONS Review of Systems - Review of Systems ROS unobtainable: due to mental status Exam - Constitutional Vital Signs: Temp Pulse Resp BP Pulse Ox 99.4 F 92 H 18 131/66 98 10/14/20 00:13 10/14/20 00:13 10/14/20 00:13 10/14/20 00:13 10/14/20 10:12 General appearance: no acute distress - EENT Eyes: PERRL, EOM intact ENT: hearing intact, clear oral mucosa, other (NG tube present in nares) - Neck Neck: supple, normal ROM - Respiratory Respiratory effort: normal Respiratory: bilateral: CTA - Cardiovascular Rhythm: regular Heart Sounds: Present: S1 & S2 Extremities: no ischemia, No edema - Gastrointestinal General gastrointestinal: Present: soft, non-tender, non-distended, other (CCY scar RUQ) - Integumentary Integumentary: Present: clear, warm, dry - Neurologic Neurological: other (Open eyes but no response to stimuli; minimal withdrawal to pain; does not follow commands) - Labs CBC & Chem 7: 10/14/20 09:16 10/14/20 09:16 Lab Results: Laboratory Results - last 24 hr 0310/13/20 10/13/20 11:15 17:16 22:51 WBC RBC Hgb Hct MCV MCH MCHC RDW Plt Count Lymph % (Auto) [place] % (Auto) Eos % (Auto) Baso % (Auto) Lymph # (Auto) [place] # (Auto) Eos # (Auto) Baso # (Auto) Seg Neutrophils % Seg Neutrophils # Sodium Potassium Chloride Carbon Dioxide Anion Gap BUN Creatinine Estimated GFR BUN/Creatinine Ratio Glucose POC Glucose 119 H 164 H 127 H Calcium Total Bilirubin AST ALT Alkaline Phosphatase Total Protein Albumin Albumin/Globulin Ratio Random Vancomycin 10/14/20 10/14/20 10/14/20 06:38 09:16 09:16 WBC 17.0 H RBC 3.62 L Hgb 10.2 L Hct 32.2 L MCV 89 MCH 28 MCHC 32 RDW 24.3 H Plt Count 138 L Lymph % (Auto) 19.9 [place] % (Auto) 10.6 H Eos % (Auto) 1.0 Baso % (Auto) 0.2 Lymph # (Auto) 3.4 [place] # (Auto) 1.8 H Eos # (Auto) 0.2 Baso # (Auto) 0.0 Seg Neutrophils % 68.3 Seg Neutrophils # 11.6 H Sodium 151 H Potassium 3.6 Chloride 122.7 H Carbon Dioxide 20 L Anion Gap 12 BUN 27 H Creatinine 1.2 Estimated GFR > 60 BUN/Creatinine Ratio 23 Glucose 119 H POC Glucose 105 Calcium 7.9 L Total Bilirubin 0.70 AST 22 ALT 19 Alkaline Phosphatase 67 Total Protein 5.9 L Albumin 2.6 L Albumin/Globulin Ratio 0.8 Random Vancomycin 10/14/20 10/14/20 09:16 11:19 WBC RBC Hgb Hct MCV MCH MCHC RDW Plt Count Lymph % (Auto) [place] % (Auto) Eos % (Auto) Baso % (Auto) Lymph # (Auto) [place] # (Auto) Eos # (Auto) Baso # (Auto) Seg Neutrophils % Seg Neutrophils # Sodium Potassium Chloride Carbon Dioxide Anion Gap BUN Creatinine Estimated GFR BUN/Creatinine Ratio Glucose POC Glucose 113 H Calcium Total Bilirubin AST ALT Alkaline Phosphatase Total Protein Albumin Albumin/Globulin Ratio Random Vancomycin 32.4 Assessment and Plan - Patient Problems (1) Neurogenic dysphagia Current Visit: Yes Status: Acute Plan to address problem: - I discussed a PEG tube with the patient's , who is going to discuss with her daughter. - The appears receptive to the idea, however, and will likely place on Sunday. - Continue current NG tube feeds and supportive care.
[2020-10-14] MEDS: D5W/0.45% NACL 1,000 ML IV SCH (11:58)
[2020-10-14] MEDS ORDERED: D5W/0.9% NACL 1,000 ML IV SCH (12:00)
[2020-10-14 12:07] LABS: INR 2.22 (0.87-1.13)
--- NOTE | 2020-10-14 13:13 | Progress Note ---
Assessment and Plan Severe sepsis with shock, presumably Urinary tract infection Acute kidney injury Acute toxic metabolic encephalopathy Obesity hypoventilation syndrome Morbid obesity History of deep venous thrombosis Anemia of chronic disease Gastroesophageal reflux disease History of vascular dementia Severe hypokalemia Leukocytosis Lactic acidosis at presentation Hypernatremia - get INR - resume Coumadin - replaced Potassium - continue free water flushes - off Levophed - continue BIPAP scheduled qhs with prn daytime use - continue care as below otherwise; - continue broad spectrum AB's (de-escalate per ID recommendations) - accuchecks with glycemic control per SSI (While critically ill target blood glucose of 140-180 mg/dL; avoid hypoglycemia) - wean supplemental oxygen for target O2 sat's > 92% acutely - continue aspiration precautions - bronchodilators with pulmonary hygiene per RT - avoid nephrotoxins, renally dose all medications - continue to avoid benzodiazepine's, reduce the possibility of delirium - prn analgesia per CPOT score - Maintenance of sleep-wake cycle, avoid delirium - enteral nutritional support at goal rate as tolerated - G.I. & VTE prophylaxis - PT/OT/ROM exercises - mobility protocols for pressure ulcer prophylaxis - Monitor hemodynamics closely - continue other care per attending / other consultants - discharge planning ongoing concurrently COVID SPECIFIC INTERVENTIONS - Remdesivir as per ID/Pulmonary developed protocols - continue systemic steroids for severe COVID-19 infection empirically - follow repeat COVID tests results - zinc and vitamin C supplementation - Monitor inflammatory markers per facility protocol - ferritin, Ddimer, CRP - therapeutic anticoagulation per system Protocol based on d-dimer and clinical considerations - Continue contact and airborne isolation .... doing better, transfer to medical floor .... Re-evaluate in am & prn I have spent ( >35 ) minutes with the patient w/ >50% of the time spent counseling and/or coordinating care for this patient. Counseling topics and/or how time was spent coordinating patient's care is outlined in the impression and plan above. Subjective Date of service: 10/14/20 Principal diagnosis: Septic Shock; UTI; THOMPSON; Ac. encephalopathy; DVT; staph aureus bacteremia Interval history: Patient is seen today for: Severe sepsis with shock; UTI; THOMPSON; OHS; Acute toxic metabolic encephalopathy; H/O DVT; Severe Hypernatremia; staph aureus bacteremia Seen and examined at bedside; 24hour events reviewed; nursing and respiratory care staff consulted; no adverse overnight events reported to me; resting in bed; Objective Vital Signs - 12hr 10/14/20 10:12 O2 Sat by Pulse 98 Oximetry Constitutional: no acute distress, asleep, other (elderly obese male with mildly increased respiratory effort at rest) Eyes: non-icteric ENT: oropharynx moist Neck: supple, no lymphadenopathy, no JVD, other (+ large neck circumference) Effort: mildly labored Ascultation: Bilateral: diminished breath sounds, rhonchi Percussion: Bilateral: not dull Cardiovascular: regular rate and rhythm Gastrointestinal: normoactive bowel sounds, soft, non-tender, non-distended (protuberant) Integumentary: rash Extremities: no cyanosis, pulses normal, no ischemia or petechiae, edema, other (Severe stasis dermatitis.) Neurologic: non-focal exam (grossly), pupils equal and round, CN II-XII normal, other (encephalopathic / delirious) Psychiatric: other (unable to assess re: AMS) CBC and BMP: 10/14/20 09:16 10/14/20 09:16 ABG, PT/INR, D-dimer: ABG ABG pH 7.415 (7.320-7.450) 10/09/20 14:25 POC ABG pCO2 27.3 mmHg (32.0-48.0) L 10/09/20 14:25 POC ABG pO2 125.5 mmHg (83-108) H 10/09/20 14:25 POC ABG HCO3 17.1 10/09/20 14:25 ABG O2 Saturation 98.8 (0-100) 10/09/20 14:25 PT/INR, D-dimer PT 24.6 Sec. (12.2-14.9) H 10/14/20 11:19 INR 2.22 (0.87-1.13) H 10/14/20 11:19 D-Dimer 1061.03 ng/mlDDU (0-234) H 10/12/20 10:04 Abnormal lab findings: Abnormal Labs 10/07/20 10/07/20 10/07/20 16:38 16:38 16:38 WBC 14.1 H RBC 3.03 L Hgb 8.7 L Hct 28.7 L MCV 95 H MCHC 30 L RDW 27.1 H Plt Count Lymph % (Auto) [place] % (Auto) [place] # (Auto) Seg Neutrophils % Seg Neuts % (Manual) Lymphocytes % (Manual) Monocytes % (Manual) 9.0 H Nucleated RBC % Seg Neutrophils # Seg Neutrophils # Man 9.3 H Lymphocytes # (Manual) Monocytes # (Manual) 1.3 H PT INR D-Dimer POC ABG pCO2 POC ABG pO2 ABG Hemoglobin ABG Sodium ABG Potassium ABG Chloride ABG Glucose Sodium 158 H Potassium 3.4 L Chloride 122.7 H Carbon Dioxide BUN 30 H Creatinine 1.7 H Glucose 144 H POC Glucose Lactic Acid 2.50 H* Calcium 8.3 L Ferritin Total Bilirubin 1.40 H Lactate Dehydrogenase Troponin T NT-Pro-B Natriuret Pep Total Protein Albumin 3.0 L Triglycerides HDL Cholesterol Arterial Blood Glucose Arterial Blood Ionized Calcium Urine WBC (Auto) Vancomycin Trough Coronavirus (PCR) Crossmatch 10/07/20 10/07/20 10/07/20 16:38 16:38 18:17 WBC RBC Hgb Hct MCV MCHC RDW Plt Count Lymph % (Auto) [place] % (Auto) [place] # (Auto) Seg Neutrophils % Seg Neuts % (Manual) Lymphocytes % (Manual) Monocytes % (Manual) Nucleated RBC % Seg Neutrophils # Seg Neutrophils # Man Lymphocytes # (Manual) Monocytes # (Manual) PT 32.7 H INR 3.17 H D-Dimer POC ABG pCO2 POC ABG pO2 ABG Hemoglobin ABG Sodium ABG Potassium ABG Chloride ABG Glucose Sodium Potassium Chloride Carbon Dioxide BUN Creatinine Glucose POC Glucose Lactic Acid Calcium Ferritin Total Bilirubin Lactate Dehydrogenase Troponin T 0.087 H NT-Pro-B Natriuret Pep 2155 H Total Protein Albumin Triglycerides 193 H HDL Cholesterol 20 L Arterial Blood Glucose Arterial Blood Ionized Calcium Urine WBC (Auto) Vancomycin Trough Coronavirus (PCR) Crossmatch 10/07/20 10/08/20 10/08/20 Unknown 02:53 02:53 WBC 13.4 H RBC 2.79 L Hgb 8.1 L Hct 26.2 L MCV MCHC 31 L RDW 27.7 H Plt Count Lymph % (Auto) [place] % (Auto) [place] # (Auto) 0.9 H Seg Neutrophils % 70.6 H Seg Neuts % (Manual) Lymphocytes % (Manual) Monocytes % (Manual) Nucleated RBC % Seg Neutrophils # 9.4 H Seg Neutrophils # Man Lymphocytes # (Manual) Monocytes # (Manual) PT INR D-Dimer POC ABG pCO2 POC ABG pO2 ABG Hemoglobin ABG Sodium ABG Potassium ABG Chloride ABG Glucose Sodium 159 H Potassium 2.7 L* D Chloride 127.9 H Carbon Dioxide 20 L BUN 27 H Creatinine 1.5 H Glucose 156 H POC Glucose Lactic Acid Calcium 7.1 L Ferritin Total Bilirubin Lactate Dehydrogenase Troponin T NT-Pro-B Natriuret Pep Total Protein Albumin Triglycerides HDL Cholesterol Arterial Blood Glucose Arterial Blood Ionized Calcium Urine WBC (Auto) 111.0 H Vancomycin Trough Coronavirus (PCR) Crossmatch 10/08/20 10/08/20 10/08/20 09:34 14:57 17:29 WBC RBC Hgb Hct MCV MCHC RDW Plt Count Lymph % (Auto) [place] % (Auto) [place] # (Auto) Seg Neutrophils % Seg Neuts % (Manual) Lymphocytes % (Manual) Monocytes % (Manual) Nucleated RBC % Seg Neutrophils # Seg Neutrophils # Man Lymphocytes # (Manual) Monocytes # (Manual) PT INR D-Dimer POC ABG pCO2 POC ABG pO2 ABG Hemoglobin 7.9 L ABG Sodium 162.9 H ABG Potassium 2.6 L ABG Chloride 131.0 H ABG Glucose 146 H Sodium Potassium Chloride Carbon Dioxide BUN Creatinine Glucose POC Glucose 128 H Lactic Acid Calcium Ferritin Total Bilirubin Lactate Dehydrogenase Troponin T NT-Pro-B Natriuret Pep Total Protein Albumin Triglycerides HDL Cholesterol Arterial Blood Glucose 146 H Arterial Blood Ionized Calcium Urine WBC (Auto) Vancomycin Trough Coronavirus (PCR) Positive A Crossmatch 10/09/20 10/09/20 10/09/20 05:14 05:14 11:48 WBC 13.9 H RBC 2.52 L Hgb 7.3 L Hct 23.7 L MCV MCHC 31 L RDW 28.1 H Plt Count Lymph % (Auto) [place] % (Auto) [place] # (Auto) Seg Neutrophils % Seg Neuts % (Manual) 91.0 H Lymphocytes % (Manual) 5.0 L Monocytes % (Manual) Nucleated RBC % Seg Neutrophils # Seg Neutrophils # Man 12.6 H Lymphocytes # (Manual) 0.7 L Monocytes # (Manual) PT INR D-Dimer POC ABG pCO2 POC ABG pO2 ABG Hemoglobin ABG Sodium ABG Potassium ABG Chloride ABG Glucose Sodium 162 H* Potassium 3.3 L D Chloride 131.6 H Carbon Dioxide 18 L BUN 25 H Creatinine Glucose 164 H POC Glucose 126 H Lactic Acid Calcium 7.4 L Ferritin Total Bilirubin Lactate Dehydrogenase Troponin T NT-Pro-B Natriuret Pep Total Protein Albumin Triglycerides HDL Cholesterol Arterial Blood Glucose Arterial Blood Ionized Calcium Urine WBC (Auto) Vancomycin Trough Coronavirus (PCR) Crossmatch 10/09/20 10/09/20 10/09/20 14:25 17:55 19:30 WBC RBC Hgb Hct MCV MCHC RDW Plt Count Lymph % (Auto) [place] % (Auto) [place] # (Auto) Seg Neutrophils % Seg Neuts % (Manual) Lymphocytes % (Manual) Monocytes % (Manual) Nucleated RBC % Seg Neutrophils # Seg Neutrophils # Man Lymphocytes # (Manual) Monocytes # (Manual) PT INR D-Dimer 922.08 H POC ABG pCO2 27.3 L POC ABG pO2 125.5 H ABG Hemoglobin 7.0 L ABG Sodium 158.0 H ABG Potassium 3.0 L ABG Chloride 132.0 H ABG Glucose 172 H Sodium Potassium Chloride Carbon Dioxide BUN Creatinine Glucose POC Glucose 179 H Lactic Acid Calcium Ferritin Total Bilirubin Lactate Dehydrogenase Troponin T NT-Pro-B Natriuret Pep Total Protein Albumin Triglycerides HDL Cholesterol Arterial Blood Glucose 172 H Arterial Blood Ionized Calcium 4.2 L Urine WBC (Auto) Vancomycin Trough Coronavirus (PCR) Crossmatch 10/09/20 10/09/20 10/10/20 19:30 23:22 05:18 WBC RBC Hgb Hct MCV MCHC RDW Plt Count Lymph % (Auto) [place] % (Auto) [place] # (Auto) Seg Neutrophils % Seg Neuts % (Manual) Lymphocytes % (Manual) Monocytes % (Manual) Nucleated RBC % Seg Neutrophils # Seg Neutrophils # Man Lymphocytes # (Manual) Monocytes # (Manual) PT INR D-Dimer POC ABG pCO2 POC ABG pO2 ABG Hemoglobin ABG Sodium ABG Potassium ABG Chloride ABG Glucose Sodium Potassium Chloride Carbon Dioxide BUN Creatinine Glucose POC Glucose 192 H 168 H Lactic Acid Calcium Ferritin 579.8 H Total Bilirubin Lactate Dehydrogenase Troponin T NT-Pro-B Natriuret Pep Total Protein Albumin Triglycerides HDL Cholesterol Arterial Blood Glucose Arterial Blood Ionized Calcium Urine WBC (Auto) Vancomycin Trough Coronavirus (PCR) Crossmatch 10/10/20 10/10/20 10/10/20 06:07 06:07 11:43 WBC 13.5 H RBC 2.39 L Hgb 6.8 L Hct 22.1 L MCV MCHC 31 L RDW 27.2 H Plt Count Lymph % (Auto) [place] % (Auto) [place] # (Auto) Seg Neutrophils % Seg Neuts % (Manual) 89.0 H Lymphocytes % (Manual) 10.0 L Monocytes % (Manual) Nucleated RBC % 2.0 H Seg Neutrophils # Seg Neutrophils # Man 12.0 H Lymphocytes # (Manual) Monocytes # (Manual) PT INR D-Dimer POC ABG pCO2 POC ABG pO2 ABG Hemoglobin ABG Sodium ABG Potassium ABG Chloride ABG Glucose Sodium 158 H Potassium 3.2 L Chloride 129.3 H Carbon Dioxide 19 L BUN 21 H Creatinine Glucose 200 H POC Glucose 155 H Lactic Acid Calcium 6.7 L Ferritin Total Bilirubin Lactate Dehydrogenase Troponin T NT-Pro-B Natriuret Pep Total Protein Albumin Triglycerides HDL Cholesterol Arterial Blood Glucose Arterial Blood Ionized Calcium Urine WBC (Auto) Vancomycin Trough Coronavirus (PCR) Crossmatch 10/10/20 10/10/20 10/10/20 12:00 17:19 23:44 WBC RBC Hgb Hct MCV MCHC RDW Plt Count Lymph % (Auto) [place] % (Auto) [place] # (Auto) Seg Neutrophils % Seg Neuts % (Manual) Lymphocytes % (Manual) Monocytes % (Manual) Nucleated RBC % Seg Neutrophils # Seg Neutrophils # Man Lymphocytes # (Manual) Monocytes # (Manual) PT INR D-Dimer POC ABG pCO2 POC ABG pO2 ABG Hemoglobin ABG Sodium ABG Potassium ABG Chloride ABG Glucose Sodium Potassium Chloride Carbon Dioxide BUN Creatinine Glucose POC Glucose 185 H 219 H Lactic Acid Calcium Ferritin Total Bilirubin Lactate Dehydrogenase Troponin T NT-Pro-B Natriuret Pep Total Protein Albumin Triglycerides HDL Cholesterol Arterial Blood Glucose Arterial Blood Ionized Calcium Urine WBC (Auto) Vancomycin Trough Coronavirus (PCR) Crossmatch See Detail 10/11/20 10/11/20 10/11/20 04:00 04:00 05:11 WBC 11.5 H RBC 3.37 L Hgb 9.6 L Hct 30.0 L D MCV MCHC RDW 23.9 H Plt Count Lymph % (Auto) [place] % (Auto) [place] # (Auto) Seg Neutrophils % 81.5 H Seg Neuts % (Manual) Lymphocytes % (Manual) Monocytes % (Manual) Nucleated RBC % Seg Neutrophils # 9.4 H Seg Neutrophils # Man Lymphocytes # (Manual) Monocytes # (Manual) PT INR D-Dimer POC ABG pCO2 POC ABG pO2 ABG Hemoglobin ABG Sodium ABG Potassium ABG Chloride ABG Glucose Sodium 151 H Potassium 3.0 L Chloride 122.8 H Carbon Dioxide 19 L BUN 23 H Creatinine Glucose 238 H POC Glucose 191 H Lactic Acid Calcium 7.0 L Ferritin Total Bilirubin Lactate Dehydrogenase Troponin T NT-Pro-B Natriuret Pep Total Protein Albumin Triglycerides HDL Cholesterol Arterial Blood Glucose Arterial Blood Ionized Calcium Urine WBC (Auto) Vancomycin Trough Coronavirus (PCR) Crossmatch 10/11/20 10/11/20 10/11/20 11:01 12:10 12:24 WBC RBC Hgb Hct MCV MCHC RDW Plt Count Lymph % (Auto) [place] % (Auto) [place] # (Auto) Seg Neutrophils % Seg Neuts % (Manual) Lymphocytes % (Manual) Monocytes % (Manual) Nucleated RBC % Seg Neutrophils # Seg Neutrophils # Man Lymphocytes # (Manual) Monocytes # (Manual) PT INR D-Dimer POC ABG pCO2 POC ABG pO2 ABG Hemoglobin ABG Sodium ABG Potassium ABG Chloride ABG Glucose Sodium Potassium Chloride Carbon Dioxide BUN Creatinine Glucose POC Glucose 187 H 199 H Lactic Acid Calcium Ferritin Total Bilirubin Lactate Dehydrogenase Troponin T NT-Pro-B Natriuret Pep Total Protein Albumin Triglycerides HDL Cholesterol Arterial Blood Glucose Arterial Blood Ionized Calcium Urine WBC (Auto) Vancomycin Trough 46.1 H Coronavirus (PCR) Crossmatch 10/11/20 10/11/20 10/11/20 12:58 18:47 23:15 WBC RBC Hgb Hct MCV MCHC RDW Plt Count Lymph % (Auto) [place] % (Auto) [place] # (Auto) Seg Neutrophils % Seg Neuts % (Manual) Lymphocytes % (Manual) Monocytes % (Manual) Nucleated RBC % Seg Neutrophils # Seg Neutrophils # Man Lymphocytes # (Manual) Monocytes # (Manual) PT 43.8 H INR 4.56 H D-Dimer POC ABG pCO2 POC ABG pO2 ABG Hemoglobin ABG Sodium ABG Potassium ABG Chloride ABG Glucose Sodium Potassium Chloride Carbon Dioxide BUN Creatinine Glucose POC Glucose 170 H 136 H Lactic Acid Calcium Ferritin Total Bilirubin Lactate Dehydrogenase Troponin T NT-Pro-B Natriuret Pep Total Protein Albumin Triglycerides HDL Cholesterol Arterial Blood Glucose Arterial Blood Ionized Calcium Urine WBC (Auto) Vancomycin Trough Coronavirus (PCR) Crossmatch 10/12/20 10/12/20 10/12/20 06:11 07:24 07:24 WBC RBC 3.12 L Hgb 9.0 L Hct 27.4 L MCV MCHC RDW 24.9 H Plt Count Lymph % (Auto) [place] % (Auto) [place] # (Auto) Seg Neutrophils % Seg Neuts % (Manual) Lymphocytes % (Manual) Monocytes % (Manual) Nucleated RBC % Seg Neutrophils # Seg Neutrophils # Man Lymphocytes # (Manual) Monocytes # (Manual) PT INR D-Dimer POC ABG pCO2 POC ABG pO2 ABG Hemoglobin ABG Sodium ABG Potassium ABG Chloride ABG Glucose Sodium 152 H Potassium 3.3 L Chloride 125.2 H Carbon Dioxide 21 L BUN 26 H Creatinine Glucose 113 H POC Glucose 107 H Lactic Acid Calcium 6.9 L Ferritin Total Bilirubin Lactate Dehydrogenase Troponin T NT-Pro-B Natriuret Pep Total Protein Albumin Triglycerides HDL Cholesterol Arterial Blood Glucose Arterial Blood Ionized Calcium Urine WBC (Auto) Vancomycin Trough Coronavirus (PCR) Crossmatch 10/12/20 10/12/20 10/12/20 07:24 10:04 10:04 WBC RBC Hgb Hct MCV MCHC RDW Plt Count Lymph % (Auto) [place] % (Auto) [place] # (Auto) Seg Neutrophils % Seg Neuts % (Manual) Lymphocytes % (Manual) Monocytes % (Manual) Nucleated RBC % Seg Neutrophils # Seg Neutrophils # Man Lymphocytes # (Manual) Monocytes # (Manual) PT 34.6 H INR 3.40 H D-Dimer 1061.03 H POC ABG pCO2 POC ABG pO2 ABG Hemoglobin ABG Sodium ABG Potassium ABG Chloride ABG Glucose Sodium Potassium Chloride Carbon Dioxide BUN Creatinine Glucose POC Glucose Lactic Acid Calcium Ferritin 585.8 H Total Bilirubin Lactate Dehydrogenase Troponin T NT-Pro-B Natriuret Pep Total Protein Albumin Triglycerides HDL Cholesterol Arterial Blood Glucose Arterial Blood Ionized Calcium Urine WBC (Auto) Vancomycin Trough Coronavirus (PCR) Crossmatch 10/12/20 10/12/20 10/12/20 10:04 16:15 17:17 WBC RBC Hgb Hct MCV MCHC RDW Plt Count Lymph % (Auto) [place] % (Auto) [place] # (Auto) Seg Neutrophils % Seg Neuts % (Manual) Lymphocytes % (Manual) Monocytes % (Manual) Nucleated RBC % Seg Neutrophils # Seg Neutrophils # Man Lymphocytes # (Manual) Monocytes # (Manual) PT INR D-Dimer POC ABG pCO2 POC ABG pO2 ABG Hemoglobin ABG Sodium ABG Potassium ABG Chloride ABG Glucose Sodium Potassium Chloride Carbon Dioxide BUN Creatinine Glucose POC Glucose 176 H Lactic Acid Calcium Ferritin Total Bilirubin Lactate Dehydrogenase 364 H Troponin T NT-Pro-B Natriuret Pep Total Protein Albumin Triglycerides HDL Cholesterol Arterial Blood Glucose Arterial Blood Ionized Calcium Urine WBC (Auto) Vancomycin Trough 62.0 H Coronavirus (PCR) Crossmatch 10/13/20 10/13/20 10/13/20 00:12 04:59 04:59 WBC 11.3 H RBC 3.22 L Hgb 9.2 L Hct 28.6 L MCV MCHC RDW 24.1 H Plt Count 135 L Lymph % (Auto) 11.4 L [place] % (Auto) 8.4 H [place] # (Auto) 0.9 H Seg Neutrophils % 80.0 H Seg Neuts % (Manual) Lymphocytes % (Manual) Monocytes % (Manual) Nucleated RBC % Seg Neutrophils # 9.0 H Seg Neutrophils # Man Lymphocytes # (Manual) Monocytes # (Manual) PT INR D-Dimer POC ABG pCO2 POC ABG pO2 ABG Hemoglobin ABG Sodium ABG Potassium ABG Chloride ABG Glucose Sodium 149 H Potassium Chloride 124.6 H Carbon Dioxide 17 L BUN 27 H Creatinine Glucose 129 H POC Glucose 141 H Lactic Acid Calcium 7.2 L Ferritin Total Bilirubin Lactate Dehydrogenase Troponin T NT-Pro-B Natriuret Pep Total Protein 6.0 L Albumin 2.7 L Triglycerides HDL Cholesterol Arterial Blood Glucose Arterial Blood Ionized Calcium Urine WBC (Auto) Vancomycin Trough Coronavirus (PCR) Crossmatch 10/13/20 10/13/20 10/13/20 05:03 11:15 17:16 WBC RBC Hgb Hct MCV MCHC RDW Plt Count Lymph % (Auto) [place] % (Auto) [place] # (Auto) Seg Neutrophils % Seg Neuts % (Manual) Lymphocytes % (Manual) Monocytes % (Manual) Nucleated RBC % Seg Neutrophils # Seg Neutrophils # Man Lymphocytes # (Manual) Monocytes # (Manual) PT INR D-Dimer POC ABG pCO2 POC ABG pO2 ABG Hemoglobin ABG Sodium ABG Potassium ABG Chloride ABG Glucose Sodium Potassium Chloride Carbon Dioxide BUN Creatinine Glucose POC Glucose 121 H 119 H 164 H Lactic Acid Calcium Ferritin Total Bilirubin Lactate Dehydrogenase Troponin T NT-Pro-B Natriuret Pep Total Protein Albumin Triglycerides HDL Cholesterol Arterial Blood Glucose Arterial Blood Ionized Calcium Urine WBC (Auto) Vancomycin Trough Coronavirus (PCR) Crossmatch 10/13/20 10/14/20 10/14/20 22:51 09:16 09:16 WBC 17.0 H RBC 3.62 L Hgb 10.2 L Hct 32.2 L MCV MCHC RDW 24.3 H Plt Count 138 L Lymph % (Auto) [place] % (Auto) 10.6 H [place] # (Auto) 1.8 H Seg Neutrophils % Seg Neuts % (Manual) Lymphocytes % (Manual) Monocytes % (Manual) Nucleated RBC % Seg Neutrophils # 11.6 H Seg Neutrophils # Man Lymphocytes # (Manual) Monocytes # (Manual) PT INR D-Dimer POC ABG pCO2 POC ABG pO2 ABG Hemoglobin ABG Sodium ABG Potassium ABG Chloride ABG Glucose Sodium 151 H Potassium Chloride 122.7 H Carbon Dioxide 20 L BUN 27 H Creatinine Glucose 119 H POC Glucose 127 H Lactic Acid Calcium 7.9 L Ferritin Total Bilirubin Lactate Dehydrogenase Troponin T NT-Pro-B Natriuret Pep Total Protein 5.9 L Albumin 2.6 L Triglycerides HDL Cholesterol Arterial Blood Glucose Arterial Blood Ionized Calcium Urine WBC (Auto) Vancomycin Trough Coronavirus (PCR) Crossmatch 10/14/20 10/14/20 11:19 11:19 WBC RBC Hgb Hct MCV MCHC RDW Plt Count Lymph % (Auto) [place] % (Auto) [place] # (Auto) Seg Neutrophils % Seg Neuts % (Manual) Lymphocytes % (Manual) Monocytes % (Manual) Nucleated RBC % Seg Neutrophils # Seg Neutrophils # Man Lymphocytes # (Manual) Monocytes # (Manual) PT 24.6 H INR 2.22 H D-Dimer POC ABG pCO2 POC ABG pO2 ABG Hemoglobin ABG Sodium ABG Potassium ABG Chloride ABG Glucose Sodium Potassium Chloride Carbon Dioxide BUN Creatinine Glucose POC Glucose 113 H Lactic Acid Calcium Ferritin Total Bilirubin Lactate Dehydrogenase Troponin T NT-Pro-B Natriuret Pep Total Protein Albumin Triglycerides HDL Cholesterol Arterial Blood Glucose Arterial Blood Ionized Calcium Urine WBC (Auto) Vancomycin Trough Coronavirus (PCR) Crossmatch Allied health notes reviewed: nursing
[2020-10-14] MEDS: INSULIN GLARGINE 100 UNITS/ML SUB-Q SCH (23:52)
[2020-10-15] MEDS: D5W/0.45% NACL 1,000 ML IV SCH (05:47)
[2020-10-15 07:33] LABS: Hemoglobin 9.1 gm/dl (11.8-15.2); Mean Corpuscular HGB Conc 33 % (32-34); Mean Corpuscular Volume 89 fl (84-94); Platelet Count 129 K/mm3 (140-440); Red Blood Count 3.15 M/mm3 (3.65-5.03); Red Cell Distribution Width 24.1 % (13.2-15.2)
[2020-10-15 08:19] LABS: BUN/Creatinine Ratio 28; Blood Urea Nitrogen 28 mg/dL (9-20)
[2020-10-15 08:20] LABS: Alanine Aminotransferase 18 units/L (7-56); Albumin 2.6 g/dL (3.9-5)
[2020-10-15 08:21] LABS: Hemolysis Index 1
--- NOTE | 2020-10-15 09:25 | Progress Note ---
Assessment and Plan Assessment and plan: Sepsis -Antibiotic therapy -Patient's disease consulted, appreciate recommendations -S/p vasopressor support COVID-19 pneumonia -COVID-19 PCR positive -Antibiotic therapy -Dexamethasone -Zinc -Isolation/droplet precautions Acute hypoxic respiratory failure -S/p BiPAP therapy PRN -Currently on nasal cannula -Supplemental oxygen as needed -Pulmonary hygiene MRSA bacteremia -Antibiotic therapy -Echocardiogram - negative for IE -ID on board. Needs IV antibiotics at discharge Obesity hypoventilation syndrome -Supportive care -As needed BiPAP Acute kidney injury. Etiology secondary to ATN -S/p IVF resuscitation -Trend BMP Hypernatremia -Hypotonic IV fluid - switch D51/2NS to D5W -Free water flush -Trend BMP Acute metabolic encephalopathy Secondary to infection versus hypernatremia-these conditions have been treated and AMS still persists. Now needs NG tube for feeding Continue to monitor. GI consulted for PEG placement. Plan for PEG placement underway Vascular dementia. -Supportive care UTI -Antibiotic therapy Supratherapeutic INR -Hold home Coumadin, trend INR Hypokalemia -Replete and trend BMP Thrombocytopenia Trend platelets. Check HIT antibodies if continues to drop further DVT/GI prophylaxis: PPI, SCDs to bilateral lower extremities while in bed hold chemical anticoagulation in setting of supratherapeutic INR and thrombocytopenia Dispo: Placement History Interval history: This is 64-year-old [facility] with oh at bedtime, cerebral sclerosis, chronic respiratory failure, CVA, anemia of chronic disease, GERD, HTN, DVT, vascular dementia who presented to the emergency department on 10/07 for increased confusion and weakness over the past 2 days with worsening symptoms over the past 1 day. Upon arrival to the emergency department patient was found to have urinary tract infection complicated by sepsis, metabolic acidosis, acute kidney injury and toxic metabolic encephalopathy. Patient was admitted to the hospital service to [facility] on the sepsis protocol. Infectious disease and CCM were consulted. Sepsis COVID-19 pneumonia Acute hypoxic respiratory failure MRSA bacteremia Toxic metabolic encephalopathy Obesity hypoventilation syndrome Acute kidney injury. Etiology secondary to ATN Hypernatremia Hyperchloremia Metabolic acidosis General debility. Vascular dementia. Cerebral atherosclerosis UTI Leukocytosis Supratherapeutic INR Hypokalemia 10/08: Continue IV antibiotics and IV fluid hydration. Consult ID for further evaluation. 10/09: Continue antibiotic per ID recommendations. Continue dexamethasone to complete 10 days. Continue to trend inflammatory markers. Sodium noted to be 162. We will start D5W at 75 cc an hour. Continue 250 cc free water every 4 hours. Follow-up BMP in a.m. Also, replete potassium. 10/10: Sodium improved to 158 today. Continue D5W IV fluids and free water every 4 hours.. Replete potassium. Hemoglobin 6.8. We will type and cross and transfuse 2 units PRBCs. Continue dexamethasone to complete 10 days. Continue to trend inflammatory markers. 10/11: We will obtain TTE to rule out vegetation as patient grew MRSA in his blood cultures, patient still has leukocytosis and worsening INR. Patient has hypokalemia today along with improving hypernatremia, hyperchloremia, metabolic acidosis, hypocalcemia and leukocytosis. 10/12. TTE pending. INR improved. His sodium is slowly trending down. His mental status is still impaired. 10/13. Sodium is better. Still lethargic. He is getting feeds via NGT. If mental status fails to improve, he will need PEG placement. 10/14. Awaiting a.m. labs. I believe patient will benefit from PEG placement and plan for discharge back to nursing facility. GI has been consulted for this. 10/15. GI plans to have PEG placement on Sunday. Patients mental status still not improved. Remains on tube feeding. Labs reviewed -platelet counts dropping. INR 2.0 today. Coumadin still on hold. Continue to hold anticoagulation as he has PEG placement planned on Sunday. Resume anticoagulation afterwards. Continue to monitor platelets at this time. Sodium level is 152 and is on hypotonic solution and free water flushes via the NG tube. Switch-D5 1/2 NS to D5 water Hospitalist Physical - Constitutional Vitals: Temp Pulse Resp BP Pulse Ox 98.1 F 68 16 118/60 98 10/15/20 05:25 10/15/20 05:25 10/15/20 05:25 10/15/20 05:25 10/15/20 05:25 General appearance: Present: mild distress HEART Score - HEART Score Troponin: Troponin T 0.087 ng/mL (0.00-0.029) H 10/07/20 16:38 Results - Labs CBC & Chem 7: 10/15/20 05:59 10/15/20 05:59 Labs: Laboratory Last Values WBC 12.0 K/mm3 (4.5-11.0) H 10/15/20 05:59 RBC 3.15 M/mm3 (3.65-5.03) L 10/15/20 05:59 Hgb 9.1 gm/dl (11.8-15.2) L 10/15/20 05:59 Hct 28.0 % (35.5-45.6) L 10/15/20 05:59 MCV 89 fl (84-94) 10/15/20 05:59 MCH 29 pg (28-32) 10/15/20 05:59 MCHC 33 % (32-34) 10/15/20 05:59 RDW 24.1 % (13.2-15.2) H 10/15/20 05:59 Plt Count 129 K/mm3 (140-440) L 10/15/20 05:59 Lymph % (Auto) 19.9 % (13.4-35.0) 10/14/20 09:16 [place] % (Auto) 10.6 % (0.0-7.3) H 10/14/20 09:16 Eos % (Auto) 1.0 % (0.0-4.3) 10/14/20 09:16 Baso % (Auto) 0.2 % (0.0-1.8) 10/14/20 09:16 Lymph # (Auto) 3.4 K/mm3 (1.2-5.4) 10/14/20 09:16 [place] # (Auto) 1.8 K/mm3 (0.0-0.8) H 10/14/20 09:16 Eos # (Auto) 0.2 K/mm3 (0.0-0.4) 10/14/20 09:16 Baso # (Auto) 0.0 K/mm3 (0.0-0.1) 10/14/20 09:16 Add Manual Diff Complete 10/10/20 06:07 Total Counted 100 10/10/20 06:07 Seg Neutrophils % 68.3 % (40.0-70.0) 10/14/20 09:16 Seg Neuts % (Manual) 89.0 % (40.0-70.0) H 10/10/20 06:07 Lymphocytes % (Manual) 10.0 % (13.4-35.0) L 10/10/20 06:07 Monocytes % (Manual) 1.0 % (0.0-7.3) 10/10/20 06:07 Eosinophils % (Manual) 2.0 % (0.0-4.3) 10/07/20 16:38 Nucleated RBC % 2.0 % (0.0-0.9) H 10/10/20 06:07 Seg Neutrophils # 11.6 K/mm3 (1.8-7.7) H 10/14/20 09:16 Seg Neutrophils # Man 12.0 K/mm3 (1.8-7.7) H 10/10/20 06:07 Band Neutrophils # 0.0 K/mm3 10/10/20 06:07 Lymphocytes # (Manual) 1.4 K/mm3 (1.2-5.4) 10/10/20 06:07 Abs React Lymphs (Man) 0.0 K/mm3 10/10/20 06:07 Monocytes # (Manual) 0.1 K/mm3 (0.0-0.8) 10/10/20 06:07 Eosinophils # (Manual) 0.0 K/mm3 (0.0-0.4) 10/10/20 06:07 Basophils # (Manual) 0.0 K/mm3 (0.0-0.1) 10/10/20 06:07 Metamyelocytes # 0.0 K/mm3 10/10/20 06:07 Myelocytes # 0.0 K/mm3 10/10/20 06:07 Promyelocytes # 0.0 K/mm3 10/10/20 06:07 Blast Cells # 0.0 K/mm3 10/10/20 06:07 WBC Morphology Not Reportable 10/10/20 06:07 Hypersegmented Neuts Not Reportable 10/10/20 06:07 Hyposegmented Neuts Not Reportable 10/10/20 06:07 Hypogranular Neuts Not Reportable 10/10/20 06:07 Smudge Cells Not Reportable 10/10/20 06:07 Toxic Granulation Not Reportable 10/10/20 06:07 Toxic Vacuolation Not Reportable 10/10/20 06:07 Dohle Bodies Not Reportable 10/10/20 06:07 Pelger-Huet Anomaly Not Reportable 10/10/20 06:07 Darryl Rods Not Reportable 10/10/20 06:07 Platelet Estimate Consistent w auto 10/10/20 06:07 Clumped Platelets Not Reportable 10/10/20 06:07 Plt Clumps, EDTA Not Reportable 10/10/20 06:07 Large Platelets Not Reportable 10/10/20 06:07 Giant Platelets Not Reportable 10/10/20 06:07 Platelet Satelliting Not Reportable 10/10/20 06:07 Plt Morphology Comment Not Reportable 10/10/20 06:07 RBC Morphology Not Reportable 10/10/20 06:07 Dimorphic RBCs Not Reportable 10/10/20 06:07 Polychromasia Not Reportable 10/10/20 06:07 Hypochromasia Not Reportable 10/10/20 06:07 Poikilocytosis 2+ 10/10/20 06:07 Anisocytosis 3+ 10/10/20 06:07 Microcytosis Not Reportable 10/10/20 06:07 Macrocytosis Not Reportable 10/10/20 06:07 Spherocytes Not Reportable 10/10/20 06:07 Pappenheimer Bodies Not Reportable 10/10/20 06:07 Sickle Cells Not Reportable 10/10/20 06:07 Target Cells Not Reportable 10/10/20 06:07 Tear Drop Cells 1+ 10/10/20 06:07 Ovalocytes Few 10/10/20 06:07 Helmet Cells Not Reportable 10/10/20 06:07 [place] Bodies Not Reportable 10/10/20 06:07 [place] Rings Not Reportable 10/10/20 06:07 [place] Cells Not Reportable 10/10/20 06:07 Bite Cells Not Reportable 10/10/20 06:07 Crenated Cell Not Reportable 10/10/20 06:07 Elliptocytes 1+ 10/10/20 06:07 Acanthocytes (Spur) Not Reportable 10/10/20 06:07 Rouleaux Not Reportable 10/10/20 06:07 Hemoglobin C Crystals Not Reportable 10/10/20 06:07 Schistocytes Not Reportable 10/10/20 06:07 Malaria parasites Not Reportable 10/10/20 06:07 Lucas Bodies Not Reportable 10/10/20 06:07 Hem Pathologist Commnt No 10/10/20 06:07 PT 22.8 Sec. (12.2-14.9) H 10/15/20 05:59 INR 2.00 (0.87-1.13) H 10/15/20 05:59 D-Dimer 1061.03 ng/mlDDU (0-234) H 10/12/20 10:04 ABG pH 7.415 (7.320-7.450) 10/09/20 14:25 POC ABG pCO2 27.3 mmHg (32.0-48.0) L 10/09/20 14:25 POC ABG pO2 125.5 mmHg (83-108) H 10/09/20 14:25 POC ABG HCO3 17.1 10/09/20 14:25 ABG O2 Saturation 98.8 (0-100) 10/09/20 14:25 POC ABG Base Excess -6.7 10/09/20 14:25 ABG Hemoglobin 7.0 (12.0-17.5) L 10/09/20 14:25 ABG Oxyhemoglobin 97.2 (94-98) 10/09/20 14:25 ABG Methemoglobin 0.1 (0.0-1.5) 10/09/20 14:25 ABG Sodium 158.0 mmol/L (136.0-145.0) H 10/09/20 14:25 ABG Potassium 3.0 mmol/L (3.40-4.50) L 10/09/20 14:25 ABG Chloride 132.0 mmol/L (98-107) H 10/09/20 14:25 ABG Glucose 172 mg/dL (65-95) H 10/09/20 14:25 Carboxyhemoglobin 1.5 (0.5-1.5) 10/09/20 14:25 FiO2 % 26.0 10/09/20 14:25 Sodium 152 mmol/L (137-145) H 10/15/20 05:59 Potassium 3.5 mmol/L (3.6-5.0) L 10/15/20 05:59 Chloride 123.7 mmol/L (98-107) H 10/15/20 05:59 Carbon Dioxide 22 mmol/L (22-30) 10/15/20 05:59 Anion Gap 10 mmol/L 10/15/20 05:59 BUN 28 mg/dL (9-20) H 10/15/20 05:59 Creatinine 1.0 mg/dL (0.8-1.3) 10/15/20 05:59 Estimated GFR > 60 ml/min 10/15/20 05:59 BUN/Creatinine Ratio 28 % 10/15/20 05:59 Glucose 119 mg/dL (75-100) H 10/15/20 05:59 POC Glucose 137 mg/dL (70-105) H 10/14/20 22:36 Lactic Acid 1.10 mmol/L (0.7-2.0) 10/09/20 19:30 Calcium 8.0 mg/dL (8.4-10.2) L 10/15/20 05:59 Ferritin 585.8 ng/mL (30.0-300.0) H 10/12/20 10:04 Total Bilirubin 0.60 mg/dL (0.1-1.2) 10/15/20 05:59 AST 16 units/L (5-40) 10/15/20 05:59 ALT 18 units/L (7-56) 10/15/20 05:59 Alkaline Phosphatase 19 units/L (35-129) L 10/15/20 05:59 Lactate Dehydrogenase 364 units/L (91-180) H 10/12/20 10:04 Troponin T 0.087 ng/mL (0.00-0.029) H 10/07/20 16:38 C-Reactive Protein 0.30 mg/dL (0.00-1.30) 10/12/20 10:04 NT-Pro-B Natriuret Pep 2155 pg/mL (0-900) H 10/07/20 16:38 Total Protein 5.5 g/dL (6.3-8.2) L 10/15/20 05:59 Albumin 2.6 g/dL (3.9-5) L 10/15/20 05:59 Albumin/Globulin Ratio 0.9 % 10/15/20 05:59 Triglycerides 193 mg/dL (2-149) H 10/07/20 16:38 Cholesterol 136 mg/dL (50-199) 10/07/20 16:38 LDL Cholesterol Direct 82 mg/dL (50-130) 10/07/20 16:38 HDL Cholesterol 20 mg/dL (40-59) L 10/07/20 16:38 Cholesterol/HDL Ratio 6.80 % 10/07/20 16:38 Procalcitonin 0.10 ng/mL (<0.15) 10/08/20 15:33 Arterial Blood Glucose 172 mg/dL (65-95) H 10/09/20 14:25 Arterial Blood Ionized Calcium 4.2 mg/dL (4.6-5.3) L 10/09/20 14:25 Urine Color Sonal (Yellow) 10/07/20 Unknown Urine Turbidity Turbid (Clear) 10/07/20 Unknown Urine pH 7.0 (5.0-7.0) 10/07/20 Unknown Ur Specific [place] 1.020 (1.003-1.030) 10/07/20 Unknown Urine Protein 100 mg/dl mg/dL (Negative) 10/07/20 Unknown Urine Glucose (UA) Neg mg/dL (Negative) 10/07/20 Unknown Urine Ketones Neg mg/dL (Negative) 10/07/20 Unknown Urine Blood Neg (Negative) 10/07/20 Unknown Urine Nitrite Neg (Negative) 10/07/20 Unknown Urine Bilirubin Sm (Negative) 10/07/20 Unknown Urine Ictotest Negative (Negative) 10/07/20 Unknown Urine Urobilinogen 4.0 mg/dL (<2.0) 10/07/20 Unknown Ur Leukocyte Esterase Lg (Negative) 10/07/20 Unknown Urine WBC (Auto) 111.0 /HPF (0.0-6.0) H 10/07/20 Unknown Urine RBC (Auto) 40.0 /HPF (0.0-6.0) 10/07/20 Unknown Urine Bacteria (Auto) 3+ /HPF (Negative) 10/07/20 Unknown Urine WBC Clumps 2+ /HPF 10/07/20 Unknown Urine Yeast (Budding) 3+ /HPF 10/07/20 Unknown Vancomycin Trough 62.0 ug/mL (5.0-20.0) H 10/12/20 16:15 Random Vancomycin 25.9 ug/mL (0-40.0) 10/15/20 05:59 Coronavirus (PCR) Positive (Negative) A 10/08/20 09:34 Blood Type B POSITIVE 10/10/20 12:00 Antibody Screen Negative 10/10/20 12:00 Crossmatch See Detail 10/10/20 12:00 Microbiology: Microbiology 10/10/20 13:46 Peripheral/Venous Blood Culture - Preliminary NO GROWTH AFTER 4 DAYS 10/10/20 14:04 Peripheral/Venous Blood Culture - Preliminary NO GROWTH AFTER 4 DAYS Iglesias/IV: Voiding Method Indwelling Catheter Active Medications - Current Medications Current Medications: Generic Name Dose Route Start Last Admin Trade Name Freq PRN Reason Stop Dose Admin Acetaminophen 650 mg 10/07/20 19:06 Acetaminophen 325 Mg Tab PO Q4H PRN Pain MILD(1-3)/Fever >100.5/RAM Albuterol 2.5 mg 10/07/20 19:06 Albuterol 2.5 Mg/3 Ml Nebu IH Q4H PRN Shortness Of Breath Lipase/Protease/Amylase 1 each 10/10/20 09:00 Lipase 10,500/Protease 25,000/Amylase 43,750 (Units) Dr Reddy FEEDTUBE PRN PRN For Clogged Feeding Tube Ascorbic Acid 500 mg 10/08/20 22:00 10/14/20 23:52 Ascorbic Acid 500 Mg Tab PO 500 mg BID LISA Administration Atorvastatin Calcium 20 mg 10/11/20 22:00 10/14/20 23:52 Atorvastatin 20 Mg Tab PO 20 mg QHS LISA Administration Dexamethasone 6 mg 10/08/20 15:00 10/14/20 10:03 Dexamethasone 4 Mg/Ml Vial IV 10/17/20 10:01 6 mg DAILY LISA Administration Dextrose 50 ml 10/11/20 09:19 10/14/20 07:27 Dextrose 50% In Water (25gm) 50 Ml Syringe IV 10 ml Q30MIN PRN Administration Hypoglycemia Protocol Famotidine 20 mg 10/08/20 14:00 10/14/20 10:03 Famotidine 20 Mg Tab PO 20 mg QDAY LISA Administration Hydromorphone HCl 0.25 mg 10/07/20 19:06 Hydromorphone 1 Mg/1 Ml Inj IV Q4H PRN Pain, Moderate (4-6) Dextrose/Sodium Chloride 1,000 mls @ 50 mls/hr 10/14/20 12:00 10/15/20 05:47 D5/0.45ns IV 50 mls/hr DIRECT LISA Administration Insulin Glargine 5 units 10/11/20 22:00 10/14/20 23:52 Insulin Glargine 100 Units/Ml SUB-Q 5 units QHS LISA Administration Insulin Human Regular 0 units 10/11/20 12:00 10/14/20 23:52 Insulin Regular, Human 100 Units/1 Ml SUB-Q Not Given Q6H [facility] Protocol Ondansetron HCl 4 mg 10/07/20 19:06 Ondansetron 4 Mg/2 Ml Inj IV Q8H PRN Nausea And Vomiting Simple Syrup 15 ml 10/10/20 09:00 Simple Syrup 15 Ml FEEDTUBE PRN PRN Hypoglycemia Simple Syrup 30 ml 10/10/20 09:00 Simple Syrup 15 Ml FEEDTUBE PRN PRN Hypoglycemia Sodium Bicarbonate 325 mg 10/10/20 09:00 Sodium Bicarbonate 325 Mg Tab FEEDTUBE PRN PRN For Clogged Feeding Tube Sodium Chloride 10 ml 10/07/20 22:00 10/14/20 23:52 Sodium Chloride 0.9% 10 Ml Flush Syringe IV 10 ml BID LISA Administration Sodium Chloride 10 ml 10/07/20 19:06 Sodium Chloride 0.9% 10 Ml Flush Syringe IV PRN PRN LINE FLUSH Sucralfate 1 gm 10/11/20 10:00 10/14/20 23:52 Sucralfate 1 Gm/10 Ml Oral Liqd PO 1 gm BID LISA Administration Tamsulosin HCl 0.4 mg 10/11/20 10:00 10/14/20 10:03 Tamsulosin 0.4 Mg Cap PO 0.4 mg DAILY LISA Administration Zinc Sulfate 220 mg 10/08/20 22:00 10/14/20 23:52 Zinc Sulfate 220 Mg Cap PO 220 mg BID LISA Administration Nutrition/Malnutrition Assess - Dietary Evaluation Nutrition/Malnutrition Findings: Nutrition Notes Start: 10/09/20 09:29 Freq: Status: Active Protocol: Document 10/14/20 14:00 CW (Rec: 10/14/20 14:13 [id number]) Nutrition Notes Initial or Follow up Reassessment Current Diagnosis Acute Kidney Injury,Decubitus( Pressure Ulcer),Sepsis, Hypertension,Respiratory Failure,Stroke Other Pertinent Diagnosis COVID, DVT, UTI, GERD, dementia, toxic metabolic encephalopathy Current Diet Glucerna 1.2 at 70 ml/hr Labs/Tests Na 151 BUN 27 BG 119 Pertinent Medications D 5 1/2 ns AT 50 ml/hr Decadron Height 5 ft 7 in Weight 141.5 kg [place] Body Weight (kg) 67.27 BMI 48.8 Weight Status Morbidly Obese Subjective/Other Information RN reprots TF is now being tolerated. no reports of diarrhea. RN states now giving flush at 350 ml q4h for hypernatremia per order. Pt possibly to recieve PEG per chart. TF running at goal rate at this time. Percent of energy/protein needs met: 120%/85% Burn Absent Trauma Absent Difficulty In Swallowing Skin Integrity/Comment Multiple pressure ulcers Current % PO Negligible Minimum of two criteria No physical signs of malnutrition #2 Nutrition Diagnosis Increased nutrient needs ( specify in comment below) Diagnosis Progress(for reassessment Continues documentation) #1 Nutrition Diagnosis Inadequate oral intake Diagnosis Progress(for reassessment Continues documentation) Is patient on ventilator? No Is Patient Ambulatory and/or Out of Bed No REE-([facility]-confined to bed) 2588.988 Kcal/Kg value to use for calculation 13 Approximate Energy Requirements Using 1840 kcal/Kg Calculation Used for Recommendations Kcal/kg Additional Notes Protein: 131-157g (1.25-1.5 g/ kg AdjBW: 105kg) Fluid: 1 ml/kcal or per MD Nutrition Intervention Change Diet Order: Continue TF of Glucerna 1.2 Nutrition Support: Glucerna 1.2 at 70 ml/hr with a free water flush of 350 ml q4h for hypernatremia. Once hypernatremia resolves, resume free water flush of 110 ml q4h. Kcal 2,016 Protein (gm) 101 Fluid (mL) 1,352 Add Supplement/Snack (indicate name/kcal [place] BID /protein ) Provides kCal: 190 Provides Protein (gm) 5 Goal #1 TF tolerance Goal #2 Meet at least 75% of energy and protein needs via TF Anticipated Discharge Needs: Unable to determine at this time Follow-Up By: 10/18/20 Additional Comments F/U for TF tolerance and PEG placement
[2020-10-15 09:45] LABS: Eosinophils # (Auto) 0.1 K/mm3 (0.0-0.4); Eosinophils % (Auto) 0.9 % (0.0-4.3); Monocytes # (Auto) 1.6 K/mm3 (0.0-0.8); Monocytes % (Auto) 13.2 % (0.0-7.3)
[2020-10-15] MEDS: SUCRALFATE 1 GM/10 ML ORAL LIQD PO SCH ×2 (10:02→23:44)
[2020-10-15] MEDS: ASCORBIC ACID 500 MG TAB PO SCH ×2 (10:02→23:44)
[2020-10-15] MEDS: TAMSULOSIN 0.4 MG CAP PO SCH (10:02)
[2020-10-15] MEDS: ZINC SULFATE 220 MG CAP PO SCH ×2 (10:02→23:44)
[2020-10-15] MEDS: FAMOTIDINE 20 MG TAB PO SCH (10:03)
[2020-10-15] MEDS: dexAMETHasone 4 MG/ML VIAL IV SCH (10:03)
[2020-10-15] MEDS: DEXTROSE 5% IN WATER 1,000 ML IV SCH ×2 (10:09→20:04)
[2020-10-15 10:11] LABS: Anisocytosis 2+; Poikilocytosis 1+; Total Cells Counted 100
[2020-10-15 10:12] LABS: Ovalocytes Few; Platelet Estimate Consistent w Auto; Tear Drop Cells Few
--- NOTE | 2020-10-15 11:26 | Progress Note ---
Assessment and Plan Severe sepsis with shock, presumably Urinary tract infection Acute kidney injury Acute toxic metabolic encephalopathy Obesity hypoventilation syndrome Morbid obesity History of deep venous thrombosis Anemia of chronic disease Gastroesophageal reflux disease History of vascular dementia Severe hypokalemia Leukocytosis Lactic acidosis at presentation Hypernatremia -Get CXR and KUB -Titrate supplemental oxygen to keep O2 sats 89-92%, BIPAP qhs -Free water flushes and hypotonic solutions. Hypernatremia is probably contributing to encephalopathy Trend platelet counts, hold Coumadin- possible PEG placement on Sunday - continue broad spectrum ABs (de-escalate per ID recommendations) - accuchecks with glycemic control per SSI (While critically ill target blood glucose of 140-180 mg/dL; avoid hypoglycemia) - continue aspiration precautions, oral care q shit - bronchodilators with pulmonary hygiene per RT - avoid nephrotoxins, renally dose all medications - continue to avoid benzodiazepines, reduce the possibility of worsening delirium - Maintenance of sleep-wake cycle - enteral nutritional support at goal rate as tolerated - VTE prophylaxis- INR is [place] - mobility per facility protocol, off loading for pressure ulcer prevention - Monitor hemodynamics closely - continue other care per attending / other consultants Subjective Date of service: 10/15/20 Principal diagnosis: Septic Shock; UTI; THOMPSON; Ac. encephalopathy; DVT; staph aureus bacteremia Interval history: Patient is seen today for: Severe sepsis with shock; UTI; THOMPSON; OHS; Acute toxic metabolic encephalopathy; H/O DVT; Severe Hypernatremia; staph aureus bacteremia Seen and examined at bedside; 24hour events reviewed; discussed with nursing and respiratory care staff ; no adverse overnight events reported to me; resting in bed; grunts and groans. Mental status changes persist, spontnaeous eye opening. Remains thrombocytopenic, on supplemental oxygen, BIPAP at the bedside Objective Vital Signs - 12hr 10/15/20 10/15/20 00:01 05:25 Temperature 97.6 F 98.1 F Pulse Rate 67 68 Respiratory 16 16 Rate Blood Pressure 120/58 118/60 O2 Sat by Pulse 100 98 Oximetry Constitutional: other (obese male with mildly increased respiratory effort at rest) Eyes: non-icteric ENT: oropharynx dry, other (NGT in nares, dry crusted oral mucosa) Neck: supple, no lymphadenopathy, no JVD, other (+ large neck circumference) Effort: mildly labored Ascultation: Bilateral: diminished breath sounds, rhonchi Cardiovascular: regular rate and rhythm, other (S1,S2) Gastrointestinal: normoactive bowel sounds, soft, non-tender, other (distended) Integumentary: rash Extremities: no cyanosis, pulses normal, no ischemia or petechiae, edema, other (Severe stasis dermatitis.) Neurologic: pupils equal and round, other (encephalopathic , not obeying commands) Psychiatric: other (unable to assess re: AMS) CBC and BMP: 10/15/20 05:59 10/15/20 05:59 ABG, PT/INR, D-dimer: ABG ABG pH 7.415 (7.320-7.450) 10/09/20 14:25 POC ABG pCO2 27.3 mmHg (32.0-48.0) L 10/09/20 14:25 POC ABG pO2 125.5 mmHg (83-108) H 10/09/20 14:25 POC ABG HCO3 17.1 10/09/20 14:25 ABG O2 Saturation 98.8 (0-100) 10/09/20 14:25 PT/INR, D-dimer PT 22.8 Sec. (12.2-14.9) H 10/15/20 05:59 INR 2.00 (0.87-1.13) H 10/15/20 05:59 D-Dimer 1061.03 ng/mlDDU (0-234) H 10/12/20 10:04 Abnormal lab findings: Abnormal Labs 10/07/20 10/07/20 10/07/20 16:38 16:38 16:38 WBC 14.1 H RBC 3.03 L Hgb 8.7 L Hct 28.7 L MCV 95 H MCHC 30 L RDW 27.1 H Plt Count Lymph % (Auto) [place] % (Auto) [place] # (Auto) Seg Neutrophils % Seg Neuts % (Manual) Lymphocytes % (Manual) Monocytes % (Manual) 9.0 H Nucleated RBC % Seg Neutrophils # Seg Neutrophils # Man 9.3 H Lymphocytes # (Manual) Monocytes # (Manual) 1.3 H PT INR D-Dimer POC ABG pCO2 POC ABG pO2 ABG Hemoglobin ABG Sodium ABG Potassium ABG Chloride ABG Glucose Sodium 158 H Potassium 3.4 L Chloride 122.7 H Carbon Dioxide BUN 30 H Creatinine 1.7 H Glucose 144 H POC Glucose Lactic Acid 2.50 H* Calcium 8.3 L Ferritin Total Bilirubin 1.40 H Alkaline Phosphatase Lactate Dehydrogenase Troponin T NT-Pro-B Natriuret Pep Total Protein Albumin 3.0 L Triglycerides HDL Cholesterol Arterial Blood Glucose Arterial Blood Ionized Calcium Urine WBC (Auto) Vancomycin Trough Coronavirus (PCR) Crossmatch 10/07/20 10/07/20 10/07/20 16:38 16:38 18:17 WBC RBC Hgb Hct MCV MCHC RDW Plt Count Lymph % (Auto) [place] % (Auto) [place] # (Auto) Seg Neutrophils % Seg Neuts % (Manual) Lymphocytes % (Manual) Monocytes % (Manual) Nucleated RBC % Seg Neutrophils # Seg Neutrophils # Man Lymphocytes # (Manual) Monocytes # (Manual) PT 32.7 H INR 3.17 H D-Dimer POC ABG pCO2 POC ABG pO2 ABG Hemoglobin ABG Sodium ABG Potassium ABG Chloride ABG Glucose Sodium Potassium Chloride Carbon Dioxide BUN Creatinine Glucose POC Glucose Lactic Acid Calcium Ferritin Total Bilirubin Alkaline Phosphatase Lactate Dehydrogenase Troponin T 0.087 H NT-Pro-B Natriuret Pep 2155 H Total Protein Albumin Triglycerides 193 H HDL Cholesterol 20 L Arterial Blood Glucose Arterial Blood Ionized Calcium Urine WBC (Auto) Vancomycin Trough Coronavirus (PCR) Crossmatch 10/07/20 10/08/20 10/08/20 Unknown 02:53 02:53 WBC 13.4 H RBC 2.79 L Hgb 8.1 L Hct 26.2 L MCV MCHC 31 L RDW 27.7 H Plt Count Lymph % (Auto) [place] % (Auto) [place] # (Auto) 0.9 H Seg Neutrophils % 70.6 H Seg Neuts % (Manual) Lymphocytes % (Manual) Monocytes % (Manual) Nucleated RBC % Seg Neutrophils # 9.4 H Seg Neutrophils # Man Lymphocytes # (Manual) Monocytes # (Manual) PT INR D-Dimer POC ABG pCO2 POC ABG pO2 ABG Hemoglobin ABG Sodium ABG Potassium ABG Chloride ABG Glucose Sodium 159 H Potassium 2.7 L* D Chloride 127.9 H Carbon Dioxide 20 L BUN 27 H Creatinine 1.5 H Glucose 156 H POC Glucose Lactic Acid Calcium 7.1 L Ferritin Total Bilirubin Alkaline Phosphatase Lactate Dehydrogenase Troponin T NT-Pro-B Natriuret Pep Total Protein Albumin Triglycerides HDL Cholesterol Arterial Blood Glucose Arterial Blood Ionized Calcium Urine WBC (Auto) 111.0 H Vancomycin Trough Coronavirus (PCR) Crossmatch 10/08/20 10/08/20 10/08/20 09:34 14:57 17:29 WBC RBC Hgb Hct MCV MCHC RDW Plt Count Lymph % (Auto) [place] % (Auto) [place] # (Auto) Seg Neutrophils % Seg Neuts % (Manual) Lymphocytes % (Manual) Monocytes % (Manual) Nucleated RBC % Seg Neutrophils # Seg Neutrophils # Man Lymphocytes # (Manual) Monocytes # (Manual) PT INR D-Dimer POC ABG pCO2 POC ABG pO2 ABG Hemoglobin 7.9 L ABG Sodium 162.9 H ABG Potassium 2.6 L ABG Chloride 131.0 H ABG Glucose 146 H Sodium Potassium Chloride Carbon Dioxide BUN Creatinine Glucose POC Glucose 128 H Lactic Acid Calcium Ferritin Total Bilirubin Alkaline Phosphatase Lactate Dehydrogenase Troponin T NT-Pro-B Natriuret Pep Total Protein Albumin Triglycerides HDL Cholesterol Arterial Blood Glucose 146 H Arterial Blood Ionized Calcium Urine WBC (Auto) Vancomycin Trough Coronavirus (PCR) Positive A Crossmatch 10/09/20 10/09/20 10/09/20 05:14 05:14 11:48 WBC 13.9 H RBC 2.52 L Hgb 7.3 L Hct 23.7 L MCV MCHC 31 L RDW 28.1 H Plt Count Lymph % (Auto) [place] % (Auto) [place] # (Auto) Seg Neutrophils % Seg Neuts % (Manual) 91.0 H Lymphocytes % (Manual) 5.0 L Monocytes % (Manual) Nucleated RBC % Seg Neutrophils # Seg Neutrophils # Man 12.6 H Lymphocytes # (Manual) 0.7 L Monocytes # (Manual) PT INR D-Dimer POC ABG pCO2 POC ABG pO2 ABG Hemoglobin ABG Sodium ABG Potassium ABG Chloride ABG Glucose Sodium 162 H* Potassium 3.3 L D Chloride 131.6 H Carbon Dioxide 18 L BUN 25 H Creatinine Glucose 164 H POC Glucose 126 H Lactic Acid Calcium 7.4 L Ferritin Total Bilirubin Alkaline Phosphatase Lactate Dehydrogenase Troponin T NT-Pro-B Natriuret Pep Total Protein Albumin Triglycerides HDL Cholesterol Arterial Blood Glucose Arterial Blood Ionized Calcium Urine WBC (Auto) Vancomycin Trough Coronavirus (PCR) Crossmatch 10/09/20 10/09/20 10/09/20 14:25 17:55 19:30 WBC RBC Hgb Hct MCV MCHC RDW Plt Count Lymph % (Auto) [place] % (Auto) [place] # (Auto) Seg Neutrophils % Seg Neuts % (Manual) Lymphocytes % (Manual) Monocytes % (Manual) Nucleated RBC % Seg Neutrophils # Seg Neutrophils # Man Lymphocytes # (Manual) Monocytes # (Manual) PT INR D-Dimer 922.08 H POC ABG pCO2 27.3 L POC ABG pO2 125.5 H ABG Hemoglobin 7.0 L ABG Sodium 158.0 H ABG Potassium 3.0 L ABG Chloride 132.0 H ABG Glucose 172 H Sodium Potassium Chloride Carbon Dioxide BUN Creatinine Glucose POC Glucose 179 H Lactic Acid Calcium Ferritin Total Bilirubin Alkaline Phosphatase Lactate Dehydrogenase Troponin T NT-Pro-B Natriuret Pep Total Protein Albumin Triglycerides HDL Cholesterol Arterial Blood Glucose 172 H Arterial Blood Ionized Calcium 4.2 L Urine WBC (Auto) Vancomycin Trough Coronavirus (PCR) Crossmatch 10/09/20 10/09/20 10/10/20 19:30 23:22 05:18 WBC RBC Hgb Hct MCV MCHC RDW Plt Count Lymph % (Auto) [place] % (Auto) [place] # (Auto) Seg Neutrophils % Seg Neuts % (Manual) Lymphocytes % (Manual) Monocytes % (Manual) Nucleated RBC % Seg Neutrophils # Seg Neutrophils # Man Lymphocytes # (Manual) Monocytes # (Manual) PT INR D-Dimer POC ABG pCO2 POC ABG pO2 ABG Hemoglobin ABG Sodium ABG Potassium ABG Chloride ABG Glucose Sodium Potassium Chloride Carbon Dioxide BUN Creatinine Glucose POC Glucose 192 H 168 H Lactic Acid Calcium Ferritin 579.8 H Total Bilirubin Alkaline Phosphatase Lactate Dehydrogenase Troponin T NT-Pro-B Natriuret Pep Total Protein Albumin Triglycerides HDL Cholesterol Arterial Blood Glucose Arterial Blood Ionized Calcium Urine WBC (Auto) Vancomycin Trough Coronavirus (PCR) Crossmatch 10/10/20 10/10/20 10/10/20 06:07 06:07 11:43 WBC 13.5 H RBC 2.39 L Hgb 6.8 L Hct 22.1 L MCV MCHC 31 L RDW 27.2 H Plt Count Lymph % (Auto) [place] % (Auto) [place] # (Auto) Seg Neutrophils % Seg Neuts % (Manual) 89.0 H Lymphocytes % (Manual) 10.0 L Monocytes % (Manual) Nucleated RBC % 2.0 H Seg Neutrophils # Seg Neutrophils # Man 12.0 H Lymphocytes # (Manual) Monocytes # (Manual) PT INR D-Dimer POC ABG pCO2 POC ABG pO2 ABG Hemoglobin ABG Sodium ABG Potassium ABG Chloride ABG Glucose Sodium 158 H Potassium 3.2 L Chloride 129.3 H Carbon Dioxide 19 L BUN 21 H Creatinine Glucose 200 H POC Glucose 155 H Lactic Acid Calcium 6.7 L Ferritin Total Bilirubin Alkaline Phosphatase Lactate Dehydrogenase Troponin T NT-Pro-B Natriuret Pep Total Protein Albumin Triglycerides HDL Cholesterol Arterial Blood Glucose Arterial Blood Ionized Calcium Urine WBC (Auto) Vancomycin Trough Coronavirus (PCR) Crossmatch 10/10/20 10/10/20 10/10/20 12:00 17:19 23:44 WBC RBC Hgb Hct MCV MCHC RDW Plt Count Lymph % (Auto) [place] % (Auto) [place] # (Auto) Seg Neutrophils % Seg Neuts % (Manual) Lymphocytes % (Manual) Monocytes % (Manual) Nucleated RBC % Seg Neutrophils # Seg Neutrophils # Man Lymphocytes # (Manual) Monocytes # (Manual) PT INR D-Dimer POC ABG pCO2 POC ABG pO2 ABG Hemoglobin ABG Sodium ABG Potassium ABG Chloride ABG Glucose Sodium Potassium Chloride Carbon Dioxide BUN Creatinine Glucose POC Glucose 185 H 219 H Lactic Acid Calcium Ferritin Total Bilirubin Alkaline Phosphatase Lactate Dehydrogenase Troponin T NT-Pro-B Natriuret Pep Total Protein Albumin Triglycerides HDL Cholesterol Arterial Blood Glucose Arterial Blood Ionized Calcium Urine WBC (Auto) Vancomycin Trough Coronavirus (PCR) Crossmatch See Detail 10/11/20 10/11/20 10/11/20 04:00 04:00 05:11 WBC 11.5 H RBC 3.37 L Hgb 9.6 L Hct 30.0 L D MCV MCHC RDW 23.9 H Plt Count Lymph % (Auto) [place] % (Auto) [place] # (Auto) Seg Neutrophils % 81.5 H Seg Neuts % (Manual) Lymphocytes % (Manual) Monocytes % (Manual) Nucleated RBC % Seg Neutrophils # 9.4 H Seg Neutrophils # Man Lymphocytes # (Manual) Monocytes # (Manual) PT INR D-Dimer POC ABG pCO2 POC ABG pO2 ABG Hemoglobin ABG Sodium ABG Potassium ABG Chloride ABG Glucose Sodium 151 H Potassium 3.0 L Chloride 122.8 H Carbon Dioxide 19 L BUN 23 H Creatinine Glucose 238 H POC Glucose 191 H Lactic Acid Calcium 7.0 L Ferritin Total Bilirubin Alkaline Phosphatase Lactate Dehydrogenase Troponin T NT-Pro-B Natriuret Pep Total Protein Albumin Triglycerides HDL Cholesterol Arterial Blood Glucose Arterial Blood Ionized Calcium Urine WBC (Auto) Vancomycin Trough Coronavirus (PCR) Crossmatch 10/11/20 10/11/20 10/11/20 11:01 12:10 12:24 WBC RBC Hgb Hct MCV MCHC RDW Plt Count Lymph % (Auto) [place] % (Auto) [place] # (Auto) Seg Neutrophils % Seg Neuts % (Manual) Lymphocytes % (Manual) Monocytes % (Manual) Nucleated RBC % Seg Neutrophils # Seg Neutrophils # Man Lymphocytes # (Manual) Monocytes # (Manual) PT INR D-Dimer POC ABG pCO2 POC ABG pO2 ABG Hemoglobin ABG Sodium ABG Potassium ABG Chloride ABG Glucose Sodium Potassium Chloride Carbon Dioxide BUN Creatinine Glucose POC Glucose 187 H 199 H Lactic Acid Calcium Ferritin Total Bilirubin Alkaline Phosphatase Lactate Dehydrogenase Troponin T NT-Pro-B Natriuret Pep Total Protein Albumin Triglycerides HDL Cholesterol Arterial Blood Glucose Arterial Blood Ionized Calcium Urine WBC (Auto) Vancomycin Trough 46.1 H Coronavirus (PCR) Crossmatch 10/11/20 10/11/20 10/11/20 12:58 18:47 23:15 WBC RBC Hgb Hct MCV MCHC RDW Plt Count Lymph % (Auto) [place] % (Auto) [place] # (Auto) Seg Neutrophils % Seg Neuts % (Manual) Lymphocytes % (Manual) Monocytes % (Manual) Nucleated RBC % Seg Neutrophils # Seg Neutrophils # Man Lymphocytes # (Manual) Monocytes # (Manual) PT 43.8 H INR 4.56 H D-Dimer POC ABG pCO2 POC ABG pO2 ABG Hemoglobin ABG Sodium ABG Potassium ABG Chloride ABG Glucose Sodium Potassium Chloride Carbon Dioxide BUN Creatinine Glucose POC Glucose 170 H 136 H Lactic Acid Calcium Ferritin Total Bilirubin Alkaline Phosphatase Lactate Dehydrogenase Troponin T NT-Pro-B Natriuret Pep Total Protein Albumin Triglycerides HDL Cholesterol Arterial Blood Glucose Arterial Blood Ionized Calcium Urine WBC (Auto) Vancomycin Trough Coronavirus (PCR) Crossmatch 10/12/20 10/12/20 10/12/20 06:11 07:24 07:24 WBC RBC 3.12 L Hgb 9.0 L Hct 27.4 L MCV MCHC RDW 24.9 H Plt Count Lymph % (Auto) [place] % (Auto) [place] # (Auto) Seg Neutrophils % Seg Neuts % (Manual) Lymphocytes % (Manual) Monocytes % (Manual) Nucleated RBC % Seg Neutrophils # Seg Neutrophils # Man Lymphocytes # (Manual) Monocytes # (Manual) PT INR D-Dimer POC ABG pCO2 POC ABG pO2 ABG Hemoglobin ABG Sodium ABG Potassium ABG Chloride ABG Glucose Sodium 152 H Potassium 3.3 L Chloride 125.2 H Carbon Dioxide 21 L BUN 26 H Creatinine Glucose 113 H POC Glucose 107 H Lactic Acid Calcium 6.9 L Ferritin Total Bilirubin Alkaline Phosphatase Lactate Dehydrogenase Troponin T NT-Pro-B Natriuret Pep Total Protein Albumin Triglycerides HDL Cholesterol Arterial Blood Glucose Arterial Blood Ionized Calcium Urine WBC (Auto) Vancomycin Trough Coronavirus (PCR) Crossmatch 10/12/20 10/12/20 10/12/20 07:24 10:04 10:04 WBC RBC Hgb Hct MCV MCHC RDW Plt Count Lymph % (Auto) [place] % (Auto) [place] # (Auto) Seg Neutrophils % Seg Neuts % (Manual) Lymphocytes % (Manual) Monocytes % (Manual) Nucleated RBC % Seg Neutrophils # Seg Neutrophils # Man Lymphocytes # (Manual) Monocytes # (Manual) PT 34.6 H INR 3.40 H D-Dimer 1061.03 H POC ABG pCO2 POC ABG pO2 ABG Hemoglobin ABG Sodium ABG Potassium ABG Chloride ABG Glucose Sodium Potassium Chloride Carbon Dioxide BUN Creatinine Glucose POC Glucose Lactic Acid Calcium Ferritin 585.8 H Total Bilirubin Alkaline Phosphatase Lactate Dehydrogenase Troponin T NT-Pro-B Natriuret Pep Total Protein Albumin Triglycerides HDL Cholesterol Arterial Blood Glucose Arterial Blood Ionized Calcium Urine WBC (Auto) Vancomycin Trough Coronavirus (PCR) Crossmatch 10/12/20 10/12/20 10/12/20 10:04 16:15 17:17 WBC RBC Hgb Hct MCV MCHC RDW Plt Count Lymph % (Auto) [place] % (Auto) [place] # (Auto) Seg Neutrophils % Seg Neuts % (Manual) Lymphocytes % (Manual) Monocytes % (Manual) Nucleated RBC % Seg Neutrophils # Seg Neutrophils # Man Lymphocytes # (Manual) Monocytes # (Manual) PT INR D-Dimer POC ABG pCO2 POC ABG pO2 ABG Hemoglobin ABG Sodium ABG Potassium ABG Chloride ABG Glucose Sodium Potassium Chloride Carbon Dioxide BUN Creatinine Glucose POC Glucose 176 H Lactic Acid Calcium Ferritin Total Bilirubin Alkaline Phosphatase Lactate Dehydrogenase 364 H Troponin T NT-Pro-B Natriuret Pep Total Protein Albumin Triglycerides HDL Cholesterol Arterial Blood Glucose Arterial Blood Ionized Calcium Urine WBC (Auto) Vancomycin Trough 62.0 H Coronavirus (PCR) Crossmatch 10/13/20 10/13/20 10/13/20 00:12 04:59 04:59 WBC 11.3 H RBC 3.22 L Hgb 9.2 L Hct 28.6 L MCV MCHC RDW 24.1 H Plt Count 135 L Lymph % (Auto) 11.4 L [place] % (Auto) 8.4 H [place] # (Auto) 0.9 H Seg Neutrophils % 80.0 H Seg Neuts % (Manual) Lymphocytes % (Manual) Monocytes % (Manual) Nucleated RBC % Seg Neutrophils # 9.0 H Seg Neutrophils # Man Lymphocytes # (Manual) Monocytes # (Manual) PT INR D-Dimer POC ABG pCO2 POC ABG pO2 ABG Hemoglobin ABG Sodium ABG Potassium ABG Chloride ABG Glucose Sodium 149 H Potassium Chloride 124.6 H Carbon Dioxide 17 L BUN 27 H Creatinine Glucose 129 H POC Glucose 141 H Lactic Acid Calcium 7.2 L Ferritin Total Bilirubin Alkaline Phosphatase Lactate Dehydrogenase Troponin T NT-Pro-B Natriuret Pep Total Protein 6.0 L Albumin 2.7 L Triglycerides HDL Cholesterol Arterial Blood Glucose Arterial Blood Ionized Calcium Urine WBC (Auto) Vancomycin Trough Coronavirus (PCR) Crossmatch 10/13/20 10/13/20 10/13/20 05:03 11:15 17:16 WBC RBC Hgb Hct MCV MCHC RDW Plt Count Lymph % (Auto) [place] % (Auto) [place] # (Auto) Seg Neutrophils % Seg Neuts % (Manual) Lymphocytes % (Manual) Monocytes % (Manual) Nucleated RBC % Seg Neutrophils # Seg Neutrophils # Man Lymphocytes # (Manual) Monocytes # (Manual) PT INR D-Dimer POC ABG pCO2 POC ABG pO2 ABG Hemoglobin ABG Sodium ABG Potassium ABG Chloride ABG Glucose Sodium Potassium Chloride Carbon Dioxide BUN Creatinine Glucose POC Glucose 121 H 119 H 164 H Lactic Acid Calcium Ferritin Total Bilirubin Alkaline Phosphatase Lactate Dehydrogenase Troponin T NT-Pro-B Natriuret Pep Total Protein Albumin Triglycerides HDL Cholesterol Arterial Blood Glucose Arterial Blood Ionized Calcium Urine WBC (Auto) Vancomycin Trough Coronavirus (PCR) Crossmatch 10/13/20 10/14/20 10/14/20 22:51 09:16 09:16 WBC 17.0 H RBC 3.62 L Hgb 10.2 L Hct 32.2 L MCV MCHC RDW 24.3 H Plt Count 138 L Lymph % (Auto) [place] % (Auto) 10.6 H [place] # (Auto) 1.8 H Seg Neutrophils % Seg Neuts % (Manual) Lymphocytes % (Manual) Monocytes % (Manual) Nucleated RBC % Seg Neutrophils # 11.6 H Seg Neutrophils # Man Lymphocytes # (Manual) Monocytes # (Manual) PT INR D-Dimer POC ABG pCO2 POC ABG pO2 ABG Hemoglobin ABG Sodium ABG Potassium ABG Chloride ABG Glucose Sodium 151 H Potassium Chloride 122.7 H Carbon Dioxide 20 L BUN 27 H Creatinine Glucose 119 H POC Glucose 127 H Lactic Acid Calcium 7.9 L Ferritin Total Bilirubin Alkaline Phosphatase Lactate Dehydrogenase Troponin T NT-Pro-B Natriuret Pep Total Protein 5.9 L Albumin 2.6 L Triglycerides HDL Cholesterol Arterial Blood Glucose Arterial Blood Ionized Calcium Urine WBC (Auto) Vancomycin Trough Coronavirus (PCR) Crossmatch 10/14/20 10/14/20 10/14/20 11:19 11:19 16:49 WBC RBC Hgb Hct MCV MCHC RDW Plt Count Lymph % (Auto) [place] % (Auto) [place] # (Auto) Seg Neutrophils % Seg Neuts % (Manual) Lymphocytes % (Manual) Monocytes % (Manual) Nucleated RBC % Seg Neutrophils # Seg Neutrophils # Man Lymphocytes # (Manual) Monocytes # (Manual) PT 24.6 H INR 2.22 H D-Dimer POC ABG pCO2 POC ABG pO2 ABG Hemoglobin ABG Sodium ABG Potassium ABG Chloride ABG Glucose Sodium Potassium Chloride Carbon Dioxide BUN Creatinine Glucose POC Glucose 113 H 194 H Lactic Acid Calcium Ferritin Total Bilirubin Alkaline Phosphatase Lactate Dehydrogenase Troponin T NT-Pro-B Natriuret Pep Total Protein Albumin Triglycerides HDL Cholesterol Arterial Blood Glucose Arterial Blood Ionized Calcium Urine WBC (Auto) Vancomycin Trough Coronavirus (PCR) Crossmatch 10/14/20 10/15/20 10/15/20 22:36 05:59 05:59 WBC 12.0 H RBC 3.15 L Hgb 9.1 L Hct 28.0 L MCV MCHC RDW 24.1 H Plt Count 129 L Lymph % (Auto) [place] % (Auto) 13.2 H [place] # (Auto) 1.6 H Seg Neutrophils % 70.6 H Seg Neuts % (Manual) 82.0 H Lymphocytes % (Manual) 9.0 L Monocytes % (Manual) 8.0 H Nucleated RBC % 1.0 H Seg Neutrophils # 8.5 H Seg Neutrophils # Man 9.8 H Lymphocytes # (Manual) 1.1 L Monocytes # (Manual) 1.0 H PT INR D-Dimer POC ABG pCO2 POC ABG pO2 ABG Hemoglobin ABG Sodium ABG Potassium ABG Chloride ABG Glucose Sodium 152 H Potassium 3.5 L Chloride 123.7 H Carbon Dioxide BUN 28 H Creatinine Glucose 119 H POC Glucose 137 H Lactic Acid Calcium 8.0 L Ferritin Total Bilirubin Alkaline Phosphatase 19 L Lactate Dehydrogenase Troponin T NT-Pro-B Natriuret Pep Total Protein 5.5 L Albumin 2.6 L Triglycerides HDL Cholesterol Arterial Blood Glucose Arterial Blood Ionized Calcium Urine WBC (Auto) Vancomycin Trough Coronavirus (PCR) Crossmatch 10/15/20 10/15/20 10/15/20 05:59 06:08 11:20 WBC RBC Hgb Hct MCV MCHC RDW Plt Count Lymph % (Auto) [place] % (Auto) [place] # (Auto) Seg Neutrophils % Seg Neuts % (Manual) Lymphocytes % (Manual) Monocytes % (Manual) Nucleated RBC % Seg Neutrophils # Seg Neutrophils # Man Lymphocytes # (Manual) Monocytes # (Manual) PT 22.8 H INR 2.00 H D-Dimer POC ABG pCO2 POC ABG pO2 ABG Hemoglobin ABG Sodium ABG Potassium ABG Chloride ABG Glucose Sodium Potassium Chloride Carbon Dioxide BUN Creatinine Glucose POC Glucose 111 H 118 H Lactic Acid Calcium Ferritin Total Bilirubin Alkaline Phosphatase Lactate Dehydrogenase Troponin T NT-Pro-B Natriuret Pep Total Protein Albumin Triglycerides HDL Cholesterol Arterial Blood Glucose Arterial Blood Ionized Calcium Urine WBC (Auto) Vancomycin Trough Coronavirus (PCR) Crossmatch Chest x-ray: image reviewed Allied health notes reviewed: nursing
--- NOTE | 2020-10-15 12:56 | XRay Report ---
ABDOMEN 1 VIEW(S) INDICATION / CLINICAL INFORMATION: NGT placement. COMPARISON: None available. FINDINGS: TUBES / LINES: The nasogastric tube terminates in the mid stomach. BOWEL GAS PATTERN: No significant abnormality. FREE AIR / EXTRALUMINAL GAS: None seen. ADDITIONAL FINDINGS: No significant additional findings. IMPRESSION: No significant abnormality. Satisfactory positioning of the nasogastric tube. Signer Name: Bassam Mata Jr, MD Signed: 10/15/2020 12:48 PM Workstation Name: [id number]
--- NOTE | 2020-10-15 12:56 | XRay Report ---
CHEST 1 VIEW INDICATION: Resp failure, PNA, COVID. COMPARISON: 10/09/2020 FINDINGS: Support devices: Right IJ venous catheter and nasogastric tube appear in good position. Heart: Stable mild cardiomegaly. Lungs/Pleura: The lungs are clear with no evidence for infiltrate, pleural fluid or pneumothorax. Additional findings: None. IMPRESSION: Stable mild cardiomegaly. Lungs clear. Signer Name: Bassam Mata Jr, MD Signed: 10/15/2020 12:47 PM Workstation Name: [id number]
[2020-10-15] MEDS: INSULIN REGULAR, HUMAN 100 UNITS/1 ML SUB-Q SCH ×2 (12:57→19:45)
--- NOTE | 2020-10-15 15:52 | Gastroenterology Progress Note ---
Assessment and Plan - Patient Problems (1) Neurogenic dysphagia Current Visit: Yes Status: Acute Plan to address problem: - I discussed a PEG tube with the patient's , who is going to discuss with her daughter. - The appears receptive to the idea, however, and will likely place on Sunday. - Continue current NG tube feeds and supportive care. - Continue to hold coumadin. Subjective Date of service: 10/15/20 Principal diagnosis: Neurogenic Dysphagia Interval history: The patient is tolerating his tube feeds, and has no fevers, blood in stool, or obvious abdominal pain. Objective - Constitutional Vitals: Temp Pulse Resp BP Pulse Ox 97.6 F 72 20 116/56 99 10/15/20 12:36 10/15/20 12:36 10/15/20 12:36 10/15/20 12:36 10/15/20 12:36 General appearance: no acute distress - Respiratory Respiratory effort: normal Respiratory: bilateral: CTA - Cardiovascular Rhythm: regular Heart Sounds: Present: S1 & S2 - Gastrointestinal General gastrointestinal: Present: soft, non-tender, non-distended - Labs CBC & Chem 7: 10/15/20 05:59 10/15/20 05:59 Labs: Laboratory Results - last 24 hr 10/14/20 10/14/20 10/15/20 16:49 22:36 05:59 WBC 12.0 H RBC 3.15 L Hgb 9.1 L Hct 28.0 L MCV 89 MCH 29 MCHC 33 RDW 24.1 H Plt Count 129 L [place] % (Auto) 13.2 H Eos % (Auto) 0.9 [place] # (Auto) 1.6 H Eos # (Auto) 0.1 Baso # (Auto) 0.0 Add Manual Diff Complete Total Counted 100 Seg Neutrophils % 70.6 H Seg Neuts % (Manual) 82.0 H Lymphocytes % (Manual) 9.0 L Monocytes % (Manual) 8.0 H Metamyelocytes % 1.0 Nucleated RBC % 1.0 H Seg Neutrophils # 8.5 H Seg Neutrophils # Man 9.8 H Band Neutrophils # 0.0 Lymphocytes # (Manual) 1.1 L Abs React Lymphs (Man) 0.0 Monocytes # (Manual) 1.0 H Eosinophils # (Manual) 0.0 Basophils # (Manual) 0.0 Metamyelocytes # 0.1 Myelocytes # 0.0 Promyelocytes # 0.0 Blast Cells # 0.0 WBC Morphology Not Reportable Hypersegmented Neuts Not Reportable Hyposegmented Neuts Not Reportable Hypogranular Neuts Not Reportable Smudge Cells Not Reportable Toxic Granulation Not Reportable Toxic Vacuolation Not Reportable Dohle Bodies Not Reportable Pelger-Huet Anomaly Not Reportable Darryl Rods Not Reportable Platelet Estimate Consistent w auto Clumped Platelets Not Reportable Plt Clumps, EDTA Not Reportable Large Platelets Not Reportable Giant Platelets Not Reportable Platelet Satelliting Not Reportable Plt Morphology Comment Not Reportable RBC Morphology Not Reportable Dimorphic RBCs Not Reportable Polychromasia Not Reportable Hypochromasia Not Reportable Poikilocytosis 1+ Anisocytosis 2+ Microcytosis Not Reportable Macrocytosis Not Reportable Spherocytes Not Reportable Pappenheimer Bodies Not Reportable Sickle Cells Not Reportable Target Cells Not Reportable Tear Drop Cells Few Ovalocytes Few Helmet Cells Not Reportable [place] Bodies Not Reportable [place] Not Reportable Chris Cells Not Reportable Bite Cells Not Reportable Crenated Cell Not Reportable Elliptocytes Few Acanthocytes (Spur) Not Reportable Rouleaux Not Reportable Hemoglobin C Crystals Not Reportable Schistocytes Not Reportable Malaria parasites Not Reportable Lucas Bodies Not Reportable Hem Pathologist Commnt No PT INR Sodium Potassium Chloride Carbon Dioxide Anion Gap BUN Creatinine Estimated GFR BUN/Creatinine Ratio Glucose POC Glucose 194 H 137 H Calcium Total Bilirubin AST ALT Alkaline Phosphatase Total Protein Albumin Albumin/Globulin Ratio Random Vancomycin 10/15/20 10/15/20 10/15/20 05:59 05:59 05:59 WBC RBC Hgb Hct MCV MCH MCHC RDW Plt Count [place] % (Auto) Eos % (Auto) [place] # (Auto) Eos # (Auto) Baso # (Auto) Add Manual Diff Total Counted Seg Neutrophils % Seg Neuts % (Manual) Lymphocytes % (Manual) Monocytes % (Manual) Metamyelocytes % Nucleated RBC % Seg Neutrophils # Seg Neutrophils # [place] Neutrophils # Lymphocytes # (Manual) Abs React Lymphs (Man) Monocytes # (Manual) Eosinophils # (Manual) Basophils # (Manual) Metamyelocytes # Myelocytes # Promyelocytes # Blast Cells # WBC Morphology Hypersegmented Neuts Hyposegmented Neuts Hypogranular Neuts Smudge Cells Toxic Granulation Toxic Vacuolation Dohle Bodies Pelger-Huet Anomaly Darryl Rods Platelet Estimate Clumped Platelets Plt Clumps, EDTA Large Platelets Giant Platelets Platelet Satelliting Plt Morphology Comment RBC Morphology Dimorphic RBCs Polychromasia Hypochromasia Poikilocytosis Anisocytosis Microcytosis Macrocytosis Spherocytes Pappenheimer Bodies Sickle Cells Target Cells Tear Drop Cells Ovalocytes Helmet Cells [place] Bodies [place] Chris Cells Bite Cells Crenated Cell Elliptocytes Acanthocytes (Spur) Rouleaux Hemoglobin C Crystals Schistocytes Malaria parasites Lucas Bodies Hem Pathologist Commnt PT 22.8 H INR 2.00 H Sodium 152 H Potassium 3.5 L Chloride 123.7 H Carbon Dioxide 22 Anion Gap 10 BUN 28 H Creatinine 1.0 Estimated GFR > 60 BUN/Creatinine Ratio 28 Glucose 119 H POC Glucose Calcium 8.0 L Total Bilirubin 0.60 AST 16 ALT 18 Alkaline Phosphatase 19 L Total Protein 5.5 L Albumin 2.6 L Albumin/Globulin Ratio 0.9 Random Vancomycin 25.9 10/15/20 10/15/20 06:08 11:20 WBC RBC Hgb Hct MCV MCH MCHC RDW Plt Count [place] % (Auto) Eos % (Auto) [place] # (Auto) Eos # (Auto) Baso # (Auto) Add Manual Diff Total Counted Seg Neutrophils % Seg Neuts % (Manual) Lymphocytes % (Manual) Monocytes % (Manual) Metamyelocytes % Nucleated RBC % Seg Neutrophils # Seg Neutrophils # [place] Neutrophils # Lymphocytes # (Manual) Abs React Lymphs (Man) Monocytes # (Manual) Eosinophils # (Manual) Basophils # (Manual) Metamyelocytes # Myelocytes # Promyelocytes # Blast Cells # WBC Morphology Hypersegmented Neuts Hyposegmented Neuts Hypogranular Neuts Smudge Cells Toxic Granulation Toxic Vacuolation Dohle Bodies Pelger-Huet Anomaly Darryl Rods Platelet Estimate Clumped Platelets Plt Clumps, EDTA Large Platelets Giant Platelets Platelet Satelliting Plt Morphology Comment RBC Morphology Dimorphic RBCs Polychromasia Hypochromasia Poikilocytosis Anisocytosis Microcytosis Macrocytosis Spherocytes Pappenheimer Bodies Sickle Cells Target Cells Tear Drop Cells Ovalocytes Helmet Cells [place] Bodies [place] Chris Cells Bite Cells Crenated Cell Elliptocytes Acanthocytes (Spur) Rouleaux Hemoglobin C Crystals Schistocytes Malaria parasites Lucas Bodies Hem Pathologist Commnt PT INR Sodium Potassium Chloride Carbon Dioxide Anion Gap BUN Creatinine Estimated GFR BUN/Creatinine Ratio Glucose POC Glucose 111 H 118 H Calcium Total Bilirubin AST ALT Alkaline Phosphatase Total Protein Albumin Albumin/Globulin Ratio Random Vancomycin
[2020-10-15] MEDS: SODIUM BICARBONATE 325 MG TAB FEEDTUBE PRN ×2 (15:59→20:00)
[2020-10-15] MEDS: LIPASE 10,500/PROTEASE 25,000/AMYLASE 43,750 (UNITS) DR CAP FEEDTUBE PRN ×2 (15:59→20:00)
[2020-10-15] MEDS: INSULIN GLARGINE 100 UNITS/ML SUB-Q SCH (23:50)
[2020-10-16] MEDS: INSULIN REGULAR, HUMAN 100 UNITS/1 ML SUB-Q SCH ×5 (00:45→23:55)
[2020-10-16] MEDS: DEXTROSE 5% IN WATER 1,000 ML IV SCH ×2 (07:11→17:10)
[2020-10-16 08:53] LABS: Alanine Aminotransferase 21 units/L (7-56); Albumin 2.5 g/dL (3.9-5); BUN/Creatinine Ratio 28; Blood Urea Nitrogen 28 mg/dL (9-20); Calcium 7.9 mg/dL (8.4-10.2); Hemolysis Index 34
--- NOTE | 2020-10-16 09:40 | Progress Note ---
Assessment and Plan Assessment and plan: Sepsis -S/p vasopressor support, s/p antibiotics COVID-19 pneumonia -s/p Antibiotic therapy, -Continue dexamethasone -Isolation/droplet precautions Acute hypoxic respiratory failure -S/p BiPAP therapy PRN -Currently on nasal cannula -Supplemental oxygen as needed -Pulmonary hygiene MRSA bacteremia -On vancomycin. ID on board. Needs IV antibiotics at discharge. -Echocardiogram - negative for IE Obesity hypoventilation syndrome -Supportive care -BiPAP at night Acute kidney injury. Etiology secondary to ATN -S/p IVF resuscitation -Trend BMP Hypernatremia -Hypotonic IV fluid with D5W -Free water flush -Trend BMP Acute metabolic encephalopathy Secondary to infection versus hypernatremia-these conditions have been treated and AMS still persists. Now needs NG tube for feeding GI consulted for PEG placement. Plan for PEG placement underway Vascular dementia. -Supportive care UTI -s/p Antibiotic therapy Supratherapeutic INR -Hold home Coumadin, trend INR. - Plan to resume antibiotics Hypokalemia -Replete and trend BMP Thrombocytopenia Trend platelets. Check HIT antibodies if continues to drop further DVT/GI prophylaxis: PPI, SCDs to bilateral lower extremities while in bed hold chemical anticoagulation in setting of supratherapeutic INR and thrombocytopenia Dispo: Placement History Interval history: This is 64-year-old male from overdose custodial facility with oh at bedtime, cerebral sclerosis, chronic respiratory failure, CVA, anemia of chronic disease, GERD, HTN, DVT, vascular dementia [facility] for increased confusion and weakness over the past 2 days with worsening symptoms over the past 1 day. Upon arrival to the emergency department patient was found to have urinary tract infection complicated by sepsis, metabolic acidosis, acute kidney injury and toxic metabolic ence phalopathy. Patient was admitted to the hospital service to [facility] on the sepsis protocol. Infectious disease and CCM were consulted. 10/08: Continue IV antibiotics and IV fluid hydration. Consult ID for further evaluation. 10/09: Continue antibiotic per ID recommendations. Continue dexamethasone to complete 10 days. Continue to trend inflammatory markers. Sodium noted to be 162. We will start D5W at 75 cc an hour. Continue 250 cc free water every 4 hours. Follow-up BMP in a.m. Also, replete potassium. 10/10: Sodium improved to 158 today. Continue D5W IV fluids and free water every 4 hours.. Replete potassium. Hemoglobin 6.8. We will type and cross and transfuse 2 units PRBCs. Continue dexamethasone to complete 10 days. Continue to trend inflammatory markers. 10/11: We will obtain TTE to rule out vegetation as patient grew MRSA in his blood cultures, patient still has leukocytosis and worsening INR. Patient has hypokalemia today along with improving hypernatremia, hyperchloremia, metabolic acidosis, hypocalcemia and leukocytosis. 10/12. TTE pending. INR improved. His sodium is slowly trending down. His mental status is still impaired. 10/13. Sodium is better. Still lethargic. He is getting feeds via NGT. If mental status fails to improve, he will need PEG placement. 10/14. Awaiting a.m. labs. I believe patient will benefit from PEG placement and plan for discharge back to nursing facility. GI has been consulted for this. 10/15. GI plans to have PEG placement on Sunday. Patients mental status still not improved. Remains on tube feeding. Labs reviewed -platelet counts dropping. INR 2.0 today. Coumadin still on hold. Continue to hold anticoagulation as he has PEG placement planned on Sunday. Resume anticoagulation afterwards. Continue to monitor platelets at this time. Sodium level is 152 and is on hypotonic solution and free water flushes via the NG tube. Switch-D5 07/24 NS to D5 water 10/15 Hospitalist Physical - Physical exam Narrative exam: VITAL SIGNS: Reviewed. GENERAL: lethargic HEAD: No signs of head trauma. EYES: Pupils are equal. Extraocular motions intact. MOUTH: Oropharynx is normal. NECK: No adenopathy, no JVD. CHEST: Chest with diminished breath sounds bilaterally. No wheezes, rales, or rhonchi. CARDIAC: normal S1 and S2, without murmurs, gallops, or rubs. ABDOMEN: Soft, non tender and non distended. No rebound or guarding, and no masses palpated. Bowel Sounds normal. MUSCULOSKELETAL: No edema NEUROLOGIC EXAM: Lethargic SKIN: No obvious lesions - Constitutional Vitals: Temp Pulse Resp BP Pulse Ox 97.7 F 69 20 122/74 99 10/16/20 05:16 10/15/20 22:50 10/16/20 05:16 10/16/20 05:16 10/15/20 22:50 HEART Score - HEART Score Troponin: Troponin T 0.087 ng/mL (0.00-0.029) H 10/07/20 16:38 Results - Labs CBC & Chem 7: 10/16/20 10:56 10/16/20 04:00 Labs: Laboratory Last Values WBC 12.0 K/mm3 (4.5-11.0) H 10/15/20 05:59 RBC 3.15 M/mm3 (3.65-5.03) L 10/15/20 05:59 Hgb 9.1 gm/dl (11.8-15.2) L 10/15/20 05:59 Hct 28.0 % (35.5-45.6) L 10/15/20 05:59 MCV 89 fl (84-94) 10/15/20 05:59 MCH 29 pg (28-32) 10/15/20 05:59 MCHC 33 % (32-34) 10/15/20 05:59 RDW 24.1 % (13.2-15.2) H 10/15/20 05:59 Plt Count 129 K/mm3 (140-440) L 10/15/20 05:59 Lymph % (Auto) 19.9 % (13.4-35.0) 10/14/20 09:16 [place] % (Auto) 13.2 % (0.0-7.3) H 10/15/20 05:59 Eos % (Auto) 0.9 % (0.0-4.3) 10/15/20 05:59 Baso % (Auto) 0.2 % (0.0-1.8) 10/14/20 09:16 Lymph # (Auto) 3.4 K/mm3 (1.2-5.4) 10/14/20 09:16 [place] # (Auto) 1.6 K/mm3 (0.0-0.8) H 10/15/20 05:59 Eos # (Auto) 0.1 K/mm3 (0.0-0.4) 10/15/20 05:59 Baso # (Auto) 0.0 K/mm3 (0.0-0.1) 10/15/20 05:59 Add Manual Diff Complete 10/15/20 05:59 Total Counted 100 10/15/20 05:59 Seg Neutrophils % 70.6 % (40.0-70.0) H 10/15/20 05:59 Seg Neuts % (Manual) 82.0 % (40.0-70.0) H 10/15/20 05:59 Lymphocytes % (Manual) 9.0 % (13.4-35.0) L 10/15/20 05:59 Monocytes % (Manual) 8.0 % (0.0-7.3) H 10/15/20 05:59 Eosinophils % (Manual) 2.0 % (0.0-4.3) 10/07/20 16:38 Metamyelocytes % 1.0 % 10/15/20 05:59 Nucleated RBC % 1.0 % (0.0-0.9) H 10/15/20 05:59 Seg Neutrophils # 8.5 K/mm3 (1.8-7.7) H 10/15/20 05:59 Seg Neutrophils # Man 9.8 K/mm3 (1.8-7.7) H 10/15/20 05:59 Band Neutrophils # 0.0 K/mm3 10/15/20 05:59 Lymphocytes # (Manual) 1.1 K/mm3 (1.2-5.4) L 10/15/20 05:59 Abs React Lymphs (Man) 0.0 K/mm3 10/15/20 05:59 Monocytes # (Manual) 1.0 K/mm3 (0.0-0.8) H 10/15/20 05:59 Eosinophils # (Manual) 0.0 K/mm3 (0.0-0.4) 10/15/20 05:59 Basophils # (Manual) 0.0 K/mm3 (0.0-0.1) 10/15/20 05:59 Metamyelocytes # 0.1 K/mm3 10/15/20 05:59 Myelocytes # 0.0 K/mm3 10/15/20 05:59 Promyelocytes # 0.0 K/mm3 10/15/20 05:59 Blast Cells # 0.0 K/mm3 10/15/20 05:59 WBC Morphology Not Reportable 10/15/20 05:59 Hypersegmented Neuts Not Reportable 10/15/20 05:59 Hyposegmented Neuts Not Reportable 10/15/20 05:59 Hypogranular Neuts Not Reportable 10/15/20 05:59 Smudge Cells Not Reportable 10/15/20 05:59 Toxic Granulation Not Reportable 10/15/20 05:59 Toxic Vacuolation Not Reportable 10/15/20 05:59 Dohle Bodies Not Reportable 10/15/20 05:59 Pelger-Huet Anomaly Not Reportable 10/15/20 05:59 Darryl Rods Not Reportable 10/15/20 05:59 Platelet Estimate Consistent w auto 10/15/20 05:59 Clumped Platelets Not Reportable 10/15/20 05:59 Plt Clumps, EDTA Not Reportable 10/15/20 05:59 Large Platelets Not Reportable 10/15/20 05:59 Giant Platelets Not Reportable 10/15/20 05:59 Platelet Satelliting Not Reportable 10/15/20 05:59 Plt Morphology Comment Not Reportable 10/15/20 05:59 RBC Morphology Not Reportable 10/15/20 05:59 Dimorphic RBCs Not Reportable 10/15/20 05:59 Polychromasia Not Reportable 10/15/20 05:59 Hypochromasia Not Reportable 10/15/20 05:59 Poikilocytosis 1+ 10/15/20 05:59 Anisocytosis 2+ 10/15/20 05:59 Microcytosis Not Reportable 10/15/20 05:59 Macrocytosis Not Reportable 10/15/20 05:59 Spherocytes Not Reportable 10/15/20 05:59 Pappenheimer Bodies Not Reportable 10/15/20 05:59 Sickle Cells Not Reportable 10/15/20 05:59 Target Cells Not Reportable 10/15/20 05:59 Tear Drop Cells Few 10/15/20 05:59 Ovalocytes Few 10/15/20 05:59 Helmet Cells Not Reportable 10/15/20 05:59 [place] Bodies Not Reportable 10/15/20 05:59 [place] Rings Not Reportable 10/15/20 05:59 [place] Cells Not Reportable 10/15/20 05:59 Bite Cells Not Reportable 10/15/20 05:59 Crenated Cell Not Reportable 10/15/20 05:59 Elliptocytes Few 10/15/20 05:59 Acanthocytes (Spur) Not Reportable 10/15/20 05:59 Rouleaux Not Reportable 10/15/20 05:59 Hemoglobin C Crystals Not Reportable 10/15/20 05:59 Schistocytes Not Reportable 10/15/20 05:59 Malaria parasites Not Reportable 10/15/20 05:59 Lucas Bodies Not Reportable 10/15/20 05:59 Hem Pathologist Commnt No 10/15/20 05:59 PT 22.8 Sec. (12.2-14.9) H 10/15/20 05:59 INR 2.00 (0.87-1.13) H 10/15/20 05:59 D-Dimer 1061.03 ng/mlDDU (0-234) H 10/12/20 10:04 ABG pH 7.415 (7.320-7.450) 10/09/20 14:25 POC ABG pCO2 27.3 mmHg (32.0-48.0) L 10/09/20 14:25 POC ABG pO2 125.5 mmHg (83-108) H 10/09/20 14:25 POC ABG HCO3 17.1 10/09/20 14:25 ABG O2 Saturation 98.8 (0-100) 10/09/20 14:25 POC ABG Base Excess -6.7 10/09/20 14:25 ABG Hemoglobin 7.0 (12.0-17.5) L 10/09/20 14:25 ABG Oxyhemoglobin 97.2 (94-98) 10/09/20 14:25 ABG Methemoglobin 0.1 (0.0-1.5) 10/09/20 14:25 ABG Sodium 158.0 mmol/L (136.0-145.0) H 10/09/20 14:25 ABG Potassium 3.0 mmol/L (3.40-4.50) L 10/09/20 14:25 ABG Chloride 132.0 mmol/L (98-107) H 10/09/20 14:25 ABG Glucose 172 mg/dL (65-95) H 10/09/20 14:25 Carboxyhemoglobin 1.5 (0.5-1.5) 10/09/20 14:25 FiO2 % 26.0 10/09/20 14:25 Sodium 144 mmol/L (137-145) D 10/16/20 04:00 Potassium 3.8 mmol/L (3.6-5.0) 10/16/20 04:00 Chloride 114.6 mmol/L (98-107) H 10/16/20 04:00 Carbon Dioxide 23 mmol/L (22-30) 10/16/20 04:00 Anion Gap 10 mmol/L 10/16/20 04:00 BUN 28 mg/dL (9-20) H 10/16/20 04:00 Creatinine 1.0 mg/dL (0.8-1.3) 10/16/20 04:00 Estimated GFR > 60 ml/min 10/16/20 04:00 BUN/Creatinine Ratio 28 % 10/16/20 04:00 Glucose 121 mg/dL (75-100) H 10/16/20 04:00 POC Glucose 119 mg/dL (70-105) H 10/16/20 06:37 Lactic Acid 1.10 mmol/L (0.7-2.0) 10/09/20 19:30 Calcium 7.9 mg/dL (8.4-10.2) L 10/16/20 04:00 Ferritin 585.8 ng/mL (30.0-300.0) H 10/12/20 10:04 Total Bilirubin 0.60 mg/dL (0.1-1.2) 10/16/20 04:00 AST 19 units/L (5-40) 10/16/20 04:00 ALT 21 units/L (7-56) 10/16/20 04:00 Alkaline Phosphatase 72 units/L (35-129) 10/16/20 04:00 Lactate Dehydrogenase 364 units/L (91-180) H 10/12/20 10:04 Troponin T 0.087 ng/mL (0.00-0.029) H 10/07/20 16:38 C-Reactive Protein 0.30 mg/dL (0.00-1.30) 10/12/20 10:04 NT-Pro-B Natriuret Pep 2155 pg/mL (0-900) H 10/07/20 16:38 Total Protein 5.5 g/dL (6.3-8.2) L 10/16/20 04:00 Albumin 2.5 g/dL (3.9-5) L 10/16/20 04:00 Albumin/Globulin Ratio 0.8 % 10/16/20 04:00 Triglycerides 193 mg/dL (2-149) H 10/07/20 16:38 Cholesterol 136 mg/dL (50-199) 10/07/20 16:38 LDL Cholesterol Direct 82 mg/dL (50-130) 10/07/20 16:38 HDL Cholesterol 20 mg/dL (40-59) L 10/07/20 16:38 Cholesterol/HDL Ratio 6.80 % 10/07/20 16:38 Procalcitonin 0.10 ng/mL (<0.15) 10/08/20 15:33 Arterial Blood Glucose 172 mg/dL (65-95) H 10/09/20 14:25 Arterial Blood Ionized Calcium 4.2 mg/dL (4.6-5.3) L 10/09/20 14:25 Urine Color [place] (Yellow) 10/07/20 Unknown Urine Turbidity Turbid (Clear) 10/07/20 Unknown Urine pH 7.0 (5.0-7.0) 10/07/20 Unknown Ur Specific [place] 1.020 (1.003-1.030) 10/07/20 Unknown Urine Protein 100 mg/dl mg/dL (Negative) 10/07/20 Unknown Urine Glucose (UA) Neg mg/dL (Negative) 10/07/20 Unknown Urine Ketones Neg mg/dL (Negative) 10/07/20 Unknown Urine Blood Neg (Negative) 10/07/20 Unknown Urine Nitrite Neg (Negative) 10/07/20 Unknown Urine Bilirubin Sm (Negative) 10/07/20 Unknown Urine Ictotest Negative (Negative) 10/07/20 Unknown Urine Urobilinogen 4.0 mg/dL (<2.0) 10/07/20 Unknown Ur Leukocyte Esterase Lg (Negative) 10/07/20 Unknown Urine WBC (Auto) 111.0 /HPF (0.0-6.0) H 10/07/20 Unknown Urine RBC (Auto) 40.0 /HPF (0.0-6.0) 10/07/20 Unknown Urine Bacteria (Auto) 3+ /HPF (Negative) 10/07/20 Unknown Urine WBC Clumps 2+ /HPF 10/07/20 Unknown Urine Yeast (Budding) 3+ /HPF 10/07/20 Unknown Vancomycin Trough 62.0 ug/mL (5.0-20.0) H 10/12/20 16:15 Random Vancomycin 25.9 ug/mL (0-40.0) 10/15/20 05:59 Coronavirus (PCR) Positive (Negative) A 10/08/20 09:34 Blood Type B POSITIVE 10/10/20 12:00 Antibody Screen Negative 10/10/20 12:00 Crossmatch See Detail 10/10/20 12:00 Microbiology: Microbiology 10/10/20 13:46 Peripheral/Venous Blood Culture - Final NO GROWTH AFTER 5 DAYS 10/10/20 14:04 Peripheral/Venous Blood Culture - Final NO GROWTH AFTER 5 DAYS Iglesias/IV: Voiding Method Indwelling Catheter Active Medications - Current Medications Current Medications: Generic Name Dose Route Start Last Admin Trade Name Freq PRN Reason Stop Dose Admin Acetaminophen 650 mg 10/07/20 19:06 Acetaminophen 325 Mg Tab PO Q4H PRN Pain MILD(1-3)/Fever >100.5/RAM Albuterol 2.5 mg 10/07/20 19:06 Albuterol 2.5 Mg/3 Ml Nebu IH Q4H PRN Shortness Of Breath Lipase/Protease/Amylase 1 each 10/10/20 09:00 10/15/20 20:00 Lipase 10,500/Protease 25,000/Amylase 43,750 (Units) Dr Reddy FEEDTUBE 1 each PRN PRN Administration For Clogged Feeding Tube Ascorbic Acid 500 mg 10/08/20 22:00 10/15/20 23:44 Ascorbic Acid 500 Mg Tab PO 500 mg BID LISA Administration Atorvastatin Calcium 20 mg 10/11/20 22:00 10/15/20 23:44 Atorvastatin 20 Mg Tab PO 20 mg QHS LISA Administration Dexamethasone 6 mg 10/08/20 15:00 10/15/20 10:03 Dexamethasone 4 Mg/Ml Vial IV 10/17/20 10:01 6 mg DAILY LISA Administration Dextrose 50 ml 10/11/20 09:19 10/14/20 07:27 Dextrose 50% In Water (25gm) 50 Ml Syringe IV 10 ml Q30MIN PRN Administration Hypoglycemia Protocol Famotidine 20 mg 10/08/20 14:00 10/15/20 10:03 Famotidine 20 Mg Tab PO 20 mg QDAY LISA Administration Hydromorphone HCl 0.25 mg 10/07/20 19:06 Hydromorphone 1 Mg/1 Ml Inj IV Q4H PRN Pain, Moderate (4-6) Dextrose 1,000 mls @ 42 mls/hr 10/15/20 10:00 10/16/20 07:11 D5w IV 100 mls/hr DIRECT LISA Administration Insulin Glargine 5 units 10/11/20 22:00 10/15/20 23:50 Insulin Glargine 100 Units/Ml SUB-Q Not Given QHS COUNT INCLUDES THE [facility] Insulin Human Regular 0 units 10/11/20 12:00 10/16/20 00:45 Insulin Regular, Human 100 Units/1 Ml SUB-Q Not Given Q6H COUNT INCLUDES THE [facility] Protocol Ondansetron HCl 4 mg 10/07/20 19:06 Ondansetron 4 Mg/2 Ml Inj IV Q8H PRN Nausea And Vomiting Simple Syrup 15 ml 10/10/20 09:00 Simple Syrup 15 Ml FEEDTUBE PRN PRN Hypoglycemia Simple Syrup 30 ml 10/10/20 09:00 Simple Syrup 15 Ml FEEDTUBE PRN PRN Hypoglycemia Sodium Bicarbonate 325 mg 10/10/20 09:00 10/15/20 20:00 Sodium Bicarbonate 325 Mg Tab FEEDTUBE 325 mg PRN PRN Administration For Clogged Feeding Tube Sodium Chloride 10 ml 10/07/20 22:00 10/15/20 23:45 Sodium Chloride 0.9% 10 Ml Flush Syringe IV 10 ml BID LISA Administration Sodium Chloride 10 ml 10/07/20 19:06 Sodium Chloride 0.9% 10 Ml Flush Syringe IV PRN PRN LINE FLUSH Sucralfate 1 gm 10/11/20 10:00 10/15/20 23:44 Sucralfate 1 Gm/10 Ml Oral Liqd PO 1 gm BID LISA Administration Tamsulosin HCl 0.4 mg 10/11/20 10:00 10/15/20 10:02 Tamsulosin 0.4 Mg Cap PO 0.4 mg DAILY LISA Administration Zinc Sulfate 220 mg 10/08/20 22:00 10/15/20 23:44 Zinc Sulfate 220 Mg Cap PO 220 mg BID LISA Administration Nutrition/Malnutrition Assess - Dietary Evaluation Nutrition/Malnutrition Findings: Nutrition Notes Start: 10/09/20 09:29 Freq: Status: Active Protocol: Document 10/14/20 14:00 CW (Rec: 10/14/20 14:13 CW [id number]) Nutrition Notes Initial or Follow up Reassessment Current Diagnosis Acute Kidney Injury,Decubitus( Pressure Ulcer),Sepsis, Hypertension,Respiratory Failure,Stroke Other Pertinent Diagnosis COVID, DVT, UTI, GERD, dementia, toxic metabolic encephalopathy Current Diet Glucerna 1.2 at 70 ml/hr Labs/Tests Na 151 BUN 27 BG 119 Pertinent Medications D 5 1/2 ns AT 50 ml/hr Decadron Height 5 ft 7 in Weight 141.5 kg [place] Body Weight (kg) 67.27 BMI 48.8 Weight Status Morbidly Obese Subjective/Other Information RN reprots TF is now being tolerated. no reports of diarrhea. RN states now giving flush at 350 ml q4h for hypernatremia per order. Pt possibly to recieve PEG per chart. TF running at goal rate at this time. Percent of energy/protein needs met: 120%/85% Burn Absent Trauma Absent Difficulty In Swallowing Skin Integrity/Comment Multiple pressure ulcers Current % PO Negligible Minimum of two criteria No physical signs of malnutrition #2 Nutrition Diagnosis Increased nutrient needs ( specify in comment below) Diagnosis Progress(for reassessment Continues documentation) #1 Nutrition Diagnosis Inadequate oral intake Diagnosis Progress(for reassessment Continues documentation) Is patient on ventilator? No Is Patient Ambulatory and/or Out of Bed No REE-([facility]-confined to bed) 2588.988 Kcal/Kg value to use for calculation 13 Approximate Energy Requirements Using 1840 kcal/Kg Calculation Used for Recommendations Kcal/kg Additional Notes Protein: 131-157g (1.25-1.5 g/ kg AdjBW: 105kg) Fluid: 1 ml/kcal or per MD Nutrition Intervention Change Diet Order: Continue TF of Glucerna 1.2 Nutrition Support: Glucerna 1.2 at 70 ml/hr with a free water flush of 350 ml q4h for hypernatremia. Once hypernatremia resolves, resume free water flush of 110 ml q4h. Kcal 2,016 Protein (gm) 101 Fluid (mL) 1,352 Add Supplement/Snack (indicate name/kcal [place] BID /protein ) Provides kCal: 190 Provides Protein (gm) 5 Goal #1 TF tolerance Goal #2 Meet at least 75% of energy and protein needs via TF Anticipated Discharge Needs: Unable to determine at this time Follow-Up By: 10/18/20 Additional Comments F/U for TF tolerance and PEG placement
[2020-10-16] MEDS: dexAMETHasone 4 MG/ML VIAL IV SCH (10:10)
[2020-10-16] MEDS: ZINC SULFATE 220 MG CAP PO SCH ×2 (10:10→21:21)
[2020-10-16] MEDS: ASCORBIC ACID 500 MG TAB PO SCH ×2 (10:10→21:22)
[2020-10-16] MEDS: SUCRALFATE 1 GM/10 ML ORAL LIQD PO SCH ×2 (10:10→21:21)
[2020-10-16] MEDS: FAMOTIDINE 20 MG TAB PO SCH (10:10)
[2020-10-16] MEDS: TAMSULOSIN 0.4 MG CAP PO SCH (10:10)
--- NOTE | 2020-10-16 10:32 | Gastroenterology Progress Note ---
Assessment and Plan - Patient Problems (1) Neurogenic dysphagia Current Visit: Yes Status: Acute Plan to address problem: - I discussed a PEG tube with the patient's , who is going to discuss with her daughter. - The appears receptive to the idea, however, and will likely place on Sunday. - Continue current NG tube feeds and supportive care. - Continue to hold coumadin. Subjective Date of service: 10/16/20 Principal diagnosis: Sepsis Interval history: The patient is more alert today, and speaking a few words. He denies abdominal pain. No fevers this morning, and no emesis/diarrhea with NG feeds. Objective - Constitutional Vitals: Temp Pulse Resp BP Pulse Ox 97.7 F 69 20 122/74 99 10/16/20 05:16 10/15/20 22:50 10/16/20 05:16 10/16/20 05:16 10/15/20 22:50 General appearance: no acute distress - EENT Eyes: PERRL, EOM intact - Respiratory Respiratory effort: normal Respiratory: bilateral: CTA - Cardiovascular Rhythm: regular Heart Sounds: Present: S1 & S2 - Gastrointestinal General gastrointestinal: Present: soft, non-tender, non-distended - Neurologic Neurological: oriented to person - Labs CBC & Chem 7: 10/15/20 05:59 10/16/20 04:00 Labs: Laboratory Results - last 24 hr 10/15/20 10/15/20 10/15/20 06:08 11:20 17:26 Sodium Potassium Chloride Carbon Dioxide Anion Gap BUN Creatinine Estimated GFR BUN/Creatinine Ratio Glucose POC Glucose 111 H 118 H 160 H Calcium Total Bilirubin AST ALT Alkaline Phosphatase Total Protein Albumin Albumin/Globulin Ratio 10/15/20 10/16/20 10/16/20 22:49 04:00 06:37 Sodium 144 D Potassium 3.8 Chloride 114.6 H Carbon Dioxide 23 Anion Gap 10 BUN 28 H Creatinine 1.0 Estimated GFR > 60 BUN/Creatinine Ratio 28 Glucose 121 H POC Glucose 131 H 119 H Calcium 7.9 L Total Bilirubin 0.60 AST 19 ALT 21 Alkaline Phosphatase 72 Total Protein 5.5 L Albumin 2.5 L Albumin/Globulin Ratio 0.8
--- NOTE | 2020-10-16 10:49 | Progress Note ---
Assessment and Plan Severe sepsis with shock, presumably Urinary tract infection Acute kidney injury Acute toxic metabolic encephalopathy Obesity hypoventilation syndrome Morbid obesity History of deep venous thrombosis Anemia of chronic disease Gastroesophageal reflux disease History of vascular dementia Severe hypokalemia Leukocytosis Lactic acidosis at presentation Hypernatremia -CXR and KUB -images reviewed Bowel regimen -Continue to titrate supplemental oxygen to keep O2 sats 89-92%, BIPAP qhs -Continue with free water flushes and hypotonic solutions. Trend platelet counts,continue to hold Coumadin- possible PEG placement on Sun - continue broad spectrum ABs (de-escalate per ID recommendations) - accuchecks with glycemic control per SSI (While critically ill target blood glucose of 140-180 mg/dL; avoid hypoglycemia) - continue aspiration precautions, oral care q shit - bronchodilators with pulmonary hygiene per RT - avoid nephrotoxins, renally dose all medications - continue to avoid benzodiazepines, reduce the possibility of worsening delirium - continue to maintain sleep-wake cycle - continue with enteric nutritional support at goal rate as tolerated - VTE prophylaxis- Coumadin on hold for possible PEG on Sunday, SCDs - mobility per facility protocol, off loading for pressure ulcer prevention - Continue to monitor hemodynamics - continue other care per attending / other consultants Subjective Date of service: 10/16/20 Principal diagnosis: Sepsis Interval history: Patient is seen today for: Severe sepsis with shock; UTI; THOMPSON; OHS; Acute toxic metabolic encephalopathy; H/O DVT; Severe Hypernatremia; staph aureus bacteremia Seen and examined at bedside; 24hour events reviewed; discussed with nursing and respiratory care staff ; no adverse overnight events reported to me; resting in bed; Mental status changes persist, spontaneous eye opening. On supplemental oxygen at 4L via NC, BIPAP at the bedside No fevers, no vomiting. Remains on tube feeding via NGT and BIPAP at night Objective Vital Signs - 12hr 10/15/20 10/16/20 22:50 05:16 Temperature 98.1 F 97.7 F Pulse Rate 69 Respiratory 20 20 Rate Blood Pressure 131/66 122/74 O2 Sat by Pulse 99 Oximetry Constitutional: other (obese male with mildly increased respiratory effort at rest) Eyes: non-icteric ENT: oropharynx dry, other (NGT in nares, dry crusted oral mucosa) Neck: supple, no lymphadenopathy, no JVD, other (+ large neck circumference) Effort: mildly labored Ascultation: Bilateral: diminished breath sounds, rhonchi Percussion: Bilateral: not dull Cardiovascular: regular rate and rhythm, other (S1,S2) Gastrointestinal: normoactive bowel sounds, soft, non-tender, other (distended) Integumentary: rash Extremities: no cyanosis, pulses normal, no ischemia or petechiae, edema, other (Severe stasis dermatitis.) Neurologic: pupils equal and round, other (encephalopathic , not obeying commands) Psychiatric: other (unable to assess re: AMS) CBC and BMP: 10/16/20 10:56 10/16/20 04:00 ABG, PT/INR, D-dimer: ABG ABG pH 7.415 (7.320-7.450) 10/09/20 14:25 POC ABG pCO2 27.3 mmHg (32.0-48.0) L 10/09/20 14:25 POC ABG pO2 125.5 mmHg (83-108) H 10/09/20 14:25 POC ABG HCO3 17.1 10/09/20 14:25 ABG O2 Saturation 98.8 (0-100) 10/09/20 14:25 PT/INR, D-dimer PT 22.8 Sec. (12.2-14.9) H 10/15/20 05:59 INR 2.00 (0.87-1.13) H 10/15/20 05:59 D-Dimer 1061.03 ng/mlDDU (0-234) H 10/12/20 10:04 Abnormal lab findings: Abnormal Labs 10/07/20 10/07/20 10/07/20 16:38 16:38 16:38 WBC 14.1 H RBC 3.03 L Hgb 8.7 L Hct 28.7 L MCV 95 H MCHC 30 L RDW 27.1 H Plt Count Lymph % (Auto) [place] % (Auto) [place] # (Auto) Seg Neutrophils % Seg Neuts % (Manual) Lymphocytes % (Manual) Monocytes % (Manual) 9.0 H Nucleated RBC % Seg Neutrophils # Seg Neutrophils # Man 9.3 H Lymphocytes # (Manual) Monocytes # (Manual) 1.3 H PT INR D-Dimer POC ABG pCO2 POC ABG pO2 ABG Hemoglobin ABG Sodium ABG Potassium ABG Chloride ABG Glucose Sodium 158 H Potassium 3.4 L Chloride 122.7 H Carbon Dioxide BUN 30 H Creatinine 1.7 H Glucose 144 H POC Glucose Lactic Acid 2.50 H* Calcium 8.3 L Ferritin Total Bilirubin 1.40 H Alkaline Phosphatase Lactate Dehydrogenase Troponin T NT-Pro-B Natriuret Pep Total Protein Albumin 3.0 L Triglycerides HDL Cholesterol Arterial Blood Glucose Arterial Blood Ionized Calcium Urine WBC (Auto) Vancomycin Trough Coronavirus (PCR) Crossmatch 10/07/20 10/07/20 10/07/20 16:38 16:38 18:17 WBC RBC Hgb Hct MCV MCHC RDW Plt Count Lymph % (Auto) [place] % (Auto) [place] # (Auto) Seg Neutrophils % Seg Neuts % (Manual) Lymphocytes % (Manual) Monocytes % (Manual) Nucleated RBC % Seg Neutrophils # Seg Neutrophils # Man Lymphocytes # (Manual) Monocytes # (Manual) PT 32.7 H INR 3.17 H D-Dimer POC ABG pCO2 POC ABG pO2 ABG Hemoglobin ABG Sodium ABG Potassium ABG Chloride ABG Glucose Sodium Potassium Chloride Carbon Dioxide BUN Creatinine Glucose POC Glucose Lactic Acid Calcium Ferritin Total Bilirubin Alkaline Phosphatase Lactate Dehydrogenase Troponin T 0.087 H NT-Pro-B Natriuret Pep 2155 H Total Protein Albumin Triglycerides 193 H HDL Cholesterol 20 L Arterial Blood Glucose Arterial Blood Ionized Calcium Urine WBC (Auto) Vancomycin Trough Coronavirus (PCR) Crossmatch 10/07/20 10/08/20 10/08/20 Unknown 02:53 02:53 WBC 13.4 H RBC 2.79 L Hgb 8.1 L Hct 26.2 L MCV MCHC 31 L RDW 27.7 H Plt Count Lymph % (Auto) [place] % (Auto) [place] # (Auto) 0.9 H Seg Neutrophils % 70.6 H Seg Neuts % (Manual) Lymphocytes % (Manual) Monocytes % (Manual) Nucleated RBC % Seg Neutrophils # 9.4 H Seg Neutrophils # Man Lymphocytes # (Manual) Monocytes # (Manual) PT INR D-Dimer POC ABG pCO2 POC ABG pO2 ABG Hemoglobin ABG Sodium ABG Potassium ABG Chloride ABG Glucose Sodium 159 H Potassium 2.7 L* D Chloride 127.9 H Carbon Dioxide 20 L BUN 27 H Creatinine 1.5 H Glucose 156 H POC Glucose Lactic Acid Calcium 7.1 L Ferritin Total Bilirubin Alkaline Phosphatase Lactate Dehydrogenase Troponin T NT-Pro-B Natriuret Pep Total Protein Albumin Triglycerides HDL Cholesterol Arterial Blood Glucose Arterial Blood Ionized Calcium Urine WBC (Auto) 111.0 H Vancomycin Trough Coronavirus (PCR) Crossmatch 10/08/20 10/08/20 10/08/20 09:34 14:57 17:29 WBC RBC Hgb Hct MCV MCHC RDW Plt Count Lymph % (Auto) [place] % (Auto) [place] # (Auto) Seg Neutrophils % Seg Neuts % (Manual) Lymphocytes % (Manual) Monocytes % (Manual) Nucleated RBC % Seg Neutrophils # Seg Neutrophils # Man Lymphocytes # (Manual) Monocytes # (Manual) PT INR D-Dimer POC ABG pCO2 POC ABG pO2 ABG Hemoglobin 7.9 L ABG Sodium 162.9 H ABG Potassium 2.6 L ABG Chloride 131.0 H ABG Glucose 146 H Sodium Potassium Chloride Carbon Dioxide BUN Creatinine Glucose POC Glucose 128 H Lactic Acid Calcium Ferritin Total Bilirubin Alkaline Phosphatase Lactate Dehydrogenase Troponin T NT-Pro-B Natriuret Pep Total Protein Albumin Triglycerides HDL Cholesterol Arterial Blood Glucose 146 H Arterial Blood Ionized Calcium Urine WBC (Auto) Vancomycin Trough Coronavirus (PCR) Positive A Crossmatch 10/09/20 10/09/20 10/09/20 05:14 05:14 11:48 WBC 13.9 H RBC 2.52 L Hgb 7.3 L Hct 23.7 L MCV MCHC 31 L RDW 28.1 H Plt Count Lymph % (Auto) [place] % (Auto) [place] # (Auto) Seg Neutrophils % Seg Neuts % (Manual) 91.0 H Lymphocytes % (Manual) 5.0 L Monocytes % (Manual) Nucleated RBC % Seg Neutrophils # Seg Neutrophils # Man 12.6 H Lymphocytes # (Manual) 0.7 L Monocytes # (Manual) PT INR D-Dimer POC ABG pCO2 POC ABG pO2 ABG Hemoglobin ABG Sodium ABG Potassium ABG Chloride ABG Glucose Sodium 162 H* Potassium 3.3 L D Chloride 131.6 H Carbon Dioxide 18 L BUN 25 H Creatinine Glucose 164 H POC Glucose 126 H Lactic Acid Calcium 7.4 L Ferritin Total Bilirubin Alkaline Phosphatase Lactate Dehydrogenase Troponin T NT-Pro-B Natriuret Pep Total Protein Albumin Triglycerides HDL Cholesterol Arterial Blood Glucose Arterial Blood Ionized Calcium Urine WBC (Auto) Vancomycin Trough Coronavirus (PCR) Crossmatch 10/09/20 10/09/20 10/09/20 14:25 17:55 19:30 WBC RBC Hgb Hct MCV MCHC RDW Plt Count Lymph % (Auto) [place] % (Auto) [place] # (Auto) Seg Neutrophils % Seg Neuts % (Manual) Lymphocytes % (Manual) Monocytes % (Manual) Nucleated RBC % Seg Neutrophils # Seg Neutrophils # Man Lymphocytes # (Manual) Monocytes # (Manual) PT INR D-Dimer 922.08 H POC ABG pCO2 27.3 L POC ABG pO2 125.5 H ABG Hemoglobin 7.0 L ABG Sodium 158.0 H ABG Potassium 3.0 L ABG Chloride 132.0 H ABG Glucose 172 H Sodium Potassium Chloride Carbon Dioxide BUN Creatinine Glucose POC Glucose 179 H Lactic Acid Calcium Ferritin Total Bilirubin Alkaline Phosphatase Lactate Dehydrogenase Troponin T NT-Pro-B Natriuret Pep Total Protein Albumin Triglycerides HDL Cholesterol Arterial Blood Glucose 172 H Arterial Blood Ionized Calcium 4.2 L Urine WBC (Auto) Vancomycin Trough Coronavirus (PCR) Crossmatch 10/09/20 10/09/20 10/10/20 19:30 23:22 05:18 WBC RBC Hgb Hct MCV MCHC RDW Plt Count Lymph % (Auto) [place] % (Auto) [place] # (Auto) Seg Neutrophils % Seg Neuts % (Manual) Lymphocytes % (Manual) Monocytes % (Manual) Nucleated RBC % Seg Neutrophils # Seg Neutrophils # Man Lymphocytes # (Manual) Monocytes # (Manual) PT INR D-Dimer POC ABG pCO2 POC ABG pO2 ABG Hemoglobin ABG Sodium ABG Potassium ABG Chloride ABG Glucose Sodium Potassium Chloride Carbon Dioxide BUN Creatinine Glucose POC Glucose 192 H 168 H Lactic Acid Calcium Ferritin 579.8 H Total Bilirubin Alkaline Phosphatase Lactate Dehydrogenase Troponin T NT-Pro-B Natriuret Pep Total Protein Albumin Triglycerides HDL Cholesterol Arterial Blood Glucose Arterial Blood Ionized Calcium Urine WBC (Auto) Vancomycin Trough Coronavirus (PCR) Crossmatch 10/10/20 10/10/20 10/10/20 06:07 06:07 11:43 WBC 13.5 H RBC 2.39 L Hgb 6.8 L Hct 22.1 L MCV MCHC 31 L RDW 27.2 H Plt Count Lymph % (Auto) [place] % (Auto) [place] # (Auto) Seg Neutrophils % Seg Neuts % (Manual) 89.0 H Lymphocytes % (Manual) 10.0 L Monocytes % (Manual) Nucleated RBC % 2.0 H Seg Neutrophils # Seg Neutrophils # Man 12.0 H Lymphocytes # (Manual) Monocytes # (Manual) PT INR D-Dimer POC ABG pCO2 POC ABG pO2 ABG Hemoglobin ABG Sodium ABG Potassium ABG Chloride ABG Glucose Sodium 158 H Potassium 3.2 L Chloride 129.3 H Carbon Dioxide 19 L BUN 21 H Creatinine Glucose 200 H POC Glucose 155 H Lactic Acid Calcium 6.7 L Ferritin Total Bilirubin Alkaline Phosphatase Lactate Dehydrogenase Troponin T NT-Pro-B Natriuret Pep Total Protein Albumin Triglycerides HDL Cholesterol Arterial Blood Glucose Arterial Blood Ionized Calcium Urine WBC (Auto) Vancomycin Trough Coronavirus (PCR) Crossmatch 10/10/20 10/10/20 10/10/20 12:00 17:19 23:44 WBC RBC Hgb Hct MCV MCHC RDW Plt Count Lymph % (Auto) [place] % (Auto) [place] # (Auto) Seg Neutrophils % Seg Neuts % (Manual) Lymphocytes % (Manual) Monocytes % (Manual) Nucleated RBC % Seg Neutrophils # Seg Neutrophils # Man Lymphocytes # (Manual) Monocytes # (Manual) PT INR D-Dimer POC ABG pCO2 POC ABG pO2 ABG Hemoglobin ABG Sodium ABG Potassium ABG Chloride ABG Glucose Sodium Potassium Chloride Carbon Dioxide BUN Creatinine Glucose POC Glucose 185 H 219 H Lactic Acid Calcium Ferritin Total Bilirubin Alkaline Phosphatase Lactate Dehydrogenase Troponin T NT-Pro-B Natriuret Pep Total Protein Albumin Triglycerides HDL Cholesterol Arterial Blood Glucose Arterial Blood Ionized Calcium Urine WBC (Auto) Vancomycin Trough Coronavirus (PCR) Crossmatch See Detail 10/11/20 10/11/20 10/11/20 04:00 04:00 05:11 WBC 11.5 H RBC 3.37 L Hgb 9.6 L Hct 30.0 L D MCV MCHC RDW 23.9 H Plt Count Lymph % (Auto) [place] % (Auto) [place] # (Auto) Seg Neutrophils % 81.5 H Seg Neuts % (Manual) Lymphocytes % (Manual) Monocytes % (Manual) Nucleated RBC % Seg Neutrophils # 9.4 H Seg Neutrophils # Man Lymphocytes # (Manual) Monocytes # (Manual) PT INR D-Dimer POC ABG pCO2 POC ABG pO2 ABG Hemoglobin ABG Sodium ABG Potassium ABG Chloride ABG Glucose Sodium 151 H Potassium 3.0 L Chloride 122.8 H Carbon Dioxide 19 L BUN 23 H Creatinine Glucose 238 H POC Glucose 191 H Lactic Acid Calcium 7.0 L Ferritin Total Bilirubin Alkaline Phosphatase Lactate Dehydrogenase Troponin T NT-Pro-B Natriuret Pep Total Protein Albumin Triglycerides HDL Cholesterol Arterial Blood Glucose Arterial Blood Ionized Calcium Urine WBC (Auto) Vancomycin Trough Coronavirus (PCR) Crossmatch 10/11/20 10/11/20 10/11/20 11:01 12:10 12:24 WBC RBC Hgb Hct MCV MCHC RDW Plt Count Lymph % (Auto) [place] % (Auto) [place] # (Auto) Seg Neutrophils % Seg Neuts % (Manual) Lymphocytes % (Manual) Monocytes % (Manual) Nucleated RBC % Seg Neutrophils # Seg Neutrophils # Man Lymphocytes # (Manual) Monocytes # (Manual) PT INR D-Dimer POC ABG pCO2 POC ABG pO2 ABG Hemoglobin ABG Sodium ABG Potassium ABG Chloride ABG Glucose Sodium Potassium Chloride Carbon Dioxide BUN Creatinine Glucose POC Glucose 187 H 199 H Lactic Acid Calcium Ferritin Total Bilirubin Alkaline Phosphatase Lactate Dehydrogenase Troponin T NT-Pro-B Natriuret Pep Total Protein Albumin Triglycerides HDL Cholesterol Arterial Blood Glucose Arterial Blood Ionized Calcium Urine WBC (Auto) Vancomycin Trough 46.1 H Coronavirus (PCR) Crossmatch 10/11/20 10/11/20 10/11/20 12:58 18:47 23:15 WBC RBC Hgb Hct MCV MCHC RDW Plt Count Lymph % (Auto) [place] % (Auto) [place] # (Auto) Seg Neutrophils % Seg Neuts % (Manual) Lymphocytes % (Manual) Monocytes % (Manual) Nucleated RBC % Seg Neutrophils # Seg Neutrophils # Man Lymphocytes # (Manual) Monocytes # (Manual) PT 43.8 H INR 4.56 H D-Dimer POC ABG pCO2 POC ABG pO2 ABG Hemoglobin ABG Sodium ABG Potassium ABG Chloride ABG Glucose Sodium Potassium Chloride Carbon Dioxide BUN Creatinine Glucose POC Glucose 170 H 136 H Lactic Acid Calcium Ferritin Total Bilirubin Alkaline Phosphatase Lactate Dehydrogenase Troponin T NT-Pro-B Natriuret Pep Total Protein Albumin Triglycerides HDL Cholesterol Arterial Blood Glucose Arterial Blood Ionized Calcium Urine WBC (Auto) Vancomycin Trough Coronavirus (PCR) Crossmatch 10/12/20 10/12/20 10/12/20 06:11 07:24 07:24 WBC RBC 3.12 L Hgb 9.0 L Hct 27.4 L MCV MCHC RDW 24.9 H Plt Count Lymph % (Auto) [place] % (Auto) [place] # (Auto) Seg Neutrophils % Seg Neuts % (Manual) Lymphocytes % (Manual) Monocytes % (Manual) Nucleated RBC % Seg Neutrophils # Seg Neutrophils # Man Lymphocytes # (Manual) Monocytes # (Manual) PT INR D-Dimer POC ABG pCO2 POC ABG pO2 ABG Hemoglobin ABG Sodium ABG Potassium ABG Chloride ABG Glucose Sodium 152 H Potassium 3.3 L Chloride 125.2 H Carbon Dioxide 21 L BUN 26 H Creatinine Glucose 113 H POC Glucose 107 H Lactic Acid Calcium 6.9 L Ferritin Total Bilirubin Alkaline Phosphatase Lactate Dehydrogenase Troponin T NT-Pro-B Natriuret Pep Total Protein Albumin Triglycerides HDL Cholesterol Arterial Blood Glucose Arterial Blood Ionized Calcium Urine WBC (Auto) Vancomycin Trough Coronavirus (PCR) Crossmatch 10/12/20 10/12/20 10/12/20 07:24 10:04 10:04 WBC RBC Hgb Hct MCV MCHC RDW Plt Count Lymph % (Auto) [place] % (Auto) [place] # (Auto) Seg Neutrophils % Seg Neuts % (Manual) Lymphocytes % (Manual) Monocytes % (Manual) Nucleated RBC % Seg Neutrophils # Seg Neutrophils # Man Lymphocytes # (Manual) Monocytes # (Manual) PT 34.6 H INR 3.40 H D-Dimer 1061.03 H POC ABG pCO2 POC ABG pO2 ABG Hemoglobin ABG Sodium ABG Potassium ABG Chloride ABG Glucose Sodium Potassium Chloride Carbon Dioxide BUN Creatinine Glucose POC Glucose Lactic Acid Calcium Ferritin 585.8 H Total Bilirubin Alkaline Phosphatase Lactate Dehydrogenase Troponin T NT-Pro-B Natriuret Pep Total Protein Albumin Triglycerides HDL Cholesterol Arterial Blood Glucose Arterial Blood Ionized Calcium Urine WBC (Auto) Vancomycin Trough Coronavirus (PCR) Crossmatch 10/12/20 10/12/20 10/12/20 10:04 16:15 17:17 WBC RBC Hgb Hct MCV MCHC RDW Plt Count Lymph % (Auto) [place] % (Auto) [place] # (Auto) Seg Neutrophils % Seg Neuts % (Manual) Lymphocytes % (Manual) Monocytes % (Manual) Nucleated RBC % Seg Neutrophils # Seg Neutrophils # Man Lymphocytes # (Manual) Monocytes # (Manual) PT INR D-Dimer POC ABG pCO2 POC ABG pO2 ABG Hemoglobin ABG Sodium ABG Potassium ABG Chloride ABG Glucose Sodium Potassium Chloride Carbon Dioxide BUN Creatinine Glucose POC Glucose 176 H Lactic Acid Calcium Ferritin Total Bilirubin Alkaline Phosphatase Lactate Dehydrogenase 364 H Troponin T NT-Pro-B Natriuret Pep Total Protein Albumin Triglycerides HDL Cholesterol Arterial Blood Glucose Arterial Blood Ionized Calcium Urine WBC (Auto) Vancomycin Trough 62.0 H Coronavirus (PCR) Crossmatch 10/13/20 10/13/20 10/13/20 00:12 04:59 04:59 WBC 11.3 H RBC 3.22 L Hgb 9.2 L Hct 28.6 L MCV MCHC RDW 24.1 H Plt Count 135 L Lymph % (Auto) 11.4 L [place] % (Auto) 8.4 H [place] # (Auto) 0.9 H Seg Neutrophils % 80.0 H Seg Neuts % (Manual) Lymphocytes % (Manual) Monocytes % (Manual) Nucleated RBC % Seg Neutrophils # 9.0 H Seg Neutrophils # Man Lymphocytes # (Manual) Monocytes # (Manual) PT INR D-Dimer POC ABG pCO2 POC ABG pO2 ABG Hemoglobin ABG Sodium ABG Potassium ABG Chloride ABG Glucose Sodium 149 H Potassium Chloride 124.6 H Carbon Dioxide 17 L BUN 27 H Creatinine Glucose 129 H POC Glucose 141 H Lactic Acid Calcium 7.2 L Ferritin Total Bilirubin Alkaline Phosphatase Lactate Dehydrogenase Troponin T NT-Pro-B Natriuret Pep Total Protein 6.0 L Albumin 2.7 L Triglycerides HDL Cholesterol Arterial Blood Glucose Arterial Blood Ionized Calcium Urine WBC (Auto) Vancomycin Trough Coronavirus (PCR) Crossmatch 10/13/20 10/13/20 10/13/20 05:03 11:15 17:16 WBC RBC Hgb Hct MCV MCHC RDW Plt Count Lymph % (Auto) [place] % (Auto) [place] # (Auto) Seg Neutrophils % Seg Neuts % (Manual) Lymphocytes % (Manual) Monocytes % (Manual) Nucleated RBC % Seg Neutrophils # Seg Neutrophils # Man Lymphocytes # (Manual) Monocytes # (Manual) PT INR D-Dimer POC ABG pCO2 POC ABG pO2 ABG Hemoglobin ABG Sodium ABG Potassium ABG Chloride ABG Glucose Sodium Potassium Chloride Carbon Dioxide BUN Creatinine Glucose POC Glucose 121 H 119 H 164 H Lactic Acid Calcium Ferritin Total Bilirubin Alkaline Phosphatase Lactate Dehydrogenase Troponin T NT-Pro-B Natriuret Pep Total Protein Albumin Triglycerides HDL Cholesterol Arterial Blood Glucose Arterial Blood Ionized Calcium Urine WBC (Auto) Vancomycin Trough Coronavirus (PCR) Crossmatch 10/13/20 10/14/20 10/14/20 22:51 09:16 09:16 WBC 17.0 H RBC 3.62 L Hgb 10.2 L Hct 32.2 L MCV MCHC RDW 24.3 H Plt Count 138 L Lymph % (Auto) [place] % (Auto) 10.6 H [place] # (Auto) 1.8 H Seg Neutrophils % Seg Neuts % (Manual) Lymphocytes % (Manual) Monocytes % (Manual) Nucleated RBC % Seg Neutrophils # 11.6 H Seg Neutrophils # Man Lymphocytes # (Manual) Monocytes # (Manual) PT INR D-Dimer POC ABG pCO2 POC ABG pO2 ABG Hemoglobin ABG Sodium ABG Potassium ABG Chloride ABG Glucose Sodium 151 H Potassium Chloride 122.7 H Carbon Dioxide 20 L BUN 27 H Creatinine Glucose 119 H POC Glucose 127 H Lactic Acid Calcium 7.9 L Ferritin Total Bilirubin Alkaline Phosphatase Lactate Dehydrogenase Troponin T NT-Pro-B Natriuret Pep Total Protein 5.9 L Albumin 2.6 L Triglycerides HDL Cholesterol Arterial Blood Glucose Arterial Blood Ionized Calcium Urine WBC (Auto) Vancomycin Trough Coronavirus (PCR) Crossmatch 10/14/20 10/14/20 10/14/20 11:19 11:19 16:49 WBC RBC Hgb Hct MCV MCHC RDW Plt Count Lymph % (Auto) [place] % (Auto) [place] # (Auto) Seg Neutrophils % Seg Neuts % (Manual) Lymphocytes % (Manual) Monocytes % (Manual) Nucleated RBC % Seg Neutrophils # Seg Neutrophils # Man Lymphocytes # (Manual) Monocytes # (Manual) PT 24.6 H INR 2.22 H D-Dimer POC ABG pCO2 POC ABG pO2 ABG Hemoglobin ABG Sodium ABG Potassium ABG Chloride ABG Glucose Sodium Potassium Chloride Carbon Dioxide BUN Creatinine Glucose POC Glucose 113 H 194 H Lactic Acid Calcium Ferritin Total Bilirubin Alkaline Phosphatase Lactate Dehydrogenase Troponin T NT-Pro-B Natriuret Pep Total Protein Albumin Triglycerides HDL Cholesterol Arterial Blood Glucose Arterial Blood Ionized Calcium Urine WBC (Auto) Vancomycin Trough Coronavirus (PCR) Crossmatch 10/14/20 10/15/20 10/15/20 22:36 05:59 05:59 WBC 12.0 H RBC 3.15 L Hgb 9.1 L Hct 28.0 L MCV MCHC RDW 24.1 H Plt Count 129 L Lymph % (Auto) [place] % (Auto) 13.2 H [place] # (Auto) 1.6 H Seg Neutrophils % 70.6 H Seg Neuts % (Manual) 82.0 H Lymphocytes % (Manual) 9.0 L Monocytes % (Manual) 8.0 H Nucleated RBC % 1.0 H Seg Neutrophils # 8.5 H Seg Neutrophils # Man 9.8 H Lymphocytes # (Manual) 1.1 L Monocytes # (Manual) 1.0 H PT INR D-Dimer POC ABG pCO2 POC ABG pO2 ABG Hemoglobin ABG Sodium ABG Potassium ABG Chloride ABG Glucose Sodium 152 H Potassium 3.5 L Chloride 123.7 H Carbon Dioxide BUN 28 H Creatinine Glucose 119 H POC Glucose 137 H Lactic Acid Calcium 8.0 L Ferritin Total Bilirubin Alkaline Phosphatase 19 L Lactate Dehydrogenase Troponin T NT-Pro-B Natriuret Pep Total Protein 5.5 L Albumin 2.6 L Triglycerides HDL Cholesterol Arterial Blood Glucose Arterial Blood Ionized Calcium Urine WBC (Auto) Vancomycin Trough Coronavirus (PCR) Crossmatch 10/15/20 10/15/20 10/15/20 05:59 06:08 11:20 WBC RBC Hgb Hct MCV MCHC RDW Plt Count Lymph % (Auto) [place] % (Auto) [place] # (Auto) Seg Neutrophils % Seg Neuts % (Manual) Lymphocytes % (Manual) Monocytes % (Manual) Nucleated RBC % Seg Neutrophils # Seg Neutrophils # Man Lymphocytes # (Manual) Monocytes # (Manual) PT 22.8 H INR 2.00 H D-Dimer POC ABG pCO2 POC ABG pO2 ABG Hemoglobin ABG Sodium ABG Potassium ABG Chloride ABG Glucose Sodium Potassium Chloride Carbon Dioxide BUN Creatinine Glucose POC Glucose 111 H 118 H Lactic Acid Calcium Ferritin Total Bilirubin Alkaline Phosphatase Lactate Dehydrogenase Troponin T NT-Pro-B Natriuret Pep Total Protein Albumin Triglycerides HDL Cholesterol Arterial Blood Glucose Arterial Blood Ionized Calcium Urine WBC (Auto) Vancomycin Trough Coronavirus (PCR) Crossmatch 10/15/20 10/15/20 10/16/20 17:26 22:49 04:00 WBC RBC Hgb Hct MCV MCHC RDW Plt Count Lymph % (Auto) [place] % (Auto) [place] # (Auto) Seg Neutrophils % Seg Neuts % (Manual) Lymphocytes % (Manual) Monocytes % (Manual) Nucleated RBC % Seg Neutrophils # Seg Neutrophils # Man Lymphocytes # (Manual) Monocytes # (Manual) PT INR D-Dimer POC ABG pCO2 POC ABG pO2 ABG Hemoglobin ABG Sodium ABG Potassium ABG Chloride ABG Glucose Sodium Potassium Chloride 114.6 H Carbon Dioxide BUN 28 H Creatinine Glucose 121 H POC Glucose 160 H 131 H Lactic Acid Calcium 7.9 L Ferritin Total Bilirubin Alkaline Phosphatase Lactate Dehydrogenase Troponin T NT-Pro-B Natriuret Pep Total Protein 5.5 L Albumin 2.5 L Triglycerides HDL Cholesterol Arterial Blood Glucose Arterial Blood Ionized Calcium Urine WBC (Auto) Vancomycin Trough Coronavirus (PCR) Crossmatch 10/16/20 06:37 WBC RBC Hgb Hct MCV MCHC RDW Plt Count Lymph % (Auto) [place] % (Auto) [place] # (Auto) Seg Neutrophils % Seg Neuts % (Manual) Lymphocytes % (Manual) Monocytes % (Manual) Nucleated RBC % Seg Neutrophils # Seg Neutrophils # Man Lymphocytes # (Manual) Monocytes # (Manual) PT INR D-Dimer POC ABG pCO2 POC ABG pO2 ABG Hemoglobin ABG Sodium ABG Potassium ABG Chloride ABG Glucose Sodium Potassium Chloride Carbon Dioxide BUN Creatinine Glucose POC Glucose 119 H Lactic Acid Calcium Ferritin Total Bilirubin Alkaline Phosphatase Lactate Dehydrogenase Troponin T NT-Pro-B Natriuret Pep Total Protein Albumin Triglycerides HDL Cholesterol Arterial Blood Glucose Arterial Blood Ionized Calcium Urine WBC (Auto) Vancomycin Trough Coronavirus (PCR) Crossmatch Allied health notes reviewed: nursing
[2020-10-16 11:28] LABS: Hematocrit 27.6 % (35.5-45.6); Hemoglobin 8.8 gm/dl (11.8-15.2); INR 1.68 (0.87-1.13); Mean Corpuscular Volume 92 fl (84-94); Red Blood Count 3.01 M/mm3 (3.65-5.03)
[2020-10-16 11:29] LABS: Basophils % (Auto) 0.2 % (0.0-1.8); Eosinophils # (Auto) 0.2 K/mm3 (0.0-0.4); Eosinophils % (Auto) 1.7 % (0.0-4.3); Lymphocytes # (Auto) 1.9 K/mm3 (1.2-5.4); Lymphocytes % (Auto) 15.2 % (13.4-35.0); Mean Corpuscular HGB Conc 32 % (32-34); Monocytes # (Auto) 1.7 K/mm3 (0.0-0.8); Monocytes % (Auto) 13.5 % (0.0-7.3); Platelet Count 113 K/mm3 (140-440); Red Cell Distribution Width 25.4 % (13.2-15.2)
[2020-10-16] MEDS: INSULIN GLARGINE 100 UNITS/ML SUB-Q SCH (23:55)
[2020-10-17] MEDS: DEXTROSE 5% IN WATER 1,000 ML IV SCH (06:11)
[2020-10-17] MEDS: INSULIN REGULAR, HUMAN 100 UNITS/1 ML SUB-Q SCH ×4 (06:58→19:24)
[2020-10-17] MEDS: dexAMETHasone 4 MG/ML VIAL IV SCH (09:13)
[2020-10-17] MEDS: FAMOTIDINE 20 MG TAB PO SCH (09:13)
[2020-10-17] MEDS: TAMSULOSIN 0.4 MG CAP PO SCH (09:13)
[2020-10-17] MEDS: SUCRALFATE 1 GM/10 ML ORAL LIQD PO SCH (09:13)
[2020-10-17] MEDS: ASCORBIC ACID 500 MG TAB PO SCH ×2 (09:13→21:53)
[2020-10-17] MEDS: ZINC SULFATE 220 MG CAP PO SCH ×2 (09:14→21:53)
--- NOTE | 2020-10-17 09:26 | Progress Note ---
Assessment and Plan Assessment and plan: Sepsis -S/p vasopressor support, s/p antibiotics COVID-19 pneumonia -s/p Antibiotic therapy, -Completed dexamethasone -Isolation/droplet precautions Acute hypoxic respiratory failure -S/p BiPAP therapy PRN -Currently on nasal cannula -Supplemental oxygen as needed -Pulmonary hygiene MRSA bacteremia -On vancomycin. ID on board. Needs IV antibiotics at discharge. -Echocardiogram - negative for IE Obesity hypoventilation syndrome -Supportive care -BiPAP at night Acute kidney injury. Etiology secondary to ATN -S/p IVF resuscitation -Trend BMP Hypernatremia - resolved -DC D5W -Trend sodium levels Acute metabolic encephalopathy Persists Now needs NG tube for feeding GI consulted for PEG placement. Plan for PEG placement on wednesday 10/18 Vascular dementia. -Supportive care UTI -s/p Antibiotic therapy Supratherapeutic INR -Hold home Coumadin, trend INR. Thrombocytopenia Trend platelets. Check HIT antibodies if continues to drop further DVT/GI prophylaxis: PPI, SCDs to bilateral lower extremities while in bed hold chemical anticoagulation in setting of supratherapeutic INR and thrombocytopenia Dispo: Placement History Interval history: This is 64-year-old male from overdose care home facility with oh at bedtime, cerebral sclerosis, chronic respiratory failure, CVA, anemia of chronic disease, GERD, HTN, DVT, vascular dementia who presented to the emergency department on 10/07 for increased confusion and weakness over the past 2 days with worsening symptoms over the past 1 day. Upon arrival to the emergency department patient was found to have urinary tract infection complicated by sepsis, metabolic acidosis, acute kidney injury and toxic metabolic encephalopathy. Patient was admitted to the hospital service to IMCU on the sepsis protocol. Infectious disease and CCM were consulted. 10/08: Continue IV antibiotics and IV fluid hydration. Consult ID for further evaluation. 10/09: Continue antibiotic per ID recommendations. Continue dexamethasone to complete 10 days. Continue to trend inflammatory markers. Sodium noted to be 162. We will start D5W at 75 cc an hour. Continue 250 cc free water every 4 hours. Follow-up BMP in a.m. Also, replete potassium. 10/10: Sodium improved to 158 today. Continue D5W IV fluids and free water every 4 hours.. Replete potassium. Hemoglobin 6.8. We will type and cross and transfuse 2 units PRBCs. Continue dexamethasone to complete 10 days. Continue to trend inflammatory markers. 10/11: We will obtain TTE to rule out vegetation as patient grew MRSA in his blood cultures, patient still has leukocytosis and worsening INR. Patient has hypokalemia today along with improving hypernatremia, hyperchloremia, metabolic acidosis, hypocalcemia and leukocytosis. 10/12. TTE pending. INR improved. His sodium is slowly trending down. His mental status is still impaired. 10/13. Sodium is better. Still lethargic. He is getting feeds via NGT. If mental status fails to improve, he will need PEG placement. 10/14. Awaiting a.m. labs. I believe patient will benefit from PEG placement and plan for discharge back to nursing facility. GI has been consulted for this. 10/15. GI plans to have PEG placement on Sunday. Patients mental status still not improved. Remains on tube feeding. Labs reviewed -platelet counts dropping. INR 2.0 today. Coumadin still on hold. Continue to hold anticoagulation as he has PEG placement planned on Sunday. Resume anticoagulation afterwards. Continue to monitor platelets at this time. Sodium level is 152 and is on hypotonic solution and free water flushes via the NG tube. Switch-D5 1/ NS to D5 water 10/16. Remains on D5W. Plan for PEG on Sunday. Vitals stable 10/17. Awaiting AM labs. Will dc D5W for now as labs not available. NPO after MN for PEG placement tomorrow as per GI. Discussed with patients spouse today. Hospitalist Physical - Physical exam Narrative exam: VITAL SIGNS: Reviewed. GENERAL: lethargic HEAD: No signs of head trauma. EYES: Pupils are equal. Extraocular motions intact. MOUTH: Oropharynx is normal. NECK: No adenopathy, no JVD. CHEST: Chest with diminished breath sounds bilaterally. No wheezes, rales, or rhonchi. CARDIAC: normal S1 and S2, without murmurs, gallops, or rubs. ABDOMEN: Soft, non tender and non distended. No rebound or guarding, and no masses palpated. Bowel Sounds normal. MUSCULOSKELETAL: No edema NEUROLOGIC EXAM: Lethargic SKIN: No obvious lesions - Constitutional Vitals: Temp Pulse Resp BP Pulse Ox 98.5 F 67 20 121/57 97 10/17/20 08:28 10/17/20 08:28 10/17/20 08:28 10/17/20 08:28 10/17/20 08:28 HEART Score - HEART Score Troponin: Troponin T 0.087 ng/mL (0.00-0.029) H 10/07/20 16:38 Results - Labs CBC & Chem 7: 10/16/20 10:56 10/16/20 04:00 Labs: Laboratory Last Values WBC 12.3 K/mm3 (4.5-11.0) H 10/16/20 10:56 RBC 3.01 M/mm3 (3.65-5.03) L 10/16/20 10:56 Hgb 8.8 gm/dl (11.8-15.2) L 10/16/20 10:56 Hct 27.6 % (35.5-45.6) L 10/16/20 10:56 MCV 92 fl (84-94) 10/16/20 10:56 MCH 29 pg (28-32) 10/16/20 10:56 MCHC 32 % (32-34) 10/16/20 10:56 RDW 25.4 % (13.2-15.2) H 10/16/20 10:56 Plt Count 113 K/mm3 (140-440) L 10/16/20 10:56 Lymph % (Auto) 15.2 % (13.4-35.0) 10/16/20 10:56 [place] % (Auto) 13.5 % (0.0-7.3) H 10/16/20 10:56 Eos % (Auto) 1.7 % (0.0-4.3) 10/16/20 10:56 Baso % (Auto) 0.2 % (0.0-1.8) 10/16/20 10:56 Lymph # (Auto) 1.9 K/mm3 (1.2-5.4) 10/16/20 10:56 [place] # (Auto) 1.7 K/mm3 (0.0-0.8) H 10/16/20 10:56 Eos # (Auto) 0.2 K/mm3 (0.0-0.4) 10/16/20 10:56 Baso # (Auto) 0.0 K/mm3 (0.0-0.1) 10/16/20 10:56 Add Manual Diff Complete 10/15/20 05:59 Total Counted 100 10/15/20 05:59 Seg Neutrophils % 69.4 % (40.0-70.0) 10/16/20 10:56 Seg Neuts % (Manual) 82.0 % (40.0-70.0) H 10/15/20 05:59 Lymphocytes % (Manual) 9.0 % (13.4-35.0) L 10/15/20 05:59 Monocytes % (Manual) 8.0 % (0.0-7.3) H 10/15/20 05:59 Eosinophils % (Manual) 2.0 % (0.0-4.3) 10/07/20 16:38 Metamyelocytes % 1.0 % 10/15/20 05:59 Nucleated RBC % 1.0 % (0.0-0.9) H 10/15/20 05:59 Seg Neutrophils # 8.5 K/mm3 (1.8-7.7) H 10/16/20 10:56 Seg Neutrophils # Man 9.8 K/mm3 (1.8-7.7) H 10/15/20 05:59 Band Neutrophils # 0.0 K/mm3 10/15/20 05:59 Lymphocytes # (Manual) 1.1 K/mm3 (1.2-5.4) L 10/15/20 05:59 Abs React Lymphs (Man) 0.0 K/mm3 10/15/20 05:59 Monocytes # (Manual) 1.0 K/mm3 (0.0-0.8) H 10/15/20 05:59 Eosinophils # (Manual) 0.0 K/mm3 (0.0-0.4) 10/15/20 05:59 Basophils # (Manual) 0.0 K/mm3 (0.0-0.1) 10/15/20 05:59 Metamyelocytes # 0.1 K/mm3 10/15/20 05:59 Myelocytes # 0.0 K/mm3 10/15/20 05:59 Promyelocytes # 0.0 K/mm3 10/15/20 05:59 Blast Cells # 0.0 K/mm3 10/15/20 05:59 WBC Morphology Not Reportable 10/15/20 05:59 Hypersegmented Neuts Not Reportable 10/15/20 05:59 Hyposegmented Neuts Not Reportable 10/15/20 05:59 Hypogranular Neuts Not Reportable 10/15/20 05:59 Smudge Cells Not Reportable 10/15/20 05:59 Toxic Granulation Not Reportable 10/15/20 05:59 Toxic Vacuolation Not Reportable 10/15/20 05:59 Dohle Bodies Not Reportable 10/15/20 05:59 Pelger-Huet Anomaly Not Reportable 10/15/20 05:59 Darryl Rods Not Reportable 10/15/20 05:59 Platelet Estimate Consistent w auto 10/15/20 05:59 Clumped Platelets Not Reportable 10/15/20 05:59 Plt Clumps, EDTA Not Reportable 10/15/20 05:59 Large Platelets Not Reportable 10/15/20 05:59 Giant Platelets Not Reportable 10/15/20 05:59 Platelet Satelliting Not Reportable 10/15/20 05:59 Plt Morphology Comment Not Reportable 10/15/20 05:59 RBC Morphology Not Reportable 10/15/20 05:59 Dimorphic RBCs Not Reportable 10/15/20 05:59 Polychromasia Not Reportable 10/15/20 05:59 Hypochromasia Not Reportable 10/15/20 05:59 Poikilocytosis 1+ 10/15/20 05:59 Anisocytosis 2+ 10/15/20 05:59 Microcytosis Not Reportable 10/15/20 05:59 Macrocytosis Not Reportable 10/15/20 05:59 Spherocytes Not Reportable 10/15/20 05:59 Pappenheimer Bodies Not Reportable 10/15/20 05:59 Sickle Cells Not Reportable 10/15/20 05:59 Target Cells Not Reportable 10/15/20 05:59 Tear Drop Cells Few 10/15/20 05:59 Ovalocytes Few 10/15/20 05:59 Helmet Cells Not Reportable 10/15/20 05:59 [place] Bodies Not Reportable 10/15/20 05:59 [place] Rings Not Reportable 10/15/20 05:59 Bentley Cells Not Reportable 10/15/20 05:59 Bite Cells Not Reportable 10/15/20 05:59 Crenated Cell Not Reportable 10/15/20 05:59 Elliptocytes Few 10/15/20 05:59 Acanthocytes (Spur) Not Reportable 10/15/20 05:59 Rouleaux Not Reportable 10/15/20 05:59 Hemoglobin C Crystals Not Reportable 10/15/20 05:59 Schistocytes Not Reportable 10/15/20 05:59 Malaria parasites Not Reportable 10/15/20 05:59 Lucas Bodies Not Reportable 10/15/20 05:59 Hem Pathologist Commnt No 10/15/20 05:59 PT 19.8 Sec. (12.2-14.9) H 10/16/20 10:56 INR 1.68 (0.87-1.13) H 10/16/20 10:56 D-Dimer 1061.03 ng/mlDDU (0-234) H 10/12/20 10:04 ABG pH 7.415 (7.320-7.450) 10/09/20 14:25 POC ABG pCO2 27.3 mmHg (32.0-48.0) L 10/09/20 14:25 POC ABG pO2 125.5 mmHg (83-108) H 10/09/20 14:25 POC ABG HCO3 17.1 10/09/20 14:25 ABG O2 Saturation 98.8 (0-100) 10/09/20 14:25 POC ABG Base Excess -6.7 10/09/20 14:25 ABG Hemoglobin 7.0 (12.0-17.5) L 10/09/20 14:25 ABG Oxyhemoglobin 97.2 (94-98) 10/09/20 14:25 ABG Methemoglobin 0.1 (0.0-1.5) 10/09/20 14:25 ABG Sodium 158.0 mmol/L (136.0-145.0) H 10/09/20 14:25 ABG Potassium 3.0 mmol/L (3.40-4.50) L 10/09/20 14:25 ABG Chloride 132.0 mmol/L (98-107) H 10/09/20 14:25 ABG Glucose 172 mg/dL (65-95) H 10/09/20 14:25 Carboxyhemoglobin 1.5 (0.5-1.5) 10/09/20 14:25 FiO2 % 26.0 10/09/20 14:25 Sodium 144 mmol/L (137-145) D 10/16/20 04:00 Potassium 3.8 mmol/L (3.6-5.0) 10/16/20 04:00 Chloride 114.6 mmol/L (98-107) H 10/16/20 04:00 Carbon Dioxide 23 mmol/L (22-30) 10/16/20 04:00 Anion Gap 10 mmol/L 10/16/20 04:00 BUN 28 mg/dL (9-20) H 10/16/20 04:00 Creatinine 1.0 mg/dL (0.8-1.3) 10/16/20 04:00 Estimated GFR > 60 ml/min 10/16/20 04:00 BUN/Creatinine Ratio 28 % 10/16/20 04:00 Glucose 121 mg/dL (75-100) H 10/16/20 04:00 POC Glucose 104 mg/dL (70-105) 10/17/20 06:33 Lactic Acid 1.10 mmol/L (0.7-2.0) 10/09/20 19:30 Calcium 7.9 mg/dL (8.4-10.2) L 10/16/20 04:00 Ferritin 585.8 ng/mL (30.0-300.0) H 10/12/20 10:04 Total Bilirubin 0.60 mg/dL (0.1-1.2) 10/16/20 04:00 AST 19 units/L (5-40) 10/16/20 04:00 ALT 21 units/L (7-56) 10/16/20 04:00 Alkaline Phosphatase 72 units/L (35-129) 10/16/20 04:00 Lactate Dehydrogenase 364 units/L (91-180) H 10/12/20 10:04 Troponin T 0.087 ng/mL (0.00-0.029) H 10/07/20 16:38 C-Reactive Protein 0.30 mg/dL (0.00-1.30) 10/12/20 10:04 NT-Pro-B Natriuret Pep 2155 pg/mL (0-900) H 10/07/20 16:38 Total Protein 5.5 g/dL (6.3-8.2) L 10/16/20 04:00 Albumin 2.5 g/dL (3.9-5) L 10/16/20 04:00 Albumin/Globulin Ratio 0.8 % 10/16/20 04:00 Triglycerides 193 mg/dL (2-149) H 10/07/20 16:38 Cholesterol 136 mg/dL (50-199) 10/07/20 16:38 LDL Cholesterol Direct 82 mg/dL (50-130) 10/07/20 16:38 HDL Cholesterol 20 mg/dL (40-59) L 10/07/20 16:38 Cholesterol/HDL Ratio 6.80 % 10/07/20 16:38 Procalcitonin 0.10 ng/mL (<0.15) 10/08/20 15:33 Arterial Blood Glucose 172 mg/dL (65-95) H 10/09/20 14:25 Arterial Blood Ionized Calcium 4.2 mg/dL (4.6-5.3) L 10/09/20 14:25 Urine Color Sonal (Yellow) 10/07/20 Unknown Urine Turbidity Turbid (Clear) 10/07/20 Unknown Urine pH 7.0 (5.0-7.0) 10/07/20 Unknown Ur Specific [place] 1.020 (1.003-1.030) 10/07/20 Unknown Urine Protein 100 mg/dl mg/dL (Negative) 10/07/20 Unknown Urine Glucose (UA) Neg mg/dL (Negative) 10/07/20 Unknown Urine Ketones Neg mg/dL (Negative) 10/07/20 Unknown Urine Blood Neg (Negative) 10/07/20 Unknown Urine Nitrite Neg (Negative) 10/07/20 Unknown Urine Bilirubin Sm (Negative) 10/07/20 Unknown Urine Ictotest Negative (Negative) 10/07/20 Unknown Urine Urobilinogen 4.0 mg/dL (<2.0) 10/07/20 Unknown Ur Leukocyte Esterase Lg (Negative) 10/07/20 Unknown Urine WBC (Auto) 111.0 /HPF (0.0-6.0) H 10/07/20 Unknown Urine RBC (Auto) 40.0 /HPF (0.0-6.0) 10/07/20 Unknown Urine Bacteria (Auto) 3+ /HPF (Negative) 10/07/20 Unknown Urine WBC Clumps 2+ /HPF 10/07/20 Unknown Urine Yeast (Budding) 3+ /HPF 10/07/20 Unknown Vancomycin Trough 62.0 ug/mL (5.0-20.0) H 10/12/20 16:15 Random Vancomycin 25.9 ug/mL (0-40.0) 10/15/20 05:59 Coronavirus (PCR) Positive (Negative) A 10/08/20 09:34 Blood Type B POSITIVE 10/10/20 12:00 Antibody Screen Negative 10/10/20 12:00 Crossmatch See Detail 10/10/20 12:00 Iglesias/IV: Voiding Method Indwelling Catheter Active Medications - Current Medications Current Medications: Generic Name Dose Route Start Last Admin Trade Name Freq PRN Reason Stop Dose Admin Acetaminophen 650 mg 10/07/20 19:06 Acetaminophen 325 Mg Tab PO Q4H PRN Pain MILD(1-3)/Fever >100.5/RAM Albuterol 2.5 mg 10/07/20 19:06 Albuterol 2.5 Mg/3 Ml Nebu IH Q4H PRN Shortness Of Breath Lipase/Protease/Amylase 1 each 10/10/20 09:00 10/15/20 20:00 Lipase 10,500/Protease 25,000/Amylase 43,750 (Units) Dr Reddy FEEDTUBE 1 each PRN PRN Administration For Clogged Feeding Tube Ascorbic Acid 500 mg 10/08/20 22:00 10/17/20 09:13 Ascorbic Acid 500 Mg Tab PO 500 mg BID LISA Administration Atorvastatin Calcium 20 mg 10/11/20 22:00 10/16/20 21:22 Atorvastatin 20 Mg Tab PO 20 mg QHS LISA Administration Dexamethasone 6 mg 10/08/20 15:00 10/17/20 09:13 Dexamethasone 4 Mg/Ml Vial IV 10/17/20 10:01 6 mg DAILY LISA Administration Dextrose 50 ml 10/11/20 09:19 10/14/20 07:27 Dextrose 50% In Water (25gm) 50 Ml Syringe IV 10 ml Q30MIN PRN Administration Hypoglycemia Protocol Famotidine 20 mg 10/08/20 14:00 10/17/20 09:13 Famotidine 20 Mg Tab PO 20 mg QDAY LISA Administration Hydromorphone HCl 0.25 mg 10/07/20 19:06 Hydromorphone 1 Mg/1 Ml Inj IV Q4H PRN Pain, Moderate (4-6) Dextrose 1,000 mls @ 42 mls/hr 10/15/20 10:00 10/17/20 06:11 D5w IV 100 mls/hr DIRECT LISA Administration Insulin Glargine 5 units 10/11/20 22:00 10/16/20 23:55 Insulin Glargine 100 Units/Ml SUB-Q Not Given QHS [facility] Insulin Human Regular 0 units 10/11/20 12:00 10/17/20 06:58 Insulin Regular, Human 100 Units/1 Ml SUB-Q Not Given Q6H [facility] Protocol Ondansetron HCl 4 mg 10/07/20 19:06 Ondansetron 4 Mg/2 Ml Inj IV Q8H PRN Nausea And Vomiting Simple Syrup 15 ml 10/10/20 09:00 Simple Syrup 15 Ml FEEDTUBE PRN PRN Hypoglycemia Simple Syrup 30 ml 10/10/20 09:00 Simple Syrup 15 Ml FEEDTUBE PRN PRN Hypoglycemia Sodium Bicarbonate 325 mg 10/10/20 09:00 10/15/20 20:00 Sodium Bicarbonate 325 Mg Tab FEEDTUBE 325 mg PRN PRN Administration For Clogged Feeding Tube Sodium Chloride 10 ml 10/07/20 22:00 10/17/20 09:14 Sodium Chloride 0.9% 10 Ml Flush Syringe IV Not Given BID LISA Sodium Chloride 10 ml 10/07/20 19:06 Sodium Chloride 0.9% 10 Ml Flush Syringe IV PRN PRN LINE FLUSH Sucralfate 1 gm 10/11/20 10:00 10/17/20 09:13 Sucralfate 1 Gm/10 Ml Oral Liqd PO 1 gm BID LISA Administration Tamsulosin HCl 0.4 mg 10/11/20 10:00 10/17/20 09:13 Tamsulosin 0.4 Mg Cap PO 0.4 mg DAILY LISA Administration Zinc Sulfate 220 mg 10/08/20 22:00 10/17/20 09:14 Zinc Sulfate 220 Mg Cap PO 220 mg BID LISA Administration Nutrition/Malnutrition Assess - Dietary Evaluation Nutrition/Malnutrition Findings: Nutrition Notes Start: 10/09/20 09:29 Freq: Status: Active Protocol: Document 10/14/20 14:00 CW (Rec: 10/14/20 14:13 CW [id number]) Nutrition Notes Initial or Follow up Reassessment Current Diagnosis Acute Kidney Injury,Decubitus( Pressure Ulcer),Sepsis, Hypertension,Respiratory Failure,Stroke Other Pertinent Diagnosis COVID, DVT, UTI, GERD, dementia, toxic metabolic encephalopathy Current Diet Glucerna 1.2 at 70 ml/hr Labs/Tests Na 151 BUN 27 BG 119 Pertinent Medications D 5 1/2 ns AT 50 ml/hr Decadron Height 5 ft 7 in Weight 141.5 kg [place] Body Weight (kg) 67.27 BMI 48.8 Weight Status Morbidly Obese Subjective/Other Information RN reprots TF is now being tolerated. no reports of diarrhea. RN states now giving flush at 350 ml q4h for hypernatremia per order. Pt possibly to recieve PEG per chart. TF running at goal rate at this time. Percent of energy/protein needs met: 120%/85% Burn Absent Trauma Absent Difficulty In Swallowing Skin Integrity/Comment Multiple pressure ulcers Current % PO Negligible Minimum of two criteria No physical signs of malnutrition #2 Nutrition Diagnosis Increased nutrient needs ( specify in comment below) Diagnosis Progress(for reassessment Continues documentation) #1 Nutrition Diagnosis Inadequate oral intake Diagnosis Progress(for reassessment Continues documentation) Is patient on ventilator? No Is Patient Ambulatory and/or Out of Bed No REE-([place]-confined to bed) 2588.988 Kcal/Kg value to use for calculation 13 Approximate Energy Requirements Using 1840 kcal/Kg Calculation Used for Recommendations Kcal/kg Additional Notes Protein: 131-157g (1.25-1.5 g/ kg AdjBW: 105kg) Fluid: 1 ml/kcal or per MD Nutrition Intervention Change Diet Order: Continue TF of Glucerna 1.2 Nutrition Support: Glucerna 1.2 at 70 ml/hr with a free water flush of 350 ml q4h for hypernatremia. Once hypernatremia resolves, resume free water flush of 110 ml q4h. Kcal 2,016 Protein (gm) 101 Fluid (mL) 1,352 Add Supplement/Snack (indicate name/kcal [place] BID /protein ) Provides kCal: 190 Provides Protein (gm) 5 Goal #1 TF tolerance Goal #2 Meet at least 75% of energy and protein needs via TF Anticipated Discharge Needs: Unable to determine at this time Follow-Up By: 10/18/20 Additional Comments F/U for TF tolerance and PEG placement
[2020-10-17] MEDS ORDERED: SODIUM CHLORIDE 0.9% IV SCH (12:00)
[2020-10-17] MEDS ORDERED: VANCOMYCIN IV SCH (12:00)
[2020-10-17] MEDS: VANCOMYCIN 2,000 MG in SODIUM CHLORIDE 0.9% 500 ML 500 ML IV SCH (12:29)
--- NOTE | 2020-10-17 13:36 | Progress Note ---
Assessment and Plan Severe sepsis with shock, presumably Urinary tract infection Acute kidney injury Acute toxic metabolic encephalopathy Obesity hypoventilation syndrome Morbid obesity History of deep venous thrombosis Anemia of chronic disease Gastroesophageal reflux disease History of vascular dementia Severe hypokalemia Leukocytosis Lactic acidosis at presentation Hypernatremia -NPO after midnight fro PEG placement tomorrow -Continue to titrate supplemental oxygen to keep O2 sats 89-92%, BIPAP qhs -Continue with hypotonic solutions. -Trend platelet counts,continue to hold Coumadin, PT/INR in am - continue broad spectrum ABs (de-escalate per ID recommendations) - accuchecks with glycemic control per SSI (While critically ill target blood glucose of 140-180 mg/dL; avoid hypoglycemia) - continue aspiration precautions, oral care q shit - bronchodilators with pulmonary hygiene per RT - avoid nephrotoxins, renally dose all medications - continue to avoid benzodiazepines, reduce the possibility of worsening delirium - continue to maintain sleep-wake cycle - continue with enteric nutritional support at goal rate as tolerated - VTE prophylaxis- Coumadin on hold for possible PEG on Sunday, SCDs - mobility per facility protocol, off loading for pressure ulcer prevention - Continue to monitor hemodynamics - continue other care per attending / other consultants Subjective Date of service: 10/17/20 Principal diagnosis: Sepsis Interval history: Patient is seen today for: Severe sepsis with shock; UTI; THOMPSON; OHS; Acute toxic metabolic encephalopathy; H/O DVT; Severe Hypernatremia; staph aureus bacteremia Seen and examined at bedside; 24hour events reviewed; discussed with nursing and respiratory care staff ; no adverse overnight events reported to me; resting in bed; Mental status changes persist, spontaneous eye opening. On supplemental oxygen at 3L via NC, BIPAP at the bedside No fevers, no vomiting. Remains on tube feeding via NGT. For PEG placement tomorrow Objective Vital Signs - 12hr 10/17/20 10/17/20 08:28 10:00 Temperature 98.5 F Pulse Rate 67 Respiratory 20 Rate Blood Pressure 121/57 [Right] O2 Sat by Pulse 97 100 Oximetry Constitutional: other (obese male with mildly increased respiratory effort at rest) Eyes: non-icteric ENT: oropharynx dry, other (NGT in nares, dry crusted oral mucosa) Neck: supple, no lymphadenopathy, no JVD, other (+ large neck circumference) Effort: mildly labored Ascultation: Bilateral: diminished breath sounds, rhonchi Percussion: Bilateral: not dull Cardiovascular: regular rate and rhythm, other (S1,S2) Gastrointestinal: normoactive bowel sounds, soft, non-tender, other (distended) Integumentary: rash Extremities: no cyanosis, pulses normal, no ischemia or petechiae, edema, other (Severe stasis dermatitis.) Neurologic: pupils equal and round, other (encephalopathic , not obeying commands) Psychiatric: other (unable to assess re: AMS) CBC and BMP: 10/16/20 10:56 10/16/20 04:00 ABG, PT/INR, D-dimer: ABG ABG pH 7.415 (7.320-7.450) 10/09/20 14:25 POC ABG pCO2 27.3 mmHg (32.0-48.0) L 10/09/20 14:25 POC ABG pO2 125.5 mmHg (83-108) H 10/09/20 14:25 POC ABG HCO3 17.1 10/09/20 14:25 ABG O2 Saturation 98.8 (0-100) 10/09/20 14:25 PT/INR, D-dimer PT 19.8 Sec. (12.2-14.9) H 10/16/20 10:56 INR 1.68 (0.87-1.13) H 10/16/20 10:56 D-Dimer 1061.03 ng/mlDDU (0-234) H 10/12/20 10:04 Abnormal lab findings: Abnormal Labs 10/07/20 10/07/20 10/07/20 16:38 16:38 16:38 WBC 14.1 H RBC 3.03 L Hgb 8.7 L Hct 28.7 L MCV 95 H MCHC 30 L RDW 27.1 H Plt Count Lymph % (Auto) [place] % (Auto) [place] # (Auto) Seg Neutrophils % Seg Neuts % (Manual) Lymphocytes % (Manual) Monocytes % (Manual) 9.0 H Nucleated RBC % Seg Neutrophils # Seg Neutrophils # Man 9.3 H Lymphocytes # (Manual) Monocytes # (Manual) 1.3 H PT INR D-Dimer POC ABG pCO2 POC ABG pO2 ABG Hemoglobin ABG Sodium ABG Potassium ABG Chloride ABG Glucose Sodium 158 H Potassium 3.4 L Chloride 122.7 H Carbon Dioxide BUN 30 H Creatinine 1.7 H Glucose 144 H POC Glucose Lactic Acid 2.50 H* Calcium 8.3 L Ferritin Total Bilirubin 1.40 H Alkaline Phosphatase Lactate Dehydrogenase Troponin T NT-Pro-B Natriuret Pep Total Protein Albumin 3.0 L Triglycerides HDL Cholesterol Arterial Blood Glucose Arterial Blood Ionized Calcium Urine WBC (Auto) Vancomycin Trough Coronavirus (PCR) Crossmatch 10/07/20 10/07/20 10/07/20 16:38 16:38 18:17 WBC RBC Hgb Hct MCV MCHC RDW Plt Count Lymph % (Auto) [place] % (Auto) [place] # (Auto) Seg Neutrophils % Seg Neuts % (Manual) Lymphocytes % (Manual) Monocytes % (Manual) Nucleated RBC % Seg Neutrophils # Seg Neutrophils # Man Lymphocytes # (Manual) Monocytes # (Manual) PT 32.7 H INR 3.17 H D-Dimer POC ABG pCO2 POC ABG pO2 ABG Hemoglobin ABG Sodium ABG Potassium ABG Chloride ABG Glucose Sodium Potassium Chloride Carbon Dioxide BUN Creatinine Glucose POC Glucose Lactic Acid Calcium Ferritin Total Bilirubin Alkaline Phosphatase Lactate Dehydrogenase Troponin T 0.087 H NT-Pro-B Natriuret Pep 2155 H Total Protein Albumin Triglycerides 193 H HDL Cholesterol 20 L Arterial Blood Glucose Arterial Blood Ionized Calcium Urine WBC (Auto) Vancomycin Trough Coronavirus (PCR) Crossmatch 10/07/20 10/08/20 10/08/20 Unknown 02:53 02:53 WBC 13.4 H RBC 2.79 L Hgb 8.1 L Hct 26.2 L MCV MCHC 31 L RDW 27.7 H Plt Count Lymph % (Auto) [place] % (Auto) [place] # (Auto) 0.9 H Seg Neutrophils % 70.6 H Seg Neuts % (Manual) Lymphocytes % (Manual) Monocytes % (Manual) Nucleated RBC % Seg Neutrophils # 9.4 H Seg Neutrophils # Man Lymphocytes # (Manual) Monocytes # (Manual) PT INR D-Dimer POC ABG pCO2 POC ABG pO2 ABG Hemoglobin ABG Sodium ABG Potassium ABG Chloride ABG Glucose Sodium 159 H Potassium 2.7 L* D Chloride 127.9 H Carbon Dioxide 20 L BUN 27 H Creatinine 1.5 H Glucose 156 H POC Glucose Lactic Acid Calcium 7.1 L Ferritin Total Bilirubin Alkaline Phosphatase Lactate Dehydrogenase Troponin T NT-Pro-B Natriuret Pep Total Protein Albumin Triglycerides HDL Cholesterol Arterial Blood Glucose Arterial Blood Ionized Calcium Urine WBC (Auto) 111.0 H Vancomycin Trough Coronavirus (PCR) Crossmatch 10/08/20 10/08/20 10/08/20 09:34 14:57 17:29 WBC RBC Hgb Hct MCV MCHC RDW Plt Count Lymph % (Auto) [place] % (Auto) [place] # (Auto) Seg Neutrophils % Seg Neuts % (Manual) Lymphocytes % (Manual) Monocytes % (Manual) Nucleated RBC % Seg Neutrophils # Seg Neutrophils # Man Lymphocytes # (Manual) Monocytes # (Manual) PT INR D-Dimer POC ABG pCO2 POC ABG pO2 ABG Hemoglobin 7.9 L ABG Sodium 162.9 H ABG Potassium 2.6 L ABG Chloride 131.0 H ABG Glucose 146 H Sodium Potassium Chloride Carbon Dioxide BUN Creatinine Glucose POC Glucose 128 H Lactic Acid Calcium Ferritin Total Bilirubin Alkaline Phosphatase Lactate Dehydrogenase Troponin T NT-Pro-B Natriuret Pep Total Protein Albumin Triglycerides HDL Cholesterol Arterial Blood Glucose 146 H Arterial Blood Ionized Calcium Urine WBC (Auto) Vancomycin Trough Coronavirus (PCR) Positive A Crossmatch 10/09/20 10/09/20 10/09/20 05:14 05:14 11:48 WBC 13.9 H RBC 2.52 L Hgb 7.3 L Hct 23.7 L MCV MCHC 31 L RDW 28.1 H Plt Count Lymph % (Auto) [place] % (Auto) [place] # (Auto) Seg Neutrophils % Seg Neuts % (Manual) 91.0 H Lymphocytes % (Manual) 5.0 L Monocytes % (Manual) Nucleated RBC % Seg Neutrophils # Seg Neutrophils # Man 12.6 H Lymphocytes # (Manual) 0.7 L Monocytes # (Manual) PT INR D-Dimer POC ABG pCO2 POC ABG pO2 ABG Hemoglobin ABG Sodium ABG Potassium ABG Chloride ABG Glucose Sodium 162 H* Potassium 3.3 L D Chloride 131.6 H Carbon Dioxide 18 L BUN 25 H Creatinine Glucose 164 H POC Glucose 126 H Lactic Acid Calcium 7.4 L Ferritin Total Bilirubin Alkaline Phosphatase Lactate Dehydrogenase Troponin T NT-Pro-B Natriuret Pep Total Protein Albumin Triglycerides HDL Cholesterol Arterial Blood Glucose Arterial Blood Ionized Calcium Urine WBC (Auto) Vancomycin Trough Coronavirus (PCR) Crossmatch 10/09/20 10/09/20 10/09/20 14:25 17:55 19:30 WBC RBC Hgb Hct MCV MCHC RDW Plt Count Lymph % (Auto) [place] % (Auto) [place] # (Auto) Seg Neutrophils % Seg Neuts % (Manual) Lymphocytes % (Manual) Monocytes % (Manual) Nucleated RBC % Seg Neutrophils # Seg Neutrophils # Man Lymphocytes # (Manual) Monocytes # (Manual) PT INR D-Dimer 922.08 H POC ABG pCO2 27.3 L POC ABG pO2 125.5 H ABG Hemoglobin 7.0 L ABG Sodium 158.0 H ABG Potassium 3.0 L ABG Chloride 132.0 H ABG Glucose 172 H Sodium Potassium Chloride Carbon Dioxide BUN Creatinine Glucose POC Glucose 179 H Lactic Acid Calcium Ferritin Total Bilirubin Alkaline Phosphatase Lactate Dehydrogenase Troponin T NT-Pro-B Natriuret Pep Total Protein Albumin Triglycerides HDL Cholesterol Arterial Blood Glucose 172 H Arterial Blood Ionized Calcium 4.2 L Urine WBC (Auto) Vancomycin Trough Coronavirus (PCR) Crossmatch 10/09/20 10/09/20 10/10/20 19:30 23:22 05:18 WBC RBC Hgb Hct MCV MCHC RDW Plt Count Lymph % (Auto) [place] % (Auto) [place] # (Auto) Seg Neutrophils % Seg Neuts % (Manual) Lymphocytes % (Manual) Monocytes % (Manual) Nucleated RBC % Seg Neutrophils # Seg Neutrophils # Man Lymphocytes # (Manual) Monocytes # (Manual) PT INR D-Dimer POC ABG pCO2 POC ABG pO2 ABG Hemoglobin ABG Sodium ABG Potassium ABG Chloride ABG Glucose Sodium Potassium Chloride Carbon Dioxide BUN Creatinine Glucose POC Glucose 192 H 168 H Lactic Acid Calcium Ferritin 579.8 H Total Bilirubin Alkaline Phosphatase Lactate Dehydrogenase Troponin T NT-Pro-B Natriuret Pep Total Protein Albumin Triglycerides HDL Cholesterol Arterial Blood Glucose Arterial Blood Ionized Calcium Urine WBC (Auto) Vancomycin Trough Coronavirus (PCR) Crossmatch 10/10/20 10/10/20 10/10/20 06:07 06:07 11:43 WBC 13.5 H RBC 2.39 L Hgb 6.8 L Hct 22.1 L MCV MCHC 31 L RDW 27.2 H Plt Count Lymph % (Auto) [place] % (Auto) [place] # (Auto) Seg Neutrophils % Seg Neuts % (Manual) 89.0 H Lymphocytes % (Manual) 10.0 L Monocytes % (Manual) Nucleated RBC % 2.0 H Seg Neutrophils # Seg Neutrophils # Man 12.0 H Lymphocytes # (Manual) Monocytes # (Manual) PT INR D-Dimer POC ABG pCO2 POC ABG pO2 ABG Hemoglobin ABG Sodium ABG Potassium ABG Chloride ABG Glucose Sodium 158 H Potassium 3.2 L Chloride 129.3 H Carbon Dioxide 19 L BUN 21 H Creatinine Glucose 200 H POC Glucose 155 H Lactic Acid Calcium 6.7 L Ferritin Total Bilirubin Alkaline Phosphatase Lactate Dehydrogenase Troponin T NT-Pro-B Natriuret Pep Total Protein Albumin Triglycerides HDL Cholesterol Arterial Blood Glucose Arterial Blood Ionized Calcium Urine WBC (Auto) Vancomycin Trough Coronavirus (PCR) Crossmatch 10/10/20 10/10/20 10/10/20 12:00 17:19 23:44 WBC RBC Hgb Hct MCV MCHC RDW Plt Count Lymph % (Auto) [place] % (Auto) [place] # (Auto) Seg Neutrophils % Seg Neuts % (Manual) Lymphocytes % (Manual) Monocytes % (Manual) Nucleated RBC % Seg Neutrophils # Seg Neutrophils # Man Lymphocytes # (Manual) Monocytes # (Manual) PT INR D-Dimer POC ABG pCO2 POC ABG pO2 ABG Hemoglobin ABG Sodium ABG Potassium ABG Chloride ABG Glucose Sodium Potassium Chloride Carbon Dioxide BUN Creatinine Glucose POC Glucose 185 H 219 H Lactic Acid Calcium Ferritin Total Bilirubin Alkaline Phosphatase Lactate Dehydrogenase Troponin T NT-Pro-B Natriuret Pep Total Protein Albumin Triglycerides HDL Cholesterol Arterial Blood Glucose Arterial Blood Ionized Calcium Urine WBC (Auto) Vancomycin Trough Coronavirus (PCR) Crossmatch See Detail 10/11/20 10/11/20 10/11/20 04:00 04:00 05:11 WBC 11.5 H RBC 3.37 L Hgb 9.6 L Hct 30.0 L D MCV MCHC RDW 23.9 H Plt Count Lymph % (Auto) [place] % (Auto) [place] # (Auto) Seg Neutrophils % 81.5 H Seg Neuts % (Manual) Lymphocytes % (Manual) Monocytes % (Manual) Nucleated RBC % Seg Neutrophils # 9.4 H Seg Neutrophils # Man Lymphocytes # (Manual) Monocytes # (Manual) PT INR D-Dimer POC ABG pCO2 POC ABG pO2 ABG Hemoglobin ABG Sodium ABG Potassium ABG Chloride ABG Glucose Sodium 151 H Potassium 3.0 L Chloride 122.8 H Carbon Dioxide 19 L BUN 23 H Creatinine Glucose 238 H POC Glucose 191 H Lactic Acid Calcium 7.0 L Ferritin Total Bilirubin Alkaline Phosphatase Lactate Dehydrogenase Troponin T NT-Pro-B Natriuret Pep Total Protein Albumin Triglycerides HDL Cholesterol Arterial Blood Glucose Arterial Blood Ionized Calcium Urine WBC (Auto) Vancomycin Trough Coronavirus (PCR) Crossmatch 10/11/20 10/11/20 10/11/20 11:01 12:10 12:24 WBC RBC Hgb Hct MCV MCHC RDW Plt Count Lymph % (Auto) [place] % (Auto) [place] # (Auto) Seg Neutrophils % Seg Neuts % (Manual) Lymphocytes % (Manual) Monocytes % (Manual) Nucleated RBC % Seg Neutrophils # Seg Neutrophils # Man Lymphocytes # (Manual) Monocytes # (Manual) PT INR D-Dimer POC ABG pCO2 POC ABG pO2 ABG Hemoglobin ABG Sodium ABG Potassium ABG Chloride ABG Glucose Sodium Potassium Chloride Carbon Dioxide BUN Creatinine Glucose POC Glucose 187 H 199 H Lactic Acid Calcium Ferritin Total Bilirubin Alkaline Phosphatase Lactate Dehydrogenase Troponin T NT-Pro-B Natriuret Pep Total Protein Albumin Triglycerides HDL Cholesterol Arterial Blood Glucose Arterial Blood Ionized Calcium Urine WBC (Auto) Vancomycin Trough 46.1 H Coronavirus (PCR) Crossmatch 10/11/20 10/11/20 10/11/20 12:58 18:47 23:15 WBC RBC Hgb Hct MCV MCHC RDW Plt Count Lymph % (Auto) [place] % (Auto) [place] # (Auto) Seg Neutrophils % Seg Neuts % (Manual) Lymphocytes % (Manual) Monocytes % (Manual) Nucleated RBC % Seg Neutrophils # Seg Neutrophils # Man Lymphocytes # (Manual) Monocytes # (Manual) PT 43.8 H INR 4.56 H D-Dimer POC ABG pCO2 POC ABG pO2 ABG Hemoglobin ABG Sodium ABG Potassium ABG Chloride ABG Glucose Sodium Potassium Chloride Carbon Dioxide BUN Creatinine Glucose POC Glucose 170 H 136 H Lactic Acid Calcium Ferritin Total Bilirubin Alkaline Phosphatase Lactate Dehydrogenase Troponin T NT-Pro-B Natriuret Pep Total Protein Albumin Triglycerides HDL Cholesterol Arterial Blood Glucose Arterial Blood Ionized Calcium Urine WBC (Auto) Vancomycin Trough Coronavirus (PCR) Crossmatch 10/12/20 10/12/20 10/12/20 06:11 07:24 07:24 WBC RBC 3.12 L Hgb 9.0 L Hct 27.4 L MCV MCHC RDW 24.9 H Plt Count Lymph % (Auto) [place] % (Auto) [place] # (Auto) Seg Neutrophils % Seg Neuts % (Manual) Lymphocytes % (Manual) Monocytes % (Manual) Nucleated RBC % Seg Neutrophils # Seg Neutrophils # Man Lymphocytes # (Manual) Monocytes # (Manual) PT INR D-Dimer POC ABG pCO2 POC ABG pO2 ABG Hemoglobin ABG Sodium ABG Potassium ABG Chloride ABG Glucose Sodium 152 H Potassium 3.3 L Chloride 125.2 H Carbon Dioxide 21 L BUN 26 H Creatinine Glucose 113 H POC Glucose 107 H Lactic Acid Calcium 6.9 L Ferritin Total Bilirubin Alkaline Phosphatase Lactate Dehydrogenase Troponin T NT-Pro-B Natriuret Pep Total Protein Albumin Triglycerides HDL Cholesterol Arterial Blood Glucose Arterial Blood Ionized Calcium Urine WBC (Auto) Vancomycin Trough Coronavirus (PCR) Crossmatch 10/12/20 10/12/20 10/12/20 07:24 10:04 10:04 WBC RBC Hgb Hct MCV MCHC RDW Plt Count Lymph % (Auto) [place] % (Auto) [place] # (Auto) Seg Neutrophils % Seg Neuts % (Manual) Lymphocytes % (Manual) Monocytes % (Manual) Nucleated RBC % Seg Neutrophils # Seg Neutrophils # Man Lymphocytes # (Manual) Monocytes # (Manual) PT 34.6 H INR 3.40 H D-Dimer 1061.03 H POC ABG pCO2 POC ABG pO2 ABG Hemoglobin ABG Sodium ABG Potassium ABG Chloride ABG Glucose Sodium Potassium Chloride Carbon Dioxide BUN Creatinine Glucose POC Glucose Lactic Acid Calcium Ferritin 585.8 H Total Bilirubin Alkaline Phosphatase Lactate Dehydrogenase Troponin T NT-Pro-B Natriuret Pep Total Protein Albumin Triglycerides HDL Cholesterol Arterial Blood Glucose Arterial Blood Ionized Calcium Urine WBC (Auto) Vancomycin Trough Coronavirus (PCR) Crossmatch 10/12/20 10/12/20 10/12/20 10:04 16:15 17:17 WBC RBC Hgb Hct MCV MCHC RDW Plt Count Lymph % (Auto) [place] % (Auto) [place] # (Auto) Seg Neutrophils % Seg Neuts % (Manual) Lymphocytes % (Manual) Monocytes % (Manual) Nucleated RBC % Seg Neutrophils # Seg Neutrophils # Man Lymphocytes # (Manual) Monocytes # (Manual) PT INR D-Dimer POC ABG pCO2 POC ABG pO2 ABG Hemoglobin ABG Sodium ABG Potassium ABG Chloride ABG Glucose Sodium Potassium Chloride Carbon Dioxide BUN Creatinine Glucose POC Glucose 176 H Lactic Acid Calcium Ferritin Total Bilirubin Alkaline Phosphatase Lactate Dehydrogenase 364 H Troponin T NT-Pro-B Natriuret Pep Total Protein Albumin Triglycerides HDL Cholesterol Arterial Blood Glucose Arterial Blood Ionized Calcium Urine WBC (Auto) Vancomycin Trough 62.0 H Coronavirus (PCR) Crossmatch 10/13/20 10/13/2010/13/21 00:12 04:59 04:59 WBC 11.3 H RBC 3.22 L Hgb 9.2 L Hct 28.6 L MCV MCHC RDW 24.1 H Plt Count 135 L Lymph % (Auto) 11.4 L [place] % (Auto) 8.4 H [place] # (Auto) 0.9 H Seg Neutrophils % 80.0 H Seg Neuts % (Manual) Lymphocytes % (Manual) Monocytes % (Manual) Nucleated RBC % Seg Neutrophils # 9.0 H Seg Neutrophils # Man Lymphocytes # (Manual) Monocytes # (Manual) PT INR D-Dimer POC ABG pCO2 POC ABG pO2 ABG Hemoglobin ABG Sodium ABG Potassium ABG Chloride ABG Glucose Sodium 149 H Potassium Chloride 124.6 H Carbon Dioxide 17 L BUN 27 H Creatinine Glucose 129 H POC Glucose 141 H Lactic Acid Calcium 7.2 L Ferritin Total Bilirubin Alkaline Phosphatase Lactate Dehydrogenase Troponin T NT-Pro-B Natriuret Pep Total Protein 6.0 L Albumin 2.7 L Triglycerides HDL Cholesterol Arterial Blood Glucose Arterial Blood Ionized Calcium Urine WBC (Auto) Vancomycin Trough Coronavirus (PCR) Crossmatch 10/13/20 10/13/20 10/13/20 05:03 11:15 17:16 WBC RBC Hgb Hct MCV MCHC RDW Plt Count Lymph % (Auto) [place] % (Auto) [place] # (Auto) Seg Neutrophils % Seg Neuts % (Manual) Lymphocytes % (Manual) Monocytes % (Manual) Nucleated RBC % Seg Neutrophils # Seg Neutrophils # Man Lymphocytes # (Manual) Monocytes # (Manual) PT INR D-Dimer POC ABG pCO2 POC ABG pO2 ABG Hemoglobin ABG Sodium ABG Potassium ABG Chloride ABG Glucose Sodium Potassium Chloride Carbon Dioxide BUN Creatinine Glucose POC Glucose 121 H 119 H 164 H Lactic Acid Calcium Ferritin Total Bilirubin Alkaline Phosphatase Lactate Dehydrogenase Troponin T NT-Pro-B Natriuret Pep Total Protein Albumin Triglycerides HDL Cholesterol Arterial Blood Glucose Arterial Blood Ionized Calcium Urine WBC (Auto) Vancomycin Trough Coronavirus (PCR) Crossmatch 10/13/20 10/14/20 10/14/20 22:51 09:16 09:16 WBC 17.0 H RBC 3.62 L Hgb 10.2 L Hct 32.2 L MCV MCHC RDW 24.3 H Plt Count 138 L Lymph % (Auto) [place] % (Auto) 10.6 H [place] # (Auto) 1.8 H Seg Neutrophils % Seg Neuts % (Manual) Lymphocytes % (Manual) Monocytes % (Manual) Nucleated RBC % Seg Neutrophils # 11.6 H Seg Neutrophils # Man Lymphocytes # (Manual) Monocytes # (Manual) PT INR D-Dimer POC ABG pCO2 POC ABG pO2 ABG Hemoglobin ABG Sodium ABG Potassium ABG Chloride ABG Glucose Sodium 151 H Potassium Chloride 122.7 H Carbon Dioxide 20 L BUN 27 H Creatinine Glucose 119 H POC Glucose 127 H Lactic Acid Calcium 7.9 L Ferritin Total Bilirubin Alkaline Phosphatase Lactate Dehydrogenase Troponin T NT-Pro-B Natriuret Pep Total Protein 5.9 L Albumin 2.6 L Triglycerides HDL Cholesterol Arterial Blood Glucose Arterial Blood Ionized Calcium Urine WBC (Auto) Vancomycin Trough Coronavirus (PCR) Crossmatch 10/14/20 10/14/20 10/14/20 11:19 11:19 16:49 WBC RBC Hgb Hct MCV MCHC RDW Plt Count Lymph % (Auto) [place] % (Auto) [place] # (Auto) Seg Neutrophils % Seg Neuts % (Manual) Lymphocytes % (Manual) Monocytes % (Manual) Nucleated RBC % Seg Neutrophils # Seg Neutrophils # Man Lymphocytes # (Manual) Monocytes # (Manual) PT 24.6 H INR 2.22 H D-Dimer POC ABG pCO2 POC ABG pO2 ABG Hemoglobin ABG Sodium ABG Potassium ABG Chloride ABG Glucose Sodium Potassium Chloride Carbon Dioxide BUN Creatinine Glucose POC Glucose 113 H 194 H Lactic Acid Calcium Ferritin Total Bilirubin Alkaline Phosphatase Lactate Dehydrogenase Troponin T NT-Pro-B Natriuret Pep Total Protein Albumin Triglycerides HDL Cholesterol Arterial Blood Glucose Arterial Blood Ionized Calcium Urine WBC (Auto) Vancomycin Trough Coronavirus (PCR) Crossmatch 10/14/20 10/15/20 10/15/20 22:36 05:59 05:59 WBC 12.0 H RBC 3.15 L Hgb 9.1 L Hct 28.0 L MCV MCHC RDW 24.1 H Plt Count 129 L Lymph % (Auto) [place] % (Auto) 13.2 H [place] # (Auto) 1.6 H Seg Neutrophils % 70.6 H Seg Neuts % (Manual) 82.0 H Lymphocytes % (Manual) 9.0 L Monocytes % (Manual) 8.0 H Nucleated RBC % 1.0 H Seg Neutrophils # 8.5 H Seg Neutrophils # Man 9.8 H Lymphocytes # (Manual) 1.1 L Monocytes # (Manual) 1.0 H PT INR D-Dimer POC ABG pCO2 POC ABG pO2 ABG Hemoglobin ABG Sodium ABG Potassium ABG Chloride ABG Glucose Sodium 152 H Potassium 3.5 L Chloride 123.7 H Carbon Dioxide BUN 28 H Creatinine Glucose 119 H POC Glucose 137 H Lactic Acid Calcium 8.0 L Ferritin Total Bilirubin Alkaline Phosphatase 19 L Lactate Dehydrogenase Troponin T NT-Pro-B Natriuret Pep Total Protein 5.5 L Albumin 2.6 L Triglycerides HDL Cholesterol Arterial Blood Glucose Arterial Blood Ionized Calcium Urine WBC (Auto) Vancomycin Trough Coronavirus (PCR) Crossmatch 10/15/20 10/15/20 10/15/20 05:59 06:08 11:20 WBC RBC Hgb Hct MCV MCHC RDW Plt Count Lymph % (Auto) [place] % (Auto) [place] # (Auto) Seg Neutrophils % Seg Neuts % (Manual) Lymphocytes % (Manual) Monocytes % (Manual) Nucleated RBC % Seg Neutrophils # Seg Neutrophils # Man Lymphocytes # (Manual) Monocytes # (Manual) PT 22.8 H INR 2.00 H D-Dimer POC ABG pCO2 POC ABG pO2 ABG Hemoglobin ABG Sodium ABG Potassium ABG Chloride ABG Glucose Sodium Potassium Chloride Carbon Dioxide BUN Creatinine Glucose POC Glucose 111 H 118 H Lactic Acid Calcium Ferritin Total Bilirubin Alkaline Phosphatase Lactate Dehydrogenase Troponin T NT-Pro-B Natriuret Pep Total Protein Albumin Triglycerides HDL Cholesterol Arterial Blood Glucose Arterial Blood Ionized Calcium Urine WBC (Auto) Vancomycin Trough Coronavirus (PCR) Crossmatch 10/15/20 10/15/20 10/16/20 17:26 22:49 04:00 WBC RBC Hgb Hct MCV MCHC RDW Plt Count Lymph % (Auto) [place] % (Auto) [place] # (Auto) Seg Neutrophils % Seg Neuts % (Manual) Lymphocytes % (Manual) Monocytes % (Manual) Nucleated RBC % Seg Neutrophils # Seg Neutrophils # Man Lymphocytes # (Manual) Monocytes # (Manual) PT INR D-Dimer POC ABG pCO2 POC ABG pO2 ABG Hemoglobin ABG Sodium ABG Potassium ABG Chloride ABG Glucose Sodium Potassium Chloride 114.6 H Carbon Dioxide BUN 28 H Creatinine Glucose 121 H POC Glucose 160 H 131 H Lactic Acid Calcium 7.9 L Ferritin Total Bilirubin Alkaline Phosphatase Lactate Dehydrogenase Troponin T NT-Pro-B Natriuret Pep Total Protein 5.5 L Albumin 2.5 L Triglycerides HDL Cholesterol Arterial Blood Glucose Arterial Blood Ionized Calcium Urine WBC (Auto) Vancomycin Trough Coronavirus (PCR) Crossmatch 10/16/20 10/16/20 10/16/20 06:37 10:56 10:56 WBC 12.3 H RBC 3.01 L Hgb 8.8 L Hct 27.6 L MCV MCHC RDW 25.4 H Plt Count 113 L Lymph % (Auto) [place] % (Auto) 13.5 H [place] # (Auto) 1.7 H Seg Neutrophils % Seg Neuts % (Manual) Lymphocytes % (Manual) Monocytes % (Manual) Nucleated RBC % Seg Neutrophils # 8.5 H Seg Neutrophils # Man Lymphocytes # (Manual) Monocytes # (Manual) PT 19.8 H INR 1.68 H D-Dimer POC ABG pCO2 POC ABG pO2 ABG Hemoglobin ABG Sodium ABG Potassium ABG Chloride ABG Glucose Sodium Potassium Chloride Carbon Dioxide BUN Creatinine Glucose POC Glucose 119 H Lactic Acid Calcium Ferritin Total Bilirubin Alkaline Phosphatase Lactate Dehydrogenase Troponin T NT-Pro-B Natriuret Pep Total Protein Albumin Triglycerides HDL Cholesterol Arterial Blood Glucose Arterial Blood Ionized Calcium Urine WBC (Auto) Vancomycin Trough Coronavirus (PCR) Crossmatch 10/16/20 10/16/20 10/16/20 11:07 16:05 21:52 WBC RBC Hgb Hct MCV MCHC RDW Plt Count Lymph % (Auto) [place] % (Auto) [place] # (Auto) Seg Neutrophils % Seg Neuts % (Manual) Lymphocytes % (Manual) Monocytes % (Manual) Nucleated RBC % Seg Neutrophils # Seg Neutrophils # Man Lymphocytes # (Manual) Monocytes # (Manual) PT INR D-Dimer POC ABG pCO2 POC ABG pO2 ABG Hemoglobin ABG Sodium ABG Potassium ABG Chloride ABG Glucose Sodium Potassium Chloride Carbon Dioxide BUN Creatinine Glucose POC Glucose 122 H 185 H 137 H Lactic Acid Calcium Ferritin Total Bilirubin Alkaline Phosphatase Lactate Dehydrogenase Troponin T NT-Pro-B Natriuret Pep Total Protein Albumin Triglycerides HDL Cholesterol Arterial Blood Glucose Arterial Blood Ionized Calcium Urine WBC (Auto) Vancomycin Trough Coronavirus (PCR) Crossmatch 10/17/20 10/17/20 00:41 12:15 WBC RBC Hgb Hct MCV MCHC RDW Plt Count Lymph % (Auto) [place] % (Auto) [place] # (Auto) Seg Neutrophils % Seg Neuts % (Manual) Lymphocytes % (Manual) Monocytes % (Manual) Nucleated RBC % Seg Neutrophils # Seg Neutrophils # Man Lymphocytes # (Manual) Monocytes # (Manual) PT INR D-Dimer POC ABG pCO2 POC ABG pO2 ABG Hemoglobin ABG Sodium ABG Potassium ABG Chloride ABG Glucose Sodium Potassium Chloride Carbon Dioxide BUN Creatinine Glucose POC Glucose 130 H 161 H Lactic Acid Calcium Ferritin Total Bilirubin Alkaline Phosphatase Lactate Dehydrogenase Troponin T NT-Pro-B Natriuret Pep Total Protein Albumin Triglycerides HDL Cholesterol Arterial Blood Glucose Arterial Blood Ionized Calcium Urine WBC (Auto) Vancomycin Trough Coronavirus (PCR) Crossmatch Allied health notes reviewed: nursing
--- NOTE | 2020-10-17 15:01 | Gastroenterology Progress Note ---
Assessment and Plan - Patient Problems (1) Neurogenic dysphagia Current Visit: Yes Status: Acute Plan to address problem: - I discussed a PEG tube with the patient's , who is going to discuss with her daughter. - I called the back Sunday but "VMbox was full." - Continue current NG tube feeds and supportive care. - Continue to hold coumadin. - Will tentatively schedule EGD/PEG for Sunday, pending approval from the , as he has failed ST evaluation, despite mild clinical improvement. Subjective Date of service: 10/17/20 Principal diagnosis: Neurogenic Dyphagia Interval history: The patient is arousable but not interactive. He follows no commands. No problems with tube feedings and no blood per rectum. Objective - Constitutional Vitals: Temp Pulse Resp BP Pulse Ox 98.0 F 67 18 125/67 99 10/17/20 12:17 10/17/20 12:17 10/17/20 12:17 10/17/20 12:17 10/17/20 12:17 General appearance: no acute distress - Respiratory Respiratory effort: normal Respiratory: bilateral: CTA - Cardiovascular Rhythm: regular Heart Sounds: Present: S1 & S2 - Gastrointestinal General gastrointestinal: Present: soft, non-tender, non-distended - Labs CBC & Chem 7: 10/16/20 10:56 10/16/20 04:00 Labs: Laboratory Results - last 24 hr 10/16/20 10/16/20 10/17/20 16:05 21:52 00:41 POC Glucose 185 H 137 H 130 H Random Vancomycin 10/17/20 10/17/20 10/17/20 06:33 08:49 12:15 POC Glucose 104 161 H Random Vancomycin 14.2
[2020-10-17 15:16] LABS: Hematocrit 27.8 % (35.5-45.6); Hemoglobin 8.9 gm/dl (11.8-15.2); Mean Corpuscular HGB Conc 32 % (32-34); Mean Corpuscular Volume 90 fl (84-94); Platelet Count 94 K/mm3 (140-440); Red Cell Distribution Width 26.4 % (13.2-15.2)
[2020-10-17 15:18] LABS: Alanine Aminotransferase 20 units/L (7-56); Albumin 2.7 g/dL (3.9-5); BUN/Creatinine Ratio 38; Blood Urea Nitrogen 30 mg/dL (9-20); Calcium 7.4 mg/dL (8.4-10.2); Hemolysis Index 68; INR 1.22 (0.87-1.13)
[2020-10-17 16:15] LABS: Anisocytosis 2+; Hypochromasia 1+; Total Cells Counted 100
[2020-10-17 16:16] LABS: Giant Platelets Rare
[2020-10-18] MEDS: INSULIN GLARGINE 100 UNITS/ML SUB-Q SCH (00:13)
[2020-10-18] MEDS: INSULIN REGULAR, HUMAN 100 UNITS/1 ML SUB-Q SCH ×5 (00:13→22:00)
[2020-10-18] MEDS ORDERED: WATER FOR IRRIG STERILE 250 ML BOTTLE IR ONE (08:11)
[2020-10-18] MEDS ORDERED: WATER FOR IRRIG STERILE 1,000 ML BOTTLE ONE (08:12)
--- NOTE | 2020-10-18 09:22 | Progress Note ---
Assessment and Plan Assessment and plan: Sepsis -S/p vasopressor support, s/p antibiotics COVID-19 pneumonia -s/p Antibiotic therapy, -Completed dexamethasone -Isolation/droplet precautions Acute hypoxic respiratory failure -S/p BiPAP therapy PRN -Currently on nasal cannula -Supplemental oxygen as needed -Pulmonary hygiene MRSA bacteremia -On vancomycin. ID on board. Needs IV antibiotics at discharge. -Echocardiogram - negative for IE Obesity hypoventilation syndrome -Supportive care -BiPAP at night Acute kidney injury. Etiology secondary to ATN -S/p IVF resuscitation -Trend BMP Hypernatremia - resolved -DC D5W -Trend sodium levels Acute metabolic encephalopathy Persists Now needs NG tube for feeding GI consulted for PEG placement. Plan for PEG placement on wednesday 10/18 Vascular dementia. -Supportive care UTI -s/p Antibiotic therapy Supratherapeutic INR -Hold home Coumadin, trend INR. Thrombocytopenia Trend platelets. Check HIT antibodies if continues to drop further DVT/GI prophylaxis: PPI, SCDs to bilateral lower extremities while in bed hold chemical anticoagulation in setting of supratherapeutic INR and thrombocytopenia Dispo: Placement History Interval history: This is 64-year-old male from overdose longterm facility with oh at bedtime, cerebral sclerosis, chronic respiratory failure, CVA, anemia of chronic disease, GERD, HTN, DVT, vascular dementia who presented to the emergency department on 10/07 for increased confusion and weakness over the past 2 days with worsening symptoms over the past 1 day. Upon arrival to the emergency department patient was found to have urinary tract infection complicated by sepsis, metabolic acidosis, acute kidney injury and toxic metabolic encephalopathy. Patient was admitted to the hospital service to IMCU on the sepsis protocol. Infectious disease and CCM were consulted. 10/08: Continue IV antibiotics and IV fluid hydration. Consult ID for further evaluation. 10/09: Continue antibiotic per ID recommendations. Continue dexamethasone to complete 10 days. Continue to trend inflammatory markers. Sodium noted to be 162. We will start D5W at 75 cc an hour. Continue 250 cc free water every 4 hours. Follow-up BMP in a.m. Also, replete potassium. 10/10: Sodium improved to 158 today. Continue D5W IV fluids and free water every 4 hours.. Replete potassium. Hemoglobin 6.8. We will type and cross and transfuse 2 units PRBCs. Continue dexamethasone to complete 10 days. Continue to trend inflammatory markers. 10/11: We will obtain TTE to rule out vegetation as patient grew MRSA in his blood cultures, patient still has leukocytosis and worsening INR. Patient has hypokalemia today along with improving hypernatremia, hyperchloremia, metabolic acidosis, hypocalcemia and leukocytosis. 10/12. TTE pending. INR improved. His sodium is slowly trending down. His mental status is still impaired. 10/13. Sodium is better. Still lethargic. He is getting feeds via NGT. If mental status fails to improve, he will need PEG placement. 10/14. Awaiting a.m. labs. I believe patient will benefit from PEG placement and plan for discharge back to nursing facility. GI has been consulted for this. 10/15. GI plans to have PEG placement on Sunday. Patients mental status still not improved. Remains on tube feeding. Labs reviewed -platelet counts dropping. INR 2.0 today. Coumadin still on hold. Continue to hold anticoagulation as he has PEG placement planned on Sunday. Resume anticoagulation afterwards. Continue to monitor platelets at this time. Sodium level is 152 and is on hypotonic solution and free water flushes via the NG tube. Switch-D5 1/2 NS to D5 water 10/16. Remains on D5W. Plan for PEG on Sunday. Vitals stable 10/17. Awaiting AM labs. Will dc D5W for now as labs not available. NPO after MN for PEG placement tomorrow as per GI. Discussed with patients spouse today. 10/18. Tentative plan for PEG placement today. No acute overnight events Hospitalist Physical - Physical exam Narrative exam: VITAL SIGNS: Reviewed. GENERAL: lethargic HEAD: No signs of head trauma. EYES: Pupils are equal. Extraocular motions intact. MOUTH: Oropharynx is normal. NECK: No adenopathy, no JVD. CHEST: Chest with diminished breath sounds bilaterally. No wheezes, rales, or rhonchi. CARDIAC: normal S1 and S2, without murmurs, gallops, or rubs. ABDOMEN: Soft, non tender and non distended. No rebound or guarding, and no masses palpated. Bowel Sounds normal. MUSCULOSKELETAL: No edema NEUROLOGIC EXAM: Lethargic SKIN: No obvious lesions - Constitutional Vitals: Temp Pulse Resp BP Pulse Ox 97.7 F 71 20 116/52 99 10/17/20 22:24 10/17/20 22:24 10/17/20 22:24 10/17/20 22:24 10/17/20 22:24 HEART Score - HEART Score Troponin: Troponin T 0.087 ng/mL (0.00-0.029) H 10/07/20 16:38 Results - Labs CBC & Chem 7: 10/17/20 14:39 10/17/20 14:39 Labs: Laboratory Last Values WBC 11.9 K/mm3 (4.5-11.0) H 10/17/20 14:39 RBC 3.10 M/mm3 (3.65-5.03) L 10/17/20 14:39 Hgb 8.9 gm/dl (11.8-15.2) L 10/17/20 14:39 Hct 27.8 % (35.5-45.6) L 10/17/20 14:39 MCV 90 fl (84-94) 10/17/20 14:39 MCH 29 pg (28-32) 10/17/20 14:39 MCHC 32 % (32-34) 10/17/20 14:39 RDW 26.4 % (13.2-15.2) H 10/17/20 14:39 Plt Count 94 K/mm3 (140-440) L 10/17/20 14:39 Lymph % (Auto) 15.2 % (13.4-35.0) 10/16/20 10:56 [place] % (Auto) 13.5 % (0.0-7.3) H 10/16/20 10:56 Eos % (Auto) 1.7 % (0.0-4.3) 10/16/20 10:56 Baso % (Auto) 0.2 % (0.0-1.8) 10/16/20 10:56 Lymph # (Auto) 1.9 K/mm3 (1.2-5.4) 10/16/20 10:56 [place] # (Auto) 1.7 K/mm3 (0.0-0.8) H 10/16/20 10:56 Eos # (Auto) 0.2 K/mm3 (0.0-0.4) 10/16/20 10:56 Baso # (Auto) 0.0 K/mm3 (0.0-0.1) 10/16/20 10:56 Add Manual Diff Complete 10/17/20 14:39 Total Counted 100 10/17/20 14:39 Seg Neutrophils % 69.4 % (40.0-70.0) 10/16/20 10:56 Seg Neuts % (Manual) 86.0 % (40.0-70.0) H 10/17/20 14:39 Lymphocytes % (Manual) 8.0 % (13.4-35.0) L 10/17/20 14:39 Monocytes % (Manual) 6.0 % (0.0-7.3) 10/17/20 14:39 Eosinophils % (Manual) 2.0 % (0.0-4.3) 10/07/20 16:38 Metamyelocytes % 1.0 % 10/15/20 05:59 Nucleated RBC % Not Reportable 10/17/20 14:39 Seg Neutrophils # 8.5 K/mm3 (1.8-7.7) H 10/16/20 10:56 Seg Neutrophils # Man 10.2 K/mm3 (1.8-7.7) H 10/17/20 14:39 Band Neutrophils # 0.0 K/mm3 10/17/20 14:39 Lymphocytes # (Manual) 1.0 K/mm3 (1.2-5.4) L 10/17/20 14:39 Abs React Lymphs (Man) 0.0 K/mm3 10/17/20 14:39 Monocytes # (Manual) 0.7 K/mm3 (0.0-0.8) 10/17/20 14:39 Eosinophils # (Manual) 0.0 K/mm3 (0.0-0.4) 10/17/20 14:39 Basophils # (Manual) 0.0 K/mm3 (0.0-0.1) 10/17/20 14:39 Metamyelocytes # 0.0 K/mm3 10/17/20 14:39 Myelocytes # 0.0 K/mm3 10/17/20 14:39 Promyelocytes # 0.0 K/mm3 10/17/20 14:39 Blast Cells # 0.0 K/mm3 10/17/20 14:39 WBC Morphology Not Reportable 10/17/20 14:39 Hypersegmented Neuts Not Reportable 10/17/20 14:39 Hyposegmented Neuts Not Reportable 10/17/20 14:39 Hypogranular Neuts Not Reportable 10/17/20 14:39 Smudge Cells Not Reportable 10/17/20 14:39 Toxic Granulation Not Reportable 10/17/20 14:39 Toxic Vacuolation Not Reportable 10/17/20 14:39 Dohle Bodies Not Reportable 10/17/20 14:39 Pelger-Huet Anomaly Not Reportable 10/17/20 14:39 Darryl Rods Not Reportable 10/17/20 14:39 Platelet Estimate Not Reportable 10/17/20 14:39 Clumped Platelets Not Reportable 10/17/20 14:39 Plt Clumps, EDTA Not Reportable 10/17/20 14:39 Large Platelets Not Reportable 10/17/20 14:39 Giant Platelets Rare 10/17/20 14:39 Platelet Satelliting Not Reportable 10/17/20 14:39 Plt Morphology Comment Not Reportable 10/17/20 14:39 RBC Morphology Not Reportable 10/17/20 14:39 Dimorphic RBCs Not Reportable 10/17/20 14:39 Polychromasia Not Reportable 10/17/20 14:39 Hypochromasia 1+ 10/17/20 14:39 Poikilocytosis Not Reportable 10/17/20 14:39 Anisocytosis 2+ 10/17/20 14:39 Microcytosis 1+ 10/17/20 14:39 Macrocytosis Not Reportable 10/17/20 14:39 Spherocytes Not Reportable 10/17/20 14:39 Pappenheimer Bodies Not Reportable 10/17/20 14:39 Sickle Cells Not Reportable 10/17/20 14:39 Target Cells Not Reportable 10/17/20 14:39 Tear Drop Cells Not Reportable 10/17/20 14:39 Ovalocytes Not Reportable 10/17/20 14:39 Helmet Cells Not Reportable 10/17/20 14:39 [place] Bodies Not Reportable 10/17/20 14:39 [place]on Rings Not Reportable 10/17/20 14:39 [place] Cells Not Reportable 10/17/20 14:39 Bite Cells Not Reportable 10/17/20 14:39 Crenated Cell Not Reportable 10/17/20 14:39 Elliptocytes Not Reportable 10/17/20 14:39 Acanthocytes (Spur) Not Reportable 10/17/20 14:39 Rouleaux Not Reportable 10/17/20 14:39 Hemoglobin C Crystals Not Reportable 10/17/20 14:39 Schistocytes Not Reportable 10/17/20 14:39 Malaria parasites Not Reportable 10/17/20 14:39 Lucas Bodies Not Reportable 10/17/20 14:39 Hem Pathologist Commnt No 10/17/20 14:39 PT 15.4 Sec. (12.2-14.9) H 10/17/20 14:39 INR 1.22 (0.87-1.13) H 10/17/20 14:39 D-Dimer 1061.03 ng/mlDDU (0-234) H 10/12/20 10:04 ABG pH 7.415 (7.320-7.450) 10/09/20 14:25 POC ABG pCO2 27.3 mmHg (32.0-48.0) L 10/09/20 14:25 POC ABG pO2 125.5 mmHg (83-108) H 10/09/20 14:25 POC ABG HCO3 17.1 10/09/20 14:25 ABG O2 Saturation 98.8 (0-100) 10/09/20 14:25 POC ABG Base Excess -6.7 10/09/20 14:25 ABG Hemoglobin 7.0 (12.0-17.5) L 10/09/20 14:25 ABG Oxyhemoglobin 97.2 (94-98) 10/09/20 14:25 ABG Methemoglobin 0.1 (0.0-1.5) 10/09/20 14:25 ABG Sodium 158.0 mmol/L (136.0-145.0) H 10/09/20 14:25 ABG Potassium 3.0 mmol/L (3.40-4.50) L 10/09/20 14:25 ABG Chloride 132.0 mmol/L (98-107) H 10/09/20 14:25 ABG Glucose 172 mg/dL (65-95) H 10/09/20 14:25 Carboxyhemoglobin 1.5 (0.5-1.5) 10/09/20 14:25 FiO2 % 26.0 10/09/20 14:25 Sodium 140 mmol/L (137-145) 10/17/20 14:39 Potassium 4.8 mmol/L (3.6-5.0) D 10/17/20 14:39 Chloride 109.6 mmol/L (98-107) H 10/17/20 14:39 Carbon Dioxide 22 mmol/L (22-30) 10/17/20 14:39 Anion Gap 13 mmol/L 10/17/20 14:39 BUN 30 mg/dL (9-20) H 10/17/20 14:39 Creatinine 0.8 mg/dL (0.8-1.3) 10/17/20 14:39 Estimated GFR > 60 ml/min 10/17/20 14:39 BUN/Creatinine Ratio 38 % 10/17/20 14:39 Glucose 185 mg/dL (75-100) H 10/17/20 14:39 POC Glucose 107 mg/dL (70-105) H 10/18/20 08:14 Lactic Acid 1.10 mmol/L (0.7-2.0) 10/09/20 19:30 Calcium 7.4 mg/dL (8.4-10.2) L 10/17/20 14:39 Ferritin 585.8 ng/mL (30.0-300.0) H 10/12/20 10:04 Total Bilirubin 0.70 mg/dL (0.1-1.2) 10/17/20 14:39 AST 19 units/L (5-40) 10/17/20 14:39 ALT 20 units/L (7-56) 10/17/20 14:39 Alkaline Phosphatase 90 units/L (35-129) 10/17/20 14:39 Lactate Dehydrogenase 364 units/L (91-180) H 10/12/20 10:04 Troponin T 0.087 ng/mL (0.00-0.029) H 10/07/20 16:38 C-Reactive Protein 0.30 mg/dL (0.00-1.30) 10/12/20 10:04 NT-Pro-B Natriuret Pep 2155 pg/mL (0-900) H 10/07/20 16:38 Total Protein 5.2 g/dL (6.3-8.2) L 10/17/20 14:39 Albumin 2.7 g/dL (3.9-5) L 10/17/20 14:39 Albumin/Globulin Ratio 1.1 % 10/17/20 14:39 Triglycerides 193 mg/dL (2-149) H 10/07/20 16:38 Cholesterol 136 mg/dL (50-199) 10/07/20 16:38 LDL Cholesterol Direct 82 mg/dL (50-130) 10/07/20 16:38 HDL Cholesterol 20 mg/dL (40-59) L 10/07/20 16:38 Cholesterol/HDL Ratio 6.80 % 10/07/20 16:38 Procalcitonin 0.10 ng/mL (<0.15) 10/08/20 15:33 Arterial Blood Glucose 172 mg/dL (65-95) H 10/09/20 14:25 Arterial Blood Ionized Calcium 4.2 mg/dL (4.6-5.3) L 10/09/20 14:25 Urine Color [place] (Yellow) 10/07/20 Unknown Urine Turbidity Turbid (Clear) 10/07/20 Unknown Urine pH 7.0 (5.0-7.0) 10/07/20 Unknown Ur Specific [place] 1.020 (1.003-1.030) 10/07/20 Unknown Urine Protein 100 mg/dl mg/dL (Negative) 10/07/20 Unknown Urine Glucose (UA) Neg mg/dL (Negative) 10/07/20 Unknown Urine Ketones Neg mg/dL (Negative) 10/07/20 Unknown Urine Blood Neg (Negative) 10/07/20 Unknown Urine Nitrite Neg (Negative) 10/07/20 Unknown Urine Bilirubin Sm (Negative) 10/07/20 Unknown Urine Ictotest Negative (Negative) 10/07/20 Unknown Urine Urobilinogen 4.0 mg/dL (<2.0) 10/07/20 Unknown Ur Leukocyte Esterase Lg (Negative) 10/07/20 Unknown Urine WBC (Auto) 111.0 /HPF (0.0-6.0) H 10/07/20 Unknown Urine RBC (Auto) 40.0 /HPF (0.0-6.0) 10/07/20 Unknown Urine Bacteria (Auto) 3+ /HPF (Negative) 10/07/20 Unknown Urine WBC Clumps 2+ /HPF 10/07/20 Unknown Urine Yeast (Budding) 3+ /HPF 10/07/20 Unknown Vancomycin Trough 62.0 ug/mL (5.0-20.0) H 10/12/20 16:15 Random Vancomycin 14.2 ug/mL (0-40.0) 10/17/20 08:49 Coronavirus (PCR) Positive (Negative) A 10/08/20 09:34 Blood Type B POSITIVE 10/10/20 12:00 Antibody Screen Negative 10/10/20 12:00 Crossmatch See Detail 10/10/20 12:00 Iglesias/IV: Voiding Method Indwelling Catheter Active Medications - Current Medications Current Medications: Generic Name Dose Route Start Last Admin Trade Name Freq PRN Reason Stop Dose Admin Acetaminophen 650 mg 10/07/20 19:06 Acetaminophen 325 Mg Tab PO Q4H PRN Pain MILD(1-3)/Fever >100.5/RAM Albuterol 2.5 mg 10/07/20 19:06 Albuterol 2.5 Mg/3 Ml Nebu IH Q4H PRN Shortness Of Breath Lipase/Protease/Amylase 1 each 10/10/20 09:00 10/15/20 20:00 Lipase 10,500/Protease 25,000/Amylase 43,750 (Units) Dr Reddy FEEDTUBE 1 each PRN PRN Administration For Clogged Feeding Tube Ascorbic Acid 500 mg 10/08/20 22:00 10/17/20 21:53 Ascorbic Acid 500 Mg Tab PO 500 mg BID LISA Administration Atorvastatin Calcium 20 mg 10/11/20 22:00 10/17/20 21:53 Atorvastatin 20 Mg Tab PO 20 mg QHS LISA Administration Dextrose 50 ml 10/11/20 09:19 10/14/20 07:27 Dextrose 50% In Water (25gm) 50 Ml Syringe IV 10 ml Q30MIN PRN Administration Hypoglycemia Protocol Hydromorphone HCl 0.25 mg 10/07/20 19:06 Hydromorphone 1 Mg/1 Ml Inj IV Q4H PRN Pain, Moderate (4-6) Dextrose 1,000 mls @ 42 mls/hr 10/15/20 10:00 10/17/20 06:11 D5w IV 100 mls/hr DIRECT LISA Administration Vancomycin HCl 2,000 mg/ 540 mls @ 250 mls/hr 10/17/20 12:00 10/17/20 12:29 Sodium Chloride IV 250 mls/hr Q48H LISA Administration Insulin Glargine 5 units 10/11/20 22:00 10/18/20 00:13 Insulin Glargine 100 Units/Ml SUB-Q Not Given QHS [facility] Insulin Human Regular 0 units 10/11/20 12:00 10/18/20 00:13 Insulin Regular, Human 100 Units/1 Ml SUB-Q Not Given Q6H [facility] Protocol Lansoprazole 30 mg 10/18/20 10:00 Lansoprazole 30 Mg Solutab FEEDTUBE QDAY LISA Ondansetron HCl 4 mg 10/07/20 19:06 Ondansetron 4 Mg/2 Ml Inj IV Q8H PRN Nausea And Vomiting Simple Syrup 15 ml 10/10/20 09:00 Simple Syrup 15 Ml FEEDTUBE PRN PRN Hypoglycemia Simple Syrup 30 ml 10/10/20 09:00 Simple Syrup 15 Ml FEEDTUBE PRN PRN Hypoglycemia Sodium Bicarbonate 325 mg 10/10/20 09:00 10/15/20 20:00 Sodium Bicarbonate 325 Mg Tab FEEDTUBE 325 mg PRN PRN Administration For Clogged Feeding Tube Sodium Chloride 10 ml 10/07/20 22:00 10/17/20 21:54 Sodium Chloride 0.9% 10 Ml Flush Syringe IV 10 ml BID LISA Administration Sodium Chloride 10 ml 10/07/20 19:06 Sodium Chloride 0.9% 10 Ml Flush Syringe IV PRN PRN LINE FLUSH Tamsulosin HCl 0.4 mg 10/11/20 10:00 10/17/20 09:13 Tamsulosin 0.4 Mg Cap PO 0.4 mg DAILY LISA Administration Zinc Sulfate 220 mg 10/08/20 22:00 10/17/20 21:53 Zinc Sulfate 220 Mg Cap PO 220 mg BID LISA Administration Nutrition/Malnutrition Assess - Dietary Evaluation Nutrition/Malnutrition Findings: Nutrition Notes Start: 10/09/20 09:29 Freq: Status: Active Protocol: Document 10/14/20 14:00 CW (Rec: 10/14/20 14:13 CW [email or web address]) Nutrition Notes Initial or Follow up Reassessment Current Diagnosis Acute Kidney Injury,Decubitus( Pressure Ulcer),Sepsis, Hypertension,Respiratory Failure,Stroke Other Pertinent Diagnosis COVID, DVT, UTI, GERD, dementia, toxic metabolic encephalopathy Current Diet Glucerna 1.2 at 70 ml/hr Labs/Tests Na 151 BUN 27 BG 119 Pertinent Medications D 5 1/2 ns AT 50 ml/hr Decadron Height 5 ft 7 in Weight 141.5 kg [place] Body Weight (kg) 67.27 BMI 48.8 Weight Status Morbidly Obese Subjective/Other Information RN reprots TF is now being tolerated. no reports of diarrhea. RN states now giving flush at 350 ml q4h for hypernatremia per order. Pt possibly to recieve PEG per chart. TF running at goal rate at this time. Percent of energy/protein needs met: 120%/85% Burn Absent Trauma Absent Difficulty In Swallowing Skin Integrity/Comment Multiple pressure ulcers Current % PO Negligible Minimum of two criteria No physical signs of malnutrition #2 Nutrition Diagnosis Increased nutrient needs ( specify in comment below) Diagnosis Progress(for reassessment Continues documentation) #1 Nutrition Diagnosis Inadequate oral intake Diagnosis Progress(for reassessment Continues documentation) Is patient on ventilator? No Is Patient Ambulatory and/or Out of Bed No REE-([facility]-confined to bed) 2588.988 Kcal/Kg value to use for calculation 13 Approximate Energy Requirements Using 1840 kcal/Kg Calculation Used for Recommendations Kcal/kg Additional Notes Protein: 131-157g (1.25-1.5 g/ kg AdjBW: 105kg) Fluid: 1 ml/kcal or per MD Nutrition Intervention Change Diet Order: Continue TF of Glucerna 1.2 Nutrition Support: Glucerna 1.2 at 70 ml/hr with a free water flush of 350 ml q4h for hypernatremia. Once hypernatremia resolves, resume free water flush of 110 ml q4h. Kcal 2,016 Protein (gm) 101 Fluid (mL) 1,352 Add Supplement/Snack (indicate name/kcal [place] BID /protein ) Provides kCal: 190 Provides Protein (gm) 5 Goal #1 TF tolerance Goal #2 Meet at least 75% of energy and protein needs via TF Anticipated Discharge Needs: Unable to determine at this time Follow-Up By: 10/18/20 Additional Comments F/U for TF tolerance and PEG placement
[2020-10-18] MEDS: TAMSULOSIN 0.4 MG CAP PO SCH (09:46)
[2020-10-18] MEDS: ASCORBIC ACID 500 MG TAB PO SCH ×2 (09:47→22:38)
[2020-10-18] MEDS: ZINC SULFATE 220 MG CAP PO SCH ×2 (09:47→22:00)
[2020-10-18] MEDS: LANSOPRAZOLE 30 MG SOLUTAB FEEDTUBE SCH (09:47)
[2020-10-18] MEDS ORDERED: ePHEDrine SULFATE 50 MG/1 ML INJ ONE (09:59)
[2020-10-18] MEDS ORDERED: propofoL 200 MG/20 ML VIAL IV ONE ×2 (09:59)
[2020-10-18] MEDS ORDERED: LIDOCAINE MPF (2%) 20 MG/1 ML VIAL 5 ML ONE (10:00)
[2020-10-18] MEDS ORDERED: SODIUM CHLORIDE 0.9% 1000 ML 1,000 ML IV SCH (10:30)
[2020-10-18] MEDS ORDERED: SODIUM CHLORIDE 0.9% 1000 ML 1,000 ML ONE (10:30)
--- NOTE | 2020-10-18 10:33 | Anesthesia Day of Surgery ---
Anesthesia Day of Surgery - Day of Surgery Patient Examined: Yes Patient H&P Reviewed: Yes Patient is NPO: Yes
--- NOTE | 2020-10-18 10:37 | Anesthesia Consultation ---
Anesthesia Consult and Med Hx Date of service: 10/18/20 - Airway Anesthetic Teeth Evaluation: Poor (Missing) Mallampati Class: Class III Intubation Access Assessment: Probably Good - Pre-Operative Health Status ASA Pre-Surgery Classification: ASA4 Proposed Anesthetic Plan: MAC - Pulmonary Hx Respiratory Symptoms: Yes (COVID+ [id number] now on nasal cannula) Hx Pneumonia: Yes (COVID+) Hx Sleep Apnea: Yes (Obesity Hypoventilation Syndrome) - Cardiovascular System Hx Hypertension: Yes Hx Peripheral Vascular Disease: Yes (DVT; vascular dementia) - Central Nervous System CVA: Yes (Acute metabolic encephalopathy) - Gastrointestinal Hx Gastroesophageal Reflux Disease: Yes - Endocrine Hx Renal Disease: Yes - Hematic Hx Anemia: Yes (Anemia of Chronic Disease) - Other Systems Hx Obesity: Yes
--- NOTE | 2020-10-18 11:29 | Operative Report ---
Operative Report Operative Report: Date:10/18/2020 Pre procedure diagnosis: dysphagia Post procedure diagnosis:Normal exam Procedure: Esophagogastroduodenoscopy Endoscopist: Dilip Butler MD Medications: Per anesthesia- see separate records for details Complications:none Estimated blood loss: None After careful discussion of the nature and purpose of the procedure, details of the technique, risks, benefits and alternatives, the patient gave consent. The patient was placed in the supine position and medicated by anesthesia- see separate records for details. The tip of the olympus video upper scope was passed per orum under direct view through the mouth and into the esophagus, stomach and duodenum. The scope was advanced to the secondportion of the duodenum without difficulty. The second portion of the duodenumwasnormal. The bulb revealed normal findings. The scope was withdrawn back into the stomach and the stomach gently insufflated with air. The antrum revealed normal findings. The scope was then retroflexed and partially withdrawn to inspect the proximal stomach. The cardia, fundus and body were normal. The scope was then withdrawn in the forward view. The EG junction was at 40 cm.Theesophagus was normal. Attempts were made for PEG placement. A location was selected with transillumination and one to one opposition but was not able to have the needle come through into the gastric lumen. PEG placement aborted. The procedure was well tolerated and the patient was observed in the GI recovery unit. IMPRESSION: 1. Failed attempt for PEG placement. 2. Otherwise, normal exam. Plan: 1. Recommend alternative methods for PEG placement either IR or with surgery. 2. Cont with NG tube for feeding. Dilip Roberts (CatrinaTova Butler MD [facility]
--- NOTE | 2020-10-18 11:52 | Post Anesthesia Evaluation ---
- Post Anesthesia Evaluation Patient Participated: Yes Airway Patent: Yes Stable Respiratory Function: Yes Nausea/Vomiting: No Temp > 96.8F: Yes Pain Manageable: Yes Adequeate Hydration: Yes Anesthesia Complications: No Block Receding Appropriately: Not Applicable Patient on Ventilator: No
--- NOTE | 2020-10-18 13:17 | Consultation ---
History of Present Illness Consult date: 10/18/20 Chief complaint: dysphagia - History of present illness History of present illness: Pt seen and examined. Past History Past Medical History: GERD, hypertension, stroke, other (See HPI) Past Surgical History: cholecystectomy Social history: . denies: smoking, alcohol abuse, prescription drug abuse Family history: diabetes, hypertension Medications and Allergies Allergies Allergy/AdvReac Type Severity Reaction Status Date / Time No Known Allergies Allergy Unverified 10/07/20 16:12 Home Medications Medication Instructions Recorded Confirmed Last Taken Type Ascorbic Acid [Vitamin C] 500 mg PO QDAY 10/08/20 10/08/20 Unknown History AtorvaSTATin [Lipitor] 20 mg PO QHS 10/08/20 10/08/20 Unknown History Cholecalciferol Vit D3 50,000 unit PO 1XW 10/08/20 10/08/20 Unknown History Ferrous Sulfate Oral Liq 300 Mg/5 5 ml PO DAILY 10/08/20 10/08/20 Unknown History Ml Ipratropium [Atrovent] 0.5 mg IH Q6HRT 10/08/20 10/08/20 Unknown History Loperamide [Imodium] 2 mg PO PRN PRN MDD 16 mg 10/08/20 10/08/20 Unknown History PriLOSEC Otc 40 mg PO DAILY 10/08/20 10/08/20 Unknown History Sucralfate [Carafate] 10 ml PO BID 10/08/20 10/08/20 Unknown History Tamsulosin [Flomax] 1 cap PO DAILY 10/08/20 10/08/20 Unknown History Warfarin [Coumadin] 3 mg PO QPM 10/08/20 10/08/20 Unknown History cefTRIAXone [Ceftriaxone] 1 gm IM DAILY 10/08/20 10/08/20 Unknown History Active Meds: Active Medications Acetaminophen (Acetaminophen 325 Mg Tab) 650 mg PO Q4H PRN PRN Reason: Pain MILD(1-3)/Fever >100.5/RAM Albuterol (Albuterol 2.5 Mg/3 Ml Nebu) 2.5 mg IH Q4H PRN PRN Reason: Shortness Of Breath Lipase/Protease/Amylase (Lipase 10,500/Protease 25,000/Amylase 43,750 (Units) Dr Reddy) 1 each FEEDTUBE PRN PRN PRN Reason: For Clogged Feeding Tube Last Admin: 10/15/20 20:00 Dose: 1 each Documented by: Ascorbic Acid (Ascorbic Acid 500 Mg Tab) 500 mg PO BID [facility] Last Admin: 10/18/20 09:47 Dose: Not Given Documented by: Atorvastatin Calcium (Atorvastatin 20 Mg Tab) 20 mg PO QHS [facility] Last Admin: 10/17/20 21:53 Dose: 20 mg Documented by: Dextrose (Dextrose 50% In Water (25gm) 50 Ml Syringe) 50 ml IV Q30MIN PRN; Protocol PRN Reason: Hypoglycemia Last Admin: 10/14/20 07:27 Dose: 10 ml Documented by: Hydromorphone HCl (Hydromorphone 1 Mg/1 Ml Inj) 0.25 mg IV Q4H PRN PRN Reason: Pain, Moderate (4-6) Dextrose (D5w) 1,000 mls @ 42 mls/hr IV DIRECT LISA Last Admin: 10/17/20 06:11 Dose: 100 mls/hr Documented by: Vancomycin HCl 2,000 mg/ (Sodium Chloride) 540 mls @ 250 mls/hr IV Q48H LISA Last Admin: 10/17/20 12:29 Dose: 250 mls/hr Documented by: Sodium Chloride (Nacl 0.9% 1000 Ml) 1,000 mls @ 50 mls/hr IV DIRECT LISA Stop: 10/19/20 10:29 Insulin Glargine (Insulin Glargine 100 Units/Ml) 5 units SUB-Q QHS [facility] Last Admin: 10/18/20 00:13 Dose: Not Given Documented by: Insulin Human Regular (Insulin Regular, Human 100 Units/1 Ml) 0 units SUB-Q Q6H [facility]; Protocol Last Admin: 10/18/20 09:46 Dose: Not Given Documented by: Lansoprazole (Lansoprazole 30 Mg Solutab) 30 mg FEEDTUBE QDAY [facility] Last Admin: 10/18/20 09:47 Dose: Not Given Documented by: Ondansetron HCl (Ondansetron 4 Mg/2 Ml Inj) 4 mg IV Q8H PRN PRN Reason: Nausea And Vomiting Simple Syrup (Simple Syrup 15 Ml) 15 ml FEEDTUBE PRN PRN PRN Reason: Hypoglycemia Simple Syrup (Simple Syrup 15 Ml) 30 ml FEEDTUBE PRN PRN PRN Reason: Hypoglycemia Sodium Bicarbonate (Sodium Bicarbonate 325 Mg Tab) 325 mg FEEDTUBE PRN PRN PRN Reason: For Clogged Feeding Tube Last Admin: 10/15/20 20:00 Dose: 325 mg Documented by: Sodium Chloride (Sodium Chloride 0.9% 10 Ml Flush Syringe) 10 ml IV BID [facility] Last Admin: 10/18/20 09:49 Dose: 10 ml Documented by: Sodium Chloride (Sodium Chloride 0.9% 10 Ml Flush Syringe) 10 ml IV PRN PRN PRN Reason: LINE FLUSH Tamsulosin HCl (Tamsulosin 0.4 Mg Cap) 0.4 mg PO DAILY [facility] Last Admin: 10/18/20 09:46 Dose: Not Given Documented by: Zinc Sulfate (Zinc Sulfate 220 Mg Cap) 220 mg PO BID [facility] Last Admin: 10/18/20 09:47 Dose: Not Given Documented by: Exam Vital Signs Pulse Resp Pulse Ox 89 24 100 10/07/20 15:42 10/07/20 15:42 10/07/20 15:42 Narrative exam: Gen: Lethargic, opens eyes spontaneously but does not follow commands CV: s1, S2+ Resp; even and unlabored Abd; soft, morbidly obese, NT. Well healed umbilical incision. Fullness in the epigastrum. Ext: mild edema Results - Labs 10/18/20 14:23 10/18/20 14:23 Abnormal lab results 10/17/20 10/17/20 10/17/20 Range/Units 14:39 14:39 14:39 WBC 11.9 H (4.5-11.0) K/mm3 RBC 3.10 L (3.65-5.03) M/mm3 Hgb 8.9 L (11.8-15.2) gm/dl Hct 27.8 L (35.5-45.6) % RDW 26.4 H (13.2-15.2) % Plt Count 94 L (140-440) K/mm3 Seg Neuts % (Manual) 86.0 H (40.0-70.0) % Lymphocytes % (Manual) 8.0 L (13.4-35.0) % Seg Neutrophils # Man 10.2 H (1.8-7.7) K/mm3 Lymphocytes # (Manual) 1.0 L (1.2-5.4) K/mm3 PT 15.4 H (12.2-14.9) Sec. INR 1.22 H (0.87-1.13) Chloride 109.6 H (98-107) mmol/L BUN 30 H (9-20) mg/dL Glucose 185 H (75-100) mg/dL POC Glucose (70-105) mg/dL Calcium 7.4 L (8.4-10.2) mg/dL Total Protein 5.2 L (6.3-8.2) g/dL Albumin 2.7 L (3.9-5) g/dL 10/17/20 10/18/20 Range/Units 16:54 08:14 WBC (4.5-11.0) K/mm3 RBC (3.65-5.03) M/mm3 Hgb (11.8-15.2) gm/dl Hct (35.5-45.6) % RDW (13.2-15.2) % Plt Count (140-440) K/mm3 Seg Neuts % (Manual) (40.0-70.0) % Lymphocytes % (Manual) (13.4-35.0) % Seg Neutrophils # Man (1.8-7.7) K/mm3 Lymphocytes # (Manual) (1.2-5.4) K/mm3 PT (12.2-14.9) Sec. INR (0.87-1.13) Chloride (98-107) mmol/L BUN (9-20) mg/dL Glucose (75-100) mg/dL POC Glucose 161 H 107 H (70-105) mg/dL Calcium (8.4-10.2) mg/dL Total Protein (6.3-8.2) g/dL Albumin (3.9-5) g/dL Diabetes panel 10/17/20 Range/Units 14:39 Sodium 140 (137-145) mmol/L Potassium 4.8 D (3.6-5.0) mmol/L Chloride 109.6 H (98-107) mmol/L Carbon Dioxide 22 (22-30) mmol/L BUN 30 H (9-20) mg/dL Creatinine 0.8 (0.8-1.3) mg/dL Glucose 185 H (75-100) mg/dL Calcium 7.4 L (8.4-10.2) mg/dL AST 19 (5-40) units/L ALT 20 (7-56) units/L Alkaline Phosphatase 90 (35-129) units/L Total Protein 5.2 L (6.3-8.2) g/dL Albumin 2.7 L (3.9-5) g/dL Calcium panel 10/17/20 Range/Units 14:39 Calcium 7.4 L (8.4-10.2) mg/dL Albumin 2.7 L (3.9-5) g/dL Pituitary panel 10/17/20 Range/Units 14:39 Sodium 140 (137-145) mmol/L Potassium 4.8 D (3.6-5.0) mmol/L Chloride 109.6 H (98-107) mmol/L Carbon Dioxide 22 (22-30) mmol/L BUN 30 H (9-20) mg/dL Creatinine 0.8 (0.8-1.3) mg/dL Glucose 185 H (75-100) mg/dL Calcium 7.4 L (8.4-10.2) mg/dL Adrenal panel 10/17/20 Range/Units 14:39 Sodium 140 (137-145) mmol/L Potassium 4.8 D (3.6-5.0) mmol/L Chloride 109.6 H (98-107) mmol/L Carbon Dioxide 22 (22-30) mmol/L BUN 30 H (9-20) mg/dL Creatinine 0.8 (0.8-1.3) mg/dL Glucose 185 H (75-100) mg/dL Calcium 7.4 L (8.4-10.2) mg/dL Total Bilirubin 0.70 (0.1-1.2) mg/dL AST 19 (5-40) units/L ALT 20 (7-56) units/L Alkaline Phosphatase 90 (35-129) units/L Total Protein 5.2 L (6.3-8.2) g/dL Albumin 2.7 L (3.9-5) g/dL - Imaging Abdominal x-ray: report reviewed, image reviewed Assessment and Plan 64 yo M with dyphasia PEG attempt today - unsuccessful due to body habitus. Discussed with Dr. Butler. Plan: 1. resume TF via NGT 2. CT A/P to evaluate abdominal anatomy 3. Pt tested positive for COVID 10/08/20 - As general anesthesia will be needed for surgical G tube placement with high risk of aerosolization, will need negative repeat test before procedure or wait 2 weeks since positive test until infectious period has passed. Can schedule for week of 10/25. Alternatively, may consult IR for Ct guided G tube placement. 4. Due to morbid obesity, will be difficult G tube placement regardless of method. 5. Will contact after Ct scan obtained to discuss recs Thank you, please call with questions.
--- NOTE | 2020-10-18 13:40 | Progress Note ---
Assessment and Plan Cultures: Blood culture 10/07/2020 MRSA Blood cultures 10/10/2020 no growth today A/P: 64-year-old man past medical history GERD, hypertension, CVA #Severe sepsis with septic shock: likely secondary to MRSA bacteremia and UTI. Resolved. #MRSA bacteremia: Etiology likely sacral decubitus infection. Transthoracic echo no vegetations. #UTI: Urine culture not available. S/p cefepime for 5 days. #Extensive sacral decubitus/deep tissue injury likely with with cellulitis: Multiple areas of skin erosion, 20x22 x 0.1 cm. Multiple erosions in the scrotum, perineum and inner thighs, incontinence associated dermatitis. #COVID-19 infection: improved, on room air. #Acute hypoxemic respiratory failure: resolved. #THOMPSON: resolved Recs: -Continue vancomycin with PK consult, target vancomycin trough 10 to 20 mcg/mL -Continue wound care and offloading -CM orders for IV abx were already placed by Dr. Leyva: vancomycin x 4 weeks till 11/07/2020 for MRSA bacteremia and extensive sacral infected decubitus. Keep Vancomycin trough 10-20 mcg/mL. Will sign off. Please call with questions. Augustin Hernandez MD, FACP [facility] ([facility] O: [phone] F: [phone] Subjective Date of service: 10/18/20 Principal diagnosis: Neurogenic Dyphagia Interval history: Afebrile. Remains on room air. Awaiting PEG placement. Objective - Exam Narrative Exam: Physical Exam (reviewed in chart to minimize risk of transmission) Constitutional: deferred Head, Ears, Nose: deferred Eyes: deferred Neck: deferred Oral: deferred Cardiovascular: deferred Respiratory: deferred GI: deferred Musculoskeletal: deferred Skin: deferred Hem/Lymphatic: deferred Psych: deferred Neurological: deferred - Constitutional Vitals: Vital Signs Temp Pulse Resp BP Pulse Ox 97.7 F 71 12 116/52 100 10/18/20 10:47 10/18/20 10:47 10/18/20 10:47 10/18/20 10:47 10/18/20 10:47 Temperature -Last 24 Hours Temperature 97.7 F Temperature 97.7 F Temperature 97.7 F Temperature 98.0 F - Labs CBC & Chem 7: 10/17/20 14:39 10/17/20 14:39 Labs: Abnormal lab results 10/17/20 10/17/20 10/17/20 Range/Units 14:39 14:39 14:39 WBC 11.9 H (4.5-11.0) K/mm3 RBC 3.10 L (3.65-5.03) M/mm3 Hgb 8.9 L (11.8-15.2) gm/dl Hct 27.8 L (35.5-45.6) % RDW 26.4 H (13.2-15.2) % Plt Count 94 L (140-440) K/mm3 Seg Neuts % (Manual) 86.0 H (40.0-70.0) % Lymphocytes % (Manual) 8.0 L (13.4-35.0) % Seg Neutrophils # Man 10.2 H (1.8-7.7) K/mm3 Lymphocytes # (Manual) 1.0 L (1.2-5.4) K/mm3 PT 15.4 H (12.2-14.9) Sec. INR 1.22 H (0.87-1.13) Chloride 109.6 H (98-107) mmol/L BUN 30 H (9-20) mg/dL Glucose 185 H (75-100) mg/dL POC Glucose (70-105) mg/dL Calcium 7.4 L (8.4-10.2) mg/dL Total Protein 5.2 L (6.3-8.2) g/dL Albumin 2.7 L (3.9-5) g/dL 10/17/20 10/18/20 Range/Units 16:54 08:14 WBC (4.5-11.0) K/mm3 RBC (3.65-5.03) M/mm3 Hgb (11.8-15.2) gm/dl Hct (35.5-45.6) % RDW (13.2-15.2) % Plt Count (140-440) K/mm3 Seg Neuts % (Manual) (40.0-70.0) % Lymphocytes % (Manual) (13.4-35.0) % Seg Neutrophils # Man (1.8-7.7) K/mm3 Lymphocytes # (Manual) (1.2-5.4) K/mm3 PT (12.2-14.9) Sec. INR (0.87-1.13) Chloride (98-107) mmol/L BUN (9-20) mg/dL Glucose (75-100) mg/dL POC Glucose 161 H 107 H (70-105) mg/dL Calcium (8.4-10.2) mg/dL Total Protein (6.3-8.2) g/dL Albumin (3.9-5) g/dL
--- NOTE | 2020-10-18 14:25 | Progress Note ---
Assessment and Plan Patient sleeping. Sleeping on 2 litres O2. O2 saturation 100%. No acute respiratory distress. BIPAP stand by in the room. On stimulation, patient open his eyes but not following commands.Patient afebrile. No Leukocytosis. Chest xray 10/10/20 reported No acute cardiopulmonary disease. Patient is on Albuterol inhaler 2 puffs po qid. Prevacid and vancomycin. - Patient Problems (1) Acute respiratory failure Current Visit: Yes Status: Acute Plan to address problem: O2 2 litres via nasal canula. BIPAP stand by in the room. Albuterol inhaler 2 puffs po qid. Prevacid. (2) Sepsis Current Visit: Yes Status: Acute Qualifiers: Acute renal failure type: with acute tubular necrosis Plan to address problem: Patient presently on vancomycin. (3) UTI (urinary tract infection) Current Visit: Yes Status: Acute Qualifiers: Encounter type: initial encounter Plan to address problem: Patient was on cefepime. (4) Acute encephalopathy Current Visit: Yes Status: Acute Plan to address problem: Management as per primary care. (5) Acute kidney injury ([place]) with acute tubular necrosis ([facility]) Current Visit: Yes Status: Acute Plan to address problem: Management as per nephrology. Subjective Date of service: 10/18/20 Principal diagnosis: Neurogenic Dyphagia Interval history: Patient sleeping. Sleeping on 2 litres O2. O2 saturation 100%. No acute respiratory distress. BIPAP stand by in the room. On stimulation, patient open his eyes but not following commands.Patient afebrile. No Leukocytosis. Chest xr ay 10/10/20 reported No acute cardiopulmonary disease. Patient is on Albuterol inhaler 2 puffs po qid. Prevacid and vancomycin. Objective Vital Signs - 12hr 10/18/20 10/18/20 09:31 10:47 Temperature 97.7 F Pulse Rate 71 Respiratory 12 Rate Blood Pressure 116/52 O2 Sat by Pulse 97 100 Oximetry Constitutional: no acute distress, asleep Eyes: non-icteric ENT: oropharynx dry, other (NGT in nares, dry crusted oral mucosa) Neck: supple, no lymphadenopathy, no JVD, other (+ large neck circumference) Effort: mildly labored Ascultation: Bilateral: diminished breath sounds, rhonchi Percussion: Bilateral: not dull Cardiovascular: regular rate and rhythm, other (S1,S2) Gastrointestinal: normoactive bowel sounds, soft, non-tender, other (distended) Integumentary: rash Extremities: no cyanosis, pulses normal, no ischemia or petechiae, edema, other (Severe stasis dermatitis.) Neurologic: pupils equal and round, other (encephalopathic , not obeying commands) Psychiatric: other (unable to assess re: AMS) CBC and BMP: 10/18/20 14:23 10/18/20 14:23 ABG, PT/INR, D-dimer: ABG ABG pH 7.415 (7.320-7.450) 10/09/20 14:25 POC ABG pCO2 27.3 mmHg (32.0-48.0) L 10/09/20 14:25 POC ABG pO2 125.5 mmHg (83-108) H 10/09/20 14:25 POC ABG HCO3 17.1 10/09/20 14:25 ABG O2 Saturation 98.8 (0-100) 10/09/20 14:25 PT/INR, D-dimer PT 15.4 Sec. (12.2-14.9) H 10/17/20 14:39 INR 1.22 (0.87-1.13) H 10/17/20 14:39 D-Dimer 1061.03 ng/mlDDU (0-234) H 10/12/20 10:04 Abnormal lab findings: Abnormal Labs 10/07/20 10/07/20 10/07/20 16:38 16:38 16:38 WBC 14.1 H RBC 3.03 L Hgb 8.7 L Hct 28.7 L MCV 95 H MCHC 30 L RDW 27.1 H Plt Count Lymph % (Auto) [place] % (Auto) [place] # (Auto) Seg Neutrophils % Seg Neuts % (Manual) Lymphocytes % (Manual) Monocytes % (Manual) 9.0 H Nucleated RBC % Seg Neutrophils # Seg Neutrophils # Man 9.3 H Lymphocytes # (Manual) Monocytes # (Manual) 1.3 H PT INR D-Dimer POC ABG pCO2 POC ABG pO2 ABG Hemoglobin ABG Sodium ABG Potassium ABG Chloride ABG Glucose Sodium 158 H Potassium 3.4 L Chloride 122.7 H Carbon Dioxide BUN 30 H Creatinine 1.7 H Glucose 144 H POC Glucose Lactic Acid 2.50 H* Calcium 8.3 L Ferritin Total Bilirubin 1.40 H Alkaline Phosphatase Lactate Dehydrogenase Troponin T NT-Pro-B Natriuret Pep Total Protein Albumin 3.0 L Triglycerides HDL Cholesterol Arterial Blood Glucose Arterial Blood Ionized Calcium Urine WBC (Auto) Vancomycin Trough Coronavirus (PCR) Crossmatch 10/07/20 10/07/20 10/07/20 16:38 16:38 18:17 WBC RBC Hgb Hct MCV MCHC RDW Plt Count Lymph % (Auto) [place] % (Auto) [place] # (Auto) Seg Neutrophils % Seg Neuts % (Manual) Lymphocytes % (Manual) Monocytes % (Manual) Nucleated RBC % Seg Neutrophils # Seg Neutrophils # Man Lymphocytes # (Manual) Monocytes # (Manual) PT 32.7 H INR 3.17 H D-Dimer POC ABG pCO2 POC ABG pO2 ABG Hemoglobin ABG Sodium ABG Potassium ABG Chloride ABG Glucose Sodium Potassium Chloride Carbon Dioxide BUN Creatinine Glucose POC Glucose Lactic Acid Calcium Ferritin Total Bilirubin Alkaline Phosphatase Lactate Dehydrogenase Troponin T 0.087 H NT-Pro-B Natriuret Pep 2155 H Total Protein Albumin Triglycerides 193 H HDL Cholesterol 20 L Arterial Blood Glucose Arterial Blood Ionized Calcium Urine WBC (Auto) Vancomycin Trough Coronavirus (PCR) Crossmatch 10/07/20 10/08/20 10/08/20 Unknown 02:53 02:53 WBC 13.4 H RBC 2.79 L Hgb 8.1 L Hct 26.2 L MCV MCHC 31 L RDW 27.7 H Plt Count Lymph % (Auto) [place] % (Auto) [place] # (Auto) 0.9 H Seg Neutrophils % 70.6 H Seg Neuts % (Manual) Lymphocytes % (Manual) Monocytes % (Manual) Nucleated RBC % Seg Neutrophils # 9.4 H Seg Neutrophils # Man Lymphocytes # (Manual) Monocytes # (Manual) PT INR D-Dimer POC ABG pCO2 POC ABG pO2 ABG Hemoglobin ABG Sodium ABG Potassium ABG Chloride ABG Glucose Sodium 159 H Potassium 2.7 L* D Chloride 127.9 H Carbon Dioxide 20 L BUN 27 H Creatinine 1.5 H Glucose 156 H POC Glucose Lactic Acid Calcium 7.1 L Ferritin Total Bilirubin Alkaline Phosphatase Lactate Dehydrogenase Troponin T NT-Pro-B Natriuret Pep Total Protein Albumin Triglycerides HDL Cholesterol Arterial Blood Glucose Arterial Blood Ionized Calcium Urine WBC (Auto) 111.0 H Vancomycin Trough Coronavirus (PCR) Crossmatch 10/08/20 10/08/20 10/08/20 09:34 14:57 17:29 WBC RBC Hgb Hct MCV MCHC RDW Plt Count Lymph % (Auto) [place] % (Auto) [place] # (Auto) Seg Neutrophils % Seg Neuts % (Manual) Lymphocytes % (Manual) Monocytes % (Manual) Nucleated RBC % Seg Neutrophils # Seg Neutrophils # Man Lymphocytes # (Manual) Monocytes # (Manual) PT INR D-Dimer POC ABG pCO2 POC ABG pO2 ABG Hemoglobin 7.9 L ABG Sodium 162.9 H ABG Potassium 2.6 L ABG Chloride 131.0 H ABG Glucose 146 H Sodium Potassium Chloride Carbon Dioxide BUN Creatinine Glucose POC Glucose 128 H Lactic Acid Calcium Ferritin Total Bilirubin Alkaline Phosphatase Lactate Dehydrogenase Troponin T NT-Pro-B Natriuret Pep Total Protein Albumin Triglycerides HDL Cholesterol Arterial Blood Glucose 146 H Arterial Blood Ionized Calcium Urine WBC (Auto) Vancomycin Trough Coronavirus (PCR) Positive A Crossmatch 10/09/20 10/09/20 10/09/20 05:14 05:14 11:48 WBC 13.9 H RBC 2.52 L Hgb 7.3 L Hct 23.7 L MCV MCHC 31 L RDW 28.1 H Plt Count Lymph % (Auto) [place] % (Auto) [place] # (Auto) Seg Neutrophils % Seg Neuts % (Manual) 91.0 H Lymphocytes % (Manual) 5.0 L Monocytes % (Manual) Nucleated RBC % Seg Neutrophils # Seg Neutrophils # Man 12.6 H Lymphocytes # (Manual) 0.7 L Monocytes # (Manual) PT INR D-Dimer POC ABG pCO2 POC ABG pO2 ABG Hemoglobin ABG Sodium ABG Potassium ABG Chloride ABG Glucose Sodium 162 H* Potassium 3.3 L D Chloride 131.6 H Carbon Dioxide 18 L BUN 25 H Creatinine Glucose 164 H POC Glucose 126 H Lactic Acid Calcium 7.4 L Ferritin Total Bilirubin Alkaline Phosphatase Lactate Dehydrogenase Troponin T NT-Pro-B Natriuret Pep Total Protein Albumin Triglycerides HDL Cholesterol Arterial Blood Glucose Arterial Blood Ionized Calcium Urine WBC (Auto) Vancomycin Trough Coronavirus (PCR) Crossmatch 10/09/20 10/09/20 10/09/20 14:25 17:55 19:30 WBC RBC Hgb Hct MCV MCHC RDW Plt Count Lymph % (Auto) [place] % (Auto) [place] # (Auto) Seg Neutrophils % Seg Neuts % (Manual) Lymphocytes % (Manual) Monocytes % (Manual) Nucleated RBC % Seg Neutrophils # Seg Neutrophils # Man Lymphocytes # (Manual) Monocytes # (Manual) PT INR D-Dimer 922.08 H POC ABG pCO2 27.3 L POC ABG pO2 125.5 H ABG Hemoglobin 7.0 L ABG Sodium 158.0 H ABG Potassium 3.0 L ABG Chloride 132.0 H ABG Glucose 172 H Sodium Potassium Chloride Carbon Dioxide BUN Creatinine Glucose POC Glucose 179 H Lactic Acid Calcium Ferritin Total Bilirubin Alkaline Phosphatase Lactate Dehydrogenase Troponin T NT-Pro-B Natriuret Pep Total Protein Albumin Triglycerides HDL Cholesterol Arterial Blood Glucose 172 H Arterial Blood Ionized Calcium 4.2 L Urine WBC (Auto) Vancomycin Trough Coronavirus (PCR) Crossmatch 10/09/20 10/09/20 10/10/20 19:30 23:22 05:18 WBC RBC Hgb Hct MCV MCHC RDW Plt Count Lymph % (Auto) [place] % (Auto) [place] # (Auto) Seg Neutrophils % Seg Neuts % (Manual) Lymphocytes % (Manual) Monocytes % (Manual) Nucleated RBC % Seg Neutrophils # Seg Neutrophils # Man Lymphocytes # (Manual) Monocytes # (Manual) PT INR D-Dimer POC ABG pCO2 POC ABG pO2 ABG Hemoglobin ABG Sodium ABG Potassium ABG Chloride ABG Glucose Sodium Potassium Chloride Carbon Dioxide BUN Creatinine Glucose POC Glucose 192 H 168 H Lactic Acid Calcium Ferritin 579.8 H Total Bilirubin Alkaline Phosphatase Lactate Dehydrogenase Troponin T NT-Pro-B Natriuret Pep Total Protein Albumin Triglycerides HDL Cholesterol Arterial Blood Glucose Arterial Blood Ionized Calcium Urine WBC (Auto) Vancomycin Trough Coronavirus (PCR) Crossmatch 10/10/20 10/10/20 10/10/20 06:07 06:07 11:43 WBC 13.5 H RBC 2.39 L Hgb 6.8 L Hct 22.1 L MCV MCHC 31 L RDW 27.2 H Plt Count Lymph % (Auto) [place] % (Auto) [place] # (Auto) Seg Neutrophils % Seg Neuts % (Manual) 89.0 H Lymphocytes % (Manual) 10.0 L Monocytes % (Manual) Nucleated RBC % 2.0 H Seg Neutrophils # Seg Neutrophils # Man 12.0 H Lymphocytes # (Manual) Monocytes # (Manual) PT INR D-Dimer POC ABG pCO2 POC ABG pO2 ABG Hemoglobin ABG Sodium ABG Potassium ABG Chloride ABG Glucose Sodium 158 H Potassium 3.2 L Chloride 129.3 H Carbon Dioxide 19 L BUN 21 H Creatinine Glucose 200 H POC Glucose 155 H Lactic Acid Calcium 6.7 L Ferritin Total Bilirubin Alkaline Phosphatase Lactate Dehydrogenase Troponin T NT-Pro-B Natriuret Pep Total Protein Albumin Triglycerides HDL Cholesterol Arterial Blood Glucose Arterial Blood Ionized Calcium Urine WBC (Auto) Vancomycin Trough Coronavirus (PCR) Crossmatch 10/10/20 10/10/20 10/10/20 12:00 17:19 23:44 WBC RBC Hgb Hct MCV MCHC RDW Plt Count Lymph % (Auto) [place] % (Auto) [place] # (Auto) Seg Neutrophils % Seg Neuts % (Manual) Lymphocytes % (Manual) Monocytes % (Manual) Nucleated RBC % Seg Neutrophils # Seg Neutrophils # Man Lymphocytes # (Manual) Monocytes # (Manual) PT INR D-Dimer POC ABG pCO2 POC ABG pO2 ABG Hemoglobin ABG Sodium ABG Potassium ABG Chloride ABG Glucose Sodium Potassium Chloride Carbon Dioxide BUN Creatinine Glucose POC Glucose 185 H 219 H Lactic Acid Calcium Ferritin Total Bilirubin Alkaline Phosphatase Lactate Dehydrogenase Troponin T NT-Pro-B Natriuret Pep Total Protein Albumin Triglycerides HDL Cholesterol Arterial Blood Glucose Arterial Blood Ionized Calcium Urine WBC (Auto) Vancomycin Trough Coronavirus (PCR) Crossmatch See Detail 10/11/20 10/11/20 10/11/20 04:00 04:00 05:11 WBC 11.5 H RBC 3.37 L Hgb 9.6 L Hct 30.0 L D MCV MCHC RDW 23.9 H Plt Count Lymph % (Auto) [place] % (Auto) [place] # (Auto) Seg Neutrophils % 81.5 H Seg Neuts % (Manual) Lymphocytes % (Manual) Monocytes % (Manual) Nucleated RBC % Seg Neutrophils # 9.4 H Seg Neutrophils # Man Lymphocytes # (Manual) Monocytes # (Manual) PT INR D-Dimer POC ABG pCO2 POC ABG pO2 ABG Hemoglobin ABG Sodium ABG Potassium ABG Chloride ABG Glucose Sodium 151 H Potassium 3.0 L Chloride 122.8 H Carbon Dioxide 19 L BUN 23 H Creatinine Glucose 238 H POC Glucose 191 H Lactic Acid Calcium 7.0 L Ferritin Total Bilirubin Alkaline Phosphatase Lactate Dehydrogenase Troponin T NT-Pro-B Natriuret Pep Total Protein Albumin Triglycerides HDL Cholesterol Arterial Blood Glucose Arterial Blood Ionized Calcium Urine WBC (Auto) Vancomycin Trough Coronavirus (PCR) Crossmatch 0310/11/20 10/11/20 11:01 12:10 12:24 WBC RBC Hgb Hct MCV MCHC RDW Plt Count Lymph % (Auto) [place] % (Auto) [place] # (Auto) Seg Neutrophils % Seg Neuts % (Manual) Lymphocytes % (Manual) Monocytes % (Manual) Nucleated RBC % Seg Neutrophils # Seg Neutrophils # Man Lymphocytes # (Manual) Monocytes # (Manual) PT INR D-Dimer POC ABG pCO2 POC ABG pO2 ABG Hemoglobin ABG Sodium ABG Potassium ABG Chloride ABG Glucose Sodium Potassium Chloride Carbon Dioxide BUN Creatinine Glucose POC Glucose 187 H 199 H Lactic Acid Calcium Ferritin Total Bilirubin Alkaline Phosphatase Lactate Dehydrogenase Troponin T NT-Pro-B Natriuret Pep Total Protein Albumin Triglycerides HDL Cholesterol Arterial Blood Glucose Arterial Blood Ionized Calcium Urine WBC (Auto) Vancomycin Trough 46.1 H Coronavirus (PCR) Crossmatch 10/11/20 10/11/20 10/11/20 12:58 18:47 23:15 WBC RBC Hgb Hct MCV MCHC RDW Plt Count Lymph % (Auto) [place] % (Auto) [place] # (Auto) Seg Neutrophils % Seg Neuts % (Manual) Lymphocytes % (Manual) Monocytes % (Manual) Nucleated RBC % Seg Neutrophils # Seg Neutrophils # Man Lymphocytes # (Manual) Monocytes # (Manual) PT 43.8 H INR 4.56 H D-Dimer POC ABG pCO2 POC ABG pO2 ABG Hemoglobin ABG Sodium ABG Potassium ABG Chloride ABG Glucose Sodium Potassium Chloride Carbon Dioxide BUN Creatinine Glucose POC Glucose 170 H 136 H Lactic Acid Calcium Ferritin Total Bilirubin Alkaline Phosphatase Lactate Dehydrogenase Troponin T NT-Pro-B Natriuret Pep Total Protein Albumin Triglycerides HDL Cholesterol Arterial Blood Glucose Arterial Blood Ionized Calcium Urine WBC (Auto) Vancomycin Trough Coronavirus (PCR) Crossmatch 10/12/20 10/12/20 10/12/20 06:11 07:24 07:24 WBC RBC 3.12 L Hgb 9.0 L Hct 27.4 L MCV MCHC RDW 24.9 H Plt Count Lymph % (Auto) [place] % (Auto) [place] # (Auto) Seg Neutrophils % Seg Neuts % (Manual) Lymphocytes % (Manual) Monocytes % (Manual) Nucleated RBC % Seg Neutrophils # Seg Neutrophils # Man Lymphocytes # (Manual) Monocytes # (Manual) PT INR D-Dimer POC ABG pCO2 POC ABG pO2 ABG Hemoglobin ABG Sodium ABG Potassium ABG Chloride ABG Glucose Sodium 152 H Potassium 3.3 L Chloride 125.2 H Carbon Dioxide 21 L BUN 26 H Creatinine Glucose 113 H POC Glucose 107 H Lactic Acid Calcium 6.9 L Ferritin Total Bilirubin Alkaline Phosphatase Lactate Dehydrogenase Troponin T NT-Pro-B Natriuret Pep Total Protein Albumin Triglycerides HDL Cholesterol Arterial Blood Glucose Arterial Blood Ionized Calcium Urine WBC (Auto) Vancomycin Trough Coronavirus (PCR) Crossmatch 10/12/20 10/12/20 10/12/20 07:24 10:04 10:04 WBC RBC Hgb Hct MCV MCHC RDW Plt Count Lymph % (Auto) [place] % (Auto) [place] # (Auto) Seg Neutrophils % Seg Neuts % (Manual) Lymphocytes % (Manual) Monocytes % (Manual) Nucleated RBC % Seg Neutrophils # Seg Neutrophils # Man Lymphocytes # (Manual) Monocytes # (Manual) PT 34.6 H INR 3.40 H D-Dimer 1061.03 H POC ABG pCO2 POC ABG pO2 ABG Hemoglobin ABG Sodium ABG Potassium ABG Chloride ABG Glucose Sodium Potassium Chloride Carbon Dioxide BUN Creatinine Glucose POC Glucose Lactic Acid Calcium Ferritin 585.8 H Total Bilirubin Alkaline Phosphatase Lactate Dehydrogenase Troponin T NT-Pro-B Natriuret Pep Total Protein Albumin Triglycerides HDL Cholesterol Arterial Blood Glucose Arterial Blood Ionized Calcium Urine WBC (Auto) Vancomycin Trough Coronavirus (PCR) Crossmatch 10/12/20 10/12/20 10/12/20 10:04 16:15 17:17 WBC RBC Hgb Hct MCV MCHC RDW Plt Count Lymph % (Auto) [place] % (Auto) [place] # (Auto) Seg Neutrophils % Seg Neuts % (Manual) Lymphocytes % (Manual) Monocytes % (Manual) Nucleated RBC % Seg Neutrophils # Seg Neutrophils # Man Lymphocytes # (Manual) Monocytes # (Manual) PT INR D-Dimer POC ABG pCO2 POC ABG pO2 ABG Hemoglobin ABG Sodium ABG Potassium ABG Chloride ABG Glucose Sodium Potassium Chloride Carbon Dioxide BUN Creatinine Glucose POC Glucose 176 H Lactic Acid Calcium Ferritin Total Bilirubin Alkaline Phosphatase Lactate Dehydrogenase 364 H Troponin T NT-Pro-B Natriuret Pep Total Protein Albumin Triglycerides HDL Cholesterol Arterial Blood Glucose Arterial Blood Ionized Calcium Urine WBC (Auto) Vancomycin Trough 62.0 H Coronavirus (PCR) Crossmatch 10/13/20 10/13/20 10/13/20 00:12 04:59 04:59 WBC 11.3 H RBC 3.22 L Hgb 9.2 L Hct 28.6 L MCV MCHC RDW 24.1 H Plt Count 135 L Lymph % (Auto) 11.4 L [place] % (Auto) 8.4 H [place] # (Auto) 0.9 H Seg Neutrophils % 80.0 H Seg Neuts % (Manual) Lymphocytes % (Manual) Monocytes % (Manual) Nucleated RBC % Seg Neutrophils # 9.0 H Seg Neutrophils # Man Lymphocytes # (Manual) Monocytes # (Manual) PT INR D-Dimer POC ABG pCO2 POC ABG pO2 ABG Hemoglobin ABG Sodium ABG Potassium ABG Chloride ABG Glucose Sodium 149 H Potassium Chloride 124.6 H Carbon Dioxide 17 L BUN 27 H Creatinine Glucose 129 H POC Glucose 141 H Lactic Acid Calcium 7.2 L Ferritin Total Bilirubin Alkaline Phosphatase Lactate Dehydrogenase Troponin T NT-Pro-B Natriuret Pep Total Protein 6.0 L Albumin 2.7 L Triglycerides HDL Cholesterol Arterial Blood Glucose Arterial Blood Ionized Calcium Urine WBC (Auto) Vancomycin Trough Coronavirus (PCR) Crossmatch 10/13/20 10/13/20 10/13/20 05:03 11:15 17:16 WBC RBC Hgb Hct MCV MCHC RDW Plt Count Lymph % (Auto) [place] % (Auto) [place] # (Auto) Seg Neutrophils % Seg Neuts % (Manual) Lymphocytes % (Manual) Monocytes % (Manual) Nucleated RBC % Seg Neutrophils # Seg Neutrophils # Man Lymphocytes # (Manual) Monocytes # (Manual) PT INR D-Dimer POC ABG pCO2 POC ABG pO2 ABG Hemoglobin ABG Sodium ABG Potassium ABG Chloride ABG Glucose Sodium Potassium Chloride Carbon Dioxide BUN Creatinine Glucose POC Glucose 121 H 119 H 164 H Lactic Acid Calcium Ferritin Total Bilirubin Alkaline Phosphatase Lactate Dehydrogenase Troponin T NT-Pro-B Natriuret Pep Total Protein Albumin Triglycerides HDL Cholesterol Arterial Blood Glucose Arterial Blood Ionized Calcium Urine WBC (Auto) Vancomycin Trough Coronavirus (PCR) Crossmatch 10/13/20 10/14/20 10/14/20 22:51 09:16 09:16 WBC 17.0 H RBC 3.62 L Hgb 10.2 L Hct 32.2 L MCV MCHC RDW 24.3 H Plt Count 138 L Lymph % (Auto) [place] % (Auto) 10.6 H [place] # (Auto) 1.8 H Seg Neutrophils % Seg Neuts % (Manual) Lymphocytes % (Manual) Monocytes % (Manual) Nucleated RBC % Seg Neutrophils # 11.6 H Seg Neutrophils # Man Lymphocytes # (Manual) Monocytes # (Manual) PT INR D-Dimer POC ABG pCO2 POC ABG pO2 ABG Hemoglobin ABG Sodium ABG Potassium ABG Chloride ABG Glucose Sodium 151 H Potassium Chloride 122.7 H Carbon Dioxide 20 L BUN 27 H Creatinine Glucose 119 H POC Glucose 127 H Lactic Acid Calcium 7.9 L Ferritin Total Bilirubin Alkaline Phosphatase Lactate Dehydrogenase Troponin T NT-Pro-B Natriuret Pep Total Protein 5.9 L Albumin 2.6 L Triglycerides HDL Cholesterol Arterial Blood Glucose Arterial Blood Ionized Calcium Urine WBC (Auto) Vancomycin Trough Coronavirus (PCR) Crossmatch 10/14/20 10/14/20 10/14/20 11:19 11:19 16:49 WBC RBC Hgb Hct MCV MCHC RDW Plt Count Lymph % (Auto) [place] % (Auto) [place] # (Auto) Seg Neutrophils % Seg Neuts % (Manual) Lymphocytes % (Manual) Monocytes % (Manual) Nucleated RBC % Seg Neutrophils # Seg Neutrophils # Man Lymphocytes # (Manual) Monocytes # (Manual) PT 24.6 H INR 2.22 H D-Dimer POC ABG pCO2 POC ABG pO2 ABG Hemoglobin ABG Sodium ABG Potassium ABG Chloride ABG Glucose Sodium Potassium Chloride Carbon Dioxide BUN Creatinine Glucose POC Glucose 113 H 194 H Lactic Acid Calcium Ferritin Total Bilirubin Alkaline Phosphatase Lactate Dehydrogenase Troponin T NT-Pro-B Natriuret Pep Total Protein Albumin Triglycerides HDL Cholesterol Arterial Blood Glucose Arterial Blood Ionized Calcium Urine WBC (Auto) Vancomycin Trough Coronavirus (PCR) Crossmatch 10/14/20 10/15/20 10/15/20 22:36 05:59 05:59 WBC 12.0 H RBC 3.15 L Hgb 9.1 L Hct 28.0 L MCV MCHC RDW 24.1 H Plt Count 129 L Lymph % (Auto) [place] % (Auto) 13.2 H [place] # (Auto) 1.6 H Seg Neutrophils % 70.6 H Seg Neuts % (Manual) 82.0 H Lymphocytes % (Manual) 9.0 L Monocytes % (Manual) 8.0 H Nucleated RBC % 1.0 H Seg Neutrophils # 8.5 H Seg Neutrophils # Man 9.8 H Lymphocytes # (Manual) 1.1 L Monocytes # (Manual) 1.0 H PT INR D-Dimer POC ABG pCO2 POC ABG pO2 ABG Hemoglobin ABG Sodium ABG Potassium ABG Chloride ABG Glucose Sodium 152 H Potassium 3.5 L Chloride 123.7 H Carbon Dioxide BUN 28 H Creatinine Glucose 119 H POC Glucose 137 H Lactic Acid Calcium 8.0 L Ferritin Total Bilirubin Alkaline Phosphatase 19 L Lactate Dehydrogenase Troponin T NT-Pro-B Natriuret Pep Total Protein 5.5 L Albumin 2.6 L Triglycerides HDL Cholesterol Arterial Blood Glucose Arterial Blood Ionized Calcium Urine WBC (Auto) Vancomycin Trough Coronavirus (PCR) Crossmatch 10/15/20 10/15/20 10/15/20 05:59 06:08 11:20 WBC RBC Hgb Hct MCV MCHC RDW Plt Count Lymph % (Auto) [place] % (Auto) [place] # (Auto) Seg Neutrophils % Seg Neuts % (Manual) Lymphocytes % (Manual) Monocytes % (Manual) Nucleated RBC % Seg Neutrophils # Seg Neutrophils # Man Lymphocytes # (Manual) Monocytes # (Manual) PT 22.8 H INR 2.00 H D-Dimer POC ABG pCO2 POC ABG pO2 ABG Hemoglobin ABG Sodium ABG Potassium ABG Chloride ABG Glucose Sodium Potassium Chloride Carbon Dioxide BUN Creatinine Glucose POC Glucose 111 H 118 H Lactic Acid Calcium Ferritin Total Bilirubin Alkaline Phosphatase Lactate Dehydrogenase Troponin T NT-Pro-B Natriuret Pep Total Protein Albumin Triglycerides HDL Cholesterol Arterial Blood Glucose Arterial Blood Ionized Calcium Urine WBC (Auto) Vancomycin Trough Coronavirus (PCR) Crossmatch 10/15/20 10/15/20 10/16/20 17:26 22:49 04:00 WBC RBC Hgb Hct MCV MCHC RDW Plt Count Lymph % (Auto) [place] % (Auto) [place] # (Auto) Seg Neutrophils % Seg Neuts % (Manual) Lymphocytes % (Manual) Monocytes % (Manual) Nucleated RBC % Seg Neutrophils # Seg Neutrophils # Man Lymphocytes # (Manual) Monocytes # (Manual) PT INR D-Dimer POC ABG pCO2 POC ABG pO2 ABG Hemoglobin ABG Sodium ABG Potassium ABG Chloride ABG Glucose Sodium Potassium Chloride 114.6 H Carbon Dioxide BUN 28 H Creatinine Glucose 121 H POC Glucose 160 H 131 H Lactic Acid Calcium 7.9 L Ferritin Total Bilirubin Alkaline Phosphatase Lactate Dehydrogenase Troponin T NT-Pro-B Natriuret Pep Total Protein 5.5 L Albumin 2.5 L Triglycerides HDL Cholesterol Arterial Blood Glucose Arterial Blood Ionized Calcium Urine WBC (Auto) Vancomycin Trough Coronavirus (PCR) Crossmatch 10/16/20 10/16/2010/16/21 06:37 10:56 10:56 WBC 12.3 H RBC 3.01 L Hgb 8.8 L Hct 27.6 L MCV MCHC RDW 25.4 H Plt Count 113 L Lymph % (Auto) [place] % (Auto) 13.5 H [place] # (Auto) 1.7 H Seg Neutrophils % Seg Neuts % (Manual) Lymphocytes % (Manual) Monocytes % (Manual) Nucleated RBC % Seg Neutrophils # 8.5 H Seg Neutrophils # Man Lymphocytes # (Manual) Monocytes # (Manual) PT 19.8 H INR 1.68 H D-Dimer POC ABG pCO2 POC ABG pO2 ABG Hemoglobin ABG Sodium ABG Potassium ABG Chloride ABG Glucose Sodium Potassium Chloride Carbon Dioxide BUN Creatinine Glucose POC Glucose 119 H Lactic Acid Calcium Ferritin Total Bilirubin Alkaline Phosphatase Lactate Dehydrogenase Troponin T NT-Pro-B Natriuret Pep Total Protein Albumin Triglycerides HDL Cholesterol Arterial Blood Glucose Arterial Blood Ionized Calcium Urine WBC (Auto) Vancomycin Trough Coronavirus (PCR) Crossmatch 10/16/20 10/16/20 10/16/20 11:07 16:05 21:52 WBC RBC Hgb Hct MCV MCHC RDW Plt Count Lymph % (Auto) [place] % (Auto) [place] # (Auto) Seg Neutrophils % Seg Neuts % (Manual) Lymphocytes % (Manual) Monocytes % (Manual) Nucleated RBC % Seg Neutrophils # Seg Neutrophils # Man Lymphocytes # (Manual) Monocytes # (Manual) PT INR D-Dimer POC ABG pCO2 POC ABG pO2 ABG Hemoglobin ABG Sodium ABG Potassium ABG Chloride ABG Glucose Sodium Potassium Chloride Carbon Dioxide BUN Creatinine Glucose POC Glucose 122 H 185 H 137 H Lactic Acid Calcium Ferritin Total Bilirubin Alkaline Phosphatase Lactate Dehydrogenase Troponin T NT-Pro-B Natriuret Pep Total Protein Albumin Triglycerides HDL Cholesterol Arterial Blood Glucose Arterial Blood Ionized Calcium Urine WBC (Auto) Vancomycin Trough Coronavirus (PCR) Crossmatch 10/17/20 10/17/20 10/17/20 00:41 12:15 14:39 WBC 11.9 H RBC 3.10 L Hgb 8.9 L Hct 27.8 L MCV MCHC RDW 26.4 H Plt Count 94 L Lymph % (Auto) [place] % (Auto) [place] # (Auto) Seg Neutrophils % Seg Neuts % (Manual) 86.0 H Lymphocytes % (Manual) 8.0 L Monocytes % (Manual) Nucleated RBC % Seg Neutrophils # Seg Neutrophils # Man 10.2 H Lymphocytes # (Manual) 1.0 L Monocytes # (Manual) PT INR D-Dimer POC ABG pCO2 POC ABG pO2 ABG Hemoglobin ABG Sodium ABG Potassium ABG Chloride ABG Glucose Sodium Potassium Chloride Carbon Dioxide BUN Creatinine Glucose POC Glucose 130 H 161 H Lactic Acid Calcium Ferritin Total Bilirubin Alkaline Phosphatase Lactate Dehydrogenase Troponin T NT-Pro-B Natriuret Pep Total Protein Albumin Triglycerides HDL Cholesterol Arterial Blood Glucose Arterial Blood Ionized Calcium Urine WBC (Auto) Vancomycin Trough Coronavirus (PCR) Crossmatch 10/17/20 10/17/20 10/17/20 14:39 14:39 16:54 WBC RBC Hgb Hct MCV MCHC RDW Plt Count Lymph % (Auto) [place] % (Auto) [place] # (Auto) Seg Neutrophils % Seg Neuts % (Manual) Lymphocytes % (Manual) Monocytes % (Manual) Nucleated RBC % Seg Neutrophils # Seg Neutrophils # Man Lymphocytes # (Manual) Monocytes # (Manual) PT 15.4 H INR 1.22 H D-Dimer POC ABG pCO2 POC ABG pO2 ABG Hemoglobin ABG Sodium ABG Potassium ABG Chloride ABG Glucose Sodium Potassium Chloride 109.6 H Carbon Dioxide BUN 30 H Creatinine Glucose 185 H POC Glucose 161 H Lactic Acid Calcium 7.4 L Ferritin Total Bilirubin Alkaline Phosphatase Lactate Dehydrogenase Troponin T NT-Pro-B Natriuret Pep Total Protein 5.2 L Albumin 2.7 L Triglycerides HDL Cholesterol Arterial Blood Glucose Arterial Blood Ionized Calcium Urine WBC (Auto) Vancomycin Trough Coronavirus (PCR) Crossmatch 10/18/20 08:14 WBC RBC Hgb Hct MCV MCHC RDW Plt Count Lymph % (Auto) [place] % (Auto) [place] # (Auto) Seg Neutrophils % Seg Neuts % (Manual) Lymphocytes % (Manual) Monocytes % (Manual) Nucleated RBC % Seg Neutrophils # Seg Neutrophils # Man Lymphocytes # (Manual) Monocytes # (Manual) PT INR D-Dimer POC ABG pCO2 POC ABG pO2 ABG Hemoglobin ABG Sodium ABG Potassium ABG Chloride ABG Glucose Sodium Potassium Chloride Carbon Dioxide BUN Creatinine Glucose POC Glucose 107 H Lactic Acid Calcium Ferritin Total Bilirubin Alkaline Phosphatase Lactate Dehydrogenase Troponin T NT-Pro-B Natriuret Pep Total Protein Albumin Triglycerides HDL Cholesterol Arterial Blood Glucose Arterial Blood Ionized Calcium Urine WBC (Auto) Vancomycin Trough Coronavirus (PCR) Crossmatch Allied health notes reviewed: nursing
[2020-10-18 14:54] LABS: Hematocrit 26.8 % (35.5-45.6); Hemoglobin 8.7 gm/dl (11.8-15.2); Mean Corpuscular HGB Conc 33 % (32-34); Mean Corpuscular Volume 90 fl (84-94); Platelet Count 115 K/mm3 (140-440); Red Blood Count 2.97 M/mm3 (3.65-5.03)
[2020-10-18 14:56] LABS: Red Cell Distribution Width 26.1 % (13.2-15.2)
[2020-10-18 15:08] LABS: INR 1.23 (0.87-1.13)
[2020-10-18 15:21] LABS: Alanine Aminotransferase 19 units/L (7-56); Albumin 2.6 g/dL (3.9-5); BUN/Creatinine Ratio 33; Blood Urea Nitrogen 30 mg/dL (9-20); Calcium 7.8 mg/dL (8.4-10.2); Hemolysis Index 23
[2020-10-18 18:30] LABS: Total Cells Counted 100
[2020-10-18 18:31] LABS: Anisocytosis 3+; Macrocytosis Rare; Ovalocytes Rare
[2020-10-18 18:32] LABS: Large Platelets Rare; Tear Drop Cells Few
[2020-10-18 18:33] LABS: Hypochromasia Rare
[2020-10-18 18:34] LABS: Bite Cells Rare; Burr Cells Rare; Platelet Estimate Consistent w Auto
--- NOTE | 2020-10-18 19:57 | XRay Report ---
XR abdomen 1V ap INDICATION: feeding tube placement. COMPARISON: 10/15/2020. FINDINGS/IMPRESSION: Enteric tube is difficult to visualize due to body habitus. However, it appears to be terminating in the proximal stomach with side-port beneath the GE junction. Signer Name: Venancio Kumar MD Signed: 10/18/2020 7:52 PM Workstation Name: [id number]
[2020-10-19] MEDS: INSULIN GLARGINE 100 UNITS/ML SUB-Q SCH (05:01)
[2020-10-19] MEDS: INSULIN REGULAR, HUMAN 100 UNITS/1 ML SUB-Q SCH ×2 (06:49→13:30)
[2020-10-19 08:07] LABS: Hematocrit 31.1 % (35.5-45.6); Mean Corpuscular HGB Conc 32 % (32-34); Mean Corpuscular Volume 91 fl (84-94); Platelet Count 115 K/mm3 (140-440); Red Blood Count 3.42 M/mm3 (3.65-5.03)
[2020-10-19 08:08] LABS: Red Cell Distribution Width 26.5 % (13.2-15.2)
[2020-10-19 08:20] LABS: INR 1.16 (0.87-1.13)
[2020-10-19 08:31] LABS: BUN/Creatinine Ratio 31; Blood Urea Nitrogen 34 mg/dL (9-20); Calcium 8.4 mg/dL (8.4-10.2); Hemolysis Index 322
[2020-10-19 09:00] LABS: Total Cells Counted 100
[2020-10-19 09:01] LABS: Anisocytosis 3+; Large Platelets Rare; Platelet Estimate Consistent w Auto; Poikilocytosis 1+; Tear Drop Cells Few
--- NOTE | 2020-10-19 10:04 | Cat Scan Report ---
CT ABDOMEN AND PELVIS WITHOUT CONTRAST INDICATION / CLINICAL INFORMATION: evaluate anatomy for feeding tube placement. Abdominal pain. TECHNIQUE: Axial CT images were obtained through the abdomen and pelvis without IV contrast. All CT scans at this location are performed using CT dose reduction for ALARA by means of automated exposure control. COMPARISON: None available. FINDINGS: LOWER CHEST: Coronary artery calcification. LIVER: No significant abnormality. GALLBLADDER: Surgically absent. BILE DUCTS: No significant abnormality. PANCREAS: No significant abnormality. SPLEEN: No significant abnormality. ADRENALS: No significant abnormality. RIGHT KIDNEY / URETER: Mild distention of the collecting system. LEFT KIDNEY / URETER: Mild distention of the collecting system. Upper pole cyst measuring 2.5 cm. STOMACH / SMALL BOWEL: No significant small bowel abnormality. The stomach is normal in location. The re is no interposed bowel. COLON: No significant abnormality. APPENDIX: Not visualized. PERITONEUM: No free fluid. No free air. No fluid collection. LYMPH NODES: No significant abnormality. VASCULAR STRUCTURES: Scattered atherosclerotic calcification of the aorta and its branches. URINARY BLADDER: Moderately distended containing mild air. REPRODUCTIVE ORGANS: No significant abnormality. ADDITIONAL FINDINGS: Mildly complex fat-containing ventral hernia just to the right of the midline ab ove the umbilicus. SKELETAL SYSTEM: No significant abnormality. IMPRESSION: 1. No abnormal gastric anatomy. 2. Fat-containing ventral hernias. 3. Distention of the bladder with resultant mild distention of the ureters and upper collecting syste ms. Air is presumably postinstrumentation. Signer Name: Hira Ballard MD Signed: 10/19/2020 9:59 AM Workstation Name: [id number]
[2020-10-19] MEDS ORDERED: SODIUM POLYSTYRENE 15 GM/60 ML ORAL LIQD PO ONE (10:11)
[2020-10-19] MEDS: LANSOPRAZOLE 30 MG SOLUTAB FEEDTUBE SCH (10:33)
[2020-10-19] MEDS: TAMSULOSIN 0.4 MG CAP PO SCH (10:33)
[2020-10-19] MEDS: ZINC SULFATE 220 MG CAP PO SCH (10:33)
[2020-10-19] MEDS: ASCORBIC ACID 500 MG TAB PO SCH (10:34)
--- NOTE | 2020-10-19 10:43 | Event Note ---
Date: 10/19/20 Pt chart reviewed. Discussed with ALEXI Kumar regarding discharge planning. Per notes, [facility] authorization has been completed and patient is accepted to facility. Per CM, facility is aware patient does not have PEG yet and state they have the ability to perform procedure once patient is there. CT scan A/P report and imaging reviewed - no gastric abnormality. Will defer discharge to 1' team. If medically stable, ok to dc from surgery standpoint as G tube is not urgent. Pt currently with [facility]GT for TF.
--- NOTE | 2020-10-19 11:01 | Progress Note ---
Assessment and Plan Patient sleeping. Sleeping on 2 litres O2. O2 saturation 98%. No acute respiratory distress. BIPAP stand by in the room. On stimulation, patient open his eyes but not following commands.Patient afebrile. No Leukocytosis. Chest xray 10/10/20 reported No acute cardiopulmonary disease. Patient is on Albuterol inhaler 2 puffs po qid. Prevacid and vancomycin. - Patient Problems (1) Acute respiratory failure Current Visit: Yes Status: Acute Plan to address problem: O2 2 litres via nasal canula. BIPAP stand by in the room. Albuterol inhaler 2 puffs po qid. Prevacid. (2) Sepsis Current Visit: Yes Status: Acute Qualifiers: Acute renal failure type: with acute tubular necrosis Plan to address problem: Patient presently on vancomycin. (3) UTI (urinary tract infection) Current Visit: Yes Status: Acute Qualifiers: Encounter type: initial encounter Plan to address problem: Patient was on cefepime. (4) Acute encephalopathy Current Visit: Yes Status: Acute Plan to address problem: Management as per primary care. (5) Acute kidney injury ([place]) with acute tubular necrosis ([place]) Current Visit: Yes Status: Acute Plan to address problem: Management as per nephrology. Subjective Date of service: 10/19/20 Principal diagnosis: Neurogenic Dyphagia Interval history: Patient sleeping. Sleeping on 2 litres O2. O2 saturation 98%. No acute respiratory distress. BIPAP stand by in the room. On stimulation, patient open his eyes but not following commands.Patient afebrile. No Leukocytosis. Chest xray 10/10/20 reported No acute cardiopulmonary disease. Patient is on Albuterol inhaler 2 puffs po qid. Prevacid and vancomycin. Objective Vital Signs - 12hr 10/19/20 10/19/20 04:37 08:30 Temperature 98.6 F Pulse Rate 93 H Respiratory 20 Rate Blood Pressure 161/74 O2 Sat by Pulse 98 98 Oximetry Constitutional: no acute distress, asleep Eyes: non-icteric ENT: oropharynx dry, other (NGT in nares, dry crusted oral mucosa) Neck: supple, no lymphadenopathy, no JVD, other (+ large neck circumference) Effort: mildly labored Ascultation: Bilateral: diminished breath sounds, rhonchi Percussion: Bilateral: not dull Cardiovascular: regular rate and rhythm, other (S1,S2) Gastrointestinal: normoactive bowel sounds, soft, non-tender, other (distended) Integumentary: rash Extremities: no cyanosis, pulses normal, no ischemia or petechiae, edema, other (Severe stasis dermatitis.) Neurologic: pupils equal and round, other (encephalopathic , not obeying commands) Psychiatric: other (unable to assess re: AMS) CBC and BMP: 10/19/20 07:12 10/19/20 07:12 ABG, PT/INR, D-dimer: ABG ABG pH 7.415 (7.320-7.450) 10/09/20 14:25 POC ABG pCO2 27.3 mmHg (32.0-48.0) L 10/09/20 14:25 POC ABG pO2 125.5 mmHg (83-108) H 10/09/20 14:25 POC ABG HCO3 17.1 10/09/20 14:25 ABG O2 Saturation 98.8 (0-100) 10/09/20 14:25 PT/INR, D-dimer PT 14.8 Sec. (12.2-14.9) 10/19/20 07:12 INR 1.16 (0.87-1.13) H 10/19/20 07:12 D-Dimer 1061.03 ng/mlDDU (0-234) H 10/12/20 10:04 Abnormal lab findings: Abnormal Labs 10/07/20 10/07/20 10/07/20 16:38 16:38 16:38 WBC 14.1 H RBC 3.03 L Hgb 8.7 L Hct 28.7 L MCV 95 H MCHC 30 L RDW 27.1 H Plt Count Lymph % (Auto) [place] % (Auto) [place] # (Auto) Seg Neutrophils % Seg Neuts % (Manual) Lymphocytes % (Manual) Monocytes % (Manual) 9.0 H Nucleated RBC % Seg Neutrophils # Seg Neutrophils # Man 9.3 H Lymphocytes # (Manual) Monocytes # (Manual) 1.3 H PT INR D-Dimer POC ABG pCO2 POC ABG pO2 ABG Hemoglobin ABG Sodium ABG Potassium ABG Chloride ABG Glucose Sodium 158 H Potassium 3.4 L Chloride 122.7 H Carbon Dioxide BUN 30 H Creatinine 1.7 H Glucose 144 H POC Glucose Lactic Acid 2.50 H* Calcium 8.3 L Ferritin Total Bilirubin 1.40 H Alkaline Phosphatase Lactate Dehydrogenase Troponin T NT-Pro-B Natriuret Pep Total Protein Albumin 3.0 L Triglycerides HDL Cholesterol Arterial Blood Glucose Arterial Blood Ionized Calcium Urine WBC (Auto) Vancomycin Trough Coronavirus (PCR) Crossmatch 10/07/20 10/07/20 10/07/20 16:38 16:38 18:17 WBC RBC Hgb Hct MCV MCHC RDW Plt Count Lymph % (Auto) [place] % (Auto) [place] # (Auto) Seg Neutrophils % Seg Neuts % (Manual) Lymphocytes % (Manual) Monocytes % (Manual) Nucleated RBC % Seg Neutrophils # Seg Neutrophils # Man Lymphocytes # (Manual) Monocytes # (Manual) PT 32.7 H INR 3.17 H D-Dimer POC ABG pCO2 POC ABG pO2 ABG Hemoglobin ABG Sodium ABG Potassium ABG Chloride ABG Glucose Sodium Potassium Chloride Carbon Dioxide BUN Creatinine Glucose POC Glucose Lactic Acid Calcium Ferritin Total Bilirubin Alkaline Phosphatase Lactate Dehydrogenase Troponin T 0.087 H NT-Pro-B Natriuret Pep 2155 H Total Protein Albumin Triglycerides 193 H HDL Cholesterol 20 L Arterial Blood Glucose Arterial Blood Ionized Calcium Urine WBC (Auto) Vancomycin Trough Coronavirus (PCR) Crossmatch 10/07/20 10/08/20 10/08/20 Unknown 02:53 02:53 WBC 13.4 H RBC 2.79 L Hgb 8.1 L Hct 26.2 L MCV MCHC 31 L RDW 27.7 H Plt Count Lymph % (Auto) [place] % (Auto) [place] # (Auto) 0.9 H Seg Neutrophils % 70.6 H Seg Neuts % (Manual) Lymphocytes % (Manual) Monocytes % (Manual) Nucleated RBC % Seg Neutrophils # 9.4 H Seg Neutrophils # Man Lymphocytes # (Manual) Monocytes # (Manual) PT INR D-Dimer POC ABG pCO2 POC ABG pO2 ABG Hemoglobin ABG Sodium ABG Potassium ABG Chloride ABG Glucose Sodium 159 H Potassium 2.7 L* D Chloride 127.9 H Carbon Dioxide 20 L BUN 27 H Creatinine 1.5 H Glucose 156 H POC Glucose Lactic Acid Calcium 7.1 L Ferritin Total Bilirubin Alkaline Phosphatase Lactate Dehydrogenase Troponin T NT-Pro-B Natriuret Pep Total Protein Albumin Triglycerides HDL Cholesterol Arterial Blood Glucose Arterial Blood Ionized Calcium Urine WBC (Auto) 111.0 H Vancomycin Trough Coronavirus (PCR) Crossmatch 10/08/20 10/08/20 10/08/20 09:34 14:57 17:29 WBC RBC Hgb Hct MCV MCHC RDW Plt Count Lymph % (Auto) [place] % (Auto) [place] # (Auto) Seg Neutrophils % Seg Neuts % (Manual) Lymphocytes % (Manual) Monocytes % (Manual) Nucleated RBC % Seg Neutrophils # Seg Neutrophils # Man Lymphocytes # (Manual) Monocytes # (Manual) PT INR D-Dimer POC ABG pCO2 POC ABG pO2 ABG Hemoglobin 7.9 L ABG Sodium 162.9 H ABG Potassium 2.6 L ABG Chloride 131.0 H ABG Glucose 146 H Sodium Potassium Chloride Carbon Dioxide BUN Creatinine Glucose POC Glucose 128 H Lactic Acid Calcium Ferritin Total Bilirubin Alkaline Phosphatase Lactate Dehydrogenase Troponin T NT-Pro-B Natriuret Pep Total Protein Albumin Triglycerides HDL Cholesterol Arterial Blood Glucose 146 H Arterial Blood Ionized Calcium Urine WBC (Auto) Vancomycin Trough Coronavirus (PCR) Positive A Crossmatch 10/09/20 10/09/20 10/09/20 05:14 05:14 11:48 WBC 13.9 H RBC 2.52 L Hgb 7.3 L Hct 23.7 L MCV MCHC 31 L RDW 28.1 H Plt Count Lymph % (Auto) [place] % (Auto) [place] # (Auto) Seg Neutrophils % Seg Neuts % (Manual) 91.0 H Lymphocytes % (Manual) 5.0 L Monocytes % (Manual) Nucleated RBC % Seg Neutrophils # Seg Neutrophils # Man 12.6 H Lymphocytes # (Manual) 0.7 L Monocytes # (Manual) PT INR D-Dimer POC ABG pCO2 POC ABG pO2 ABG Hemoglobin ABG Sodium ABG Potassium ABG Chloride ABG Glucose Sodium 162 H* Potassium 3.3 L D Chloride 131.6 H Carbon Dioxide 18 L BUN 25 H Creatinine Glucose 164 H POC Glucose 126 H Lactic Acid Calcium 7.4 L Ferritin Total Bilirubin Alkaline Phosphatase Lactate Dehydrogenase Troponin T NT-Pro-B Natriuret Pep Total Protein Albumin Triglycerides HDL Cholesterol Arterial Blood Glucose Arterial Blood Ionized Calcium Urine WBC (Auto) Vancomycin Trough Coronavirus (PCR) Crossmatch 10/09/20 10/09/20 10/09/20 14:25 17:55 19:30 WBC RBC Hgb Hct MCV MCHC RDW Plt Count Lymph % (Auto) [place] % (Auto) [place] # (Auto) Seg Neutrophils % Seg Neuts % (Manual) Lymphocytes % (Manual) Monocytes % (Manual) Nucleated RBC % Seg Neutrophils # Seg Neutrophils # Man Lymphocytes # (Manual) Monocytes # (Manual) PT INR D-Dimer 922.08 H POC ABG pCO2 27.3 L POC ABG pO2 125.5 H ABG Hemoglobin 7.0 L ABG Sodium 158.0 H ABG Potassium 3.0 L ABG Chloride 132.0 H ABG Glucose 172 H Sodium Potassium Chloride Carbon Dioxide BUN Creatinine Glucose POC Glucose 179 H Lactic Acid Calcium Ferritin Total Bilirubin Alkaline Phosphatase Lactate Dehydrogenase Troponin T NT-Pro-B Natriuret Pep Total Protein Albumin Triglycerides HDL Cholesterol Arterial Blood Glucose 172 H Arterial Blood Ionized Calcium 4.2 L Urine WBC (Auto) Vancomycin Trough Coronavirus (PCR) Crossmatch 10/09/20 10/09/20 10/10/20 19:30 23:22 05:18 WBC RBC Hgb Hct MCV MCHC RDW Plt Count Lymph % (Auto) [place] % (Auto) [place] # (Auto) Seg Neutrophils % Seg Neuts % (Manual) Lymphocytes % (Manual) Monocytes % (Manual) Nucleated RBC % Seg Neutrophils # Seg Neutrophils # Man Lymphocytes # (Manual) Monocytes # (Manual) PT INR D-Dimer POC ABG pCO2 POC ABG pO2 ABG Hemoglobin ABG Sodium ABG Potassium ABG Chloride ABG Glucose Sodium Potassium Chloride Carbon Dioxide BUN Creatinine Glucose POC Glucose 192 H 168 H Lactic Acid Calcium Ferritin 579.8 H Total Bilirubin Alkaline Phosphatase Lactate Dehydrogenase Troponin T NT-Pro-B Natriuret Pep Total Protein Albumin Triglycerides HDL Cholesterol Arterial Blood Glucose Arterial Blood Ionized Calcium Urine WBC (Auto) Vancomycin Trough Coronavirus (PCR) Crossmatch 10/10/20 10/10/20 10/10/20 06:07 06:07 11:43 WBC 13.5 H RBC 2.39 L Hgb 6.8 L Hct 22.1 L MCV MCHC 31 L RDW 27.2 H Plt Count Lymph % (Auto) [place] % (Auto) [place] # (Auto) Seg Neutrophils % Seg Neuts % (Manual) 89.0 H Lymphocytes % (Manual) 10.0 L Monocytes % (Manual) Nucleated RBC % 2.0 H Seg Neutrophils # Seg Neutrophils # Man 12.0 H Lymphocytes # (Manual) Monocytes # (Manual) PT INR D-Dimer POC ABG pCO2 POC ABG pO2 ABG Hemoglobin ABG Sodium ABG Potassium ABG Chloride ABG Glucose Sodium 158 H Potassium 3.2 L Chloride 129.3 H Carbon Dioxide 19 L BUN 21 H Creatinine Glucose 200 H POC Glucose 155 H Lactic Acid Calcium 6.7 L Ferritin Total Bilirubin Alkaline Phosphatase Lactate Dehydrogenase Troponin T NT-Pro-B Natriuret Pep Total Protein Albumin Triglycerides HDL Cholesterol Arterial Blood Glucose Arterial Blood Ionized Calcium Urine WBC (Auto) Vancomycin Trough Coronavirus (PCR) Crossmatch 10/10/20 10/10/20 10/10/20 12:00 17:19 23:44 WBC RBC Hgb Hct MCV MCHC RDW Plt Count Lymph % (Auto) [place] % (Auto) [place] # (Auto) Seg Neutrophils % Seg Neuts % (Manual) Lymphocytes % (Manual) Monocytes % (Manual) Nucleated RBC % Seg Neutrophils # Seg Neutrophils # Man Lymphocytes # (Manual) Monocytes # (Manual) PT INR D-Dimer POC ABG pCO2 POC ABG pO2 ABG Hemoglobin ABG Sodium ABG Potassium ABG Chloride ABG Glucose Sodium Potassium Chloride Carbon Dioxide BUN Creatinine Glucose POC Glucose 185 H 219 H Lactic Acid Calcium Ferritin Total Bilirubin Alkaline Phosphatase Lactate Dehydrogenase Troponin T NT-Pro-B Natriuret Pep Total Protein Albumin Triglycerides HDL Cholesterol Arterial Blood Glucose Arterial Blood Ionized Calcium Urine WBC (Auto) Vancomycin Trough Coronavirus (PCR) Crossmatch See Detail 10/11/20 10/11/20 10/11/20 04:00 04:00 05:11 WBC 11.5 H RBC 3.37 L Hgb 9.6 L Hct 30.0 L D MCV MCHC RDW 23.9 H Plt Count Lymph % (Auto) [place] % (Auto) [place] # (Auto) Seg Neutrophils % 81.5 H Seg Neuts % (Manual) Lymphocytes % (Manual) Monocytes % (Manual) Nucleated RBC % Seg Neutrophils # 9.4 H Seg Neutrophils # Man Lymphocytes # (Manual) Monocytes # (Manual) PT INR D-Dimer POC ABG pCO2 POC ABG pO2 ABG Hemoglobin ABG Sodium ABG Potassium ABG Chloride ABG Glucose Sodium 151 H Potassium 3.0 L Chloride 122.8 H Carbon Dioxide 19 L BUN 23 H Creatinine Glucose 238 H POC Glucose 191 H Lactic Acid Calcium 7.0 L Ferritin Total Bilirubin Alkaline Phosphatase Lactate Dehydrogenase Troponin T NT-Pro-B Natriuret Pep Total Protein Albumin Triglycerides HDL Cholesterol Arterial Blood Glucose Arterial Blood Ionized Calcium Urine WBC (Auto) Vancomycin Trough Coronavirus (PCR) Crossmatch 0310/11/20 10/11/20 11:01 12:10 12:24 WBC RBC Hgb Hct MCV MCHC RDW Plt Count Lymph % (Auto) [place] % (Auto) [place] # (Auto) Seg Neutrophils % Seg Neuts % (Manual) Lymphocytes % (Manual) Monocytes % (Manual) Nucleated RBC % Seg Neutrophils # Seg Neutrophils # Man Lymphocytes # (Manual) Monocytes # (Manual) PT INR D-Dimer POC ABG pCO2 POC ABG pO2 ABG Hemoglobin ABG Sodium ABG Potassium ABG Chloride ABG Glucose Sodium Potassium Chloride Carbon Dioxide BUN Creatinine Glucose POC Glucose 187 H 199 H Lactic Acid Calcium Ferritin Total Bilirubin Alkaline Phosphatase Lactate Dehydrogenase Troponin T NT-Pro-B Natriuret Pep Total Protein Albumin Triglycerides HDL Cholesterol Arterial Blood Glucose Arterial Blood Ionized Calcium Urine WBC (Auto) Vancomycin Trough 46.1 H Coronavirus (PCR) Crossmatch 10/11/20 10/11/20 10/11/20 12:58 18:47 23:15 WBC RBC Hgb Hct MCV MCHC RDW Plt Count Lymph % (Auto) [place] % (Auto) [place] # (Auto) Seg Neutrophils % Seg Neuts % (Manual) Lymphocytes % (Manual) Monocytes % (Manual) Nucleated RBC % Seg Neutrophils # Seg Neutrophils # Man Lymphocytes # (Manual) Monocytes # (Manual) PT 43.8 H INR 4.56 H D-Dimer POC ABG pCO2 POC ABG pO2 ABG Hemoglobin ABG Sodium ABG Potassium ABG Chloride ABG Glucose Sodium Potassium Chloride Carbon Dioxide BUN Creatinine Glucose POC Glucose 170 H 136 H Lactic Acid Calcium Ferritin Total Bilirubin Alkaline Phosphatase Lactate Dehydrogenase Troponin T NT-Pro-B Natriuret Pep Total Protein Albumin Triglycerides HDL Cholesterol Arterial Blood Glucose Arterial Blood Ionized Calcium Urine WBC (Auto) Vancomycin Trough Coronavirus (PCR) Crossmatch 10/12/20 10/12/20 10/12/20 06:11 07:24 07:24 WBC RBC 3.12 L Hgb 9.0 L Hct 27.4 L MCV MCHC RDW 24.9 H Plt Count Lymph % (Auto) [place] % (Auto) [place] # (Auto) Seg Neutrophils % Seg Neuts % (Manual) Lymphocytes % (Manual) Monocytes % (Manual) Nucleated RBC % Seg Neutrophils # Seg Neutrophils # Man Lymphocytes # (Manual) Monocytes # (Manual) PT INR D-Dimer POC ABG pCO2 POC ABG pO2 ABG Hemoglobin ABG Sodium ABG Potassium ABG Chloride ABG Glucose Sodium 152 H Potassium 3.3 L Chloride 125.2 H Carbon Dioxide 21 L BUN 26 H Creatinine Glucose 113 H POC Glucose 107 H Lactic Acid Calcium 6.9 L Ferritin Total Bilirubin Alkaline Phosphatase Lactate Dehydrogenase Troponin T NT-Pro-B Natriuret Pep Total Protein Albumin Triglycerides HDL Cholesterol Arterial Blood Glucose Arterial Blood Ionized Calcium Urine WBC (Auto) Vancomycin Trough Coronavirus (PCR) Crossmatch 10/12/20 10/12/20 10/12/20 07:24 10:04 10:04 WBC RBC Hgb Hct MCV MCHC RDW Plt Count Lymph % (Auto) [place] % (Auto) [place] # (Auto) Seg Neutrophils % Seg Neuts % (Manual) Lymphocytes % (Manual) Monocytes % (Manual) Nucleated RBC % Seg Neutrophils # Seg Neutrophils # Man Lymphocytes # (Manual) Monocytes # (Manual) PT 34.6 H INR 3.40 H D-Dimer 1061.03 H POC ABG pCO2 POC ABG pO2 ABG Hemoglobin ABG Sodium ABG Potassium ABG Chloride ABG Glucose Sodium Potassium Chloride Carbon Dioxide BUN Creatinine Glucose POC Glucose Lactic Acid Calcium Ferritin 585.8 H Total Bilirubin Alkaline Phosphatase Lactate Dehydrogenase Troponin T NT-Pro-B Natriuret Pep Total Protein Albumin Triglycerides HDL Cholesterol Arterial Blood Glucose Arterial Blood Ionized Calcium Urine WBC (Auto) Vancomycin Trough Coronavirus (PCR) Crossmatch 10/12/20 10/12/20 10/12/20 10:04 16:15 17:17 WBC RBC Hgb Hct MCV MCHC RDW Plt Count Lymph % (Auto) [place] % (Auto) [place] # (Auto) Seg Neutrophils % Seg Neuts % (Manual) Lymphocytes % (Manual) Monocytes % (Manual) Nucleated RBC % Seg Neutrophils # Seg Neutrophils # Man Lymphocytes # (Manual) Monocytes # (Manual) PT INR D-Dimer POC ABG pCO2 POC ABG pO2 ABG Hemoglobin ABG Sodium ABG Potassium ABG Chloride ABG Glucose Sodium Potassium Chloride Carbon Dioxide BUN Creatinine Glucose POC Glucose 176 H Lactic Acid Calcium Ferritin Total Bilirubin Alkaline Phosphatase Lactate Dehydrogenase 364 H Troponin T NT-Pro-B Natriuret Pep Total Protein Albumin Triglycerides HDL Cholesterol Arterial Blood Glucose Arterial Blood Ionized Calcium Urine WBC (Auto) Vancomycin Trough 62.0 H Coronavirus (PCR) Crossmatch 10/13/20 10/13/20 10/13/20 00:12 04:59 04:59 WBC 11.3 H RBC 3.22 L Hgb 9.2 L Hct 28.6 L MCV MCHC RDW 24.1 H Plt Count 135 L Lymph % (Auto) 11.4 L [place] % (Auto) 8.4 H [place] # (Auto) 0.9 H Seg Neutrophils % 80.0 H Seg Neuts % (Manual) Lymphocytes % (Manual) Monocytes % (Manual) Nucleated RBC % Seg Neutrophils # 9.0 H Seg Neutrophils # Man Lymphocytes # (Manual) Monocytes # (Manual) PT INR D-Dimer POC ABG pCO2 POC ABG pO2 ABG Hemoglobin ABG Sodium ABG Potassium ABG Chloride ABG Glucose Sodium 149 H Potassium Chloride 124.6 H Carbon Dioxide 17 L BUN 27 H Creatinine Glucose 129 H POC Glucose 141 H Lactic Acid Calcium 7.2 L Ferritin Total Bilirubin Alkaline Phosphatase Lactate Dehydrogenase Troponin T NT-Pro-B Natriuret Pep Total Protein 6.0 L Albumin 2.7 L Triglycerides HDL Cholesterol Arterial Blood Glucose Arterial Blood Ionized Calcium Urine WBC (Auto) Vancomycin Trough Coronavirus (PCR) Crossmatch 10/13/20 10/13/20 10/13/20 05:03 11:15 17:16 WBC RBC Hgb Hct MCV MCHC RDW Plt Count Lymph % (Auto) [place] % (Auto) [place] # (Auto) Seg Neutrophils % Seg Neuts % (Manual) Lymphocytes % (Manual) Monocytes % (Manual) Nucleated RBC % Seg Neutrophils # Seg Neutrophils # Man Lymphocytes # (Manual) Monocytes # (Manual) PT INR D-Dimer POC ABG pCO2 POC ABG pO2 ABG Hemoglobin ABG Sodium ABG Potassium ABG Chloride ABG Glucose Sodium Potassium Chloride Carbon Dioxide BUN Creatinine Glucose POC Glucose 121 H 119 H 164 H Lactic Acid Calcium Ferritin Total Bilirubin Alkaline Phosphatase Lactate Dehydrogenase Troponin T NT-Pro-B Natriuret Pep Total Protein Albumin Triglycerides HDL Cholesterol Arterial Blood Glucose Arterial Blood Ionized Calcium Urine WBC (Auto) Vancomycin Trough Coronavirus (PCR) Crossmatch 10/13/20 10/14/20 10/14/20 22:51 09:16 09:16 WBC 17.0 H RBC 3.62 L Hgb 10.2 L Hct 32.2 L MCV MCHC RDW 24.3 H Plt Count 138 L Lymph % (Auto) [place] % (Auto) 10.6 H [place] # (Auto) 1.8 H Seg Neutrophils % Seg Neuts % (Manual) Lymphocytes % (Manual) Monocytes % (Manual) Nucleated RBC % Seg Neutrophils # 11.6 H Seg Neutrophils # Man Lymphocytes # (Manual) Monocytes # (Manual) PT INR D-Dimer POC ABG pCO2 POC ABG pO2 ABG Hemoglobin ABG Sodium ABG Potassium ABG Chloride ABG Glucose Sodium 151 H Potassium Chloride 122.7 H Carbon Dioxide 20 L BUN 27 H Creatinine Glucose 119 H POC Glucose 127 H Lactic Acid Calcium 7.9 L Ferritin Total Bilirubin Alkaline Phosphatase Lactate Dehydrogenase Troponin T NT-Pro-B Natriuret Pep Total Protein 5.9 L Albumin 2.6 L Triglycerides HDL Cholesterol Arterial Blood Glucose Arterial Blood Ionized Calcium Urine WBC (Auto) Vancomycin Trough Coronavirus (PCR) Crossmatch 10/14/20 10/14/20 10/14/20 11:19 11:19 16:49 WBC RBC Hgb Hct MCV MCHC RDW Plt Count Lymph % (Auto) [place] % (Auto) [place] # (Auto) Seg Neutrophils % Seg Neuts % (Manual) Lymphocytes % (Manual) Monocytes % (Manual) Nucleated RBC % Seg Neutrophils # Seg Neutrophils # Man Lymphocytes # (Manual) Monocytes # (Manual) PT 24.6 H INR 2.22 H D-Dimer POC ABG pCO2 POC ABG pO2 ABG Hemoglobin ABG Sodium ABG Potassium ABG Chloride ABG Glucose Sodium Potassium Chloride Carbon Dioxide BUN Creatinine Glucose POC Glucose 113 H 194 H Lactic Acid Calcium Ferritin Total Bilirubin Alkaline Phosphatase Lactate Dehydrogenase Troponin T NT-Pro-B Natriuret Pep Total Protein Albumin Triglycerides HDL Cholesterol Arterial Blood Glucose Arterial Blood Ionized Calcium Urine WBC (Auto) Vancomycin Trough Coronavirus (PCR) Crossmatch 10/14/20 10/15/20 10/15/20 22:36 05:59 05:59 WBC 12.0 H RBC 3.15 L Hgb 9.1 L Hct 28.0 L MCV MCHC RDW 24.1 H Plt Count 129 L Lymph % (Auto) [place] % (Auto) 13.2 H [place] # (Auto) 1.6 H Seg Neutrophils % 70.6 H Seg Neuts % (Manual) 82.0 H Lymphocytes % (Manual) 9.0 L Monocytes % (Manual) 8.0 H Nucleated RBC % 1.0 H Seg Neutrophils # 8.5 H Seg Neutrophils # Man 9.8 H Lymphocytes # (Manual) 1.1 L Monocytes # (Manual) 1.0 H PT INR D-Dimer POC ABG pCO2 POC ABG pO2 ABG Hemoglobin ABG Sodium ABG Potassium ABG Chloride ABG Glucose Sodium 152 H Potassium 3.5 L Chloride 123.7 H Carbon Dioxide BUN 28 H Creatinine Glucose 119 H POC Glucose 137 H Lactic Acid Calcium 8.0 L Ferritin Total Bilirubin Alkaline Phosphatase 19 L Lactate Dehydrogenase Troponin T NT-Pro-B Natriuret Pep Total Protein 5.5 L Albumin 2.6 L Triglycerides HDL Cholesterol Arterial Blood Glucose Arterial Blood Ionized Calcium Urine WBC (Auto) Vancomycin Trough Coronavirus (PCR) Crossmatch 10/15/20 10/15/20 10/15/20 05:59 06:08 11:20 WBC RBC Hgb Hct MCV MCHC RDW Plt Count Lymph % (Auto) [place] % (Auto) [place] # (Auto) Seg Neutrophils % Seg Neuts % (Manual) Lymphocytes % (Manual) Monocytes % (Manual) Nucleated RBC % Seg Neutrophils # Seg Neutrophils # Man Lymphocytes # (Manual) Monocytes # (Manual) PT 22.8 H INR 2.00 H D-Dimer POC ABG pCO2 POC ABG pO2 ABG Hemoglobin ABG Sodium ABG Potassium ABG Chloride ABG Glucose Sodium Potassium Chloride Carbon Dioxide BUN Creatinine Glucose POC Glucose 111 H 118 H Lactic Acid Calcium Ferritin Total Bilirubin Alkaline Phosphatase Lactate Dehydrogenase Troponin T NT-Pro-B Natriuret Pep Total Protein Albumin Triglycerides HDL Cholesterol Arterial Blood Glucose Arterial Blood Ionized Calcium Urine WBC (Auto) Vancomycin Trough Coronavirus (PCR) Crossmatch 10/15/20 10/15/20 10/16/20 17:26 22:49 04:00 WBC RBC Hgb Hct MCV MCHC RDW Plt Count Lymph % (Auto) [place] % (Auto) [place] # (Auto) Seg Neutrophils % Seg Neuts % (Manual) Lymphocytes % (Manual) Monocytes % (Manual) Nucleated RBC % Seg Neutrophils # Seg Neutrophils # Man Lymphocytes # (Manual) Monocytes # (Manual) PT INR D-Dimer POC ABG pCO2 POC ABG pO2 ABG Hemoglobin ABG Sodium ABG Potassium ABG Chloride ABG Glucose Sodium Potassium Chloride 114.6 H Carbon Dioxide BUN 28 H Creatinine Glucose 121 H POC Glucose 160 H 131 H Lactic Acid Calcium 7.9 L Ferritin Total Bilirubin Alkaline Phosphatase Lactate Dehydrogenase Troponin T NT-Pro-B Natriuret Pep Total Protein 5.5 L Albumin 2.5 L Triglycerides HDL Cholesterol Arterial Blood Glucose Arterial Blood Ionized Calcium Urine WBC (Auto) Vancomycin Trough Coronavirus (PCR) Crossmatch 10/16/20 10/16/2010/16/21 06:37 10:56 10:56 WBC 12.3 H RBC 3.01 L Hgb 8.8 L Hct 27.6 L MCV MCHC RDW 25.4 H Plt Count 113 L Lymph % (Auto) [place] % (Auto) 13.5 H [place] # (Auto) 1.7 H Seg Neutrophils % Seg Neuts % (Manual) Lymphocytes % (Manual) Monocytes % (Manual) Nucleated RBC % Seg Neutrophils # 8.5 H Seg Neutrophils # Man Lymphocytes # (Manual) Monocytes # (Manual) PT 19.8 H INR 1.68 H D-Dimer POC ABG pCO2 POC ABG pO2 ABG Hemoglobin ABG Sodium ABG Potassium ABG Chloride ABG Glucose Sodium Potassium Chloride Carbon Dioxide BUN Creatinine Glucose POC Glucose 119 H Lactic Acid Calcium Ferritin Total Bilirubin Alkaline Phosphatase Lactate Dehydrogenase Troponin T NT-Pro-B Natriuret Pep Total Protein Albumin Triglycerides HDL Cholesterol Arterial Blood Glucose Arterial Blood Ionized Calcium Urine WBC (Auto) Vancomycin Trough Coronavirus (PCR) Crossmatch 10/16/20 10/16/20 10/16/20 11:07 16:05 21:52 WBC RBC Hgb Hct MCV MCHC RDW Plt Count Lymph % (Auto) [place] % (Auto) [place] # (Auto) Seg Neutrophils % Seg Neuts % (Manual) Lymphocytes % (Manual) Monocytes % (Manual) Nucleated RBC % Seg Neutrophils # Seg Neutrophils # Man Lymphocytes # (Manual) Monocytes # (Manual) PT INR D-Dimer POC ABG pCO2 POC ABG pO2 ABG Hemoglobin ABG Sodium ABG Potassium ABG Chloride ABG Glucose Sodium Potassium Chloride Carbon Dioxide BUN Creatinine Glucose POC Glucose 122 H 185 H 137 H Lactic Acid Calcium Ferritin Total Bilirubin Alkaline Phosphatase Lactate Dehydrogenase Troponin T NT-Pro-B Natriuret Pep Total Protein Albumin Triglycerides HDL Cholesterol Arterial Blood Glucose Arterial Blood Ionized Calcium Urine WBC (Auto) Vancomycin Trough Coronavirus (PCR) Crossmatch 10/17/20 10/17/20 10/17/20 00:41 12:15 14:39 WBC 11.9 H RBC 3.10 L Hgb 8.9 L Hct 27.8 L MCV MCHC RDW 26.4 H Plt Count 94 L Lymph % (Auto) [place] % (Auto) [place] # (Auto) Seg Neutrophils % Seg Neuts % (Manual) 86.0 H Lymphocytes % (Manual) 8.0 L Monocytes % (Manual) Nucleated RBC % Seg Neutrophils # Seg Neutrophils # Man 10.2 H Lymphocytes # (Manual) 1.0 L Monocytes # (Manual) PT INR D-Dimer POC ABG pCO2 POC ABG pO2 ABG Hemoglobin ABG Sodium ABG Potassium ABG Chloride ABG Glucose Sodium Potassium Chloride Carbon Dioxide BUN Creatinine Glucose POC Glucose 130 H 161 H Lactic Acid Calcium Ferritin Total Bilirubin Alkaline Phosphatase Lactate Dehydrogenase Troponin T NT-Pro-B Natriuret Pep Total Protein Albumin Triglycerides HDL Cholesterol Arterial Blood Glucose Arterial Blood Ionized Calcium Urine WBC (Auto) Vancomycin Trough Coronavirus (PCR) Crossmatch 10/17/20 10/17/20 10/17/20 14:39 14:39 16:54 WBC RBC Hgb Hct MCV MCHC RDW Plt Count Lymph % (Auto) [place] % (Auto) [place] # (Auto) Seg Neutrophils % Seg Neuts % (Manual) Lymphocytes % (Manual) Monocytes % (Manual) Nucleated RBC % Seg Neutrophils # Seg Neutrophils # Man Lymphocytes # (Manual) Monocytes # (Manual) PT 15.4 H INR 1.22 H D-Dimer POC ABG pCO2 POC ABG pO2 ABG Hemoglobin ABG Sodium ABG Potassium ABG Chloride ABG Glucose Sodium Potassium Chloride 109.6 H Carbon Dioxide BUN 30 H Creatinine Glucose 185 H POC Glucose 161 H Lactic Acid Calcium 7.4 L Ferritin Total Bilirubin Alkaline Phosphatase Lactate Dehydrogenase Troponin T NT-Pro-B Natriuret Pep Total Protein 5.2 L Albumin 2.7 L Triglycerides HDL Cholesterol Arterial Blood Glucose Arterial Blood Ionized Calcium Urine WBC (Auto) Vancomycin Trough Coronavirus (PCR) Crossmatch 10/18/20 10/18/20 10/18/20 08:14 14:23 14:23 WBC RBC 2.97 L Hgb 8.7 L Hct 26.8 L MCV MCHC RDW 26.1 H Plt Count 115 L Lymph % (Auto) [place] % (Auto) [place] # (Auto) Seg Neutrophils % Seg Neuts % (Manual) 71.0 H Lymphocytes % (Manual) Monocytes % (Manual) 13.0 H Nucleated RBC % Seg Neutrophils # Seg Neutrophils # Man Lymphocytes # (Manual) Monocytes # (Manual) 1.4 H PT INR D-Dimer POC ABG pCO2 POC ABG pO2 ABG Hemoglobin ABG Sodium ABG Potassium ABG Chloride ABG Glucose Sodium Potassium Chloride 109.9 H Carbon Dioxide BUN 30 H Creatinine Glucose POC Glucose 107 H Lactic Acid Calcium 7.8 L Ferritin Total Bilirubin Alkaline Phosphatase Lactate Dehydrogenase Troponin T NT-Pro-B Natriuret Pep Total Protein 5.4 L Albumin 2.6 L Triglycerides HDL Cholesterol Arterial Blood Glucose Arterial Blood Ionized Calcium Urine WBC (Auto) Vancomycin Trough Coronavirus (PCR) Crossmatch 10/18/20 10/19/20 10/19/20 14:23 06:28 07:12 WBC 13.4 H RBC 3.42 L Hgb 10.0 L Hct 31.1 L MCV MCHC RDW 26.5 H Plt Count 115 L Lymph % (Auto) [place] % (Auto) [place] # (Auto) Seg Neutrophils % Seg Neuts % (Manual) 84.0 H Lymphocytes % (Manual) 6.0 L Monocytes % (Manual) 9.0 H Nucleated RBC % Seg Neutrophils # Seg Neutrophils # Man 11.3 H Lymphocytes # (Manual) 0.8 L Monocytes # (Manual) 1.2 H PT 15.5 H INR 1.23 H D-Dimer POC ABG pCO2 POC ABG pO2 ABG Hemoglobin ABG Sodium ABG Potassium ABG Chloride ABG Glucose Sodium Potassium Chloride Carbon Dioxide BUN Creatinine Glucose POC Glucose 117 H Lactic Acid Calcium Ferritin Total Bilirubin Alkaline Phosphatase Lactate Dehydrogenase Troponin T NT-Pro-B Natriuret Pep Total Protein Albumin Triglycerides HDL Cholesterol Arterial Blood Glucose Arterial Blood Ionized Calcium Urine WBC (Auto) Vancomycin Trough Coronavirus (PCR) Crossmatch 10/19/20 10/19/20 07:12 07:12 WBC RBC Hgb Hct MCV MCHC RDW Plt Count Lymph % (Auto) [place] % (Auto) [place] # (Auto) Seg Neutrophils % Seg Neuts % (Manual) Lymphocytes % (Manual) Monocytes % (Manual) Nucleated RBC % Seg Neutrophils # Seg Neutrophils # Man Lymphocytes # (Manual) Monocytes # (Manual) PT INR 1.16 H D-Dimer POC ABG pCO2 POC ABG pO2 ABG Hemoglobin ABG Sodium ABG Potassium ABG Chloride ABG Glucose Sodium Potassium 5.9 H D Chloride 109.8 H Carbon Dioxide 21 L BUN 34 H Creatinine Glucose 117 H POC Glucose Lactic Acid Calcium Ferritin Total Bilirubin Alkaline Phosphatase Lactate Dehydrogenase Troponin T NT-Pro-B Natriuret Pep Total Protein Albumin Triglycerides HDL Cholesterol Arterial Blood Glucose Arterial Blood Ionized Calcium Urine WBC (Auto) Vancomycin Trough Coronavirus (PCR) Crossmatch Allied health notes reviewed: nursing
--- NOTE | 2020-10-19 11:49 | Event Note ---
Date: 10/19/20 Given that the patient can be transferred without gastrostomy tube, plan on transferring patient to SNF to avoid delay in care. At SNF, gastrostomy tube can be placed. The window is adequate for a percutaneous placed gastrostomy tube.
[2020-10-19 13:28] VITALS: BP 105/72
[2020-10-19] MEDS: VANCOMYCIN 2,000 MG in SODIUM CHLORIDE 0.9% 500 ML 500 ML IV SCH (13:33)
--- NOTE | 2020-10-19 13:34 | Discharge Summary ---
Providers - Providers Date of Admission: 10/07/20 19:06 Date of discharge: 10/19/20 Attending physician: DILMA LOPEZ 10/08/20 07:35 Consult to Wound/ET Nurse [CONS] Routine Reason For Exam: Buttock, groin area 10/08/20 07:48 Consult to Physician [CONS] Routine Comment: Consulting Provider: SHAKIR SCHOFIELD Physician Instructions: Reason For Exam: critical care 10/08/20 10:46 Consult to Physician [CONS] Routine Comment: Consulting Provider: LEONIDES CLINE Physician Instructions: Reason For Exam: sepsis 10/09/20 13:27 Consult to PICC Line RN [CONS] Urgent Reason For Exam: Central IV access. Type Line:: PICC 10/10/20 07:59 Consult to Dietitian/Nutrition [CONS] Routine Physician Instructions: Reason For Exam: Reason for Consult: Write/Manage Tube Feeding 10/11/20 12:20 Consult to Case Management [CONS] Stat Services Needed at Discharge: Other Notified:: operations architect Additional Physician Instructions: [facility] ([facility]) [address] [place] [address] OUTPATIENT PARENTERAL ANTIBIOTIC THERAPY (OPAT) ORDERS Diagnoses: MRSA bacteremia and extensive sacral decubitus Administer: vancomycin 1750 mg IV q 12 hour for 4 weeks till 11/07/2020. Keep Vancomycin trough 10-20 mcg/mL Remove PICC line after last dose unless otherwise instructed. Line: Maintain IV access with weekly dressing changes and locks per protocol. Labs: Every Sunday CBC, AST, ALT, Creatinine, CRP, vancomcyin trough. Please fax results to [phone] and call [phone] for critical lab results. Juliet Leyva MD Infectious Diseases Clinical Medical Assistant [facility] ([facility]) O: [phone] F: [phone] 10/12/20 07:42 Physical Therapy Evaluation and Treat [CONS] Routine Comment: Reason For Exam: Ambulate and treat 10/12/20 13:21 Speech Therapy Evaluation and Treat [CONS] Routine Reason For Exam: Swallow evaluation 10/13/20 10:39 Occupational Therapy Evaluate and Treat [CONS] Routine Comment: Reason For Exam: ADL 10/14/20 07:28 Consult to Physician [CONS] Routine Comment: Consulting Provider: TAL HOLLIS Physician Instructions: Reason For Exam: PEG placement 10/18/20 12:23 Consult to Physician [CONS] Routine Comment: Consulting Provider: VICTORINA BEARD Physician Instructions: Reason For Exam: PEG tube 10/19/20 07:39 Consult to Physician [CONS] Routine Comment: Consulting Provider: CATHERINE STROUD Physician Instructions: Reason For Exam: CT guided G tube placement Primary care physician: CHAKA FUNEZ MD Hospitalization Condition: Fair Hospital course: his is 64-year-old male from overdose long-term facility with oh at bedtime, cerebral sclerosis, chronic respiratory failure, CVA, anemia of chronic disease, GERD, HTN, DVT, vascular dementia who presented to the emergency department on 10/07 for increased confusion and weakness over the past 2 days with worsening symptoms over the past 1 day. Upon arrival to the emergency department patient was found to have urinary tract infection complicated by sep sis, metabolic acidosis, acute kidney injury and toxic metabolic encephalopathy. Patient was admitted to the hospital service to IMCU on the sepsis protocol. Infectious disease and CCM were consulted. 10/08: Continue IV antibiotics and IV fluid hydration. Consult ID for further evaluation. 10/09: Continue antibiotic per ID recommendations. Continue dexamethasone to complete 10 days. Continue to trend inflammatory markers. Sodium noted to be 162. We will start D5W at 75 cc an hour. Continue 250 cc free water every 4 hours. Follow-up BMP in a.m. Also, replete potassium. 10/10: Sodium improved to 158 today. Continue D5W IV fluids and free water every 4 hours.. Replete potassium. Hemoglobin 6.8. We will type and cross and transfuse 2 units PRBCs. Continue dexamethasone to complete 10 days. Continue to trend inflammatory markers. 10/11: We will obtain TTE to rule out vegetation as patient grew MRSA in his blood cultures, patient still has leukocytosis and worsening INR. Patient has hypokalemia today along with improving hypernatremia, hyperchloremia, metabolic acidosis, hypocalcemia and leukocytosis. 10/12. TTE pending. INR improved. His sodium is slowly trending down. His mental status is still impaired. 10/13. Sodium is better. Still lethargic. He is getting feeds via NGT. If mental status fails to improve, he will need PEG placement. 10/14. Awaiting a.m. labs. I believe patient will benefit from PEG placement and plan for discharge back to nursing facility. GI has been consulted for this. 10/15. GI plans to have PEG placement on Sunday. Patients mental status still not improved. Remains on tube feeding. Labs reviewed -platelet counts dropping. INR 2.0 today. Coumadin still on hold. Continue to hold anticoagulation as he has PEG placement planned on Sunday. Resume anticoagulation afterwards. Continue to monitor platelets at this time. Sodium level is 152 and is on hypotonic solution and free water flushes via the NG tube. Switch-D5 1/ NS to D5 water 10/16. Remains on D5W. Plan for PEG on Sunday. Vitals stable 10/17. Awaiting AM labs. Will dc D5W for now as labs not available. NPO after MN for PEG placement tomorrow as per GI. Discussed with patients spouse today. 10/18. Tentative plan for PEG placement today. No acute overnight events 10/19. PEG could not be placed by GI due to his size As per facility, they are able to place PEG placement over there even with is size. Insurance has approved his transfer to LTAC. Currently he is on vancomycin for MRSA bacteremia and last dose is on 11/07. Her coumadin was held due to anticipated procedure. Needs to have a bridge with lovenox if procedure will not hold in 1-2 days. Continue to monitor platelets. He will continue free water flushes via NG tube to prevent recurrence of hypernatremia. He will continue wound dressing of sacral decubitus. He will be discharged to LTAC when transportation has been set up. Disposition: [id number]/TX-70 ANOTHER TYPE [facility] Final Discharge Diagnosis (Prints w/discharge instructions): COVID -19 Pneumonia. Septic shock. Hypernatremia. Acute metabolic encephalopathy - Discharge Diagnoses (1) Pneumonia due to COVID-19 virus Status: Acute (2) Acute encephalopathy Status: Acute (3) Septic shock Status: Acute (4) Toxic metabolic encephalopathy Status: Acute (5) Bacteremia due to methicillin resistant Staphylococcus aureus Status: Acute (6) Sacral decubitus ulcer Status: Acute Core Measure Documentation - Palliative Care Palliative Care/ Comfort Measures: Not Applicable - Core Measures Any of the following diagnoses?: none Exam - Physical Exam Narrative exam: VITAL SIGNS: Reviewed. GENERAL: Awake HEAD: No signs of head trauma. EYES: Pupils are equal. Extraocular motions intact. MOUTH: Oropharynx is normal. NECK: No adenopathy, no JVD. CHEST: Chest with diminished breath sounds bilaterally. No wheezes, rales, or rhonchi. CARDIAC: normal S1 and S2, without murmurs, gallops, or rubs. ABDOMEN: Soft, non tender and non distended. No rebound or guarding, and no masses palpated. Bowel Sounds normal. MUSCULOSKELETAL: No edema NEUROLOGIC EXAM: Awake SKIN: No obvious lesions - Constitutional Vitals: Temp Pulse Resp BP Pulse Ox 97.9 F 83 24 105/72 100 10/19/20 13:25 10/19/20 13:25 10/19/20 13:25 10/19/20 13:25 10/19/20 13:25 Plan Diet: other (Tube feeds @70cc/hr) Additional Instructions: Continue medications. Continue Vancomycin for MRSA bacteremia- Last dose on 11/07/2020. Continue to monitor labs. Needs PEG placement. Coumadin is on hold for PEG placement. Resume after PEG placement. Follow up with: CHAKA FUNEZ MD [Primary Care Provider] - 3-5 Days Prescriptions: Cholecalciferol Vit D3 50,000 unit PO 1XW #3 Ferrous Sulfate Oral Liq 300 Mg/5 Ml 5 ml PO DAILY #500 ml Zinc Sulfate 220 mg PO BID #60 capsule
[2020-10-19 14:34] LABS: BUN/Creatinine Ratio 29; Blood Urea Nitrogen 38 mg/dL (9-20); Calcium 8.1 mg/dL (8.4-10.2); Hemolysis Index 36
== END 2020-10-19 19:15 | DRG 871 ==
LOC: ED 15:34 → 3A 19:06 → IMCU 19:39 → CC1 23:08 → 3A 10-11 16:41
PROVIDERS: ADMIT Internal Medicine; ATTEND Internal Medicine
PROC: 4A033R1 Measurement of Arterial Saturation, Peripheral, Percutaneous Approach (ICD-10-PCS; principal; 2020-10-08)
PROC: 5A09457 Assistance with Respiratory Ventilation, 24-96 Consecutive Hours, Continuous Positive Airway Pressure (ICD-10-PCS; 2020-10-08)
PROC: 05HY33Z Insertion of Infusion Device into Upper Vein, Percutaneous Approach (ICD-10-PCS; 2020-10-09)
PROC: B543ZZA Ultrasonography of Right Jugular Veins, Guidance (ICD-10-PCS; 2020-10-09)
PROC: 30233N1 Transfusion of Nonautologous Red Blood Cells into Peripheral Vein, Percutaneous Approach (ICD-10-PCS; 2020-10-10)
PROC: 0DJ08ZZ Inspection of Upper Intestinal Tract, Via Natural or Artificial Opening Endoscopic (ICD-10-PCS; 2020-10-18)
DX: A41.89 Other specified sepsis (principal); G92 Toxic encephalopathy; J96.01 Acute respiratory failure with hypoxia; N17.0 Acute kidney failure with tubular necrosis; U07.1 COVID-19; J12.82 Pneumonia due to coronavirus disease 2019; R65.21 Severe sepsis with septic shock; N39.0 Urinary tract infection, site not specified; E66.2 Morbid (severe) obesity with alveolar hypoventilation; Z68.43 Body mass index [BMI] 50.0-59.9, adult; E87.0 Hyperosmolality and hypernatremia; I10 Essential (primary) hypertension; F01.50 Vascular dementia, unspecified severity, without behavioral disturbance, psychotic disturbance, mood disturbance, and anxiety; I67.2 Cerebral atherosclerosis; D63.8 Anemia in other chronic diseases classified elsewhere; E87.6 Hypokalemia; L89.159 Pressure ulcer of sacral region, unspecified stage; K21.9 Gastro-esophageal reflux disease without esophagitis; N40.0 Benign prostatic hyperplasia without lower urinary tract symptoms; Z71.3 Dietary counseling and surveillance; Z86.73 Personal history of transient ischemic attack (TIA), and cerebral infarction without residual deficits; Z83.3 Family history of diabetes mellitus; Z82.49 Family history of ischemic heart disease and other diseases of the circulatory system
CPT/HCPCS: 36415; 36600; 71045; 74018; 74176; 80048; 80053; 80061; 80202; 81001; 82140; 82728; 82803; 82805; 82962; 83615; 83880; 84145; 84484; 85007; 85025; 85027; 85379; 85610; 86140; 86850; 86900; 86901; 86920; 87040; 87076; 87186; 93005; 93306; 94640; 94660; 94760; 96361; 96365; 96375; G0378; A9270-GY; J0692; J1100; J1815; J2250; J2704; J3010; J3370; J3480; J7030; J7040; J7070; P9016; U0003